=== PATIENT | female | born 1955 | race Caucasian/White ===

== ENCOUNTER → 2017-04-01 | Outpatient (CLI) | payer MEDICAID ==
[~2017-04-01] MED LIST: ASPIRIN 81MG TA81 MG PO; BENADRYL25 M1 PO; BISOPROLOL 5MG T5 MG PO; CIPRO 500MG TA500 MG PO; CLARITIN10 MG PO; DIAZEPAM10 M1 PO; HYDROCODONE1 TABLET PO; LISINOPRIL 10MG10 MG PO; LORTAB 5/500 501 TAB PO; MEDROL 4MG. DOSE4 MG PO; NEXIUM40 MG PO; PREDNISONE 20MG20 MG PO; PREMARIN0.625 MG PO; PROMETHAZINE HC25 M1 PO; SEPTRA DS 800 M1 TAB PO; SIMVASTATIN20 MG PO; STERAPRED DS10 MG PO; SYNTHROID0.112 MG PO; VICODIN 5/500 T1 TAB PO; VITAMIN D31000 IU PO; ZITHROMAX 250M250 MG PO; ZITHROMAX Z PA250 MG PO; ZITHROMAX Z-PA250 M1 PO
[2017-04-01 15:59] LABS: AMPHETAMINES/METAMPHETAMINES NEGATIVE ng/mL (<1000)
== END ==
LOC: LAB 13:58
PROVIDERS: Nurse Practitioner Family
DX: F41.9 Anxiety disorder, unspecified (principal); Z79.899 Other long term (current) drug therapy
CPT/HCPCS: G0480

== ENCOUNTER 2017-07-04 14:44 | Emergency (ER) | payer MEDICAID ==
[~2017-07-04] VITALS: Ht 167.6 cm; Wt 77.1 kg
[~2017-07-04 14:44] MED LIST changes: +LOW DOSE ASPIRI81 MG PO; +MONTELUKAST SOD10 MG PO; +OMEPRAZOLE40 MG PO
[2017-07-04] MEDS ORDERED: BACTRIM DS 8001 TA1 PO (14:59)
--- NOTE | 2017-07-04 15:01 | Emergency Room Report ---
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 N Clinical Suspician of Infection? N Mental Status: 1 - Regular (Normal Baseline) Sepsis Risk:Low Sepsis RiskN Have you (or family members/close friends) recently traveled outside the [place]? N If Yes, where/when: Have you had exposure to infectious disease within the past month? N TB? Other? Specify: I AGREE WITH THE ABOVE HISTORY. SHE APPLIED PRESSURE AND THE BLEEDING STOPED, DENIES FB REMAINING. Source patient, RN notes reviewed, family Exam Limitations no limitations ALLERGIES Coded Allergies: cephalexin (From KEFLEX) (04/02/16) morphine (04/02/16) oxytetracycline (From TERRAMYCIN) (04/02/16) Home Medications Reported Medications LISINOPRIL (Lisinopril) 10 MG PO DAILY ASPIRIN (Aspirin) 81 MG PO DAILY Simvastatin 20 MG PO QHS Levothyroxine Sodium (Synthroid 0.112MG) 0.112 MG PO DAILY Conjugated Estrogens (Premarin) 0.625 MG PO DAILY BISOPROLOL FUMARATE (Bisoprolol 5MG) 5 MG PO DAILY #30 TAB Diazepam 10 MG PO BIDP PRN ANXIETY #60 TAB CHOLECALCIFEROL (VITAMIN D3) (Vitamin D) 1,000 IUNITS PO DAILY Montelukast Sodium 10 MG PO DAILY #30 Omeprazole (Omeprazole 40MG) 40 MG PO DAILY #30 Aspirin (Aspirin EC) 81 MG PO DAILY #30 History Medical History General CAD? No Angina: No MA: No Hypertension? Yes Hyperlipidemia? Yes CHF? No DVT? No PE? No COPD? Yes Asthma? Yes Anemia? No GERD? Yes Gastric ulcers? No GI Bleed? No Hernia? No Thyroid Problems? Yes Hypothyroidism? Yes CVA? No Seizures? No Diabetes? No Insulin Dependent: No Insulin Pump: No Home FSBS? No Renal Insuffiency? No End Stage Renal Disease? No UTI? Yes Stones? No BPH? No GB Disease: Yes Nephritic Syndrome? No Asplenia? No Hepatitis? Yes Sickle Cell Disease? No Arthritis? No Migraines? No Cataracts? No Glaucoma? No MRSA? No HIV? No TB? No Anxiety? Yes Depression? Yes Cancer? No More? No Immunization Hx DT/Tetanus Unknown Flu NEVER Pneumonia NEVER Surgical Hx Previous Surgery?Y GALLBLADDER Tubal Ligation HYSTERECTOMY THYROIDECTOMY LARYNGOSCOPY CARDIAC CATH Family History Family Hx Diabetes Yes CAD No Hypertension No Hyperlipidemia No Cancer Yes TB Yes Social History Smoking Hx Smoker: Current Every Day Smoker Tobacco: Yes Type Cigarettes Alcohol Alcohol: No Review of Systems All Other Systems Reviewed and Negative Constitutional no symptoms reported Eyes no symptoms reported ENT no symptoms reported. Respiratory no symptoms reported Cardiovascular no symptoms reported Gastrointestinal no symptoms reported Genitourinary no symptoms reported. Musculoskeletal no symptoms reported Skin see HPI (SUPERFICIAL LACERATION) Psychiatric/Neurological no symptoms reported Physical Exam Vital Signs Vital Signs Date Time Temp Pulse Resp B/P Pulse O2 O2 Flow FiO2 Ox Delivery Rate 07/04 1452 98.2 71 16 151/70 96 General Appearance normal appearance, WD/WN Eye Exam - bilateral eye normal exam, bilateral eye PERRL, bilateral eye EOMI Neck normal inspection, non-tender, supple, full range of motion Respiratory Status Yes: trachea midline, chest symmetrical, non tender chest. No: respiratory distress. Lung Sounds bilateral: normal breath sounds, lungs clear. 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 No Procedures Laceration/Wound Repair Laceration/Wound Repair Risks/benefits discussed with pt/guardian? Yes Tetanus status up to date Wound Location finger(s) Wound Length (cm) 1 Wound's Depth, Shape superficial, linear Wound Explored no FB identified Risk of retained FB explained to pt/guardian? Yes Wound Prep Other Wound Debrided none Wound Repaired With Steri-strips, Dermabond Layer Closure No Sterile Dressing Applied Yes Splint Applied Yes Sling Applied No Departure Departure Time of Disposition 1457 Disposition DC Home or Self Care(routine) Clinical Impression Primary Impression: Laceration of finger without foreign body without damage to nail Condition STABLE Referrals Rayshawn Matthew (Family) Additional Instructions Under sterile technique I Steri-Strips and Dermabond with good approximation. Keep dry and clean Wound check in 2 days Bactrim DS by mouth twice a day Discharge Counseling Counseled pt/family regarding diagnosis, medications/RX, home care, follow up needs Prescriptions Current Visit Scripts SULFAMETHOXAZOLE W/TRIMETHOPRI (Bactrim Ds Tab) 1 TABLET PO BID #14 TAB ED Critical Care Critical Care No If Critical Care minutes are documented, the time involved in the performance of seperately reportable procedures was not counted toward critical care time documented. I directly delivered medical care to this critically ill and/or injured patient. Timely evaluation and treatment was necessary to address the significant organ system(s) dysfunction present in this patient. at 1500
[2017-07-04 15:06] VITALS: BP 151/70
--- OUTSIDE RECORDS SUMMARY | 2017-07-05 18:00 | External Medical Summary Rpt ---
Author Author , ERASTO MAURER Address Unknown Phone [email or web address] Team Providers Care Supervisor Lead Refinery Name Role Phone ALFARIS MOH, ALFARIS Unavailable Unavailable [facility] Unavailable Unavailable [facility], [facility] ANJUR-KAPALI OMAR, Unavailable Unavailable ANJUR-KAPALI OMAR ANJUR-KAPALI OMAR, Unavailable Unavailable ANJUR-KAPALI OMAR ARNOLD, ARNOLD Unavailable Unavailable ARNOLD, ARNOLD Unavailable Unavailable ARNOLD SUJATA, ARNOLD Unavailable Unavailable SUJATA ARNOLD USJATA, ARNOLD Unavailable Unavailable SUJATA SABINO, ARY W, Unavailable Unavailable VIANCAOLD, ARY W MARIA LUZ BRAGA Unavailable Unavailable BESSON MAX, BESSON Unavailable Unavailable MAX [facility], [facility] ESTEVEZ ALL, ESTEVEZ ALL Unavailable Unavailable MICHELLE BURRIS, Unavailable Unavailable MICHELLE BURRIS GORDON JUANCARLOS, GORDON Unavailable Unavailable JUANCARLOS GORDON JUANCARLOS, GORDON Unavailable Unavailable JUANCARLOS [facility] Unavailable Unavailable [facility], [facility] Unavailable Unavailable [facility], [facility] Unavailable Unavailable LAB, [facility] & Unavailable Unavailable ASTHMA P, [facility] & Unavailable Unavailable ASTHMA P, [facility] Unavailable Unavailable [facility], [facility] JOAO SHEPHERD Unavailable Unavailable JOAO MERRITT, Unavailable Unavailable JOAO MERRITT JOAO MERRITT, Unavailable Unavailable JOAO MERRITT JESSICA SHEPHERD, Unavailable Unavailable OWEN SHEPHERDLAS SHILPI OG, Unavailable Unavailable DOBBINSDEMETRIO DOBBINS OG, Unavailable Unavailable DOBBINS OG [facility] Un[facility] [place], [facility] FALLUJI DORIAN, FALLUJI Unavailable Unavailable DORIAN FALLUJI DORIAN, FALLUJI Unavailable Unavailable DORIAN BRITO, BRITO Unavailable Unavailable JR MICHELLE CORONADO, Unavailable Unavailable CLIFF, ELZ ARIELA LIOR, ARIELA Unavailable Unavailable LIOR ARIELA LIOR, ARIELA Unavailable Unavailable LIOR [facility], Unavailable Unavailable [facility] KRAIG HOLLINGSWORTH MD, Unavailable Unavailable BONNY DAVID MD, Unavailable Unavailable BONNY DUMONT ARNOLD H, Unavailable Unavailable SABINO HOLLIS RITA R, Unavailable Unavailable ANNABEL HOLLIS ROSARIO DENISE, ROSARIO DENISE Unavailable Unavailable HARPEL, HARPEL Unavailable Unavailable HARPEL ASHTYN, HARPEL Unavailable Unavailable ASHTYN HARPEL ASHTYN, HARPEL Unavailable Unavailable ASHTYN HARPEL, KRAIG R, Unavailable Unavailable HARPEL, KRAIG R TI FERNÁNDEZ, Unavailable Unavailable TI FERNÁNDEZ [facility] Un[facility] Unavailable INC, [facility] Unavailable Unavailable H[facility]PITAL P, [facility] P VOGEL, VOGEL Unavailable Unavailable VOGEL, VOGEL Unavailable Unavailable CHAPARRO VOGEL A, Unavailable Unavailable [facility]APARRO VOGEL A [facility] Unavailable Unavailable PCC, [facility], Unavailable Unavailable [facility] HOBDOMENIC MAR, HOBEN MAR Unavailable Unavailable AJ RALPH, Unavailable Unavailable AJ RALPH TOBIAS, BS COLLADO Unavailable Unavailable EDWARDS TRA, EDWARDS TRA Unavailable Unavailable EDWARDS TRA, EDWARDS TRA Unavailable Unavailable LIRA, LIRA Unavailable Unavailable [facility], [facility] Un[facility] Un[facility], [facility] Un[facility], [facility] Unavailable Unavailable HOLDING, [facility] Unavailable Unavailable HOLDINGS, [facility] Unavailable Unavailable [facility]INGS, [facility] Unavailable Unavailable [facility], [facility] Unavailable Unavailable HOLDINGS, [facility], Unavailable Unavailable [facility] [employer] [facility] ALBARADO, ALBARADO Unavailable Unavailable ALBARADO LESLY, ALBARADO Unavailable Unavailable LESLY ALBARADO LESLY, ALBARADO Unavailable Unavailable RONDA MCCALL, Unavailable Unavailable RONDA ALBARADO JR DWI, KAM Unavailable Unavailable JR DWI [facility] Unavailable Unavailable CENTER, [facility] SAMARA AMANDEEP, SAMARA AMANDEEP Unavailable Unavailable JUSTIN SUJATA, JUSTIN Unavailable Unavailable SUJATA [facility], Unavailable Unavailable [facility], Unavailable Unavailable [facility] Unavailable Unavailable SERVICES, [facility] JACK ODALIS, Unavailable Unavailable JACK ODALIS JACK ODALIS, Unavailable Unavailable JACK ODALIS JOE JAM, Unavailable Unavailable DIAZJAK GUTIERREZ JR SHERYL, Unavailable Unavailable MCANGIEMIE SHERYL MATT JOHANSEN KATHERINE Unavailable Unavailable F, MATT JOHANSEN, KATHERINE F GRAHAM GONZALEZ P, Unavailable Unavailable GRAHAM GONZALEZ P [facility] Unavailable Unavailable LOYD TI, LOYD Unavailable Unavailable TI MITCHELL MAT, Unavailable Unavailable MITCHELL MAT MITCHELL MAT, Unavailable Unavailable MITCHELL MAT MITCHELL, AMANDA A, Unavailable Unavailable MITCHELL, AMANDA A FUNG MARICEL, Unavailable Unavailable FUNG MARICEL FUNG MARICEL, Unavailable Unavailable FUNG VICKIE CANNON, Unavailable Unavailable VICKIE FUNG AILYN, MAGALY AILYN Unavailable Unavailable [facility], Unavailable [facility]available [facility], [facility] PETTEY JAM, PETTEY Unavailable Unavailable JAM PETTEY JAM, PETTEY Unavailable Unavailable JAM PICKLESIMER JR ASTER, Unavailable Unavailable PICKLESIMER JR ASTER PICKLESIMER JR ASTER, Unavailable Unavailable PICKLESIMER JR ASTER PUND CHR, PUND CHR Unavailable Unavailable ALEXANDRIA MAX, ALEXANDRIA MAX Unavailable Unavailable ALEXANDRIA MAX, ALEXANDRIA MAX Unavailable Unavailable SCHULSTAD CAM, Unavailable Unavailable SCHULSTAD CAM SCHULSTAD CLIFFORD, Unavailable Unavailable SCHULSTAD CLIFFORD SCIFRES, SCIFRES Unavailable Unavailable SCIFRES, SCIFRES Unavailable Unavailable SCIFRES ANG, SCIFRES Unavailable Unavailable ANG SCIFRES ANG, SCIFRES Unavailable Unavailable ANG SCIFRES, VITALY M, Unavailable Unavailable SCIFRES, VITALY M LEENA, LEENA Unavailable Unavailable LEENA MAT, Unavailable Unavailable LEENA MAT BAIG MONTSERRAT, BAIG MONTSERRAT Unavailable Unavailable [facility] KENDELL CAVANAUGH, Unavailable Unavailable KENDELL CAVANAUGH [facility] Unavailable Unavailable [facility], [facility] [place] URADU JULIANA, [facility]RAD[facility] JULIANA Unavailable Unavailable [facility] Unavailable Unavailable [id number], [id number] BUTLER, BUTLER Unavailable Unavailable BUTLER, BUTLER Unavailable Unavailable [facility] Unavailable Unavailable [facility] Unavailable Unavailable ISAIAH SAUCEDO, ISAIAH SAUCEDO Unavailable Unavailable Oly GARCIA, RADHA, Unavailable Unavailable [facility] Un[facility], Un[facility], Unavailable [facility]available [facility] Purpose Continuity of Care Document - 12-01-2007 through 2016 Problems Code Diagnosis DOS Provider Status [id number] OTHER 05-13-2017 SCIF[facility] SECONDARY CATARACT BILATERAL E785 HYPERLIPIDE 04-22-2017 [facility] CINDY PHYSICIANS UNSPECIFIED GROUP I10 ESSENTIAL 04-22-2017 [facility] PRIMARY PHYSICIANS HYPERTENSIO GROUP N I208 OTHER FORMS 04-22-2017 [facility] OF ANGINA PHYSICIANS PECTORIS GROUP I2510 ASHD [place] 04-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 [facility] CORONARY PHYSICIANS ARTERY W/O GROUP ANGINA PECTORIS H1013 ACUTE 04-08-2017 SC[facility] ATOPIC CONJUNCTIVI TIS BILATERAL O83132 OTHER LONG 04-05-2017 [facility] CURRENT INC DRUG THERAPY D649 ANEMIA 04-02-2017 [facility] UNSPECIFIED PHYSICIANS LA E039 HYPOTHYROID 04-02-2017 [facility] ISM PHYSICIANS UNSPECIFIED LA E559 VITAMIN D 04-02-2017 [facility] DEFICIENCY PHYSICIANS UNSPECIFIED LA H47023 UNSPECIFIED 03-26-2017 [facility] BLEPHARITIS LEFT LOWER EYELID B0052 HERPESVIRAL 03-22-2017 [facility] H179 UNSPECIFIED 03-22-2017 [facility] SCAR AND [facility] OPACITY Z9841 CATARACT 03-22-2017 [place] [facility] STATUS [facility] RIGHT EYE Z9842 CATARACT 03-22-2017 [facility] STATUS LEFT [facility] EYE J0190 ACUTE 03-15-2017 [facility] SINUSITIS UNSPECIFIED N951 MENOPAUSAL 02-18-2017 [facility] CLIMACTERIC INC STATES Z1231 ENCOUNTER 02-18-2017 [facility]AMMO MALIG IMAGING ASS NEOPLASM BREAST O92572 ENCOUNTER 02-15-2017 [facility] DIE WELDER EXAM PHYSICIANS GENERAL RTN GROUP W/O ABNORMAL FIND Z1212 ENCOUNTER 02-15-2017 [facility] SCREENING PHYSICIANS MALIGNANT GROUP NEOPLASM RECTUM I27949 COMBINED 02-02-2017 [facility] FORMS OF AGE-RELATED CATARACT RIGHT EYE H269 UNSPECIFIED 02-02-2017 [facility] PSC Q91354 COMBINED 01-26-2017 [facility] FORMS OF AGE-RELATED CATARACT LEFT EYE T17329 COMBINED 01-14-2017 [facility] FORMS OF AGE-RELATED CATARACT BILATERAL K219 GASTRO-ESOP 01-08-2017 [facility] H REFLUX PHYSICIANS DISEASE GROUP WITHOUT ESOPHAGITIS V31476 OTHER 12-01-2016 [facility] VITREOUS OPACITIES BILATERAL H5203 HYPERMETROP 12-01-2016 [facility] IA BILATERAL P72060 REGULAR 12-01-2016 [facility] ASTIGMATISM BILATERAL I119 HYPERTENSIV 11-17-2016 [facility] DISEASE INC WITHOUT HEART FAILURE I209 ANGINA 11-17-2016 [facility] PECTORIS PHYSICIANS UNSPECIFIED GROUP H409 UNSPECIFIED 11-07-2016 [facility] GLAUCOMA H5213 MYOPIA 11-06-2016 [facility] ANG BILATERAL H524 PRESBYOPIA 11-06-2016 [facility] ANG H6690 OTITIS 10-24-2016 [facility] SUJATA MEDIA UNSPECIFIED UNSPECIFIED EAR K209 ESOPHAGITIS 10-19-2016 [facility] PHYSICIANS UNSPECIFIED GROUP K210 GASTRO-ESOP 10-19-2016 [facility] HAGEAL PHYSICIANS REFLUX GROUP DISEASE W/ ESOPHAGITIS K449 DIAPHRAGMAT 10-19-2016 [facility] IC HERNIA PHYSICIANS W/O GROUP OBSTRUCTION OR GANGRENE J449 CHRONIC 10-03-2016 [facility] DISEASE UNS R0789 OTHER CHEST 10-03-2016 [facility] R079 CHEST PAIN 10-03-2016 [facility] UNSPECIFIED [facility]ICIANS, PLLC R0602 SHORTNESS 09-22-2016 [facility] OF BREATH PHYSICIANS GROUP R9439 ABNORMAL 09-16-2016 [facility] RESULT OTH PHYSICIANS CARDIOVASCU GROUP LR FUNCTION STUDY Z8249 FAMILY HX 09-15-2016 [facility] ISCHEMIC PHYSICIANS HRT DZ OTH GROUP DZ CIRC SYSTEM J069 ACUTE UPPER 08-24-2016 [facility] SUJATA RESPIRATORY INFECTION UNSPECIFIED D497 NEOPLASM OF 07-10-2016 [facility] UNS BHV PHYSICIANS ENDOCRN GROUP GLAND & OTH PART NS E038 OTHER 07-08-2016 [facility] SPECIFIED PHYSICIANS HYPOTHYROID LA ISM R0600 DYSPNEA 06-17-2016 [facility] [place]ING ASS R5383 OTHER 06-17-2016 [facility] P H6010 CELLULITIS 05-28-2016 [facility] SUJAAT OF EXTERNAL EAR UNSPECIFIED EAR R599 ENLARGED 04-17-2016 [facility] LYMPH NODES [facility]YSICIANS, PLLC UNSPECIFIED R42 DIZZINESS 04-08-2016 [facility] AND PHYSICIANS GIDDINESS GROUP H8109 MENIERES 04-03-2016 [facility] SUJATA DISEASE UNSPECIFIED EAR R1310 DYSPHAGIA 03-26-2016 [facility] UNSPECIFIED PHYSICIANS GROUP I15873 HORMONE 01-31-2016 KRAIG HOLLINGSWORTH MD THERAPY POSTMENOPAU STEVIE U29669 UNSPECIFIED 01-10-2016 [facility] PHYSICIANS OBSTRUCTION GROUP EUSTACHIAN TUBE UNS EAR J309 ALLERGIC 01-10-2016 [facility] RHINITIS PHYSICIANS UNSPECIFIED GROUP J329 CHRONIC 01-10-2016 [facility] SINUSITIS PHYSICIANS UNSPECIFIED GROUP T83323 DIFFUSE 11-13-2015 [facility] SUJATA OTITIS EXTERNA UNSPECIFIED EAR K5790 DIVERTICULO 10-31-2015 [facility] SIS PART PHYSICIANS UNS W/O GROUP PERF/ABSC W/O BLEED K5900 CONSTIPATIO 10-31-2015 [facility] N PHYSICIANS UNSPECIFIED GROUP R1032 LEFT LOWER 10-31-2015 [facility] QUADRANT PHYSICIANS PAIN GROUP Z1211 ENCOUNTER 10-22-2015 [facility] SCREENING PHYSICIANS MALIGNANT GROUP NEOPLASM OF COLON H6503 ACUTE 10-15-2015 [facility] SEROUS PHYSICIANS, OTITIS PLLC MEDIA BILATERAL Z18326 PAIN IN 10-07-2015 [facility] I739 PERIPHERAL 09-18-2015 [facility] [place] VASCULAR MEDICAL DISEASE IMAGING ASS UNSPECIFIED Z55664 PAIN IN 09-18-2015 [facility] [place] RIGHT LEG MEDICAL IMAGING ASS A54013 PAIN IN 09-18-2015 [facility] [place] LEFT LEG MEDICAL IMAGING ASS R252 CRAMP AND 09-18-2015 [facility] INC 4619 ACUTE 08-07-2015 [facility] SUJATA SINUSITIS, UNSPECIFIED 4659 ACUTE URIS 07-12-2015 [facility] SUJATA OF UNSPECIFIED SITE 78882 SPASM OF 06-25-2015 [facility] SUJATA MUSCLE 07570 ASTHMA, 06-10-2015 [facility] UNSPECIFIED HEALTH , MEDICAL G UNSPECIFIED STATUS 7851 PALPITATION 06-10-2015 [facility] MEDICAL G 2724 OTHER AND 05-27-2015 COM[facility] UNSPECIFIED PHYSICIANS LA HYPERLIPIDE CINDY 4019 UNSPECIFIED 05-23-2015 [facility] P N 54636 OTHER 05-23-2015 [facility] P RESPIRATORY ABNORMALITI ES 2449 UNSPECIFIED 05-06-2015 [facility] HYPOTHYROID MEDICAL G ISM 496 CHRONIC 04-17-2015 [facility] OBSTRUCTION INC NEC 00855 MASTODYNIA 04-17-2015 [facility] 70818 CHEST PAIN 04-17-2015 [facility] [place] [facility]NSPECIFIED [facility]ICAL IMAGING ASS 4739 UNSPECIFIED 04-11-2015 [facility] SINUSITIS PHYSICIANS GROUP 4779 ALLERGIC 04-11-2015 [facility] RHINITIS PHYSICIANS CAUSE GROUP UNSPECIFIED 7847 EPISTAXIS 04-10-2015 COM[facility] PHYSICIANS LA 7906 OTHER 03-07-2015 LAB [facility] ABNORMAL [facility] BLOOD [facility]INGS CHEMISTRY 39008 DISORDER OF 02-05-2015 [facility] [place] BONE AND MEDICAL CARTILAGE IMAGING ASS UNSPECIFIED 14713 UNSPECIFIED 02-05-2015 [facility] ABNORMAL [facility] MAMMOGRAM INC V7612 OTHER 02-05-2015 [facility] [place] SCREENING MEDICAL MAMMOGRAM IMAGING ASS 4730 CHRONIC 02-02-2015 [facility] LESLY MAXILLARY SINUSITIS 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-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 6272 SYMPTOMATIC 01-29-2015 KRAIG HOLLINGSWORTH MD MENOPAUSAL/ FEMALE CLIMACTERIC STATES V7231 ROUTINE 01-29-2015 KRAIG Van GYNECOLOGIC EDEL MCKENNA AL EXAMINATION V7641 SCREENING 01-29-2015 KRAIG Van FOR EDEL MCKENNA MALIGNANT NEOPLASM OF THE RECTUM 37255 OPEN WOUND 01-06-2015 [facility] P MENTION COMPLICATIO N 3829 UNSPECIFIED 01-02-2015 [facility] P V148 PERSONAL 01-02-2015 [facility] ALLERGY [facility] P SPEC MEDICINAL AGTS 5368 DYSPEPSIA&O 11-26-2014 [facility] THER SPEC PHYSICIANS DISORDERS LA FUNCTION STOMACH 76427 ABDOMINAL 11-26-2014 [facility] PA[place] [address] UNSPECIFIED 11-23-2014 [facility] ERNST VIRAL INFECTION IN CCE & UNS SITE 36476 OTHER ACUTE 11-13-2014 [facility] PAIN PHYSICIANS GROUP 7020 ACTINIC 11-13-2014 [facility] KERATOSIS PHYSICIANS GROUP 39742 NUCLEAR 11-09-2014 [facility] ANG SCLEROSIS 3674 PRESBYOPIA 11-09-2014 SC[facility] ANG 11328 OSTEOARTHRO 11-09-2014 [facility] ERNST S INVLV MX SITES BUT NOT SPEC GEN 2382 NEOPLASM OF 11-01-2014 [facility] UNCERTAIN PHYSICIANS BEHAVIOR OF GROUP SKIN 21287 OTHER SIGN 09-26-2014 [facility] SYMPTOM [facility] IN BREAST INC 11611 OTHER 09-26-2014 [place] SPECIFIED MEDICAL DISORDERS IMAGING ASS OF BREAST 00308 SHORTNESS 08-24-2014 [facility] OF BREATH MEDICAL IMAGING ASS 87401 UNSPECIFIED 07-26-2014 [facility] ERNST INFECTIVE OTITIS EXTERNA 48121 PRECORDIAL 07-16-2014 ANJUR-KAPAL PAIN I OMAR 4011 ESSENTIAL 06-14-2014 [facility] ERNST HYPERTENSIO N, BENIGN 46045 COR 06-14-2014 [facility] ERNST ATHEROSLERO UNSPEC TYPE VESSEL SP[place]/SIGIFREDO T 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 7231 CERVICALGIA 05-08-2014 [facility] ERNST 2459 UNSPECIFIED 05-07-2014 [facility] LESLY THYROIDITIS 53700 DYSPHAGIA 05-07-2014 [facility] LESLY UNSPECIFIED 2409 GOITER, 05-01-2014 [facility] UNSPECIFIED [facility] HOS[facility] INC 77087 OTHER 05-01-2014 JOAO SYMPTOMS MERRITT INVOLVING HEAD AND NECK V5869 LONG-TERM 04-30-2014 COMBINED (CURRENT) PHYSICIANS USE OF LA OTHER MEDICATIONS 70026 UNSPECIFIED 04-25-2014 [facility] ERNST MENIERES DISEASE 29784 GENERALIZED 02-28-2014 [facility] PAIN MERRITT 7937 NONSPC ABN 02-28-2014 JO[facility] FINDNG RAD MERRITT & OTH EXM MUSCULSKELT L SYS 96935 CONTUSION 02-28-2014 ALEXANDRIA MAX OF WRIST 9599 INJURY 02-28-2014 JOAO OTHER AND MERRITT UNSPECIFIED UNSPECIFIED SITE E9179 OTHER 02-28-2014 [facility] MAX STRIKING AGAINST W/WO SUBSEQUENT FALL 05538 ESOPHAGEAL 01-25-2014 [facility] ERNST REFLUX 18956 INSOMNIA 01-25-2014 [facility] ERNST UNSPECIFIED V074 HORMONE 01-24-2014 JOAO REPLACEMENT MERRITT THERAPY V4981 ASYMPTOMATI 01-24-2014 JOAO C MERRITT POSTMENOPAU STEVIE STATUS V8281 SPECIAL 01-24-2014 [facility] SCREENING [facility] FOR INC OSTEOPOROSI S 4719 UNSPECIFIED 12-18-2013 [facility] LESLY NASAL POLYP 5589 OTH&UNSPEC 12-11-2013 [facility] NONINFECTIO [facility] US INC GASTROENTER ITIS&COLITI S 47967 NAUSEA WITH 12-11-2013 ARIELA LIOR VOMITING 4660 ACUTE 11-28-2013 [facility] ERNST BRONCHITIS 39839 OTHER 08-23-2013 [facility] TENOSYNOVIT MAT IS OF HAND AND WRIST 7295 PAIN IN 08-23-2013 [facility] SOFT MAT TISSUES OF LIMB 3814 NONSUPPRATV 08-20-2013 [facility] OTITIS [facility] MEDIA NOT INC SPEC ACUT/CHRON 4770 ALLERGIC 08-20-2013 [facility] RHINITIS [facility] DUE TO INC POLLEN 7840 HEADACHE 08-07-2013 [facility] ERNST 9895 TOXIC 08-06-2013 [facility] WORRELL EFFECT OF VENOM 9953 ALLERGY 08-06-2013 [facility] WORRELL UNSPECIFIED NOT ELSEWHERE CLASSIFIED 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 66793 UNSPECIFIED 07-27-2013 [facility] OF [facility] ARTHROPATHY HOLDINGS MULTIPLE SITES 61986 OTHER&UNSPE 07-26-2013 [facility] CIFIED DISC MAT DISORDER CERVICAL REGION 45840 OSTEOARTHRO 05-19-2013 [facility] SIS UNSPEC MERRITT WHETHER GEN/LOCALIZ ED HAND 7823 EDEMA 05-19-2013 [facility] INC 52620 ACUTE 04-20-2013 [facility] LARYNGITIS, [facility] WITHOUT INC MENTION OF OBSTRUCTIO 4785 OTHER 04-20-2013 PICK[facility] DISEASES OF JR ASTER VOCAL CORDS 00383 DYSPHONIA 04-20-2013 [facility] INC 22379 OTHER VOICE 04-20-2013 [facility] OF RESONANCE THE BLUE DISORDERS V7284 UNSPECIFIED 04-17-2013 COMBINED PHYSICIANS PRE-OPERATI LA VE EXAMINATION 6929 CONTACT 01-26-2013 [facility] ERNST DERMATITIS& OTHER ECZEMA DUE UNSPEC CAUSE 4778 ALLERGIC 01-23-2013 JACK RHINITIS ODALIS DUE TO OTHER ALLERGEN 21410 EXTRINSIC 01-23-2013 JACK ASTHMA, ODALIS UNSPECIFIED V163 FAMILY 01-23-2013 JO[facility] HISTORY OF MERRITT MALIGNANT NEOPLASM OF BREAST 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 72559 PAIN IN 12-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 JAM JOINT PELVIC REGION AND THIGH 06729 PLICA 12-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 JAM SYNDROME 75684 UNSPECIFIED 10-10-2012 [facility] LESLY ACUTE NONSUPPURAT ANTHONY OTITIS MEDIA 462 ACUTE 10-10-2012 [facility] ERNST PHARYNGITIS V720 EXAMINATION 09-01-2012 [facility] OF EYES GRE AND VISION 7245 UNSPECIFIED 08-24-2012 [facility] ERNST BACKACHE 2722 MIXED 08-04-2012 FALLUJI DORIAN HYPERLIPIDE CINDY 4772 ALLERGIC 07-21-2012 JACK RHINITIS ODALIS DUE TO ANIMAL HAIR AND DANDER 9392 FOREIGN 06-13-2012 GORDON JUANCARLOS BODY IN VULVA AND VAGINA 45260 UNSPECIFIED 06-09-2012 HARPEL ASHTYN VAGINITIS AND VULVOVAGINI TIS 1119 UNSPECIFIED 05-17-2012 [facility] ERNST DERMATOMYCO SIS 49429 CHRONIC 05-13-2012 [facility] UNSPECIFIED 7080 ALLERGIC 02-17-2012 [facility] URTICARIA [facility] INC 51023 EXTRINSIC 02-02-2012 [facility], ALLERGY & WITH ASTHMA P EXACERBATIO N 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 FUNG HEREDIT&IDI MARICEL OPATHIC PERIPHERAL NEUROPATHY 47744 DIAB W/O 01-07-2012 LAB [facility] COMP TYPE AMERIC II/UNS NOT HOLDINGS STATED UNCNTRL 66303 OTHER 01-07-2012 [facility] [place] [address] ASTHMA 12-30-2011 [facility] ERNST UNSPECIFIED WITH STATUS ASTHMATICUS 4780 HYPERTROPHY 10-12-2011 JACK OF NASAL ODALIS TURBINATES V727 DIAGNOSTIC 10-12-2011 JACK SKIN AND ODALIS SENSITIZATI ON TESTS 7238 OTHER 09-29-2011 [facility] SYNDROMES [facility] AFFECTING INC CERVICAL REGION V571 OTHER 09-29-2011 [facility] PHYSICAL [facility] THERAPY INC 7820 DISTURBANCE 09-15-2011 FUNG OF SKIN MARICEL SENSATION 4760 CHRONIC 08-31-2011 [facility] LESLY LARYNGITIS 88513 OBESITY, 08-26-2011 [place] [facility] U[facility]PECIF[facility] SERV [facility] 36964 HYPERSOMNIA 08-26-2011 [place] [facility] UNSPECIFIED F[facility]ATIO 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 08-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 [facility] ASSO OG W/SLEEP STGES/AROUS AL FRM SLEEP 48031 OBSTRUCTIVE 08-11-2011 [facility] SLEEP [facility] APNEA INC 36372 ACUTE 08-06-2011 [facility] GASTRITIS EMERGENCY WITHOUT SERVICES MENTION OF HEMORRHAGE 3670 HYPERMETROP 07-22-2011 [facility] GRE 7234 BRACHIAL 04-14-2011 [facility] NEURITIS OR [facility] INC RADICULITIS NOS 7244 THORACIC/ASH 04-14-2011 [facility] MBOSACRAL [facility] NEURITIS/RA INC DICULITIS UNSPEC 6829 CELLULITIS 03-19-2011 [facility] ERNST AND ABSCESS OF UNSPECIFIED SITE 9114 TRNK INSECT 03-19-2011 [facility] BITE EMERGENCY NONVENOMOUS SERVICES WITHOUT MENTION INF 7242 LUMBAGO 03-13-2011 [facility] 3558 UNSPECIFIED 03-06-2011 [facility] SUJATA MONONEURITI S OF LOWER LIMB 6826 CELLULITIS 01-18-2011 [facility] OF LEG INC EXCEPT FOOT 94411 PAIN IN 12-27-2010 [facility] ERNST JOINT, SHOULDER REGION 40669 OBSTRUCTIVE 10-08-2010 [place] [facility] BRONCH[facility]IS FOUNDATIO WITHOUT EXACERBAT 56687 MORBID 09-10-2010 [place] [facility] 7862 COUGH 09-10-2010 [facility] 12626 OBSTRUCTIVE 09-01-2010 [facility] BRONCHITIS INC WITH EXACERBATIO N 21274 PAINFUL 07-04-2010 [facility] [place] [facility] 7140 RHEUMATOID 07-03-2010 [facility] 8409 SPRAIN&STRA 06-13-2010 [facility] IN UNSPEC ARY W SITE SHOULDER&UP PER ARM 226 BENIGN 05-22-2010 [facility] NEOPLASM OF RONDA Norris THYROID GLANDS 11488 LOC 04-18-2010 [place] [facility] OSTEOARTHRO AND HAND S NOT SPEC SURGEONS WHETHER PSC PRIM/SEC HAND 43321 LOC 04-18-2010 [place] [facility] OSTEO[facility]TH[facility] AND HAND S NOT SPEC SURGEONS PRIM/SEC PSC ANK&FOOT 54194 PAIN IN 03-07-2010 [place] [facility] 01442 PAIN IN 02-07-2010 [place] [facility], HAND AND HAND SURGEONS PSC 31969 SWELLING OF 02-07-2010 [facility] [place] [facility] 2859 UNSPECIFIED 01-27-2010 [facility] PCC 65914 DEGEN 01-20-2010 [place] 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 7393 NONALLOPATH 01-20-2010 [place] IC LESION FAMILY OF LUMBAR CHIROPRACTI REGION NEC C 7395 NONALLOPATH 01-20-2010 [place] [facility] FAMILY OF PELVIC CHIROPRACTI REGION NEC C V173 FAMILY 01-10-2010 [facility] HEART PROF SERV DISEASE 64289 ENTHESOPATH 12-10-2009 [facility] Y OF ARY W UNSPECIFIED SITE 7210 CERVICAL 10-08-2009 BURRIS, SPONDYLOSIS MICHELLE WITHOUT MYELOPATHY 09723 SPONDYLOSIS 10-08-2009 [facility], UNSPEC MICHELLE SITE W/O MENTION MYELOPATHY 2452 CHRONIC 06-24-2009 [facility] LYMPHOCYTIC RONDA G THYROIDITIS V7388 SPECIAL SCR 01-08-2009 [facility] [place] [facility] EXAMINATION OTH SPEC CHLAMYDIAL DZ V745 SCREENING 01-08-2009 [facility] EXAMINATION [facility] V780 SCREENING 01-08-2009 [facility] MCGARRY IRON EDEL MCKENNA DEFICIENCY ANEMIA 5999 UNSPECIFIED 10-26-2008 [facility] GALLO OF URETHRA&URI NARY TRACT 98592 ABDOMINAL 10-26-2008 [facility] OTHER NATIONAL SPECIFIED CORPORATION SITE 4439 UNSPECIFIED 09-27-2008 [facility] [id number] SIALOADENIT 09-13-2008 VERENA IS RONDA Myrna 2893 LYMPHADENIT 09-10-2008 [facility] ETHAN ARY [place] UNSPECIFIED EXCEPT [facility]ENTER[facility] 683 ACUTE 09-09-2008 [facility] 7842 SWELLING 09-09-2008 [facility] HEAD [facility] NEC[facility] 3542 LESION OF 08-24-2008 [facility] ULNAR NERVE [facility] HAND SURGEONS PSC [id number] UNSPECIFIED 08-02-2008 ARY GALLO CONJUNCTIVI TIS 3540 CARPAL 07-06-2008 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[facility] HAND SYNDROME SURGEONS PSC [id number] LUMP OR 01-25-2008 [facility] 4610 ACUTE 12-29-2007 GENOVEVA ALBARADO SINUSITIS V762 SCREENING 12-13-2007 [facility] MALIGNANT NEOPLASM OF THE CERVIX [id number] VITREOUS 12-09-2007 JOSHUA VOGEL A N 611.72 K21.9 GASTRO-ESOP HAGEAL REFLUX DISEASE WITHOUT ESOPHAGITIS N64.4 MASTODYNIA R07.89 OTHER CHEST PAIN R07.9 CHEST PAIN, UNSPECIFIED R42 DIZZINESS AND GIDDINESS S00.93XA CONTUSION OF UNSPECIFIED PART OF HEAD, INITIAL ENCOUNTER S60.211A CONTUSION OF RIGHT WRIST, INITIAL ENCOUNTER S61.219A LACERATION W/O FB OF UNSP FINGER W/O DAMAGE TO NAIL, INIT T14.8 OTHER INJURY OF UNSPECIFIED BODY REGION Allergies, Adverse Reactions, Alerts Type Drug Allergy Adverse Reaction to Substance Substance Reaction Severity Cephalexin "OUT OF IT" Unknown Oxytetracycline NA-NAUSEA/VOMITING Unknown Codeine "OUT OF IT" Intermediate Morphine S-DIFF. BREATHING Unknown Polymyxin B NA-NAUSEA/VOMITING Unknown Clinical Alert Notifications Alert Asthma: no influenza vaccine in the last 365 days Medications Na ND Rx Da Fi Fi Am Da Di Ph RX Ph St me C No te ll ll ou ys ag ar # ys at rm s nt no ma ic us Or Da si cy ia de te s n re d AL 00 07 08 30 30 00 EA Ac EM 04 -0 -[address] ti AR 61 3- 4- 00 00 SI ve IN 10 20 20 48 DE 28 17 17 03 0. 1 34 PH 62 AR 5 MA MG CY TA OF BL CY ET NT HI AN A IN C LI 00 07 08 30 30 00 EA Ac SI 18 -0 -[address] ti NO 50 3- 4- 00 00 SI ve AL 61 20 20 49 DE IL 01 17 17 01 0 63 PH 10 AR MA MG CY TA OF BL CY ET NT HI AN A IN C LE 00 07 08 30 24 00 EA Ac VO 37 -0 -[address] ti TH 81 3- 4- 00 00 SI ve YR 81 20 20 48 DE OX 17 17 17 61 IN 7 66 PH E AR 11 MA 2 CY MC G OF TA CY BL NT ET HI AN A IN C SI 16 07 08 30 30 00 EA Ac MV 71 -0 -[address] ti 40 3- 4- 00 00 SI ve TA 68 20 20 48 DE TI 30 17 17 61 N 3 68 PH 20 AR MA MG CY TA OF BL CY ET NT HI AN A IN C 00 07 08 30 30 00 EA Ac PI 60 -0 -[address] ti RI 30 3- 4- 00 00 SI ve N 02 20 20 48 DE EC 62 17 17 61 2 78 PH 81 AR MA MG CY TA OF BL CY ET NT HI AN A IN C OM 62 07 08 30 30 00 EA Ac EP 17 -0 -[address] ti RA 50 3- 4- 00 00 SI ve ZO 13 20 20 48 DE LE 64 17 [address] AR MA 40 CY MG OF CY CA NT PS HI UL AN E A IN C IS 13 06 07 30 30 00 EA Ac OS 66 -1 -[address] ti OR 80 6- 1- 00 00 SI ve BI 10 20 20 48 DE DE 40 17 17 75 1 15 PH MN AR MA ER CY 30 OF CY MG NT HI TA AN BL A ET IN C BI 00 06 07 30 30 00 EA Ac SO 18 -1 -[address] ti AL 50 4- 4- 00 00 SI ve OL 77 20 20 48 DE OL 43 17 17 61 0 67 PH FU AR MA MA RA CY TE OF 10 CY NT MG HI AN TA A B IN C DI 00 06 07 60 30 00 EA Ac AZ 17 -1 -[address] ti EP 23 4- 4- 00 00 SI ve AM 92 20 20 49 DE 5 67 17 17 12 0 78 PH MG AR MA TA CY BL ET OF CY NT HI AN A IN C AL 00 06 07 30 30 00 EA Ac EM 04 -0 -[address] ti AR 61 2- 7- 00 00 SI ve IN 10 20 20 48 DE 28 17 17 03 0. 1 34 PH 62 AR 5 MA MG CY TA OF BL CY ET NT HI AN A IN C 00 06 07 30 30 00 EA Ac PI 60 -0 -[address] ti RI 30 2- 7- 00 00 SI ve N 02 20 20 48 DE EC 62 17 17 61 2 78 PH 81 AR MA MG CY TA OF BL CY ET NT HI AN A IN C OM 62 06 07 30 30 00 EA Ac EP 17 -0 -[address] ti RA 50 2- 7- 00 00 SI ve ZO 13 20 20 48 DE LE 64 17 17 [address] AR MA 40 CY MG OF CY CA NT PS HI UL AN E A IN C SI 16 06 07 30 30 00 EA Ac MV 71 -0 -[address] ti 40 2- 7- 00 00 SI ve TA 68 20 20 48 DE TI 30 17 17 61 N 3 68 PH 20 AR MA MG CY TA OF BL CY ET NT HI AN A IN C MO 60 06 07 30 30 00 EA Ac NT 50 -0 -[address] ti EL 53 2- 7- 00 00 SI ve UK 56 20 20 48 DE 20 17 17 98 T 8 62 PH SO AR D MA 10 CY MG OF CY TA NT BL HI ET AN A IN C SM 49 06 07 30 30 00 EA Ac 34 -0 -[address] ti 80 2- 7- 00 00 SI ve TA 87 20 20 48 DE MO 41 17 17 98 N 0 63 PH D3 AR MA 1, CY 00 0 OF UN CY IT NT HI TA AN B A IN C NA 53 06 07 60 30 00 EA Ac AL 74 -0 -[address] ti OX 60 2- 7- 00 00 SI ve EN 19 20 20 48 DE 01 17 17 98 50 0 64 PH 0 AR MG MA CY TA BL OF ET CY NT HI AN A IN C VE 00 06 07 18 25 00 EA Ac NT 17 -0 -[address] ti OL 30 2- 7- 00 00 SI ve IN 68 20 20 48 DE 22 17 17 98 HF 0 65 PH A AR 90 MA CY MC G OF IN CY MAHMOOD NT LE HI R AN A IN C LE 00 06 07 30 30 00 EA Ac VO 37 -0 -[address] ti TH 81 4- 7- 00 00 SI ve YR 81 20 20 48 DE OX 17 17 17 61 IN 7 66 PH E AR 11 MA 2 CY MC G OF TA CY BL NT ET HI AN A IN C LI 00 06 07 30 30 00 EA Ac SI 18 -0 -[address] ti NO 50 5- 7- 00 00 SI ve AL 61 20 20 49 DE IL 01 17 17 01 0 63 PH 10 AR MA MG CY TA OF BL CY ET NT HI AN A IN C DI 00 05 06 28 14 00 EA Ac AZ 17 -3 -[address] ti EP 23 1- 0- 00 00 SI ve AM 92 20 20 48 DE 5 67 17 17 95 0 94 PH MG AR MA TA CY BL ET OF CY NT HI AN A IN C BI 00 05 06 30 30 00 EA Ac SO 18 -1 -[address] ti AL 50 5- 6- 00 00 SI ve OL 77 20 20 48 DE OL 43 17 17 61 0 67 PH FU AR MA MA RA CY TE OF 10 CY NT MG HI AN TA A B IN C IS 62 05 06 30 30 00 EA Ac OS 17 -1 -[address] ti OR 50 5- 6- 00 00 SI ve BI 12 20 20 48 DE DE 83 17 17 75 7 15 PH MN AR MA ER CY 30 OF CY MG NT HI TA AN BL A ET IN C EP 70 05 06 5. 20 00 EA Ac IN 06 -1 -[address] ti 90 1- 6- 0 00 SI ve TI 00 20 20 48 DE NE 80 17 17 71 1 55 PH HC AR L MA 0. CY 05 % OF EY CY E NT DR HI OP AN S A IN C AL 00 05 06 30 30 00 EA Ac EM 04 -0 -[address] ti AR 61 4- 9- 00 00 SI ve IN 10 20 20 48 DE 28 17 17 03 0. 1 34 PH 62 AR 5 MA MG CY TA OF BL CY ET NT HI AN A IN C VE 00 05 06 18 25 00 EA Ac NT 17 -0 -[address] ti OL 30 4- 9- 00 00 SI ve IN 68 20 20 48 DE 22 17 17 61 HF 0 64 PH A AR 90 MA CY MC G OF IN CY MAHMOOD NT LE HI R AN A IN C LE 00 05 06 30 30 00 EA Ac VO 37 -0 -[address] ti TH 81 4- 9- 00 00 SI ve YR 81 20 20 48 DE OX 17 17 17 61 IN 7 66 PH E AR 11 MA 2 CY MC G OF TA CY BL NT ET HI AN A IN C SI 16 05 06 30 30 00 EA Ac MV 71 -0 -[address] ti 40 4- 9- 00 SI ve TA 68 20 20 48 DE TI 30 17 17 61 N 3 68 PH 20 AR MA MG CY TA OF BL CY ET NT HI AN A IN C NA 53 05 06 60 30 00 EA Ac AL 74 -0 -[address] ti OX 60 4- 9- 00 SI ve EN 19 20 20 48 DE 01 17 17 61 50 0 71 PH 0 AR MG MA CY TA BL OF ET CY NT HI AN A IN C MO 60 05 30 30 00 EA Ac NT 50 -0 -[address] ti EL 53 4- 9- 00 00 SI ve [place] 56 20 20 48 DE 20 17 17 61 T 8 75 PH SO AR D MA 10 CY MG OF CY TA NT BL HI ET AN A IN C SM 49 05 30 30 00 EA Ac 34 -0 -[address] ti 80 4- 9- 00 00 SI ve TA 87 20 20 48 DE MO 41 17 17 61 N 0 76 PH D3 AR MA 1, CY 00 0 OF UN CY IT NT HI TA AN B A IN C OM 62 05 06 30 30 00 EA Ac EP 17 -0 -[address] ti RA 50 4- 9- 00 00 SI ve ZO 13 20 20 48 DE LE 64 17 [address] AR MA 40 CY MG OF CY CA NT PS HI UL AN E A IN C 00 05 06 30 30 00 EA Ac PI 60 -0 -[address] ti RI 30 4- 9- 00 00 SI ve N 02 20 20 48 DE EC 62 17 17 61 2 78 PH 81 AR MA MG CY TA OF BL CY ET NT HI AN A IN C CE 16 04 05 30 30 00 EA Ac TI 71 -1 -[address] ti RI 40 7- 9- 00 00 SI ve ZI 27 20 20 48 DE NE 10 17 17 38 3 95 PH HC AR L MA 10 CY MG OF CY TA NT BL HI ET AN A IN C FL 60 04 05 16 30 00 EA Ac UT 43 -1 -[address] ti IC 20 7- 9- 00 00 SI ve 26 20 20 48 DE ON 41 17 17 38 E 5 96 PH AL AR OP MA CY 50 OF MC CY G NT SP HI RA AN Y A IN C ER 00 04 05 3. 10 00 EA Ac YT 57 -1 -[address] ti HR 44 7- 9- 0 00 SI ve OM 02 20 20 48 DE YC 43 17 17 38 IN 5 97 PH AR 0. MA 5% CY EY OF E CY OI NT NT HI ME AN NT A IN C DI 00 04 05 60 30 00 EA Ac AZ 17 -1 -[address] ti EP 23 9- 9- 00 00 SI ve AM 92 20 20 47 DE 77 17 17 79 10 0 68 PH AR MG MA CY TA BL OF ET CY NT HI AN A IN C IS 13 04 05 30 30 00 EA Ac OS 66 -1 -[address] ti OR 80 2- 2- 00 00 SI ve BI 10 20 20 45 DE DE 40 17 17 86 1 49 PH MN AR MA ER CY 30 OF CY MG NT HI TA AN BL A ET IN C HM 62 04 05 5. 30 00 EA Ac 01 -0 -[address] ti EY 10 7- 2- 0 00 SI ve E 23 20 20 48 DE IT 20 17 17 28 CH 1 70 PH AR RE MA LI CY EF OF 0. CY 02 NT 5% HI AN DR A OP IN C BI 00 04 05 30 30 00 EA Ac SO 18 -1 -[address] ti AL 50 2- 2- 00 00 SI ve OL 77 20 20 46 DE OL 43 17 17 95 0 53 PH FU AR MA MA RA CY TE OF 10 CY NT MG HI AN TA A B IN C SI 16 04 05 30 30 00 EA Ac MV 71 -0 -[address] ti 40 4- 5- 00 00 SI ve TA 68 20 20 47 DE TI 30 17 17 86 N 3 23 PH 20 AR MA MG CY TA OF BL CY ET NT HI AN A IN C LE 00 04 05 30 30 00 EA Ac VO 37 -0 -[address] ti TH 81 4- 5- 00 00 SI ve YR 81 20 20 45 DE OX 17 17 17 43 IN 7 50 PH E AR 11 MA 2 CY MC G OF TA CY BL NT ET HI AN A IN C AL 00 04 05 30 30 00 EA Ac EM 04 -0 -[address] ti AR 61 4- 5- 00 00 SI ve IN 10 20 20 46 DE 28 17 17 38 0. 1 05 PH 62 AR 5 MA MG CY TA OF BL CY ET NT HI AN A IN C LI 00 04 05 30 30 00 EA Ac SI 18 -0 -[address] ti NO 50 4- 5- 00 00 SI ve AL 61 20 20 43 DE IL 01 17 17 97 0 43 PH 10 AR MA MG CY TA OF BL CY ET NT HI AN A IN C BI 00 03 04 30 30 00 EA Ac SO 18 -1 -[address] ti AL 50 6- 1- 00 00 SI ve OL 77 20 20 46 DE OL 43 17 17 95 0 53 PH FU AR MA MA RA CY TE OF 10 CY NT MG HI AN TA A B IN C NE 00 03 04 28 28 00 EA Ac XI 57 -1 -[address] ti UM 32 6- 1- 00 00 SI ve 45 20 20 47 DE 24 02 17 17 22 HR 8 91 PH AR 22 MA .3 CY MG OF CY CA NT PS HI UL AN E A IN C DI 00 03 04 60 30 00 EA Ac AZ 17 -1 -[address] ti EP 23 8- 1- 00 00 SI ve AM 92 20 20 47 DE 77 17 17 79 10 0 68 PH AR MG MA CY TA BL OF ET CY NT HI AN A IN C IS 13 03 04 30 30 00 EA Ac OS 66 -1 -[address] ti OR 80 6- 1- 00 00 SI ve BI 10 20 20 45 DE DE 40 17 17 86 1 49 PH MN AR MA ER CY 30 OF CY MG NT HI TA AN BL A ET IN C LE 00 03 04 30 30 00 EA Ac VO 37 -0 -[address] ti TH 81 6- 7- 00 00 SI ve YR 81 20 20 45 DE OX 17 17 17 43 IN 7 50 PH E AR 11 MA 2 CY MC G OF TA CY BL NT ET HI AN A IN C AL 00 03 04 30 30 00 EA Ac EM 04 -0 -[address] ti AR 61 6- 7- 00 00 SI ve IN 10 20 20 46 DE 28 17 17 38 0. 1 05 PH 62 AR 5 MA MG CY TA OF BL CY ET NT HI AN A IN C LI 00 03 04 30 30 00 EA Ac SI 18 -0 -[address] ti NO 50 6- 7- 00 00 SI ve AL 61 20 20 43 DE IL 01 17 17 97 0 43 PH 10 AR MA MG CY TA OF BL CY ET NT HI AN A IN C SI 16 03 04 30 30 00 EA Ac MV 71 -0 -[address] ti 40 6- 7- 00 00 SI ve TA 68 20 20 47 DE TI 30 17 17 86 N 3 23 PH 20 AR MA MG CY TA OF BL CY ET NT HI AN A IN C OF 17 02 03 10 10 00 EA Ac LO 47 -2 -[address] ti XA 80 1- 4- 00 00 SI ve CI 71 20 20 47 DE N 31 17 17 70 0. 1 10 PH 3% AR MA EY CY E DR OF OP CY S NT HI AN A IN C AL 61 02 03 10 10 00 EA Ac ED 31 -2 -[address] ti NI 40 1- 4- 00 00 SI ve SO 63 20 20 47 DE LO 70 17 17 70 NE 5 11 PH AR AC MA CY 1% OF EY CY E NT DR HI OP AN A IN C DI 00 02 03 60 30 00 EA Ac AZ 17 -1 -[address] ti EP 23 6- 4- 00 00 SI ve AM 92 20 20 45 DE 77 17 17 87 10 0 60 PH AR MG MA CY TA BL OF ET CY NT HI AN A IN C BI 00 02 03 30 30 00 EA Ac SO 18 -1 -[address] ti AL 50 2- 7- 00 00 SI ve OL 77 20 20 46 DE OL 43 17 17 95 0 53 PH FU AR MA MA RA CY TE OF 10 CY NT MG HI AN TA A B IN C IS 13 02 03 30 30 00 EA Ac OS 66 -1 -[address] ti OR 80 2- 7- 00 00 SI ve BI 10 20 20 45 DE DE 40 17 17 86 1 49 PH MN AR MA ER CY 30 OF CY MG NT HI TA AN BL A ET IN C NE 00 01 01 28 28 00 EA Ac XI 57 -1 -[address] ti UM 32 5- 7- 00 00 SI ve 45 20 20 47 DE 24 02 17 17 22 HR 8 91 PH AR 22 MA .3 CY MG OF CY CA NT PS HI UL AN E A IN C AL 03 30 30 00 EA Ac EM 04 -0 -[address] ti AR 61 5- 0- 00 00 SI ve IN 10 20 20 46 DE 28 17 17 38 0. 1 05 PH 62 AR 5 MA MG CY TA OF BL CY ET NT HI AN A IN C SI 16 02 03 30 30 00 EA Ac MV 71 -0 -[address] ti 40 5- 0- 00 00 SI ve TA 68 20 20 45 DE TI 30 17 17 29 N 3 20 PH 20 AR MA MG CY TA OF BL CY ET NT HI AN A IN C LI 00 01 01 30 30 00 EA Ac SI 18 -0 -[address] ti NO 50 5- 0- 00 00 SI ve AL 61 20 20 43 DE IL 01 17 17 97 0 43 PH 10 AR MA MG CY TA OF BL CY ET NT HI AN A IN C LE 00 01 01 30 30 00 EA Ac VO 37 -0 -[address] ti TH 81 5- 0- 00 00 SI ve YR 81 20 20 45 DE OX 17 17 17 43 IN 7 50 PH E AR 11 MA 2 CY MC G OF TA CY BL NT ET HI AN A IN C IS 13 11 30 30 30 00 EA Ac OS 66 -1 -[address] ti OR 80 4- 7- 00 00 SI ve BI 10 20 20 45 DE DE 40 17 17 86 1 49 PH MN AR MA ER CY 30 OF CY MG NT HI TA AN BL A ET IN C NE 00 11 30 28 28 00 EA Ac XI 57 -1 -[address] ti UM 32 3- 7- 00 00 SI ve 45 20 20 47 DE 24 02 17 17 22 HR 8 91 PH AR 22 MA .3 CY MG OF CY CA NT PS HI UL AN E A IN C DI 60 30 00 EA Ac AZ 17 -1 -[address] ti EP 23 7- 7- 00 00 SI ve AM 92 20 20 45 DE 77 17 17 87 10 0 60 PH AR MG MA CY TA BL OF ET CY NT HI AN A IN C LE 00 11 30 30 30 00 EA Ac VO 37 -0 -[address] ti TH 81 7- 0- 00 00 SI ve YR 81 20 20 45 DE OX 17 17 17 43 IN 7 50 PH E AR 11 MA 2 CY MC G OF TA CY BL NT ET HI AN A IN C LI 00 01 02 30 30 00 EA Ac SI 18 -0 -[address] ti NO 50 7- 0- 00 00 SI ve AL 61 20 20 43 DE IL 01 17 17 97 0 43 PH 10 AR MA MG CY TA OF BL CY ET NT HI AN A IN C AZ 64 01 02 6. 5 00 EA Ac IT 67 -0 -[address] ti HR 90 9- 0- 0 00 SI ve OM 96 20 20 47 DE YC 10 17 17 17 IN 5 90 PH AR 25 MA 0 CY MG OF TA CY BL NT ET HI AN A IN C NA 53 11 02 16 8 00 EA Ac AL 74 -0 -[address] ti OX 60 2- 3- 00 00 SI ve EN 19 20 20 46 DE 01 16 17 38 50 0 06 PH 0 AR MG MA CY TA BL OF ET CY NT HI AN A IN C SI 16 01 02 30 30 00 EA Ac MV 71 -0 -[address] ti 40 4- 3- 00 00 SI ve TA 68 20 20 45 DE TI 30 17 17 29 N 3 20 PH 20 AR MA MG CY TA OF BL CY ET NT HI AN A IN C AL 00 01 02 30 30 00 EA Ac EM 04 -0 -[address] ti AR 61 4- 3- 00 00 SI ve IN 10 20 20 46 DE 28 17 17 38 0. 1 05 PH 62 AR 5 MA MG CY TA OF BL CY ET NT HI AN A IN C IS 13 12 01 30 30 00 EA Ac OS 66 -1 -[address] ti OR 80 5- 0- 00 00 SI ve BI 10 20 20 45 DE DE 40 16 17 86 1 49 PH MN AR MA ER CY 30 OF CY MG NT HI TA AN BL A ET IN C DI 00 12 01 60 30 00 EA Ac AZ 17 -1 -[address] ti EP 23 8- 0- 00 00 SI ve AM 92 20 20 45 DE 77 16 17 87 10 0 60 PH AR MG MA CY TA BL OF ET CY NT HI AN A IN C NA 53 12 01 60 30 00 EA Ac AL 74 -1 -[address] ti OX 60 8- 0- 00 00 SI ve EN 19 20 20 46 DE 01 16 17 38 50 0 06 PH 0 AR MG MA CY TA BL OF ET CY NT HI AN A IN C BI 00 12 30 30 00 EA Ac SO 18 -2 -[address] ti AL 50 0- 0- 00 00 SI ve OL 77 20 20 46 DE OL 43 16 17 95 0 53 PH FU AR MA MA RA CY TE OF 10 CY NT MG HI AN TA A B IN C LE 30 00 EA Ac VO 37 -0 -[address] ti TH 81 7- 9- 00 00 SI ve YR 81 20 20 45 DE OX 17 16 17 43 IN 7 50 PH E AR 11 MA 2 CY MC G OF TA CY BL NT ET HI AN A IN C AL 00 10 29 30 30 00 EA Ac EM 04 -0 -[address] ti AR 61 7- 9- 00 00 SI ve IN 10 20 20 46 DE 28 16 17 38 0. 1 05 PH 62 AR 5 MA MG CY TA OF BL CY ET NT HI AN A IN C SI 16 12 30 30 00 EA Ac MV 71 -0 -[address] ti 40 2- 9- 00 00 SI ve TA 68 20 20 45 DE TI 30 16 17 29 N 3 20 PH 20 AR MA MG CY TA OF BL CY ET NT HI AN A IN C SO 00 01 0 No DI 40 -1 UM 97 3- Lo 98 20 ng CH 30 14 er LO 9 RI Ac DE ti ve 0. 9% SO ASH TI ON Sa 63 01 0 No li 80 -1 ne 70 3- Lo 10 20 ng Fl 07 14 er us 5 h Ac 10 ti ML ve Sy ri ng e ON 00 01 0 No DA 64 -1 NS 16 3- Lo ET 08 20 ng RO 02 14 er N 5 HC Ac L ti 4 ve MG /2 ML AL DI 00 07 10 5 60 30 EA 23 AR Ac AZ 59 -1 -[address] 31 NO ti EP 15 5- 6- 00 SI 65 LD ve AM 62 20 20 DE 01 11 11 RI 10 0 PH CH AR AR MG MA D CY W TA BL OF ET CY NT HI AN A AL 00 03 10 11 30 30 EA 21 MAHMOOD Ac EM 04 -0 -[address] 56 RP ti AR 61 7- 8- 00 SI 87 EL ve IN 10 20 20 DE 29 11 11 GE 0. 1 PH RA 62 AR LD 5 MA R MG CY TA OF BL ET CY NT HI AN A SI 16 07 10 11 30 30 EA 23 AR Ac MV 71 -1 -[address] 31 NO ti 40 5- 8 00 SI 64 LD ve TA 68 20 20 DE TI 20 11 11 RI N 2 PH CH 10 AR AR MA D MG CY W TA OF BL ET CY NT HI AN A LO 45 09 10 11 30 30 EA 23 AR Ac RA 80 -0 -[address] 96 NO ti TA 20 6- 8- 00 SI 66 LD ve DI 65 20 20 DE NE 08 11 11 RI 7 PH CH 10 AR AR MA D MG CY W TA OF BL ET CY NT HI AN A 16 10 10 5 30 30 EA 24 OC Ac 71 -1 -[address] 56 ON ti 40 8 8 SI 25 NE ve 58 20 20 DE LL 50 11 11 1 PH MERI AR HN MA CY OF CY NT HI AN A RA 53 10 10 5 60 30 EA 24 OC Ac NI 74 -1 -[address] 56 ON ti TI 60 8 SI 27 NE ve DI 25 20 20 DE LL NE 31 11 11 0 PH MERI 15 AR HN 0 MA MG CY TA OF BL ET CY NT HI AN A LI 63 10 10 5 90 30 EA 24 OC Ac DO 48 -1 -[address] 56 ON ti DE 10 8 SI 29 NE ve RM 68 20 20 DE LL 70 11 11 5% 6 PH MERI AR HN PA MA TC CY H OF CY NT HI AN A LE 00 10 10 5 30 30 EA 24 LA Ac VO 37 -0 -[address] 38 WS ti TH 81 3 5 SI 92 ON ve YR 81 20 20 DE OX 10 [address] E AR OR 11 MA G 2 CY MC G OF TA BL CY ET NT HI AN A LI 00 08 10 5 30 30 EA 23 AR Ac SI 17 -0 -[address] 94 NO ti NO 23 SI 19 LD ve AL 75 20 20 DE IL 98 11 11 RI 0 PH CH 10 AR AR MA D MG CY W TA OF BL ET CY NT HI AN A LE 00 07 10 2 30 30 EA 23 LA Ac VO 37 -0 -[address] 94 WS ti TH 81 7 SI 20 ON ve YR 81 20 20 DE OX 30 [address] E AR OR 12 MA G 5 CY MC G OF TA BL CY ET NT HI AN A AD 00 09 09 5 60 30 EA 24 MC Ac VA 17 -2 -[address] 28 CO ti IR 30 8- 8- 00 SI 56 RM ve 69 20 20 DE IC 25 60 11 11 K 0- 0 PH JA 50 AR ME MA S DI CY R SK US OF CY NT HI AN A DI 00 07 09 5 60 30 EA 23 AR Ac AZ 17 -1 -[address] 31 NO ti EP 23 5- 6- 00 SI 65 LD ve AM 92 20 20 DE 77 11 11 RI 10 0 PH CH AR AR MG MA D CY W TA BL OF ET CY NT HI AN A CH 50 12 09 1 47 12 EA 20 AR Ac LO 38 -2 -[address] 54 NO ti RH 30 7- 1- 00 SI 93 LD ve EX 72 20 20 0 DE ID 01 10 11 RI IN 6 PH CH E AR AR 0. MA D 12 CY W % RI OF NS E CY NT HI AN A SE 45 09 09 11 12 30 EA 24 AR Ac LE 80 -2 -[address] 18 NO ti NI 20 0- 0- 00 SI 41 LD ve UM 04 20 20 0 DE 06 11 11 RI HUYNH 4 PH CH LF AR AR ID MA D E CY W 2. 5% OF LO CY TI NT ON HI AN A AL 00 03 09 11 30 30 EA 21 MAHMOOD Ac EM 04 -0 -[address] 56 RP ti AR 61 7- 6- 00 SI 87 EL ve IN 10 20 20 DE 29 11 11 GE 0. 1 PH RA 62 AR LD 5 MA R MG CY TA OF BL ET CY NT HI AN A SI 16 07 09 11 30 30 EA 23 AR Ac MV 71 -1 -[address] 31 NO ti 40 5- 6- 00 SI 64 LD ve TA 68 20 20 DE TI 20 11 11 RI N 2 PH CH 10 AR AR MA D MG CY W TA OF BL ET CY NT HI AN A AZ 00 09 09 1 6. 5 EA 23 AR Ac IT 09 -0 -[address] 96 NO ti HR 37 6- 6- 0 SI 64 LD ve OM 14 20 20 DE YC 61 11 11 RI IN 8 PH CH AR AR 25 MA D 0 CY W MG OF TA BL CY ET NT HI AN A LO 45 09 09 11 30 30 EA 23 AR Ac RA 80 -0 -[address] 96 NO ti TA 20 6- 6- 00 SI 66 LD ve DI 65 20 20 DE NE 08 11 11 RI 7 PH CH 10 AR AR MA D MG CY W TA OF BL ET CY NT HI AN A LI 63 06 09 4 60 30 EA 22 OC Ac DO 48 -1 -[address] 93 ON ti DE 10 4- 2- 00 SI 00 NE ve RM 68 20 20 DE LL 70 11 11 5% 6 PH MERI AR HN PA MA TC CY H OF CY NT HI AN A LI 00 08 09 5 30 30 EA 23 AR Ac SI 17 -0 -[address] 94 NO ti NO 23 8- 2- 00 SI 19 LD ve AL 75 20 20 DE IL 98 11 11 RI 0 PH CH 10 AR AR MA D MG CY W TA OF BL ET CY NT HI AN A LE 00 07 09 2 30 30 EA 23 LA Ac VO 37 -0 -[address] 94 WS ti TH 81 7- 2- 00 SI 20 ON ve YR 81 20 20 DE OX 30 [address] E AR OR 12 MA G 5 CY MC G OF TA BL CY ET NT HI AN A DI 00 07 08 5 60 30 EA 23 AR Ac AZ 17 -1 -[address] 31 NO ti EP 23 5- 6- 00 SI 65 LD ve AM 92 20 20 DE 77 11 11 RI 10 0 PH CH AR AR MG MA D CY W TA BL OF ET CY NT HI AN A AL 00 03 08 11 30 30 EA 21 MAHMOOD Ac EM 04 -0 -[address] 56 RP ti AR 61 7- 6- 00 SI 87 EL ve IN 10 20 20 DE 29 11 11 GE 0. 1 PH RA 62 AR LD 5 MA R MG CY TA OF BL ET CY NT HI AN A SI 16 07 08 11 30 30 EA 23 AR Ac MV 71 -1 -[address] 31 NO ti 40 5- 6- 00 SI 64 LD ve TA 68 20 20 DE TI 20 11 11 RI N 2 PH CH 10 AR AR MA D MG CY W TA OF BL ET CY NT HI AN A LE 00 03 08 5 30 30 EA 21 AR Ac VO 37 -0 -[address] 56 NO ti TH 81 7- 4- 00 SI 85 LD ve YR 81 20 20 DE OX 30 11 11 RI IN 1 PH CH E AR AR 12 MA D 5 CY W MC G OF TA BL CY ET NT HI AN A 64 03 08 5 30 30 EA 21 AR Ac 67 -0 -[address] 56 NO ti 90 7- 4- 00 SI 86 LD ve 92 20 20 DE 90 11 11 RI 6 PH CH AR AR MA D CY W OF CY NT HI AN A LI 63 06 07 4 60 30 EA 22 OC Ac DO 48 -1 -[address] 93 ON ti DE 10 4- 6- 00 SI 00 NE ve RM 68 20 20 DE LL 70 11 11 5% 6 PH MERI AR HN PA MA TC CY H OF CY NT HI AN A DI 00 07 07 5 60 30 EA 23 AR Ac AZ 17 -1 -[address] 31 NO ti EP 23 5- 6- 00 SI 65 LD ve AM 92 20 20 DE 77 11 11 RI 10 0 PH CH AR AR MG MA D CY W TA BL OF ET CY NT HI AN A AL 00 03 07 11 30 30 EA 21 MAHMOOD Ac EM 04 -0 -[address] 56 RP ti AR 61 7- 6- 00 SI 87 EL ve IN 10 20 20 DE 29 11 11 GE 0. 1 PH RA 62 AR LD 5 MA R MG CY TA OF BL ET CY NT HI AN A SI 16 07 07 11 30 30 EA 23 AR Ac MV 71 -1 -[address] 31 NO ti 40 5- 5- 00 SI 64 LD ve TA 68 20 20 DE TI 20 11 11 RI N 2 PH CH 10 AR AR MA D MG CY W TA OF BL ET CY NT HI AN A LE 00 03 07 5 30 30 EA 21 AR Ac VO 37 -0 -[address] 56 NO ti TH 81 7- 6- 00 SI 85 LD ve YR 81 20 20 DE OX 30 11 11 RI IN 1 PH CH E AR AR 12 MA D 5 CY W MC G OF TA BL CY ET NT HI AN A 64 03 07 5 30 30 EA 21 AR Ac 67 -0 -[address] 56 NO ti 90 7- 6- 00 SI 86 LD ve 92 20 20 DE 90 11 11 RI 6 PH CH AR AR MA D CY W OF CY NT HI AN A DI 00 01 06 5 60 30 EA 21 AR Ac AZ 17 -2 -[address] 01 NO ti EP 23 9- 6- 00 SI 16 LD ve AM 92 20 20 DE 5 67 11 11 RI 0 PH CH MG AR AR MA D TA CY W BL ET OF CY NT HI AN A SI 16 01 06 5 30 30 EA 20 AR Ac MV 71 -1 -[address] 84 NO ti 40 7- 6- 00 SI 10 LD ve TA 68 20 20 DE TI 20 11 11 RI N 2 PH CH 10 AR AR MA D MG CY W TA OF BL ET CY NT HI AN A AL 00 03 06 11 30 30 EA 21 MAHMOOD Ac EM 04 -0 -[address] 56 RP ti AR 61 7- 6- 00 SI 87 EL ve IN 10 20 20 DE 29 11 11 GE 0. 1 PH RA 62 AR LD 5 MA R MG CY TA OF BL ET CY NT HI AN A LI 63 06 06 4 60 30 EA 22 OC Ac DO 48 -1 -[address] 93 ON ti DE 10 4- 4- 00 SI 00 NE ve RM 68 20 20 DE LL 70 11 11 5% 6 PH MERI AR HN PA MA TC CY H OF CY NT HI AN A LE 00 03 06 5 30 30 EA 21 AR Ac VO 37 -0 -[address] 56 NO ti TH 81 7- 6- 00 SI 85 LD ve YR 81 20 20 DE OX 30 11 11 RI IN 1 PH CH E AR AR 12 MA D 5 CY W MC G OF TA BL CY ET NT HI AN A 64 03 06 5 30 30 EA 21 AR Ac 67 -0 -[address] 56 NO ti 90 7- 6- 00 SI 86 LD ve 92 20 20 DE 90 11 11 RI 6 PH CH AR AR MA D CY W OF CY NT HI AN A DI 00 01 05 5 60 30 EA 21 AR Ac AZ 17 -2 -[address] 01 NO ti EP 23 9- 7- 00 SI 16 LD ve AM 92 20 20 DE 5 67 11 11 RI 0 PH CH MG AR AR MA D TA CY W BL ET OF CY NT HI AN A SI 16 01 05 5 30 30 EA 20 AR Ac MV 71 -1 -[address] 84 NO ti 40 7- 7- 00 SI 10 LD ve TA 68 20 20 DE TI 20 11 11 RI N 2 PH CH 10 AR AR MA D MG CY W TA OF BL ET CY NT HI AN A AL 00 03 05 11 30 30 EA 21 MAHMOOD Ac EM 04 -0 -[address] 56 RP ti AR 61 7- 7- 00 SI 87 EL ve IN 10 20 20 DE 29 11 11 GE 0. 1 PH RA 62 AR LD 5 MA R MG CY TA OF BL ET CY NT HI AN A LE 00 03 05 5 30 30 EA 21 AR Ac VO 37 -0 -[address] 56 NO ti TH 81 7- 7- 00 SI 85 LD ve YR 81 20 20 DE OX 30 11 11 RI IN 1 PH CH E AR AR 12 MA D 5 CY W MC G OF TA BL CY ET NT HI AN A 64 03 05 5 30 30 EA 21 AR Ac 67 -0 -[address] 56 NO ti 90 7- 7- 00 SI 86 LD ve 92 20 20 DE 90 11 11 RI 6 PH CH AR AR MA D CY W OF CY NT HI AN A CA 00 05 05 4 30 30 EA 22 OC Ac RB 09 -0 -[address] 39 ON ti ID 30 4- 4- 00 SI 00 NE ve OP 29 20 20 DE LL A- 30 11 11 LE 1 PH MERI VO AR HN DO MA PA CY 25 OF -1 00 CY NT TA HI B AN A GA 16 05 05 4 18 30 EA 22 OC Ac BA 71 -0 -[address] 39 ON ti PE 40 4- 4- 00 SI 01 NE ve NT 66 20 20 0 DE LL IN 10 11 11 1 PH MERI 10 AR HN 0 MA MG CY CA OF PS UL CY E NT HI AN A AL 67 05 05 0 6. 1 EA 22 OC Ac AL 25 -0 -[address] 39 ON ti AZ 30 4- 4- 0 SI 02 NE ve OL 90 20 20 DE LL AM 01 11 11 1 PH MERI 0. AR HN 25 MA CY MG OF TA BL CY ET NT HI AN A CY 00 05 05 4 30 30 EA 22 OC Ac MB 00 -0 -[address] 39 ON ti AL 23 4- 4- 00 SI 03 NE ve TA 27 20 20 DE LL 03 11 11 60 0 PH MERI AR HN MG MA CY CA PS OF UL E CY NT HI AN A BA 16 05 05 4 60 30 EA 22 OC Ac CL 71 -0 -[address] 39 ON ti OF 40 4- 4- 00 SI 04 NE ve EN 07 20 20 DE LL 10 11 11 10 6 PH MERI AR HN MG MA CY TA BL OF ET CY NT HI AN A DI 00 01 04 5 60 30 EA 21 AR Ac AZ 17 -2 -[address] 01 NO ti EP 23 9- 7- 00 SI 16 LD ve AM 92 20 20 DE 5 67 11 11 RI 0 PH CH MG AR AR MA D TA CY W BL ET OF CY NT HI AN A BA 00 04 04 0 20 4 EA 22 GR Ac NO 90 -2 -[address] 22 AY ti PH 45 2- 2- 00 SI 19 ve EN 30 20 20 DE RO 66 11 11 BE 25 0 PH RT AR B MG MA CY CA PS OF UL E CY NT HI AN A MU 45 04 04 1 22 6 EA 22 AR Ac PI 80 -2 -[address] 21 NO ti RO 20 1- 1- 00 SI 49 LD ve CI 11 20 20 DE N 22 11 11 RI 2% 2 PH CH AR AR OI MA D NT CY W ME NT OF CY NT HI AN A AZ 00 04 04 1 6. 6 EA 22 AR Ac IT 09 -2 -[address] 21 NO ti HR 37 1- 1- 0 SI 50 LD ve OM 14 20 20 DE YC 61 11 11 RI IN 8 PH CH AR AR 25 MA D 0 CY W MG OF TA BL CY ET NT HI AN A SI 16 01 04 5 30 30 EA 20 AR Ac MV 71 -1 -[address] 84 NO ti 40 7- 8- 00 SI 10 LD ve TA 68 20 20 DE TI 20 11 11 RI N 2 PH CH 10 AR AR MA D MG CY W TA OF BL ET CY NT HI AN A AL 00 03 04 11 30 30 EA 21 MAHMOOD Ac EM 04 -0 -[address] 56 RP ti AR 61 7- 8- 00 SI 87 EL ve IN 10 20 20 DE 29 11 11 GE 0. 1 PH RA 62 AR LD 5 MA R MG CY TA OF BL ET CY NT HI AN A AL 00 04 04 1 21 6 EA 22 AR Ac ED 60 -0 -[address] 04 NO ti NI 35 8- 8- 00 SI 56 LD ve SO 33 20 20 DE NE 71 11 11 RI 5 5 PH CH AR AR MG MA D CY W TA BL OF ET CY NT HI AN A 00 04 04 5 30 30 EA 22 AR Ac 37 -0 -[address] 04 NO ti 81 8- 8- 00 SI 57 LD ve 08 20 20 DE 90 11 11 RI 1 PH CH AR AR MA D CY W OF CY NT HI AN A LE 00 03 04 5 30 30 EA 21 AR Ac VO 37 -0 -[address] 56 NO ti TH 81 7- 7- 00 SI 85 LD ve YR 81 20 20 DE OX 30 11 11 RI IN 1 PH CH E AR AR 12 MA D 5 CY W MC G OF TA BL CY ET NT HI AN A 64 03 04 5 30 30 EA 21 AR Ac 67 -0 -[address] 56 NO ti 90 7- 7- 00 SI 86 LD ve 92 20 20 DE 90 11 11 RI 6 PH CH AR AR MA D CY W OF CY NT HI AN A 00 01 03 5 60 30 EA 21 AR Ac 55 -2 -[address] 01 NO ti 50 9- 8- 00 SI 16 LD ve 36 20 20 DE 30 11 11 RI 5 PH CH AR AR MA D CY W OF CY NT HI AN A NA 00 06 03 5 60 30 EA 17 AR Ac AL 09 -1 -[address] 92 NO ti OX 30 0- 9- 00 SI 69 LD ve EN 14 20 20 DE 90 10 11 RI 50 1 PH CH 0 AR AR MG MA D CY W TA BL OF ET CY NT HI AN A SI 16 01 03 5 30 30 EA 20 AR Ac MV 71 -1 -[address] 84 NO ti 40 7- 9- 00 SI 10 LD ve TA 68 20 20 DE TI 20 11 11 RI N 2 PH CH 10 AR AR MA D MG CY W TA OF BL ET CY NT HI AN A LE 00 03 03 5 30 30 EA 21 AR Ac VO 37 -0 -[address] 56 NO ti TH 81 7- 7- 00 SI 85 LD ve YR 81 20 20 DE OX 30 11 11 RI IN 1 PH CH E AR AR 12 MA D 5 CY W MC G OF TA BL CY ET NT HI AN A 64 03 03 5 30 30 EA 21 AR Ac 67 -0 -[address] 56 NO ti 90 7- 7- 00 SI 86 LD ve 92 20 20 DE 90 11 11 RI 6 PH CH AR AR MA D CY W OF CY NT HI AN A AL 00 03 03 11 30 30 EA 21 MAHMOOD Ac EM 04 -0 -[address] 56 RP ti AR 61 7- 7- 00 SI 87 EL ve IN 10 20 20 DE 29 11 11 GE 0. 1 PH RA 62 AR LD 5 MA R MG CY TA OF BL ET CY NT HI AN A 00 01 02 5 60 30 EA 21 AR Ac 55 -2 -[address] 01 NO ti 50 9- 8- 00 SI 16 LD ve 36 20 20 DE 30 11 11 RI 5 PH CH AR AR MA D CY W OF CY NT HI AN A AM 00 02 02 1 20 10 EA 21 AR Ac OX 09 -2 -[address] 32 NO ti -C 32 1- 1- 00 SI 88 LD ve LA 27 20 20 DE V 53 11 11 RI 87 4 PH CH 5- AR AR 12 MA D 5 CY W MG OF TA BL CY ET NT HI AN A MU 45 02 02 1 22 4 EA 21 AR Ac PI 80 -2 -[address] 32 NO ti RO 20 1- 1- 00 SI 89 LD ve CI 11 20 20 DE N 22 11 11 RI 2% 2 PH CH AR AR OI MA D NT CY W ME NT OF CY NT HI AN A HUYNH 53 02 02 0 28 14 EA 21 GA Ac LF 74 -2 -[address] 32 IN ti AM 60 0- 0- 00 SI 65 EY ve ET 27 20 20 DE HO 20 11 11 MO XA 5 PH CH ZO AR AE LE MA L -T CY S MP OF DS CY TA NT BL HI ET AN A 00 02 02 0 8. 2 EA 21 GA Ac 59 -2 -[address] 32 IN ti 10 0- 0- 0 SI 66 EY ve 34 20 20 DE 90 11 11 MO 1 PH CH AR AE MA L CY S OF CY NT HI AN A SI 16 01 02 5 30 30 EA 20 AR Ac MV 71 -1 -[address] 84 NO ti 40 7- 7- 00 SI 10 LD ve TA 68 20 20 DE TI 20 11 11 RI N 2 PH CH 10 AR AR MA D MG CY W TA OF BL ET CY NT HI AN A LE 00 07 02 4 30 30 EA 18 LA Ac VO 37 -1 -[address] 35 WS ti TH 81 5- 7- 00 SI 48 ON ve YR 81 20 20 DE OX 30 [address] E AR OR 12 MA G 5 CY MC G OF TA BL CY ET NT HI AN A 64 09 02 5 30 30 EA 19 AR Ac 67 -0 -[address] 01 NO ti 90 7- 7- 00 SI 12 LD ve 92 20 20 DE 90 10 11 RI 6 PH CH AR AR MA D CY W OF CY NT HI AN A AL 00 02 02 0 30 30 EA 21 MAHMOOD Ac EM 04 -0 -[address] 12 RP ti AR 61 7- 7- 00 SI 65 EL ve IN 10 20 20 DE 29 11 11 GE 0. 1 PH RA 62 AR LD 5 MA R MG CY TA OF BL ET CY NT HI AN A 00 12 01 5 14 25 EA 20 MC Ac 59 -0 -[address] 30 CO ti 70 7- 1- 99 SI 36 RM ve 01 20 20 DE IC 31 10 11 K 4 PH JA AR ME MA S CY R OF CY NT HI AN A ME 00 01 01 1 21 7 EA 21 AR Ac TH 78 -2 -[address] 00 NO ti YL 15 9- 9- 00 SI 96 LD ve AL 02 20 20 DE ED 20 11 11 RI NI 7 PH CH SO AR AR LO MA D NE CY W 4 OF MG CY DO NT SE HI PK AN A BU 00 01 01 2 10 20 EA 21 AR Ac TA 60 -2 -[address] 00 NO ti LB 32 9- 9- 00 SI 97 LD ve -A 54 20 20 0 DE CE 42 11 11 RI TA 8 PH CH MO AR AR N- MA D CA CY W FF OF 50 -3 CY 25 NT -4 HI 0 AN A 00 01 01 5 60 30 EA 21 AR Ac 55 -2 -[address] 01 NO ti 50 9- 9- 00 SI 16 LD ve 36 20 20 DE 30 11 11 RI 5 PH CH AR AR MA D CY W OF CY NT HI AN A AN 24 11 01 1 10 5 EA 19 AR Ac TI 20 -1 -[address] 96 NO ti PY 80 3- 9- 00 SI 31 LD ve RI 56 20 20 DE NE 16 10 11 RI -B 2 PH CH EN AR AR ZO MA D CA CY W IN E OF EA R CY DR NT OP HI AN A SI 16 01 01 5 30 30 EA 20 AR Ac MV 71 -1 -[address] 84 NO ti 40 7- 7- 00 SI 10 LD ve TA 68 20 20 DE TI 20 11 11 RI N 2 PH CH 10 AR AR MA D MG CY W TA OF BL ET CY NT HI AN A 00 01 01 11 30 30 EA 20 AR Ac 00 -0 -[address] 73 NO ti 60 8- 8- 00 SI 36 LD ve 11 20 20 DE 73 11 11 RI 1 PH CH AR AR MA D CY W OF CY NT HI AN A LE 00 07 01 4 30 30 EA 18 LA Ac VO 37 -1 -[address] 35 WS ti TH 81 5- 7- 00 SI 48 ON ve YR 81 20 20 DE OX 30 [address] E AR OR 12 MA G 5 CY MC G OF TA BL CY ET NT HI AN A 64 09 01 5 30 30 EA 19 AR Ac 67 -0 -[address] 01 NO ti 90 7- 7- 00 SI 12 LD ve 92 20 20 DE 90 10 11 RI 6 PH CH AR AR MA D CY W OF CY NT HI AN A AZ 00 12 01 1 6. 5 EA 20 AR Ac IT 09 -2 -[address] 54 NO ti HR 37 7- 7- 0 SI 92 LD ve OM 14 20 20 DE YC 61 10 11 RI IN 8 PH CH AR AR 25 MA D 0 CY W MG OF TA BL CY ET NT HI AN A 00 12 01 5 14 25 EA 20 MC Ac 59 -0 -[address] 30 CO ti 70 7- 7- 99 SI 36 RM ve 01 20 20 DE IC 31 10 11 K 4 PH JA AR ME MA S CY R OF CY NT HI AN A 00 07 12 5 60 30 EA 18 AR Ac 55 -2 -[address] 51 NO ti 50 9- 8- 00 SI 05 LD ve 36 20 20 DE 30 10 10 RI 5 PH CH AR AR MA D CY W OF CY NT HI AN A AZ 00 12 12 1 6. 5 EA 20 AR Ac IT 09 -2 -[address] 54 NO ti HR 37 7- 7- 0 SI 92 LD ve OM 14 20 20 DE YC 61 10 10 RI IN 8 PH CH AR AR 25 MA D 0 CY W MG OF TA BL CY ET NT HI AN A CH 50 12 12 1 47 12 EA 20 AR Ac LO 38 -2 -[address] 54 NO ti RH 30 7- 7- 00 SI 93 LD ve EX 72 20 20 0 DE ID 01 10 10 RI IN 6 PH CH E AR AR 0. MA D 12 CY W % RI OF NS E CY NT HI AN A NA 00 06 12 5 60 30 EA 17 AR Ac AL 09 -1 -[address] 92 NO ti OX 30 0- 2- 00 SI 69 LD ve EN 14 20 20 DE 90 10 10 RI 50 1 PH CH 0 AR AR MG MA D CY W TA BL OF ET CY NT HI AN A SI 65 10 12 2 30 30 EA 19 AR Ac MV 86 -1 -[address] 59 NO ti 20 9- 7- 00 SI 90 LD ve TA 05 20 20 DE TI 13 10 10 RI N 0 PH CH 10 AR AR MA D MG CY W TA OF BL ET CY NT HI AN A LE 00 07 12 4 30 30 EA 18 LA Ac VO 37 -1 -[address] 35 WS ti TH 81 5- 7- 00 SI 48 ON ve YR 81 20 20 DE OX 30 [address] E AR OR 12 MA G 5 CY MC G OF TA BL CY ET NT HI AN A LI 00 09 12 5 30 30 EA 19 AR Ac SI 17 -0 -[address] 01 NO ti NO 23 7- 7- 00 SI 12 LD ve AL 75 20 20 DE [place] 96 10 10 RI 0 PH CH 10 AR AR MA D MG CY W TA OF BL ET CY NT HI AN A 00 12 12 5 14 25 EA 20 MC Ac 59 -0 -[address] 30 CO ti 70 7- 7- 99 SI 36 RM ve 01 20 20 DE IC 31 10 10 K 4 PH JA AR ME MA S CY R OF CY NT HI AN A AZ 00 11 12 1 6. 5 EA 19 AR Ac IT 09 -1 -[address] 96 NO ti HR 37 3- 6- 0 SI 30 LD ve OM 14 20 20 DE YC 61 10 10 RI IN 8 PH CH AR AR 25 MA D 0 CY W MG OF TA BL CY ET NT HI AN A 00 07 11 5 60 30 EA 18 AR Ac 55 -2 -[address] 51 NO ti 50 9- 9- 00 SI 05 LD ve 36 20 20 DE 30 10 10 RI 5 PH CH AR AR MA D CY W OF CY NT HI AN A SI 65 10 11 2 30 30 EA 19 AR Ac MV 86 -1 -[address] 59 NO ti 20 9- 5- 00 SI 90 LD ve TA 05 20 20 DE TI 13 10 10 RI N 0 PH CH 10 AR AR MA D MG CY W TA OF BL ET CY NT HI AN A AZ 00 11 11 1 6. 5 EA 19 AR Ac IT 09 -1 -[address] 96 NO ti HR 37 3- 3- 0 SI 30 LD ve OM 14 20 20 DE YC 61 10 10 RI IN 8 PH CH AR AR 25 MA D 0 CY W MG OF TA BL CY ET NT HI AN A AN 24 11 11 1 10 5 EA 19 AR Ac TI 20 -1 -[address] 96 NO ti PY 80 3- 3- 00 SI 31 LD ve RI 56 20 20 DE NE 16 10 10 RI -B 2 PH CH EN AR AR ZO MA D CA CY W IN E OF EA R CY DR NT OP HI AN A SP 00 11 11 5 30 30 EA 19 MC Ac IR 59 -1 -[address] 92 CO ti IV 70 0- 0- 00 SI 05 RM ve A 07 20 20 DE IC 18 54 10 10 K 1 PH JA MC AR ME G MA S CP CY R -H AN OF DI MAHMOOD CY LE NT R HI AN A LO 45 01 11 12 30 30 EA 15 AR Ac RA 80 -0 -[address] 83 NO ti TA 20 5- 8- 00 SI 69 LD ve DI 65 20 20 DE NE 08 10 10 RI 7 PH CH 10 AR AR MA D MG CY W TA OF BL ET CY NT HI AN A AL 00 02 11 3 90 90 EA 16 MAHMOOD Ac EM 04 -2 -[address] 46 RP ti AR 61 2- 8- 00 SI 11 EL ve IN 10 20 20 DE 29 10 10 GE 0. 1 PH RA 62 AR LD 5 MA R MG CY TA OF BL ET CY NT HI AN A LE 00 07 11 4 30 30 EA 18 LA Ac VO 37 -1 -[address] 35 WS ti TH 81 5- 8- 00 SI 48 ON ve YR 81 20 20 DE OX 30 [address] E AR OR 12 MA G 5 CY MC G OF TA BL CY ET NT HI AN A LI 00 09 11 5 30 30 EA 19 AR Ac SI 17 -0 -[address] 01 NO ti NO 23 7- 8- 00 SI 12 LD ve AL 75 20 20 DE [place] 96 10 10 RI 0 PH CH 10 AR AR MA D MG CY W TA OF BL ET CY NT HI AN A 00 07 10 5 60 30 EA 18 AR Ac 55 -2 -[address] 51 NO ti 50 9- 9- 00 SI 05 LD ve 36 20 20 DE 30 10 10 RI 5 PH CH AR AR MA D CY W OF CY NT HI AN A 59 09 10 5 8. 20 EA 19 AR Ac 31 -1 -[address] 11 NO ti 00 4- 9- 0 SI 76 LD ve 57 20 20 DE 92 10 10 RI 0 PH CH AR AR MA D CY W OF CY NT HI AN A SI 65 10 10 2 30 30 EA 19 AR Ac MV 86 -1 -[address] 59 NO ti 20 9- 9- 00 SI 90 LD ve TA 05 20 20 DE TI 13 10 10 RI N 0 PH CH 10 AR AR MA D MG CY W TA OF BL ET CY NT HI AN A LO 45 01 10 12 30 30 EA 15 AR Ac RA 80 -0 -[address] 83 NO ti TA 20 5- 7- 00 SI 69 LD ve DI 65 20 20 DE NE 08 10 10 RI 7 PH CH 10 AR AR MA D MG CY W TA OF BL ET CY NT HI AN A NA 00 06 10 5 60 30 EA 17 AR Ac AL 09 -1 -[address] 92 NO ti OX 30 0- 7- 00 SI 69 LD ve EN 14 20 20 DE 90 10 10 RI 50 1 PH CH 0 AR AR MG MA D CY W TA BL OF ET CY NT HI AN A LE 00 07 10 4 30 30 EA 18 LA Ac VO 37 -1 -[address] 35 WS ti TH 81 5- 7- 00 SI 48 ON ve YR 81 20 20 DE OX 30 [address] E AR OR 12 MA G 5 CY MC G OF TA BL CY ET NT HI AN A LI 00 09 10 5 30 30 EA 19 AR Ac SI 17 -0 -[address] 01 NO ti NO 23 7- 7- 00 SI 12 LD ve AL 75 20 20 DE [place] 96 10 10 RI 0 PH CH 10 AR AR MA D MG CY W TA OF BL ET CY NT HI AN A 00 07 09 5 60 30 EA 18 AR Ac 55 -2 -[address] 51 NO ti 50 9- 9- 00 SI 05 LD ve 36 20 20 DE 30 10 10 RI 5 PH CH AR AR MA D CY W OF CY NT HI AN A TI 00 09 09 1 90 30 EA 19 AR Ac ZA 18 -2 -[address] 33 NO ti NI 54 9- 9- 00 SI 43 LD ve DI 40 20 20 DE NE 02 10 10 RI 3 PH CH HC AR AR L MA D 4 CY W MG OF TA BL CY ET NT HI AN A SI 65 04 09 5 30 30 EA 17 AR Ac MV 86 -0 -[address] 12 NO ti 20 9- 7- 00 SI 78 LD ve TA 05 20 20 DE TI 13 10 10 RI N 0 PH CH 10 AR AR MA D MG CY W TA OF BL ET CY NT HI AN A 59 09 09 5 8. 20 EA 19 AR Ac 31 -1 -[address] 11 NO ti 00 4- 4- 0 SI 76 LD ve 57 20 20 DE 92 10 10 RI 0 PH CH AR AR MA D CY W OF CY NT HI AN A LO 45 01 09 12 30 30 EA 15 AR Ac RA 80 -0 -[address] 83 NO ti TA 20 5- 7- 00 SI 69 LD ve DI 65 20 20 DE NE 08 10 10 RI 7 PH CH 10 AR AR MA D MG CY W TA OF BL ET CY NT HI AN A LE 00 07 09 4 30 30 EA 18 LA Ac VO 37 -1 -[address] 35 WS ti TH 81 5- 7- 00 SI 48 ON ve YR 81 20 20 DE OX 30 [address] E AR OR 12 MA G 5 CY MC G OF TA BL CY ET NT HI AN A LI 00 09 09 5 30 30 EA 19 AR Ac SI 17 -0 -[address] 01 NO ti NO 23 7- 7- 00 SI 12 LD ve AL 75 20 20 DE [place] 96 10 10 RI 0 PH CH 10 AR AR MA D MG CY W TA OF BL ET CY NT HI AN A 00 07 08 5 60 30 EA 18 AR Ac 55 -2 -[address] 51 NO ti 50 9- 0- 00 SI 05 LD ve 36 20 20 DE 30 10 10 RI 5 PH CH AR AR MA D CY W OF CY NT HI AN A SI 65 04 08 5 30 30 EA 17 AR Ac MV 86 -0 -[address] 12 NO ti 20 9- 8- 00 SI 78 LD ve TA 05 20 20 DE TI 13 10 10 RI N 0 PH CH 10 AR AR MA D MG CY W TA OF BL ET CY NT HI AN A LO 45 01 08 12 30 30 EA 15 AR Ac RA 80 -0 -[address] 83 NO ti TA 20 5- 8- 00 SI 69 LD ve DI 65 20 20 DE NE 08 10 10 RI 7 PH CH 10 AR AR MA D MG CY W TA OF BL ET CY NT HI AN A AL 00 02 08 3 90 90 EA 16 MAHMOOD Ac EM 04 -2 -[address] 46 RP ti AR 61 2- 8- 00 SI 11 EL ve IN 10 20 20 DE 29 10 10 GE 0. 1 PH RA 62 AR LD 5 MA R MG CY TA OF BL ET CY NT HI AN A LI 00 03 08 5 30 30 EA 16 AR Ac SI 17 -1 -[address] 71 NO ti NO 23 0- 8- 00 SI 18 LD ve AL 75 20 20 DE [place] 96 10 10 RI 0 PH CH 10 AR AR MA D MG CY W TA OF BL ET CY NT HI AN A LE 00 07 08 4 30 30 EA 18 LA Ac VO 37 -1 -[address] 35 WS ti TH 81 5- 8- 00 SI 48 ON ve YR 81 20 20 DE OX 30 [address] E AR OR 12 MA G 5 CY MC G OF TA BL CY ET NT HI AN A 00 07 07 5 60 30 EA 18 AR Ac 55 -2 -[address] 51 NO ti 50 9- 9- 00 SI 05 LD ve 36 20 20 DE 30 10 10 RI 5 PH CH AR AR MA D CY W OF CY NT HI AN A SI 65 04 07 5 30 30 EA 17 AR Ac MV 86 -0 -[address] 12 NO ti 20 9- 0- 00 SI 78 LD ve TA 05 20 20 DE TI 13 10 10 RI N 0 PH CH 10 AR AR MA D MG CY W TA OF BL ET CY NT HI AN A BU 00 07 07 1 60 15 EA 18 AR Ac TA 60 -1 -[address] 37 NO ti LB 32 6- 6- 00 SI 27 LD ve -A 54 20 20 DE CE 42 10 10 RI TA 8 PH CH MO AR AR N- MA D CA CY W FF OF 50 -3 CY 25 NT -4 HI 0 AN A LO 45 01 07 12 30 30 EA 15 AR Ac RA 80 -0 -[address] 83 NO ti TA 20 5- 9- 00 SI 69 LD ve DI 65 20 20 DE NE 08 10 10 RI 7 PH CH 10 AR AR MA D MG CY W TA OF BL ET CY NT HI AN A LE 00 03 07 5 30 30 EA 16 AR Ac VO 37 -1 -[address] 71 NO ti TH 81 0- 9- 00 SI 17 LD ve YR 81 20 20 DE OX 30 10 10 RI IN 1 PH CH E AR AR 12 MA D 5 CY W MC G OF TA BL CY ET NT HI AN A LI 00 03 07 5 30 30 EA 16 AR Ac SI 17 -1 -[address] 71 NO ti NO 23 0- 9- 00 SI 18 LD ve AL 75 20 20 DE [place] 96 10 10 RI 0 PH CH 10 AR AR MA D MG CY W TA OF BL ET CY NT HI AN A DI 00 01 06 5 60 30 EA 15 AR Ac AZ 17 -0 -[address] 83 NO ti EP 23 5- 0- 00 SI 70 LD ve AM 92 20 20 DE 5 67 10 10 RI 0 PH CH MG AR AR MA D TA CY W BL ET OF CY NT HI AN A SI 65 04 06 5 30 30 EA 17 AR Ac MV 86 -0 -[address] 12 NO ti 20 9- 9- 00 SI 78 LD ve TA 05 20 20 DE TI 13 10 10 RI N 0 PH CH 10 AR AR MA D MG CY W TA OF BL ET CY NT HI AN A NA 00 06 06 5 60 30 EA 17 AR Ac AL 09 -1 -[address] 92 NO ti OX 30 0- 0- 00 SI 69 LD ve EN 14 20 20 DE 90 10 10 RI 50 1 PH CH 0 AR AR MG MA D CY W TA BL OF ET CY NT HI AN A LO 45 01 06 12 30 30 EA 15 AR Ac RA 80 -0 -[address] 83 NO ti TA 20 5- 9- 00 SI 69 LD ve DI 65 20 20 DE NE 08 10 10 RI 7 PH CH 10 AR AR MA D MG CY W TA OF BL ET CY NT HI AN A LE 00 03 06 5 30 30 EA 16 AR Ac VO 37 -1 -[address] 71 NO ti TH 81 0- 9- 00 SI 17 LD ve YR 81 20 20 DE OX 30 10 10 RI IN 1 PH CH E AR AR 12 MA D 5 CY W MC G OF TA BL CY ET NT HI AN A LI 00 03 06 5 30 30 EA 16 AR Ac SI 17 -1 -[address] 71 NO ti NO 23 0- 9- 00 SI 18 LD ve AL 75 20 20 DE [place] 96 10 10 RI 0 PH CH 10 AR AR MA D MG CY W TA OF BL ET CY NT HI AN A DI 00 01 05 5 60 30 EA 15 AR Ac AZ 17 -0 -[address] 83 NO ti EP 23 5- 1- 00 SI 70 LD ve AM 92 20 20 DE 5 67 10 10 RI 0 PH CH MG AR AR MA D TA CY W BL ET OF CY NT HI AN A AL 00 05 05 1 30 8 EA 17 AR Ac OM 78 -2 -[address] 66 NO ti ET 11 0- 0- 00 SI 86 LD ve MAHMOOD 83 20 20 DE ZI 01 10 10 RI NE 0 PH CH AR AR 25 MA D CY W MG OF TA BL CY ET NT HI AN A LO 00 05 05 1 40 7 EA 17 AR Ac PE 09 -2 -[address] 66 NO ti RA 30 0- 0- 00 SI 87 LD ve MO 31 20 20 DE DE 10 10 10 RI 2 1 PH CH AR AR MG MA D CY W CA PS OF UL E CY NT HI AN A AL 00 02 05 3 90 90 EA 16 MAHMOOD Ac EM 04 -2 -[address] 46 RP ti AR 61 2- 9- 00 SI 11 EL ve IN 10 20 20 DE 29 10 10 GE 0. 1 PH RA 62 AR LD 5 MA R MG CY TA OF BL ET CY NT HI AN A SI 65 04 05 5 30 30 EA 17 AR Ac MV 86 -0 -[address] 12 NO ti 20 9- 9- 00 SI 78 LD ve TA 05 20 20 DE TI 13 10 10 RI N 0 PH CH 10 AR AR MA D MG CY W TA OF BL ET CY NT HI AN A LO 45 01 05 12 30 30 EA 15 AR Ac RA 80 -0 -[address] 83 NO ti TA 20 5- 0- 00 SI 69 LD ve DI 65 20 20 DE NE 08 10 10 RI 7 PH CH 10 AR AR MA D MG CY W TA OF BL ET CY NT HI AN A LE 00 03 05 5 30 30 EA 16 AR Ac VO 37 -1 -[address] 71 NO ti TH 81 0- 0- 00 SI 17 LD ve YR 81 20 20 DE OX 30 10 10 RI IN 1 PH CH E AR AR 12 MA D 5 CY W MC G OF TA BL CY ET NT HI AN A LI 00 03 05 5 30 30 EA 16 AR Ac SI 17 -1 -[address] 71 NO ti NO 23 0- 0- 00 SI 18 LD ve AL 75 20 20 DE [place] 96 10 10 RI 0 PH CH 10 AR AR MA D MG CY W TA OF BL ET CY NT HI AN A DI 00 01 04 5 60 30 EA 15 AR Ac AZ 17 -0 -[address] 83 NO ti EP 23 5- 0- 00 SI 70 LD ve AM 92 20 20 DE 5 67 10 10 RI 0 PH CH MG AR AR MA D TA CY W BL ET OF CY NT HI AN A LO 45 01 04 12 30 30 EA 15 AR Ac RA 80 -0 -[address] 83 NO ti TA 20 5- 9- 00 SI 69 LD ve DI 65 20 20 DE NE 08 10 10 RI 7 PH CH 10 AR AR MA D MG CY W TA OF BL ET CY NT HI AN A LE 00 03 04 5 30 30 EA 16 AR Ac VO 37 -1 -[address] 71 NO ti TH 81 0- 9- 00 SI 17 LD ve YR 81 20 20 DE OX 30 10 10 RI IN 1 PH CH E AR AR 12 MA D 5 CY W MC G OF TA BL CY ET NT HI AN A LI 00 03 04 5 30 30 EA 16 AR Ac SI 17 -1 -[address] 71 NO ti NO 23 0- 9- 00 SI 18 LD ve AL 75 20 20 DE [place] 96 10 10 RI 0 PH CH 10 AR AR MA D MG CY W TA OF BL ET CY NT HI AN A HUYNH 00 03 04 1 60 30 EA 16 NI Ac LI 59 -1 -[address] 76 CH ti ND 15 2- 9- 00 SI 11 OL ve AC 66 20 20 DE LS 00 10 10 20 1 PH MA 0 AR TH MG MA EW CY A TA BL OF ET CY NT HI AN A SI 65 04 04 5 30 30 EA 17 AR Ac MV 86 -0 -[address] 12 NO ti 20 9- 9- 00 SI 78 LD ve TA 05 20 20 DE TI 13 10 10 RI N 0 PH CH 10 AR AR MA D MG CY W TA OF BL ET CY NT HI AN A AZ 00 01 04 2 6. 6 EA 15 AR Ac IT 09 -0 -[address] 83 NO ti HR 37 5- 3- 0 SI 80 LD ve OM 14 20 20 DE YC 61 10 10 RI IN 8 PH CH AR AR 25 MA D 0 CY W MG OF TA BL CY ET NT HI AN A DI 00 01 03 5 60 30 EA 15 AR Ac AZ 17 -0 -[address] 83 NO ti EP 23 5- 0- 00 SI 70 LD ve AM 92 20 20 DE 5 67 10 10 RI 0 PH CH MG AR AR MA D TA CY W BL ET OF CY NT HI AN A 60 03 03 1 24 6 EA 16 AR Ac 25 -2 -[address] 91 NO ti 80 4- 4- 00 SI 74 LD ve 23 20 20 0 DE 91 10 10 RI 6 PH CH AR AR MA D CY W OF CY NT HI AN A AZ 00 01 03 1 6. 6 EA 15 AR Ac IT 09 -0 -[address] 83 NO ti HR 37 5- 2- 0 SI 80 LD ve OM 14 20 20 DE YC 61 10 10 RI IN 8 PH CH AR AR 25 MA D 0 CY W MG OF TA BL CY ET NT HI AN A HUYNH 00 03 03 1 60 30 EA 16 NI Ac LI 59 -1 -[address] 76 CH ti ND 15 2- 2- 00 SI 11 OL ve AC 66 20 20 DE LS 00 10 10 20 1 PH MA 0 AR TH MG MA EW CY A TA BL OF ET CY NT HI AN A SI 65 12 03 3 30 30 EA 15 AR Ac MV 86 -1 -[address] 51 NO ti 20 0- 0- 00 SI 19 LD ve TA 05 20 20 DE TI 13 09 10 RI N 0 PH CH 10 AR AR MA D MG CY W TA OF BL ET CY NT HI AN A LO 45 01 03 12 30 30 EA 15 AR Ac RA 80 -0 -[address] 83 NO ti TA 20 5- 0- 00 SI 69 LD ve DI 65 20 20 DE NE 08 10 10 RI 7 PH CH 10 AR AR MA D MG CY W TA OF BL ET CY NT HI AN A LE 00 03 03 5 30 30 EA 16 AR Ac VO 37 -1 -[address] 71 NO ti TH 81 0- 0- 00 SI 17 LD ve YR 81 20 20 DE OX 30 10 10 RI IN 1 PH CH E AR AR 12 MA D 5 CY W MC G OF TA BL CY ET NT HI AN A LI 00 03 03 5 30 30 EA 16 AR Ac SI 17 -1 -[address] 71 NO ti NO 23 0- 0- 00 SI 18 LD ve AL 75 20 20 DE [place] 96 10 10 RI 0 PH CH 10 AR AR MA D MG CY W TA OF BL ET CY NT HI AN A TR 45 03 03 5 80 5 EA 16 AR Ac IA 80 -0 -[address] 70 NO ti MC 20 9- 9- 00 SI 03 LD ve IN 06 20 20 DE OL 43 10 10 RI ON 6 PH CH E AR AR 0. MA D 1% CY W CR OF EA M CY NT HI AN A LO 45 01 02 01 30 30 EA 15 AR Ac RA 80 -0 -[address] 83 NO ti TA 20 5- 6- 00 SI 69 LD ve DI 65 20 20 DE NE 08 10 10 RI 7 PH CH 10 AR AR MA D MG CY W TA OF BL CY ET NT HI AN A LI 60 02 02 00 10 5 EA 16 AR Ac DO 43 -1 -[address] 36 NO ti CA 20 3- 6- 00 SI 49 LD ve IN 46 20 20 0 DE E 40 10 10 RI 2% 0 PH CH AR AR MA D SC CY W OU S OF SO CY LN NT HI AN A AZ 00 11 02 01 6. 5 EA 15 AR Ac IT 09 -2 -[address] 21 NO ti HR 37 0- 6- 0 SI 67 LD ve OM 14 20 20 DE YC 61 09 10 RI IN 8 PH CH AR AR 25 MA D 0 CY W MG OF TA CY BL NT ET HI AN A LI 00 02 02 00 30 30 EA 16 AR Ac SI 17 -0 -[address] 29 NO ti NO 23 8- 6- 00 SI 20 LD ve AL 75 20 20 DE [place] 96 10 10 RI 0 PH CH 10 AR AR MA D MG CY W TA OF BL CY ET NT HI AN A SI 65 12 02 02 30 30 EA 15 AR Ac MV 86 -1 -[address] 51 NO ti 20 0- 6- 00 SI 19 LD ve TA 05 20 20 DE TI 13 09 10 RI N 0 PH CH 10 AR AR MA D MG CY W TA OF BL CY ET NT HI AN A 68 02 02 00 20 10 EA 16 AR Ac 82 -1 -[address] 36 NO ti 00 3- 6- 00 SI 48 LD ve 06 20 20 DE 30 10 10 RI 9 PH CH AR AR MA D CY W OF CY NT HI AN A LE 00 02 02 00 30 30 EA 16 AR Ac VO 37 -0 -[address] 29 NO ti TH 81 8- 6- 00 SI 19 LD ve YR 81 20 20 DE OX 30 10 10 RI IN 1 PH CH E AR AR 12 MA D 5 CY W MC G OF TA CY BL NT ET HI AN A DI 00 01 02 00 60 30 EA 15 AR Ac AZ 17 -0 -[address] 83 NO ti EP 23 5- 1- 00 SI 70 LD ve AM 92 20 20 DE 5 67 10 10 RI 0 PH CH MG AR AR MA D TA CY W BL ET OF CY NT HI AN A PH 65 01 02 00 30 10 EA 16 AR Ac EN 16 -2 -[address] 10 NO ti AZ 20 6- 1- 00 SI 77 LD ve OP 52 20 20 DE YR 01 10 10 RI ID 0 PH CH IN AR AR E MA D 20 CY W 0 MG OF CY TA NT B HI AN A NI 00 01 02 00 20 10 EA 16 AR Ac TR 18 -2 -[address] 10 NO ti OF 50 6- 1- 00 SI 76 LD ve UR 12 20 20 DE AN 20 10 10 RI TO 1 PH CH IN AR AR MA D MO CY W NO -M OF CR CY NT 10 HI 0 AN MG A SI 65 12 01 01 30 30 EA 15 AR Ac MV 86 -1 -[address] 51 NO ti 20 0- 8- 00 SI 19 LD ve TA 05 20 20 DE TI 13 09 10 RI N 0 PH CH 10 AR AR MA D MG CY W TA OF BL CY ET NT HI AN A LE 00 02 01 11 30 30 EA 11 AR Ac VO 37 -1 -[address] 42 NO ti TH 81 1- 8- 00 SI 84 LD ve YR 81 20 20 DE OX 30 09 10 RI IN 1 PH CH E AR AR 12 MA D 5 CY W MC G OF TA CY BL NT ET HI AN A LI 00 02 01 11 30 30 EA 11 AR Ac SI 17 -1 -[address] 42 NO ti NO 23 1- 8- 00 SI 85 LD ve AL 75 20 20 DE [place] 96 09 10 RI 0 PH CH 10 AR AR MA D MG CY W TA OF BL CY ET NT HI AN A ME 00 01 01 00 21 6 EA 15 AR Ac TH 78 -1 -[address] 94 NO ti YL 15 2- 8- 00 SI 08 LD ve AL 02 20 20 DE ED 20 10 10 RI NI 7 PH CH SO AR AR LO MA D NE CY W 4 OF MG CY NT DO HI SE AN PK A 00 01 01 00 60 15 EA 16 AR Ac 55 -2 -[address] 02 NO ti 50 0- 8- 00 SI 89 LD ve 58 20 20 DE 50 10 10 RI 2 PH CH AR AR MA D CY W OF CY NT HI AN A AZ 00 01 01 00 6. 6 EA 15 AR Ac IT 09 -0 -[address] 83 NO ti HR 37 5- 4- 0 SI 80 LD ve OM 14 20 20 DE YC 61 10 10 RI IN 8 PH CH AR AR 25 MA D 0 CY W MG OF TA CY BL NT ET HI AN A DI 00 07 01 05 60 30 EA 13 AR Ac AZ 17 -2 -[address] 62 NO ti EP 23 7- 4- 00 SI 65 LD ve AM 92 20 20 DE 5 67 09 10 RI 0 PH CH MG AR AR MA D TA CY W BL ET OF CY NT HI AN A LO 45 01 01 00 30 30 EA 15 AR Ac RA 80 -0 -[address] 83 NO ti TA 20 5- 4- 00 SI 69 LD ve DI 65 20 20 DE NE 08 10 10 RI 7 PH CH 10 AR AR MA D MG CY W TA OF BL CY ET NT HI AN A SI 65 12 12 00 30 30 EA 15 AR Ac MV 86 -1 -[address] 51 NO ti 20 0- 7- 00 SI 19 LD ve TA 05 20 20 DE TI 13 09 09 RI N 0 PH CH 10 AR AR MA D MG CY W TA OF BL CY ET NT HI AN A LE 00 02 12 10 30 30 EA 11 AR Ac VO 37 -1 -[address] 42 NO ti TH 81 1- 7- 00 SI 84 LD ve YR 81 20 20 DE OX 30 09 09 RI IN 1 PH CH E AR AR 12 MA D 5 CY W MC G OF TA CY BL NT ET HI AN A LI 00 02 12 10 30 30 EA 11 AR Ac SI 17 -1 -[address] 42 NO ti NO 23 1- 7- 00 SI 85 LD ve AL 75 20 20 DE IL 96 09 09 RI 0 PH CH 10 AR AR MA D MG CY W TA OF BL CY ET NT HI AN A 00 12 12 00 18 20 YO 20 WR Ac 18 -1 -1 0. UR 25 IG ti 57 1- 7- 00 0 HT ve 32 20 20 0 PH 26 09 09 AR AR 0 MA DY CY C 00 11 12 00 30 30 EA 15 AR Ac 37 -2 -[address] 21 NO ti 81 0- 3- 00 SI 66 LD ve 08 20 20 DE 90 09 09 RI 1 PH CH AR AR MA D CY W OF CY NT HI AN A TR 45 11 12 00 80 5 EA 15 AR Ac IA 80 -2 -[address] 31 NO ti MC 20 7- 3- 00 SI 37 LD ve IN 06 20 20 DE OL 43 09 09 RI ON 6 PH CH E AR AR 0. MA D 1% CY W CR OF EA CY M NT HI AN A ME 00 11 12 00 40 13 EA 15 AR Ac CL 53 -2 -[address] 21 NO ti IZ 63 0- 3- 00 SI 68 LD ve IN 99 20 20 DE E 00 09 09 RI 25 1 PH CH AR AR MG MA D CY W TA BL OF ET CY NT CH HI EW AN A DI 00 07 12 04 60 30 EA 13 AR Ac AZ 17 -2 -[address] 62 NO ti EP 23 7- 3- 00 SI 65 LD ve AM 92 20 20 DE 5 67 09 09 RI 0 PH CH MG AR AR MA D TA CY W BL ET OF CY NT HI AN A AL 00 05 12 02 90 90 EA 12 MAHMOOD Ac EM 04 -1 -[address] 76 RP ti AR 61 5- 3- 00 SI 15 EL ve IN 10 20 20 DE 29 09 09 GE 0. 1 PH RA 62 AR LD 5 MA R MG CY TA OF BL CY ET NT HI AN A AZ 00 09 12 01 6. 6 EA 14 AR Ac IT 09 -2 -[address] 46 NO ti HR 37 9- 3- 0 SI 73 LD ve OM 14 20 20 DE YC 61 09 09 RI IN 8 PH CH AR AR 25 MA D 0 CY W MG OF TA CY BL NT ET HI AN A SI 65 11 11 00 30 30 EA 15 AR Ac MV 86 -1 -[address] 07 NO ti 20 1 9- 00 SI 79 LD ve TA 05 20 20 DE TI 13 09 09 RI N 0 PH CH 10 AR AR MA D MG CY W TA OF BL CY ET NT HI AN A LI 00 02 11 09 30 30 EA 11 AR Ac SI 17 -1 -[address] 42 NO ti NO 23 1 9- 00 SI 85 LD ve AL 75 20 20 DE IL 96 09 09 RI 0 PH CH 10 AR AR MA D MG CY W TA OF BL CY ET NT HI AN A LO 45 09 11 02 30 30 EA 14 AR Ac RA 80 -1 -[address] 21 NO ti TA 20 1- 9- 00 SI 14 LD ve DI 65 20 20 DE NE 08 09 09 RI 7 PH CH 10 AR AR MA D MG CY W TA OF BL CY ET NT HI AN A LE 00 02 11 09 30 30 EA 11 AR Ac VO 37 -1 -[address] 42 NO ti TH 81 1- 9- 00 SI 84 LD ve YR 81 20 20 DE OX 30 09 09 RI IN 1 PH CH E AR AR 12 MA D 5 CY W MC G OF TA CY BL NT ET HI AN A NA 00 09 11 01 60 30 EA 14 AR Ac AL 09 -1 -[address] 21 NO ti OX 30 - 9- 00 SI 15 LD ve EN 14 20 20 DE 90 09 09 RI 50 1 PH CH 0 AR AR MG MA D CY W TA BL OF ET CY NT HI AN A DI 00 07 11 03 60 30 EA 13 AR Ac AZ 17 -2 -[address] 62 NO ti EP 23 7- 5- 00 SI 65 LD ve AM 92 20 20 DE 5 67 09 09 RI 0 PH CH MG AR AR MA D TA CY W BL ET OF CY NT HI AN A LO 60 09 10 01 30 30 EA 14 AR Ac RA 50 -1 -[address] 21 NO ti TA 50 1- 2- 00 SI 14 LD ve DI 14 20 20 DE NE 70 09 09 RI 8 PH CH 10 AR AR MA D MG CY W TA OF BL CY ET NT HI AN A LE 00 02 10 08 30 30 EA 11 AR Ac VO 37 -1 -[address] 42 NO ti TH 81 1- 2- 00 SI 84 LD ve YR 81 20 20 DE OX 30 09 09 RI IN 1 PH CH E AR AR 12 MA D 5 CY W MC G OF TA CY BL NT ET HI AN A LI 00 02 10 08 30 30 EA 11 AR Ac SI 17 -1 -[address] 42 NO ti NO 23 1- 2- 00 SI 85 LD ve AL 75 20 20 DE IL 96 09 09 RI 0 PH CH 10 AR AR MA D MG CY W TA OF BL CY ET NT HI AN A SI 65 10 10 10 30 30 EA 99 AR Ac MV 86 -1 -[address] 89 NO ti 20 7- 2- 00 SI 71 LD ve TA 05 20 20 DE TI 13 08 09 RI N 0 PH CH 10 AR AR MA D MG CY W TA OF BL CY ET NT HI AN A DI 00 07 10 02 60 30 EA 13 AR Ac AZ 17 -2 -[address] 62 NO ti EP 23 7- 8- 00 SI 65 LD ve AM 92 20 20 DE 5 67 09 09 RI 0 PH CH MG AR AR MA D TA CY W BL ET OF CY NT HI AN A NA 00 09 10 00 17 17 EA 14 LA Ac SO 08 -2 -[address] 46 WS ti NE 51 9- 8- 00 SI 72 ON ve X 28 20 20 DE 50 [address] MC AR OR G MA G NA CY SA L OF SP CY RA NT Y HI AN A AZ 00 09 10 00 6. 6 EA 14 AR Ac IT 09 -2 -[address] 46 NO ti HR 37 9- 8- 0 SI 73 LD ve OM 14 20 20 DE YC 61 09 09 RI IN 8 PH CH AR AR 25 MA D 0 CY W MG OF TA CY BL NT ET HI AN A VE 00 09 10 00 18 18 EA 14 AR Ac NT 17 -2 -[address] 46 NO ti OL 30 9- 8- 00 SI 74 LD ve IN 68 20 20 DE 22 09 09 RI HF 0 PH CH A AR AR 90 MA D CY W MC G OF IN CY MAHMOOD NT LE HI R AN A TR 00 09 09 00 80 5 EA 14 AR Ac IA 16 -1 -[address] 25 NO ti MC 80 5- 4- 00 SI 97 LD ve IN 00 20 20 DE OL 48 09 09 RI ON 0 PH CH E AR AR 0. MA D 1% CY W CR OF EA CY M NT HI AN A LO 60 09 09 00 30 30 EA 14 WR Ac RA 50 -1 -[address] 21 IG ti TA 50 1- 4- 00 SI 14 HT ve DI 14 20 20 DE NE 70 09 09 AR 8 PH DY 10 AR C MA MG CY TA OF BL CY ET NT HI AN A LE 00 02 09 07 30 30 EA 11 AR Ac VO 37 -1 -[address] 42 NO ti TH 81 1- 4- 00 SI 84 LD ve YR 81 20 20 DE OX 30 09 09 RI IN 1 PH CH E AR AR 12 MA D 5 CY W MC G OF TA CY BL NT ET HI AN A SI 65 10 09 09 30 30 EA 99 AR Ac MV 86 -1 -[address] 89 NO ti 20 7- 4- 00 SI 71 LD ve TA 05 20 20 DE TI 13 08 09 RI N 0 PH CH 10 AR AR MA D MG CY W TA OF BL CY ET NT HI AN A NA 00 09 09 00 60 30 EA 14 AR Ac AL 09 -1 -[address] 21 NO ti OX 30 1- 4- 00 SI 15 LD ve EN 14 20 20 DE 90 09 09 RI 50 1 PH CH 0 AR AR MG MA D CY W TA BL OF ET CY NT HI AN A ME 00 09 09 00 21 6 EA 14 AR Ac TH 78 -1 -[address] 25 NO ti YL 15 5- 4- 00 SI 96 LD ve AL 02 20 20 DE ED 20 09 09 RI NI 7 PH CH SO AR AR LO MA D NE CY W 4 OF MG CY NT DO HI SE AN PK A LI 00 02 09 07 30 30 EA 11 AR Ac SI 17 -1 -[address] 42 NO ti NO 23 1- 4- 00 SI 85 LD ve AL 75 20 20 DE [place] 96 09 09 RI 0 PH CH 10 AR AR MA D MG CY W TA OF BL CY ET NT HI AN A DI 00 07 09 01 60 30 EA 13 AR Ac AZ 17 -2 -[address] 62 NO ti EP 23 7- 0- 00 SI 65 LD ve AM 92 20 20 DE 5 67 09 09 RI 0 PH CH MG AR AR MA D TA CY W BL ET OF CY NT HI AN A AL 00 05 09 01 90 90 EA 12 MAHMOOD Ac EM 04 -1 -[address] 76 RP ti AR 61 5- 0- 00 SI 15 EL ve IN 10 20 20 DE 29 09 09 GE 0. 1 PH RA 62 AR LD 5 MA R MG CY TA OF BL CY ET NT HI AN A LI 00 02 08 06 30 30 EA 11 AR Ac SI 17 -1 -[address] 42 NO ti NO 23 1- 7- 00 SI 85 LD ve AL 75 20 20 DE [place] 96 09 09 RI 0 PH CH 10 AR AR MA D MG CY W TA OF BL CY ET NT HI AN A LE 00 02 08 06 30 30 EA 11 AR Ac VO 37 -1 -[address] 42 NO ti TH 81 1- 7- 00 SI 84 LD ve YR 81 20 20 DE OX 30 09 09 RI IN 1 PH CH E AR AR 12 MA D 5 CY W MC G OF TA CY BL NT ET HI AN A 00 09 08 02 27 30 YO 16 WR Ac 18 -2 -1 0. UR 44 IG ti 57 4- 3- 00 8 HT ve 32 20 20 0 PH 26 08 09 AR AR 0 MA DY CY C DI 00 07 08 00 60 30 EA 13 AR Ac AZ 17 -2 -[address] 62 NO ti EP 23 7- 3- 00 SI 65 LD ve AM 92 20 20 DE 5 67 09 09 RI 0 PH CH MG AR AR MA D TA CY W BL ET OF CY NT HI AN A NA 00 08 07 04 60 30 EA 99 AR Ac AL 09 -1 -[address] 05 NO ti OX 30 2- 0- 00 SI 80 LD ve EN 14 20 20 DE 90 08 09 RI 50 1 PH CH 0 AR AR MG MA D CY W TA BL OF ET CY NT HI AN A LE 00 02 07 05 30 30 EA 11 AR Ac VO 37 -1 -[address] 42 NO ti TH 81 1- 0- 00 SI 84 LD ve YR 81 20 20 DE OX 30 09 09 RI IN 1 PH CH E AR AR 12 MA D 5 CY W MC G OF TA CY BL NT ET HI AN A CE 00 07 07 00 30 30 WA 88 LA Ac TI 37 -1 -3 .0 L- 14 WS ti RI 83 3- 0- 00 MA 32 ON ve ZI 63 20 20 RT 6 NE [address] HC AR OR L MA G 10 CY MG #5 91 TA BL ET SI 65 10 07 08 30 30 EA 99 AR Ac MV 86 -1 -[address] 89 NO ti 20 7- 0- 00 SI 71 LD ve TA 05 20 20 DE TI 13 08 09 RI N 0 PH CH 10 AR AR MA D MG CY W TA OF BL CY ET NT HI AN A LI 00 02 07 05 30 30 EA 11 AR Ac SI 17 -1 -[address] 42 NO ti NO 23 1- 0- 00 SI 85 LD ve AL 75 20 20 DE [place] 96 09 09 RI 0 PH CH 10 AR AR MA D MG CY W TA OF BL CY ET NT HI AN A DI 00 07 07 00 12 6 WA 44 LA Ac AZ 37 -1 -3 .0 L- 78 WS ti EP 80 3- 0- 00 MA 09 ON ve AM 34 20 20 RT 9 5 50 [address] MG AR OR MA G TA CY BL ET #5 91 00 09 07 01 18 20 YO 16 WR Ac 18 -2 -1 0. UR 44 IG ti 57 4- 6- 00 8 HT ve 32 20 20 0 PH 26 08 09 AR AR 0 MA DY CY C NA 00 08 07 03 60 30 EA 99 AR Ac AL 09 -1 -[address] 05 NO ti OX 30 2- 2- 00 SI 80 LD ve EN 14 20 20 DE 90 08 09 RI 50 1 PH CH 0 AR AR MG MA D CY W TA BL OF ET CY NT HI AN A LI 00 02 07 04 30 30 EA 11 AR Ac SI 17 -1 -[address] 42 NO ti NO 23 1- 2- 00 SI 85 LD ve AL 75 20 20 DE [place] 96 09 09 RI 0 PH CH 10 AR AR MA D MG CY W TA OF BL CY ET NT HI AN A LE 00 02 07 04 30 30 EA 11 AR Ac VO 37 -1 -[address] 42 NO ti TH 81 1- 2- 00 SI 84 LD ve YR 81 20 20 DE OX 30 09 09 RI IN 1 PH CH E AR AR 12 MA D 5 CY W MC G OF TA CY BL NT ET HI AN A AL 00 05 06 00 90 90 EA 12 MAHMOOD Ac EM 04 -1 -[address] 76 RP ti AR 61 5- 8- 00 SI 15 EL ve IN 10 20 20 DE 29 09 09 GE 0. 1 PH RA 62 AR LD 5 MA R MG CY TA OF BL CY ET NT HI AN A ME 00 06 06 00 60 20 EA 12 AR Ac CL 53 -0 -[address] 99 NO ti IZ 63 3- 8- 00 SI 09 LD ve IN 99 20 20 DE E 00 09 09 RI 25 1 PH CH AR AR MG MA D CY W TA BL OF ET CY NT CH HI EW AN A FL 00 05 06 00 1. 1 EA 12 AR Ac UC 17 -2 -[address] 89 NO ti ON 25 7- 4- 0 SI 78 LD ve AZ 41 20 20 DE OL 21 09 09 RI E 1 PH CH 15 AR AR 0 MA D MG CY W TA OF BL CY ET NT HI AN A NE 24 05 06 00 10 10 EA 12 AR Ac OM 20 -2 -[address] 89 NO ti YC 80 7- 4- 00 SI 80 LD ve IN 63 20 20 DE -P 56 09 09 RI OL 2 PH CH YM AR AR YX MA D IN CY W -H C OF EA CY R NT HUYNH HI SP AN A AZ 00 05 06 00 6. 5 EA 12 AR Ac IT 09 -2 -[address] 89 NO ti HR 37 7- 4- 0 SI 79 LD ve OM 14 20 20 DE YC 61 09 09 RI IN 8 PH CH AR AR 25 MA D 0 CY W MG OF TA CY BL NT ET HI AN A LE 00 02 05 03 30 30 EA 11 AR Ac VO 37 -1 -[address] 42 NO ti TH 81 1- 1- 00 SI 84 LD ve YR 81 20 20 DE OX 30 09 09 RI IN 1 PH CH E AR AR 12 MA D 5 CY W MC G OF TA CY BL NT ET HI AN A LI 00 02 05 03 30 30 EA 11 AR Ac SI 17 -1 -[address] 42 NO ti NO 23 1- 1- 00 SI 85 LD ve AL 75 20 20 DE [place] 96 09 09 RI 0 PH CH 10 AR AR MA D MG CY W TA OF BL CY ET NT HI AN A AL 00 05 05 00 30 30 EA 12 AR Ac EM 04 -0 -[address] 60 NO ti AR 61 4- 1- 00 SI 63 LD ve IN 10 20 20 DE 29 09 09 RI 0. 1 PH CH 62 AR AR 5 MA D MG CY W TA OF BL CY ET NT HI AN A SI 65 10 05 07 30 30 EA 99 AR Ac MV 86 -1 -[address] 89 NO ti 20 7- 1- 00 SI 71 LD ve TA 05 20 20 DE TI 13 08 09 RI N 0 PH CH 10 AR AR MA D MG CY W TA OF BL CY ET NT HI AN A LO 60 09 04 03 30 30 EA 99 WR Ac RA 50 -1 -[address] 52 IG ti TA 50 8- 3- 00 SI 98 HT ve DI 14 20 20 DE NE 70 08 09 AR 1 PH DY 10 AR C MA MG CY TA OF BL CY ET NT HI AN A LE 00 02 04 02 30 30 EA 11 AR Ac VO 37 -1 -[address] 42 NO ti TH 81 1- 3- 00 SI 84 LD ve YR 81 20 20 DE OX 30 09 09 RI IN 1 PH CH E AR AR 12 MA D 5 CY W MC G OF TA CY BL NT ET HI AN A LI 00 02 04 02 30 30 EA 11 AR Ac SI 17 -1 -[address] 42 NO ti NO 23 1- 3- 00 SI 85 LD ve AL 75 20 20 DE [place] 96 09 09 RI 0 PH CH 10 AR AR MA D MG CY W TA OF BL CY ET NT HI AN A AL 00 02 04 02 30 30 EA 11 AR Ac EM 04 -0 -[address] 30 NO ti AR 61 2- 3- 00 SI 16 LD ve IN 10 20 20 DE 29 09 09 RI 0. 1 PH CH 62 AR AR 5 MA D MG CY W TA OF BL CY ET NT HI AN A SI 65 10 04 06 30 30 EA 99 AR Ac MV 86 -1 -[address] 89 NO ti 20 7- 3- 00 SI 71 LD ve TA 05 20 20 DE TI 13 08 09 RI N 0 PH CH 10 AR AR MA D MG CY W TA OF BL CY ET NT HI AN A NA 00 08 04 02 60 30 EA 99 AR Ac AL 09 -1 -[address] 05 NO ti OX 30 2- 9- 00 SI 80 LD ve EN 14 20 20 DE 90 08 09 RI 50 1 PH CH 0 AR AR MG MA D CY W TA BL OF ET CY NT HI AN A LE 00 02 03 30 30 EA 11 AR Ac VO 37 -1 -[address] 42 NO ti TH 81 1- 6- 00 SI 84 LD ve YR 81 20 20 DE OX 30 09 09 RI IN 1 PH CH E AR AR 12 MA D 5 CY W MC G OF TA CY BL NT ET HI AN A LO 60 09 03 02 30 30 EA 99 WR Ac RA 50 -1 -[address] 52 IG ti TA 50 8- 6- 00 SI 98 HT ve DI 14 20 20 DE NE 70 08 09 AR 1 PH DY 10 AR C MA MG CY TA OF BL CY ET NT HI AN A LI 00 02 03 30 30 EA 11 AR Ac SI 17 -1 -[address] 42 NO ti NO 23 1- 6- 00 SI 85 LD ve AL 75 20 20 DE [place] 96 09 09 RI 0 PH CH 10 AR AR MA D MG CY W TA OF BL CY ET NT HI AN A SI 65 10 03 05 30 30 EA 99 AR Ac MV 86 -1 -[address] 89 NO ti 20 7- 6- 00 SI 71 LD ve TA 05 20 20 DE TI 13 08 09 RI N 0 PH CH 10 AR AR MA D MG CY W TA OF BL CY ET NT HI AN A AL 00 02 03 01 30 30 EA 11 AR Ac EM 04 -0 -[address] 30 NO ti AR 61 2- 2- 00 SI 16 LD ve IN 10 20 20 DE 29 09 09 RI 0. 1 PH CH 62 AR AR 5 MA D MG CY W TA OF BL CY ET NT HI AN A LI 00 02 30 30 EA 11 AR Ac SI 17 -1 -[address] 42 NO ti NO 23 1- 6- 00 SI 85 LD ve AL 75 20 20 DE IL 96 09 09 RI 0 PH CH 10 AR AR MA D MG CY W TA OF BL CY ET NT HI AN A LE 00 02 02 30 30 EA 11 AR Ac VO 37 -1 -[address] 42 NO ti TH 81 1- 6- 00 SI 84 LD ve YR 81 20 20 DE OX 30 09 09 RI IN 1 PH CH E AR AR 12 MA D 5 CY W MC G OF TA CY BL NT ET HI AN A SI 65 10 02 04 30 30 EA 99 AR Ac MV 86 -1 -[address] 89 NO ti 20 7- 6- 00 SI 71 LD ve TA 05 20 20 DE TI 13 08 09 RI N 0 PH CH 10 AR AR MA D MG CY W TA OF BL CY ET NT HI AN A AZ 00 12 02 01 6. 6 EA 10 AR Ac IT 09 -1 -[address] 64 NO ti HR 37 1- 2- 0 SI 11 LD ve OM 14 20 20 DE YC 61 08 09 RI IN 8 PH CH AR AR 25 MA D 0 CY W MG OF TA CY BL NT ET HI AN A AL 00 02 02 00 30 30 EA 11 AR Ac EM 04 -0 -[address] 30 NO ti AR 61 2- 2- 00 SI 16 LD ve IN 10 20 20 DE 29 09 09 RI 0. 1 PH CH 62 AR AR 5 MA D MG CY W TA OF BL CY ET NT HI AN A LE 00 02 01 11 30 30 EA 96 AR Ac VO 37 -0 -[address] 68 NO ti TH 81 6- 0- 00 SI 83 LD ve YR 81 20 20 DE OX 30 08 09 RI IN 1 PH CH E AR AR 12 MA D 5 CY W MC G OF TA CY BL NT ET HI AN A LI 00 02 01 11 30 30 EA 96 AR Ac SI 17 -0 -[address] 68 NO ti NO 23 6- 0- 00 SI 84 LD ve AL 75 20 20 DE [place] 96 08 09 RI 0 PH CH 10 AR AR MA D MG CY W TA OF BL CY ET NT HI AN A CI 55 01 01 00 15 30 EA 11 AR Ac TA 11 -1 -[address] 09 NO ti LO 10 5- 0- 00 SI 83 LD ve AL 34 20 20 DE AM 40 09 09 RI 1 PH CH HB AR AR R MA D 40 CY W MG OF CY TA NT BL HI ET AN A SI 65 10 01 03 30 30 EA 99 AR Ac MV 86 -1 -[address] 89 NO ti 20 7- 0- 00 SI 71 LD ve TA 05 20 20 DE TI 13 08 09 RI N 0 PH CH 10 AR AR MA D MG CY W TA OF BL CY ET NT HI AN A AL 00 02 01 11 30 30 EA 96 AR Ac EM 04 -0 -[address] 68 NO ti AR 61 6- 5- 00 SI 82 LD ve IN 10 20 20 DE 29 08 09 RI 0. 1 PH CH 62 AR AR 5 MA D MG CY W TA OF BL CY ET NT HI AN A 00 12 01 00 40 10 EA 10 AR Ac 60 -1 -[address] 70 NO ti 35 6- 1- 00 SI 87 LD ve 46 20 20 DE 82 08 09 RI 8 PH CH AR AR MA D CY W OF CY NT HI AN A BU 00 12 01 00 60 30 EA 10 AR Ac AL 18 -1 -[address] 71 NO ti OP 50 7- 1- 00 SI 91 LD ve IO 41 20 20 DE N 56 08 09 RI HC 0 PH CH L AR AR SR MA D CY W 15 0 OF MG CY NT TA HI BL AN ET A LE 00 02 01 10 30 30 EA 96 AR Ac VO 37 -0 -[address] 68 NO ti TH 81 6- 1- 00 SI 83 LD ve YR 81 20 20 DE OX 30 08 09 RI IN 1 PH CH E AR AR 12 MA D 5 CY W MC G OF TA CY BL NT ET HI AN A LO 60 09 01 01 30 30 EA 99 WR Ac RA 50 -1 -[address] 52 IG ti TA 50 8- 1- 00 SI 98 HT ve DI 14 20 20 DE NE 70 08 09 AR 1 PH DY 10 AR C MA MG CY TA OF BL CY ET NT HI AN A LI 00 02 01 10 30 30 EA 96 AR Ac SI 17 -0 -[address] 68 NO ti NO 23 6- 1- 00 SI 84 LD ve AL 75 20 20 DE IL 96 08 09 RI 0 PH CH 10 AR AR MA D MG CY W TA OF BL CY ET NT HI AN A SI 65 10 01 02 30 30 EA 99 AR Ac MV 86 -1 -[address] 89 NO ti 20 7- 1- 00 SI 71 LD ve TA 05 20 20 DE TI 13 08 09 RI N 0 PH CH 10 AR AR MA D MG CY W TA OF BL CY ET NT HI AN A AL 00 02 12 10 30 30 EA 96 AR Ac EM 04 -0 -[address] 68 NO ti AR 61 6- 8- 00 SI 82 LD ve IN 10 20 20 DE 29 08 08 RI 0. 1 PH CH 62 AR AR 5 MA D MG CY W TA OF BL CY ET NT HI AN A CA 00 12 12 00 30 30 EA 10 OC Ac RB 09 -0 -[address] 56 ON ti ID 30 5- 8- 00 SI 83 NE ve OP 29 20 20 DE LL A- 30 08 08 LE 1 PH MERI VO AR HN DO MA PA CY 25 OF -1 CY 00 NT HI TA AN B A LY 00 12 12 00 90 30 EA 10 OC Ac RI 07 -0 -[address] 56 ON ti CA 11 5- 8- 00 SI 84 NE ve 01 20 20 DE LL 50 36 08 08 8 PH MERI MG AR HN MA CA CY PS UL OF E CY NT HI AN A AZ 00 12 12 00 6. 6 EA 10 AR Ac IT 09 -1 -[address] 64 NO ti HR 37 1- 8- 0 SI 11 LD ve OM 14 20 20 DE YC 61 08 08 RI IN 8 PH CH AR AR 25 MA D 0 CY W MG OF TA CY BL NT ET HI AN A LE 00 02 12 09 30 30 EA 96 AR Ac VO 37 -0 -[address] 68 NO ti TH 81 6- 4- 00 SI 83 LD ve YR 81 20 20 DE OX 30 08 08 RI IN 1 PH CH E AR AR 12 MA D 5 CY W MC G OF TA CY BL NT ET HI AN A 00 11 12 00 10 2 EA 10 GO Ac 59 -2 -[address] 45 BL ti 10 8- 4- 00 SI 55 E ve 34 20 20 DE RO 90 08 08 ND 1 PH AL AR E MA CY OF CY NT HI AN A LI 00 02 12 09 30 30 EA 96 AR Ac SI 17 -0 -[address] 68 NO ti NO 23 6- 4- 00 SI 84 LD ve AL 75 20 20 DE [place] 96 08 08 RI 0 PH CH 10 AR AR MA D MG CY W TA OF BL CY ET NT HI AN A 52 11 12 00 20 7 EA 10 AR Ac 15 -2 -[address] 46 NO ti 20 8- 4- 00 SI 27 LD ve 00 20 20 DE 40 08 08 RI 2 PH CH AR AR MA D CY W OF CY NT HI AN A AL 00 11 12 00 30 7 EA 10 AR Ac OM 78 -2 -[address] 46 NO ti ET 11 8- 4- 00 SI 26 LD ve MAHMOOD 83 20 20 DE ZI 01 08 08 RI NE 0 PH CH AR AR 25 MA D CY W MG OF TA CY BL NT ET HI AN A SI 65 10 12 01 30 30 EA 99 AR Ac MV 86 -1 -[address] 89 NO ti 20 7- 4- 00 SI 71 LD ve TA 05 20 20 DE TI 13 08 08 RI N 0 PH CH 10 AR AR MA D MG CY W TA OF BL CY ET NT HI AN A 60 11 12 00 20 10 EA 10 AR Ac 50 -2 -[address] 46 NO ti 51 8- 4- 00 SI 28 LD ve 30 20 20 DE 90 08 08 RI 1 PH CH AR AR MA D CY W OF CY NT HI AN A AL 00 02 11 09 30 30 EA 96 AR Ac EM 04 -0 -[address] 68 NO ti AR 61 6- 0- 00 SI 82 LD ve IN 10 20 20 DE 29 08 08 RI 0. 1 PH CH 62 AR AR 5 MA D MG CY W TA OF BL CY ET NT HI AN A NA 00 09 11 00 17 17 EA 99 LA Ac SO 08 -1 -[address] 52 WS ti NE 51 8- 0- 00 SI 99 ON ve X 28 20 20 DE 50 80 [address] MC AR OR G MA G NA CY SA L OF SP CY RA NT Y HI AN A LO 60 09 11 00 30 30 EA 99 WR Ac RA 50 -1 -[address] 52 IG ti TA 50 8- 0- 00 SI 98 HT ve DI 14 20 20 DE NE 70 08 08 AR 1 PH DY 10 AR C MA MG CY TA OF BL CY ET NT HI AN A LE 00 02 10 08 30 30 EA 96 AR Ac VO 37 -0 -[address] 68 NO ti TH 81 6- 3- 00 SI 83 LD ve YR 81 20 20 DE OX 30 08 08 RI IN 1 PH CH E AR AR 12 MA D 5 CY W MC G OF TA CY BL NT ET HI AN A AL 00 02 10 08 30 30 EA 96 No Ac EM 04 -0 -[address] 68 t ti AR 61 6- 3- 00 SI 82 Av ve IN 10 20 20 DE ai 29 08 08 la 0. 1 PH bl 62 AR e 5 MA MG CY TA OF BL CY ET NT HI AN A AZ 00 10 10 00 6. 5 EA 99 No Ac IT 09 -1 -[address] 83 t ti HR 37 3- 3- 0 SI 47 Av ve OM 14 20 20 DE ai YC 61 08 08 la IN 8 PH bl AR e 25 MA 0 CY MG OF TA CY BL NT ET HI AN A LI 00 02 10 08 30 30 EA 96 AR Ac SI 17 -0 -[address] 68 NO ti NO 23 6- 3- 00 SI 84 LD ve AL 75 20 20 DE IL 96 08 08 RI 0 PH CH 10 AR AR MA D MG CY W TA OF BL CY ET NT HI AN A SI 65 10 10 00 30 30 EA 99 AR Ac MV 86 -1 -[address] 89 NO ti 20 7- 3- 00 SI 71 LD ve TA 05 20 20 DE TI 13 08 08 RI N 0 PH CH 10 AR AR MA D MG CY W TA OF BL CY ET NT HI AN A 00 09 10 00 27 30 YO 16 No Ac 18 -2 -0 0. UR 44 t ti 57 4- 9- 00 8 Av ve 32 20 20 0 PH ai 26 08 08 AR la 0 MA bl CY e NA 00 01 09 01 17 17 EA 96 No Ac SO 08 -3 -[address] 58 t ti NE 51 1- 6- 00 SI 77 Av ve X 28 20 20 DE ai 50 80 08 08 la 1 PH bl MC AR e G MA NA CY SA L OF SP CY RA NT Y HI AN A 00 08 09 01 90 30 EA 99 No Ac 17 -1 -[address] 05 t ti 25 2- 6- 00 SI 82 Av ve 66 20 20 DE ai 46 08 08 la 0 PH bl AR e MA CY OF CY NT HI AN A NA 00 08 09 01 60 30 EA 99 No Ac AL 09 -1 -[address] 05 t ti OX 30 2- 6- 00 SI 80 Av ve EN 14 20 20 DE ai 90 08 08 la 50 1 PH bl 0 AR e MG MA CY TA BL OF ET CY NT HI AN A LI 00 02 09 07 30 30 EA 96 No Ac PI 07 -0 -[address] 68 t ti TO 10 6- 6- 00 SI 85 Av ve R 15 20 20 DE ai 10 52 08 08 la 3 PH bl MG AR e MA TA CY BL ET OF CY NT HI AN A AL 00 02 09 07 30 30 EA 96 No Ac EM 04 -0 -[address] 68 t ti AR 61 6- 6- 00 SI 82 Av ve IN 10 20 20 DE ai 29 08 08 la 0. 1 PH bl 62 AR e 5 MA MG CY TA OF BL CY ET NT HI AN A LI 00 02 09 07 30 30 EA 96 No Ac SI 37 -0 -[address] 68 t ti NO 82 6- 6- 00 SI 84 Av ve AL 07 20 20 DE ai IL 41 08 08 la 0 PH bl 10 AR e MA MG CY TA OF BL CY ET NT HI AN A LE 00 02 09 07 30 30 EA 96 No Ac VO 37 -0 -[address] 68 t ti TH 81 6- 6- 00 SI 83 Av ve YR 81 20 20 DE ai OX 30 08 08 la IN 1 PH bl E AR e 12 MA 5 CY MC G OF TA CY BL NT ET HI AN A 00 09 09 00 80 10 EA 99 No Ac 47 -0 -[address] 33 t ti 20 4- 1- 00 SI 23 Av ve 30 20 20 DE ai 18 08 08 la 0 PH bl AR e MA CY OF CY NT HI AN A NE 61 09 09 00 7. 8 EA 99 No Ac OM 31 -0 -[address] 33 t ti YC 40 4- 1- 0 SI 22 Av ve IN 64 20 20 DE ai -P 17 08 08 la OL 5 PH bl Y- AR e HC MA CY EY E OF DR JOHNSON OP NT S HI AN A LI 00 02 08 06 30 30 EA 96 No Ac SI 17 -0 -[address] 68 t ti NO 23 6- 8- 00 SI 84 Av ve AL 75 20 20 DE ai [place] 96 08 08 la 0 PH bl 10 AR e MA MG CY TA OF BL CY ET NT HI AN A LI 00 02 08 06 30 30 EA 96 No Ac PI 07 -0 -[address] 68 t ti TO 10 6- 8- 00 SI 85 Av ve R 15 20 20 DE ai 10 52 08 08 la 3 PH bl MG AR e MA TA CY BL ET OF CY NT HI AN A LO 60 05 08 02 30 30 EA 98 No Ac RA 50 -2 -[address] 05 t ti TA 50 0- 8- 00 SI 57 Av ve DI 14 20 20 DE ai NE 70 08 08 la 1 PH bl 10 AR e MA MG CY TA OF BL CY ET NT HI AN A 52 08 08 00 90 30 EA 99 No Ac 15 -1 -[address] 05 t ti 20 2- 8- 00 SI 82 Av ve 22 20 20 DE ai 30 08 08 la 2 PH bl AR e MA CY OF CY NT HI AN A AL 37 08 08 00 30 30 EA 99 No Ac IL 00 -1 -[address] 05 t ti OS 00 2- 8- 00 SI 81 Av ve EC 45 20 20 DE ai 50 08 08 la OT 2 PH bl C AR e 20 MA .6 CY MG OF CY TA NT BL HI ET AN A NA 00 08 08 00 60 30 EA 99 No Ac AL 09 -1 -[address] 05 t ti OX 30 2- 8- 00 SI 80 Av ve EN 14 20 20 DE ai 90 08 08 la 50 1 PH bl 0 AR e MG MA CY TA BL OF ET CY NT HI AN A LE 00 02 08 06 30 30 EA 96 No Ac VO 37 -0 -[address] 68 t ti TH 81 6- 8- 00 SI 83 Av ve YR 81 20 20 DE ai OX 30 08 08 la IN 1 PH bl E AR e 12 MA 5 CY MC G OF TA CY BL NT ET HI AN A AL 00 02 08 06 30 30 EA 96 No Ac EM 04 -0 -[address] 68 t ti AR 61 6- 4- 00 SI 82 Av ve IN 10 20 20 DE ai 29 08 08 la 0. 1 PH bl 62 AR e 5 MA MG CY TA OF BL CY ET NT HI AN A LE 00 02 08 05 30 30 EA 96 No Ac VO 37 -0 -[address] 68 t ti TH 81 6- 1- 00 SI 83 Av ve YR 81 20 20 DE ai OX 30 08 08 la IN 1 PH bl E AR e 12 MA 5 CY MC G OF TA CY BL NT ET HI AN A LI 00 02 08 05 30 30 EA 96 No Ac PI 07 -0 -[address] 68 t ti TO 10 6- 1- 00 SI 85 Av ve R 15 20 20 DE ai 10 52 08 08 la 3 PH bl MG AR e MA TA CY BL ET OF CY NT HI AN A LI 00 02 08 05 30 30 EA 96 No Ac SI 17 -0 -[address] 68 t ti NO 23 6- 1- 00 SI 84 Av ve AL 75 20 20 DE ai IL 96 08 08 la 0 PH bl 10 AR e MA MG CY TA OF BL CY ET NT HI AN A LO 60 05 07 01 30 30 EA 98 No Ac RA 50 -2 -[address] 05 t ti TA 50 0- 7- 00 SI 57 Av ve DI 14 20 20 DE ai NE 70 08 08 la 1 PH bl 10 AR e MA MG CY TA OF BL CY ET NT HI AN A AL 00 02 07 05 30 30 EA 96 No Ac EM 04 -0 -[address] 68 t ti AR 61 6- 7- 00 SI 82 Av ve IN 10 20 20 DE ai 29 08 08 la 0. 1 PH bl 62 AR e 5 MA MG CY TA OF BL CY ET NT HI AN A 49 10 07 03 27 30 YO 14 No Ac 50 -3 -0 0. UR 83 t ti 20 0- 3- 00 5 Av ve 67 20 20 0 PH ai 26 07 08 AR la 0 MA bl CY e LI 00 02 07 04 30 30 EA 96 No Ac SI 17 -0 -[address] 68 t ti NO 23 6- 3- 00 SI 84 Av ve AL 75 20 20 DE ai IL 96 08 08 la 0 PH bl 10 AR e MA MG CY TA OF BL CY ET NT HI AN A AL 00 02 07 04 30 30 EA 96 No Ac EM 04 -0 -[address] 68 t ti AR 61 6- 3- 00 SI 82 Av ve IN 10 20 20 DE ai 29 08 08 la 0. 1 PH bl 62 AR e 5 MA MG CY TA OF BL CY ET NT HI AN A LE 00 02 07 04 30 30 EA 96 No Ac VO 37 -0 -[address] 68 t ti TH 81 6- 3- 00 SI 83 Av ve YR 81 20 20 DE ai OX 30 08 08 la IN 1 PH bl E AR e 12 MA 5 CY MC G OF TA CY BL NT ET HI AN A LI 00 02 07 04 30 30 EA 96 No Ac PI 07 -0 -[address] 68 t ti TO 10 6- 3- 00 SI 85 Av ve R 15 20 20 DE ai 10 52 08 08 la 3 PH bl MG AR e MA TA CY BL ET OF CY NT HI AN A NA 00 01 07 01 60 30 EA 96 No Ac AL 09 -0 -[address] 21 t ti OX 30 4- 3- 00 SI 74 Av ve EN 14 20 20 DE ai 90 08 08 la 50 1 PH bl 0 AR e MG MA CY TA BL OF ET CY NT HI AN A LI 00 02 06 03 30 30 EA 96 No Ac PI 07 -0 -[address] 68 t ti TO 10 6- 5- 00 SI 85 Av ve R 15 20 20 DE ai 10 52 08 08 la 3 PH bl MG AR e MA TA CY BL ET OF CY NT HI AN A LI 00 02 06 03 30 30 EA 96 No Ac SI 17 -0 -[address] 68 t ti NO 23 6- 5- 00 SI 84 Av ve AL 75 20 20 DE ai IL 96 08 08 la 0 PH bl 10 AR e MA MG CY TA OF BL CY ET NT HI AN A LO 60 05 06 00 30 30 EA 98 No Ac RA 50 -2 -[address] 05 t ti TA 50 0- 5- 00 SI 57 Av ve DI 14 20 20 DE ai NE 70 08 08 la 1 PH bl 10 AR e MA MG CY TA OF BL CY ET NT HI AN A LE 00 02 06 03 30 30 EA 96 No Ac VO 37 -0 -[address] 68 t ti TH 81 6- 5- 00 SI 83 Av ve YR 81 20 20 DE ai OX 30 08 08 la IN 1 PH bl E AR e 12 MA 5 CY MC G OF TA CY BL NT ET HI AN A AL 00 02 05 03 30 30 EA 96 No Ac EM 04 -0 -[address] 68 t ti AR 61 6- 2- 00 SI 82 Av ve IN 10 20 20 DE ai 29 08 08 la 0. 1 PH bl 62 AR e 5 MA MG CY TA OF BL CY ET NT HI AN A BA 00 04 04 00 60 30 EA 97 No Ac CL 17 -0 -[address] 52 t ti OF 24 8- 4- 00 SI 47 Av ve EN 09 20 20 DE ai 66 08 08 la 10 0 PH bl AR e MG MA CY TA BL OF ET CY NT HI AN A LE 00 02 04 02 30 30 EA 96 No Ac VO 37 -0 -[address] 68 t ti TH 81 6- 4- 00 SI 83 Av ve YR 81 20 20 DE ai OX 30 08 08 la IN 1 PH bl E AR e 12 MA 5 CY MC G OF TA CY BL NT ET HI AN A AL 00 02 04 02 30 30 EA 96 No Ac EM 04 -0 -[address] 68 t ti AR 61 6- 4- 00 SI 82 Av ve IN 10 20 20 DE ai 29 08 08 la 0. 1 PH bl 62 AR e 5 MA MG CY TA OF BL CY ET NT HI AN A LI 00 02 04 02 30 30 EA 96 No Ac PI 07 -0 -[address] 68 t ti TO 10 6- 4- 00 SI 85 Av ve R 15 20 20 DE ai 10 52 08 08 la 3 PH bl MG AR e MA TA CY BL ET OF CY NT HI AN A 00 04 04 00 51 5 EA 97 No Ac 59 -1 -[address] 65 t ti 10 7- 4- 00 SI 40 Av ve 34 20 20 DE ai 90 08 08 la 1 PH bl AR e MA CY OF CY NT HI AN A 00 04 04 00 15 30 EA 97 No Ac 09 -0 -[address] 52 t ti 31 8- 4- 00 SI 46 Av ve 03 20 20 0 DE ai 80 08 08 la 1 PH bl AR e MA CY OF CY NT HI AN A LI 00 02 04 02 30 30 EA 96 No Ac SI 17 -0 -[address] 68 t ti NO 23 6- 4- 00 SI 84 Av ve AL 75 20 20 DE ai IL 96 08 08 la 0 PH bl 10 AR e MA MG CY TA OF BL CY ET NT HI AN A LO 60 12 04 03 30 30 EA 96 No Ac RA 50 -2 -[address] 03 t ti TA 50 0- 4- 00 SI 58 Av ve DI 14 20 20 DE ai NE 70 07 08 la 1 PH bl 10 AR e MA MG CY TA OF BL CY ET NT HI AN A AL 00 02 04 01 30 30 EA 96 No Ac EM 04 -0 -[address] 68 t ti AR 61 6- 7- 00 SI 82 Av ve IN 10 20 20 DE ai 29 08 08 la 0. 1 PH bl 62 AR e 5 MA MG CY TA OF BL CY ET NT HI AN A AZ 64 03 04 00 6. 6 EA 97 No Ac IT 67 -1 -[address] 25 t ti HR 90 8- 7- 0 SI 60 Av ve OM 96 20 20 DE ai YC 10 08 08 la IN 5 PH bl AR e 25 MA 0 CY MG OF TA CY BL NT ET HI AN A LI 00 02 04 01 30 30 EA 96 No Ac PI 07 -0 -[address] 68 t ti TO 10 6- 7- 00 SI 85 Av ve R 15 20 20 DE ai 10 52 08 08 la 3 PH bl MG AR e MA TA CY BL ET OF CY NT HI AN A LO 60 12 04 02 30 30 EA 96 No Ac RA 50 -2 -[address] 03 t ti TA 50 0- 7- 00 SI 58 Av ve DI 14 20 20 DE ai NE 70 07 08 la 1 PH bl 10 AR e MA MG CY TA OF BL CY ET NT HI AN A 49 10 04 02 27 30 YO 14 No Ac 50 -3 -1 0. UR 83 t ti 20 0- 7- 00 5 Av ve 67 20 20 0 PH ai 26 07 08 AR la 0 MA bl CY e LE 00 02 04 01 30 30 EA 96 No Ac VO 37 -0 -[address] 68 t ti TH 81 6- 0- 00 SI 83 Av ve YR 81 20 20 DE ai OX 30 08 08 la IN 1 PH bl E AR e 12 MA 5 CY MC G OF TA CY BL NT ET HI AN A LI 00 02 04 01 30 30 EA 96 No Ac SI 17 -0 -[address] 68 t ti NO 23 6- 0- 00 SI 84 Av ve AL 75 20 20 DE ai IL 96 08 08 la 0 PH bl 10 AR e MA MG CY TA OF BL CY ET NT HI AN A 52 02 04 00 30 15 EA 96 No Ac 15 -2 -[address] 98 t ti 20 6- 7- 00 SI 38 Av ve 23 20 20 DE ai 62 08 08 la 1 PH bl AR e MA CY OF CY NT HI AN A DI 00 02 04 00 30 30 EA 96 No Ac CL 59 -2 -[address] 98 t ti OF 10 6- 7- 00 SI 37 Av ve EN 67 20 20 DE ai AC 60 08 08 la 1 PH bl SO AR e D MA ER CY 10 OF 0 CY MG NT HI TA AN B A LE 00 02 03 00 30 30 EA 96 No Ac VO 37 -0 -[address] 68 t ti TH 81 6- 6- 00 SI 83 Av ve YR 81 20 20 DE ai OX 30 08 08 la IN 1 PH bl E AR e 12 MA 5 CY MC G OF TA CY BL NT ET HI AN A 60 02 03 00 20 10 EA 96 No Ac 50 -1 -[address] 81 t ti 51 5- 6- 00 SI 10 Av ve 30 20 20 DE ai 90 08 08 la 1 PH bl AR e MA CY OF CY NT HI AN A 60 02 03 00 24 6 EA 96 No Ac 25 -1 -[address] 81 t ti 80 5- 6- 00 SI 11 Av ve 23 20 20 0 DE ai 91 08 08 la 6 PH bl AR e MA CY OF CY NT HI AN A NA 00 01 03 00 17 17 EA 96 No Ac SO 08 -3 -[address] 58 t ti NE 51 1- 6- 00 SI 77 Av ve X 28 20 20 DE ai 50 80 08 08 la 1 PH bl MC AR e G MA NA CY SA L OF SP CY RA NT Y HI AN A AV 00 01 03 00 10 10 EA 96 No Ac EL 08 -3 -[address] 58 t ti OX 51 1- 6- 00 SI 76 Av ve 73 20 20 DE ai 40 30 08 08 la 0 1 PH bl MG AR e MA TA CY BL ET OF CY NT HI AN A LI 00 02 03 00 30 30 EA 96 No Ac PI 07 -0 -[address] 68 t ti TO 10 6- 6- 00 SI 85 Av ve R 15 20 20 DE ai 10 52 08 08 la 3 PH bl MG AR e MA TA CY BL ET OF CY NT HI AN A LI 00 02 03 00 30 30 EA 96 No Ac SI 17 -0 -[address] 68 t ti NO 23 6- 6- 00 SI 84 Av ve AL 75 20 20 DE ai IL 96 08 08 la 0 PH bl 10 AR e MA MG CY TA OF BL CY ET NT HI AN A 00 02 03 00 60 15 EA 96 No Ac 55 -0 -[address] 68 t ti 50 6- 6- 00 SI 99 Av ve 58 20 20 DE ai 50 08 08 la 2 PH bl AR e MA CY OF CY NT HI AN A AL 00 02 03 00 30 30 EA 96 No Ac EM 04 -0 -[address] 68 t ti AR 61 6- 6- 00 SI 82 Av ve IN 10 20 20 DE ai 29 08 08 la 0. 1 PH bl 62 AR e 5 MA MG CY TA OF BL CY ET NT HI AN A LI 00 01 03 00 30 30 EA 96 No Ac SI 17 -2 -[address] 45 t ti NO 23 2- 5- 00 SI 25 Av ve AL 75 20 20 DE ai IL 96 08 08 la 0 PH bl 10 AR e MA MG CY TA OF BL CY ET NT HI AN A LE 00 09 03 04 30 30 EA 94 No Ac VO 37 -2 -[address] 85 t ti TH 81 0- 5- 00 SI 06 Av ve YR 81 20 20 DE ai OX 30 07 08 la IN 1 PH bl E AR e 12 MA 5 CY MC G OF TA CY BL NT ET HI AN A LO 60 12 03 01 30 30 EA 96 No Ac RA 50 -2 -[address] 03 t ti TA 50 0- 5- 00 SI 58 Av ve DI 14 20 20 DE ai NE 70 07 08 la 1 PH bl 10 AR e MA MG CY TA OF BL CY ET NT HI AN A 68 01 03 00 30 15 EA 96 No Ac 03 -1 -[address] 39 t ti 20 7- 5- 00 SI 80 Av ve 13 20 20 DE ai 41 08 08 la 0 PH bl AR e MA CY OF CY NT HI AN A 00 01 03 00 14 7 EA 96 No Ac 67 -1 -[address] 39 t ti 70 7- 5- 00 SI 81 Av ve 78 20 20 DE ai 40 08 08 la 5 PH bl AR e MA CY OF CY NT HI AN A 60 01 03 00 30 15 EA 96 No Ac 25 -0 -[address] 21 t ti 80 4- 4- 00 SI 72 Av ve 32 20 20 DE ai 30 08 08 la 1 PH bl AR e MA CY OF CY NT HI AN A NA 00 01 03 00 60 30 EA 96 No Ac AL 09 -0 -[address] 21 t ti OX 30 4- 4- 00 SI 74 Av ve EN 14 20 20 DE ai 90 08 08 la 50 1 PH bl 0 AR e MG MA CY TA BL OF ET CY NT HI AN A AL 00 01 03 00 30 30 EA 96 No Ac EM 04 -1 -[address] 31 t ti AR 61 1- 4- 00 SI 35 Av ve IN 10 20 20 DE ai 29 08 08 la 0. 1 PH bl 62 AR e 5 MA MG CY TA OF BL CY ET NT HI AN A Vital Signs 12-11-2013 07:26 Name Value Interpretat Reference Comment ion Range Body 98.6 [degF] Temperature BP 71 mm[Hg] Diastolic BP Systolic 118 mm[Hg] Heart 91 /min Rate/Pulse O2% 93 % Respiratory 18 /min Rate 12-11-2013 05:48 Name Value Interpretat Reference Comment ion Range BP 71 mm[Hg] Diastolic BP Systolic 142 mm[Hg] Heart 60 /min Rate/Pulse O2% 93 % Respiratory 15 /min Rate 08-20-2013 07:41 Name Value Interpretat Reference Comment ion Range BP 79 mm[Hg] Diastolic BP Systolic 134 mm[Hg] Heart 85 /min Rate/Pulse O2% 95 % Respiratory 20 /min Rate 08-06-2013 09:48 Name Value Interpretat Reference Comment ion Range BP 67 mm[Hg] Diastolic BP Systolic 121 mm[Hg] Heart 77 /min Rate/Pulse O2% 95 % Respiratory 20 /min Rate Results Labs Lab Lab Date Result Refere Interp Status Commen Order Detail nces retati t Range on Drugs identified in Urine by Screen method (07-02-2017 10:00) Ampheta NEGATIV <1000 complet mine 017 E ed [Presen 10:00 ce] in Urine by Screen method Hydr NEGATIV <50 complet oxy 017 E ed delta-9 10:00 tetrahy drocann abinol [Presen ce] in Unspeci fied specime n Drugs identified in Urine by Screen method (04-23-2017 09:37) Ampheta NEGATIV <1000 complet mine 017 E ed [Presen 09:37 ce] in Urine by Screen method Hydr NEGATIV <50 complet oxy 017 E ed delta-9 09:37 tetrahy drocann abinol [Presen ce] in Unspeci fied specime n Drugs identified in Urine by Screen method (04-19-2017 09:35) Ampheta NEGATIV <1000 complet mine 017 E ed [Presen 09:35 ce] in Urine by Screen method Hydr NEGATIV <50 complet oxy 017 E ed delta-9 09:35 tetrahy drocann abinol [Presen ce] in Unspeci fied specime n COMPREHENSIVE METABOLIC PANEL (12-11-2013 06:13) Glucose 151 74-106 complet 014 mg/dL ed Bld-mCn 06:13 c BUN 21 7-18 complet Bld-mCn 014 mg/dL ed c 06:13 Creat 0.8 0.6-1.0 complet SerPl-m 014 mg/dL ed Cnc 06:13 Creat 93 50-200 complet Cl 014 ML/MIN ed predict 06:13 ed SerPl C-G-vRa te GFR/BSA 74 59- complet .pred 014 ML/MIN ed SerPl 06:13 Schwart z-vRate Sodium 141 136-145 complet SerPl-s 014 mmoL/L ed Cnc 06:13 Potassi 3.8 3.5-5.1 complet um 014 mmoL/L ed SerPl-s 06:13 Cnc Chlorid 103 98-107 complet e 014 mmoL/L ed SerPl-s 06:13 Cnc CO2 29 21.0-32 complet SerPl-s 014 mmoL/L .0 ed Cnc 06:13 Calcium 7.9 8.5-10. complet 014 mg/dL 1 ed SerPl-m 06:13 Cnc Prot 7.3 6.4-8.2 complet SerPl-m 014 gm/dL ed Cnc 06:13 Albumin 3.8 3.4-5.0 complet 014 gm/dL ed SerPl-m 06:13 Cnc Globuli 3.5 1.3-3.2 complet n 014 gm/dL ed Ser-mCn 06:13 c Albumin 1.1 UNK 1.1-1.8 complet /Glob 014 ed SerPl-m 06:13 Rto Bilirub 0.5 0.2-1.0 complet 014 mg/dL ed SerPl-m 06:13 Cnc AST 38 U/L 15-37 complet SerPl-c 014 ed Cnc 06:13 ALT 46 U/L 30-65 complet SerPl-c 014 ed Cnc 06:13 ALP 78 U/L 50-136 complet SerPl-c 014 ed Cnc 06:13 Amylase SerPl-cCnc (12-11-2013 06:13) Amylase 49 U/L 25-115 complet 014 ed SerPl-c 06:13 Cnc LIPASE (12-11-2013 06:13) LIPASE 83 U/L 73-393 complet 014 ed 06:13 STREP SCREEN (RAPID) (08-20-2013 06:50) STREP NEGATIV complet SCREEN 013 E ed (RAPID) 06:50 Procedures Procedure DOS Code Location Performer Comment ECG 75182 PAULIE APODACA [facility]INE [facility] ECG INC INC W/LEAST 12 LDS TRCG ONLY W/O I&R DRUG TEST 56308 PAULIE APODACA PRSMV 7 [facility] QUAL DIR INC INC OPTICAL OBS PER DAY COMPREHEN 86766 COMBINED COMBINED SIVE 7 PHYSICIAN PHYSICIAN METABOLIC S LA S LA PANEL LIPID 08728 COMBINED COMBINED PANEL 7 PHYSICIAN PHYSICIAN S LA S LA 25 12163 COMBINED COMBINED HYDROXY 7 PHYSICIAN PHYSICIAN INCLUDES [place] [address] COMBINED COMBINED FREE 7 PHYSICIAN PHYSIC[place] [address] COMBINED COMBINED THYROID 7 PHYSICIAN PHYSICIAN STIMULATI S LA S LA NG HORMONE TSH BLOOD 07325 COMBINED COMBINED COUNT 7 PHYSICIAN PHYSICIAN COMPLETE S LA S LA AUTO&AUTO DIFRNTL WBC SCREENING G0202 [place] MANI 7 MEDICAL MAMMOGRAP IMAGING HY RUSS ASS INCL CAD WHEN PERFORMD SCREENING 82129 PAULIE APODACA 7 [facility] MAMMOGRAP INC INC HY BI 2-VIEW BREAST INC CAD URINLS 06940 [facility] DIP 7 PHYSICIAN PHYSICIAN STICK/TAB S GROUP S GROUP LET REAGNT NON-AUTO MICRSCPY BLOOD 08528 [facility] HARPEL OCCULT 7 PHYSICIAN PEROXIDAS S GROUP E ACTV QUAL FECES 1-3 SPEC CATARACT 67322 [facility] REMOVAL 7 SURGERY SURGERY INSERTION CENTER [facility] ANESTHESI 50894 ANESTHESI BRITO A EYE 7 A LENS ASSOCIATE SURGERY S PSC POSTERIOR V2632 [facility] CHAMBER 7 SURGERY SURGERY INTRAOCUL CENTER CENTER AR LENS SEDIMENTA 85529 COMBINED COMBINED TION RATE 7 PHYSICIAN PHYSICIAN [place] [address] COMBINED COMBINED FREE 7 PHYSICIAN PHYSICIAN THYROXINE S LA S LA 25 77022 COMBINED COMBINED HYDROXY 7 PHYSICIAN PHYSICIAN INCLUDES S [place] [address] COMBINED COMBINED TRIIODOTH 7 PHYSICIAN PHYSICIAN YRONINE S LA S LA T3 TOTAL TT3 GENERAL 30787 COMBINED COMBINED HEALTH 7 PHYSICIAN PHYSICIAN PANEL S LA S LA LIPID 69324 COMBINED COMBINED PANEL 7 PHYSICIAN PHYSICIAN S LA S LA ACUTE 34864 [facility] HANG HEPATITIS 7 RICARDO RICARDO PANEL HOLDINGS HOLDINGS CATARACT 14885 [facility] REMOVAL 7 INSERTION OF LENS POSTERIOR V2632 [facility] CHAMBER 7 SURGERY SURGERY INTRAOCUL CENTER CENTER AR LENS OPH BMTRY 26145 [facility] US 7 ECHOGRAPY A-SCAN IO LENS PWR ALLIE OPHTH 01575 [facility] MEDICAL 7 XM&EVAL COMPRE NEW PT 1/> VST DETERMINA 35759 [facility] TION 7 REFRACTIV E STATE ECG 08997 PAULIE APODACA ROUTINE 6 [facility] ECG INC INC W/LEAST 12 LDS TRCG ONLY W/O I&R OPHTH 64584 [facility] MEDICAL 6 ANG ANG XM&EVAL COMPRHNSV ESTAB PT 1/> INJ J0702 SABINO GALLO BETAMETHA 6 SUJATA SUJATA SONE ACETATE & PHOSPHATE 3 MG ECG 32598 PAULIE APODACA ROUTINE 6 [facility] ECG INC INC W/LEAST 12 LDS TRCG ONLY W/O I&R CREATINE 41283 PAULIE APODACA KINASE 6 [facility] TOTAL INC INC RADIOLOGI 29311 [facility] C EXAM 6 MEDICAL CHEST 2 IMAGING VIEWS ASS FRONTAL&L ATERAL ECG 21162 PAULIE RIVAS ROUTINE 6 [facility] W/LEAST P 12 LDS I&R ONLY COMPREHEN 91967 PAULIE APODACA SIVE 6 [facility] METABOLIC INC INC PANEL CREATINE 86210 PAULIE APODACA KINASE MB 6 [facility] FRACTION INC INC ONLY FIBRIN 53056 PAULIE APODACA DGRADJ 6 [facility] PRODUCTS INC INC D-DIMER QUAL/SEMI SANTY BLOOD 59990 PAULIE APODACA COUNT 6 [facility] COMPLETE INC INC AUTO&[place] [address] PAULIE APODACA TROPONIN 6 [facility] QUANTITAT INC INC ANTHONY BLOOD 94037 PAULIE APODACA COUNT 6 [facility] COMPLETE INC INC AUTO&AUTO DIFRNTL WBC CATHETER C1725 PAULIE APODACA TRANSLUMI 6 [facility] NAL INC INC ANGIOPLAS TY NON-LASER BASIC 42796 PAULIE APODACA METABOLIC [address] [facility] PANEL INC INC CALCIUM TOTAL CATH PLMT 70347 PAULIE PAULIE Velásquez HRT & [address] [facility] ARTS INC INC W/NJX & ANGIO IMG S&I GUIDE C1769 PAULIE APODACA WIRE [address] [facility] INC INC INJ J0702 SABINO GALLO BETAMETHA 6 SUJATA SUJATA SONE ACETATE & PHOSPHATE 3 MG INJ J0702 SABINO GALLO BETAMETHA 6 SUJATA SUJATA SONE ACETATE & PHOSPHATE 3 [place] [address] COMBINED COMBINED FREE 6 PHYSICIAN PHYSICIAN THYROXINE S LA S LA MYOCARDIA 21574 PAULIE Velásquez SPECT [address] [facility] MULTIPLE INC INC STUDIES CV STRS 05696 PAULIE RIVAS TST 6 [facility] RX CONT P ECG W/O I&R CV STRS 43674 PAULIE RIVAS TST 6 [facility] RX CONT P ECG I&R ONLY TECHNETIU A9500 PAULIE PAULIE Ornelas TC-99M [address] [facility] SESTAMIBI INC INC DX PER STUDY DOSE CV STRS 36585 PAULIE PAULIE TST [address] [facility] XERS&/OR INC INC RX CONT ECG TRCG ONLY COLLECTIO 09178 COMBINED COMBINED N VENOUS 6 PHYSICIAN PHYSICIAN BLOOD S LA S LA VENIPUNCT URE COMPREHEN 59460 COMBINED COMBINED SIVE 6 PHYSICIAN PHYSICIAN METABOLIC S LA S LA PANEL LIPID 49098 COMBINED COMBINED PANEL 6 PHYSICIAN PHYSICIAN S LA S LA BLOOD 26393 COMBINED COMBINED COUNT 6 PHYSICIAN PHYSICIAN COMPLETE S LA S LA AUTO&[place] [address] COMBINED COMBINED THYROID 6 PHYSICIAN PHYSICIAN STIMULATI S LA S LA NG HORMONE TSH BLOOD 69604 COMBINED COMBINED COUNT 6 PHYSICIAN PHYSICIAN COMPLETE S LA S LA AUTO&AUTO DIFRNTL WBC COMPREHEN 12286 COMBINED COMBINED SIVE 6 PHYSICIAN PHYSICIAN METABOLIC S LA S LA PANEL 25 56796 COMBINED COMBINED HYDROXY 6 PHYSICIAN PHYSICIAN [place]ES [place] [address] [place] ESTEVEZ ALL HEAD/BRAI 6 MEDICAL N W/O IMAGING CONTRAST ASS MATERIAL COMPUTER- 79589 [place] MARIA LUZ AIDED 6 MEDICAL DETECTION IMAGING ASS SCREENING MAMMOGRAP HY SCREENING G0202 [place] [facility] 6 MEDICAL MAMMOGRAP IMAGING HY RUSS ASS INCL CAD WHEN PERFORMD ECG RTN G0403 COMBINED COMBINED ECG W/12 6 PHYSICIAN PHYSICIAN LEADS SCR S LA S LA INIT PREVNTV PE W/I&R DRUG TST G0477 COMBINED COMBINED PRESUMP;C 6 PHYSICIAN PHYSICIAN PBL BEING S LA S LA READ DC OPT OBV ONLY BLOOD 97261 KRAIG HOLLINGSWORTH OCCULT 6 EDEL MCKENNA ASHTYN PEROXIDAS E ACTV QUAL FECES 1-3 SPEC URINLS 33993 KRAIG CARSON MAR DIP 6 EDEL MCKENNA STICK/TAB LET REAGNT NON-AUTO MICRSCPY RADEX 76813 [place] JOAO ESOPHAGUS 6 [place] [address] COMBINED COMBINED TRIIODOTH 6 PHYSICIAN PHYSICIAN YRONINE S LA S LA T3 TOTAL TT3 25 01145 COMBINED COMBINED HYDROXY 6 PHYSICIAN PHYSICIAN INCLUDES S LA S LA FRACTIONS IF PERFORMED GENERAL 06081 COMBINED COMBINED HEALTH 6 PHYSICIAN PHYSICIAN PANEL S LA S LA LIPID 38529 COMBINED COMBINED PANEL 6 PHYSICIAN PHYSICIAN S LA S LA DRUG TST G0477 COMBINED COMBINED PRESUMP;C 6 PHYSICIAN PHYSICIAN PBL BEING S LA S LA READ DC OPT OBV ONLY SEDIMENTA 80197 COMBINED COMBINED TION RATE 6 PHYSICIAN PHYSICIAN RBC [place] [address] COMBINED COMBINED FREE 6 PHYSICIAN PHYSICIAN THYROXINE S LA S LA DRUG SCR G0434 COMBINED COMBINED NOT 6 PHYSICIAN PHYSICIAN CHROMATOG S LA S LA RAPHIC; ANY NUMBER PT ENC INJ J0702 ARNOLD ARNOLD BETAMETHA 6 SUJATA SUJATA SONE ACETATE & PHOSPHATE 3 MG INJ J0702 ARNOLD ARNOLD BETAMETHA 6 SUJATA SUJATA SONE ACETATE & PHOSPHATE 3 MG INJ J0702 ARNASIF ARNOLD BETAMETHA 6 SUJATA SUJATA SONE ACETATE & PHOSPHATE 3 MG COLONOSCO 82757 [facility] SCHULSTAD PY FLX DX 5 PHYSICIAN CAM W/COLLJ S GROUP SPEC WHEN PFRMD INJ J0702 SABINO GALLO BETAMETHA 5 SUJATA SUJATA SONE ACETATE & PHOSPHATE 3 MG COLLECTIO 94557 PAULIE PAULIE N VENOUS 5 [facility] [place] [address] PAULIE PAULIE FREE 5 [facility] [place] [address] PAULIE APODACA THYROID 5 [facility] STIMULATI INC INC NG HORMONE TSH NEEDLE 49875 [facility] EMG EA 5 N EXTREMTY NEUROLOGY W/PARASPI NL AREA COMPLETE NERVE 66196 [facility] CONDUCTIO 5 N N STUDIES NEUROLOGY 5-6 STUDIES NON-INVAS 15543 [facility] ANTHONY 5 MEDICAL [facility] PHYSIOLOG IMAGING IC STUDY ASS EXTREMITY 3 LEVLS DUP-SCAN 14070 PAULIE APODACA LXTR 5 [facility] ART/ARTL INC [place] [address] COMBINED COMBINED THYROID 5 PHYSICIAN PHYSICIAN STIMULATI S LA S LA NG HORMONE TSH BASIC 57067 COMBINED COMBINED METABOLIC 5 PHYSICIAN PHYSICIAN [place] [address] COMBINED COMBINED MAGNESIUM 5 PHYSICIAN PHYSICIAN S LA S LA INJ J0702 SABINO GALLO BETAMETHA 5 SUJATA SUJATA SONE ACETATE & PHOSPHATE 3 MG INJ J0702 SABINO GALLO BETAMETHA 5 SUJATA SUJATA SONE ACETATE & PHOSPHATE 3 MG COMPREHEN 23476 COMBINED COMBINED SIVE 5 PHYSICIAN PHYSICIAN METABOLIC S LA S LA PANEL LIPID 63443 COMBINED COMBINED PANEL 5 [place] [address] COMBINED COMBINED MAGNESIUM 5 PHYSICIAN [place] [address] PAULIE APODACA ACTIVATED 5 [facility] ECG INC INC RECORD MONITOR 30 [place] [address] PAULIE RIVAS ACTIVTD 5 [facility] W/R&I P </30 DAYS RADIOLOGI 99295 [place] ISAIAH SAUCEDO C EXAM 5 MEDICAL CHEST 2 IMAGING VIEWS ASS FRONTAL&L ATERAL CALCIUM 90014 COMBINED COMBINED TOTAL 5 [place] [address] COMBINED COMBINED THYROID 5 PHYSICIAN PHYSICIAN STIMULATI [place] [address] COMBINED COMBINED FREE 5 PHYSICIAN PHYSICIAN THYROXINE S LA S LA HEPATIC 25353 COMBINED COMBINED FUNCTION 5 PHYSICIAN PHYSICIAN PANEL S LA S LA ACUTE 33107 LAB [facility] HANG HEPATITIS 5 RICARDO RICARDO PANEL HOLDINGS HOLDINGS INJ J0702 SABINO GALLO BETAMETHA 5 SUJATA SUJATA SONE ACETATE & PHOSPHATE 3 MG INJ J0702 SABINO GALLO BETAMETHA 5 SUJATA SUJATA SONE ACETATE & PHOSPHATE 3 MG COMPREHEN 16145 COMBINED COMBINED SIVE 5 PHYSICIAN PHYSICIAN METABOLIC S LA S LA PANEL LIPID 25889 COMBINED COMBINED PANEL 5 PHYSICIAN PHYSICIAN S LA S LA DXA BONE 43856 [place] JOAO DENSITY 5 MEDICAL [facility]ITT STUDY 1/> IMAGING SITES ASS AXIAL SKEL COMPUTER- 01116 [place] JOAO AIDED 5 MEDICAL [place] DETECTION IMAGING ASS SCREENING MAMMOGRAP HY SCREENING G0202 [place] JOAO 5 MEDICAL [place] MAMMOGRAP IMAGING HY RUSS ASS INCL CAD WHEN PERFORMD CULTURE 01237 KRAIG HOLLINGSWORTH CHLAMYDIA 5 EDEL MCKENNA ASHTYN ANY SOURCE IADNA 40120 KRAIG HOLLINGSWORTH NEISSERIA 5 EDEL MCKENNA ASHTYN GONORRHOE AE DIRECT PROBE TQ BLOOD 68247 KRAIG Van LOYD OCCULT 5 EDEL MCKENNA TI PEROXIDAS E ACTV QUAL FECES 1 DETER URINLS 44616 KRAIG HOLLINGSWORTH DIP 5 EDEL CHAMORRO STICK/TAB LET REAGNT NON-AUTO MICRSCPY IM ADM 50362 PAULIE APODACA PRQ ID 5 [facility] SUBQ/IM INC INC NJXS 1 VACCINE INJ J0702 SABINO CELISMETHA 5 SUJATA SUJATA SONE ACETATE & PHOSPHATE 3 [place] [address] COMBINED COMBINED AMYLASE 4 PHYSICIAN PHYSICIAN S LA S LA COMPREHEN 52408 COMBINED COMBINED SIVE 4 PHYSICIAN PHYSICIAN METABOLIC S LA S LA PANEL ANTIBODY 59273 COMBINED COMBINED HELICOBAC [address] S LA S LA PYLORI EXC B9 48353 [facility] SCHULSTAD LESION 4 PHYSICIAN CLIFFORD MRGN XCP S GROUP SK TG T/A/L 1.1-2.0 CM OPHTH 10905 [facility] 4 ANG ANG XM&EVAL COMPRHNSV ESTAB PT 1/> [place] [address] [facility], JUSTIN SURG 4 [facility] PATHOLOGY GROSS&LIOR ROSCOPIC EXAM DIAGNOSTI G0206 PAULIE APODACA C [address] [facility] MAMMOGRAP INC INC HY INCL CAD WHEN PERF; UNI MYOCARDIA 50052 PAULIE APODACA L SPECT [address] [facility] MULTIPLE INC INC STUDIES CV STRS 03478 PAULIE HUMPHREY JR TST 4 [facility] XERS&/OR HOSPITAL RX CONT P ECG I&R ONLY TECHNETIU A9500 PAULIE APODACA M TC-99M [address] [facility] SESTAMIBI INC INC DX PER STUDY DOSE CV STRS 31923 PAULIE APODACA TST [address] [facility] XERS&/OR INC INC RX CONT ECG TRCG ONLY CV STRS 68315 PAULIE APODACA TST [address] [facility] XERS&/OR INC INC RX CONT ECG TRCG ONLY CV STRS 59452 EVELYN RIVAS TST 4 MAX MAX XERS&/OR RX CONT ECG I&R ONLY ECHO 62416 PAULIE APODACA TTHRC R-T [address] [facility] 2D INC INC W/WOM-MOD E COMPL SPEC&COLR D XTRNL ECG 65234 PAULIE APODACA & 48 HR [address] [facility] RECORDING INC INC EXTERNAL 55967 PAULIE CABAADU JULIANA ECG 4 [facility] SCANNING INC ANALYSIS REPORT XTRNL ECG 87093 EVELYN RIVAS 4 MAX MAX CONTINUOU S RHYTHM W/I&R UP TO 48 HRS ECG 35927 KEELEY WORRELL ROUTINE 4 ECG W/LEAST 12 LDS I&R ONLY ECG 98103 PAULIE APODACA ROUTINE 4 [facility] ECG INC INC W/LEAST 12 LDS TRCG ONLY W/O I&R RADEX 75958 EDWARDS TRA EDWARDS TRA SPINE 4 CERVICAL 4 OR 5 VIEWS US SOFT 49625 PAULIE APODACA TISSUE [address] [facility] HEAD & INC INC NECK REAL TIME IMGE DOCM RADEX 79521 PAULIE PAULIE ESOPHAGUS 4 [facility] INC INC CALCIUM 74244 COMBINED COMBINED TOTAL 4 [place] [address] COMBINED COMBINED FREE 4 PHYSICIAN PHYSIC[place] [address] COMBINED COMBINED THYROID 4 PHYSICIAN PHYSICIAN STIMULATI S LA S LA NG HORMONE TSH DRUG SCR G0434 COMBINED COMBINED NOT 4 PHYSICIAN PHYSICIAN CHROMATOG S LA S LA RAPHIC; ANY NUMBER PT ENC RADEX 73109 PAULIE APODACA FOREARM 2 4 [facility] VIEWS INC INC RADEX 12106 PAULIE APODACA WRIST 4 [facility] COMPLETE INC INC MINIMUM 3 VIEWS DIAGNOSTI G0206 [facility] JOAO C 4 [facility] MAMMOGRAP HY INCL CAD WHEN PERF; UNI SCREENING G0202 PAULIE APODACA 4 [facility] MAMMOGRAP INC INC HY RUSS INCL CAD WHEN PERFORMD DXA BONE 49240 PAULIE APODACA DENSITY [address] [facility] STUDY 1/> INC INC SITES AXIAL SKEL COMPUTER- 73456 PAULIE APODACA AIDED [address] [facility] DETECTION INC INC SCREENING MAMMOGRAP HY URINLS 43850 HARPEL HARPEL DIP 4 ASHTYN ASHTYN STICK/TAB LET REAGNT NON-AUTO MICRSCPY BLOOD 34950 [facility] HARPEL OCCULT 4 ASHTYN ASHTYN PEROXIDAS E ACTV QUAL FECES 1-3 SPEC IADNA 86260 [facility] HARPEL NEISSERIA 4 ASHTYN ASHTYN GONORRHOE AE DIRECT PROBE TQ CULTURE 63145 [facility] HARPEL CHLAMYDIA 4 ASHTYN ASHTYN ANY SOURCE DRUG SCRN 29860 COMBINED COMBINED QUAL HYDROMETEOROLOGY TEACHER 4 PHYSICIAN PHYSICIAN CLASS S LA [place] [address] PAULIE APODACA LIPASE 4 [facility] INC INC COMPREHEN 16861 PAULIE PAULIE SIVE 4 [facility] [place] [address] PAULIE APODACA AMYLASE 4 [place] [address] PAULIE APODACA INFUSION 4 [facility] THERAPY/P INC INC ROPHYLAXI S /DX 1ST TO 1 HR THERAPEUT 62659 PAULIE APODACA IC 4 [facility] INJECTION INC INC IV PUSH EACH NEW DRUG BLOOD 96243 PAULIE APODACA COUNT 4 [facility] COMPLETE INC INC AUTO&AUTO DIFRNTL WBC INJECTION J0696 SABINO GALLO 3 SUJATA SUJATA CEFTRIAXO NE SODIUM PER 250 MG LIPID 67361 COMBINED COMBINED PANEL 3 PHYSICIAN PHYSICIAN S LA S LA COMPREHEN 01791 COMBINED COMBINED SIVE 3 PHYSICIAN PHYSIC[place] [address] PAULIE APODACA STREPTOCO 3 [facility] CCUS INC INC GROUP A CUL BACT 23040 PAULIE APODACA XCPT 3 [facility] URINE INC INC BLOOD/STO OL AEROBIC ISOL RHEUMATOI 45871 COMBINED COMBINED D FACTOR 3 PHYSICIAN PHYSICIAN QUALITATI S LA S LA VE ANTINUCLE 52424 LAB HANG LAB HANG AR 3 OF AMERIC ANTIBODIE RICARDO HOLDING S FAWAD HOLDINGS C-REACTIV 07288 COMBINED COMBINED E PROTEIN 3 PHYSICIAN PHYSICIAN S LA S LA SEDIMENTA 90429 COMBINED COMBINED TION RATE 3 PHYSICIAN PHYSICIAN RBC S LA S LA NON-AUTOM ATED RADEX 16669 MITCHELL MEDRANO SPINE 3 MAT MAT CERVICAL 2 OR 3 VIEWS RADEX 71402 MITCHELL MEDRANO HAND 2 3 MAT MAT VIEWS RADEX 62901 PAULIE APODACA HAND 3 [facility] MINIMUM 3 INC INC VIEWS INJECTION J2405 PAULIE APODACA 3 [facility] ONDANSETR INC INC ON HCL PER 1 MG ANES 91500 [facility] AWILDA SHERYL ESOPH 3 ANESTH THYRD OF THE LARYNX BLUE TRACH & [place] 1[place] [address] PICKLESIM PICKLESIM SURG 3 ER JR ASTER ER JR ASTER PATHOLOGY GROSS&LIOR ROSCOPIC EXAM LARGSC 05197 VERENA ALBARADO EXC 3 LESLY LESLY CHARISMA&/STRP G CORDS/EPI GL MCRSCP/TL SCP LARYNGOSC 27199 PAULIE APODACA OPY 3 [facility] W/BIOPSY INC INC MICROSCOP E/TELESCO PE ECG 94655 COMBINED COMBINED ROUTINE 3 PHYSICIAN PHYSICIAN ECG S LA S LA W/LEAST 12 LDS TRCG ONLY W/O I&R ELECTROLY 69250 COMBINED COMBINED TE PANEL 3 PHYSICIAN PHYSICIAN S LA S LA COMPUTER- [id number] JOAO JOAO AIDED 3 MERRITT MERRITT DETECTION SCREENING MAMMOGRAP HY SCREENING G0202 JOAO JOAO 3 MERRITT MERRITT MAMMOGRAP HY RUSS INCL CAD WHEN PERFORMD SPMTRY 64198 JACK JACK W/VC 3 ODALIS ODALIS EXPIRATOR Y GARRETT W/WO MXML VOL VNTJ CULTURE 32811 HARPEL HARPEL CHLAMYDIA 3 ASHTYN ASHTYN ANY SOURCE IADNA 59732 HARPEL HARPEL NEISSERIA 3 ASHTYN ASHTYN GONORRHOE AE DIRECT PROBE TQ URINLS 08574 HARPEL HARPEL DIP 3 ASHTYN ASHTYN STICK/TAB LET REAGNT NON-AUTO MICRSCPY BLOOD 17290 HARPEL HARPEL OCCULT 3 ASHTYN ASHTYN PEROXIDAS E ACTV QUAL FECES 1-3 SPEC INJECTION J0696 SABINO GALLO 2 SUJATA SUJATA CEFTRIAXO NE SODIUM PER 250 MG INJECTION J0696 SABINO GALLO 2 SUJATA SUJATA CEFTRIAXO [place] PER [address] [place] [address] PAULIE APODACA STREPTOCO 2 [facility] [place] [address] COMBINED COMBINED THYROID 2 PHYSICIAN PHYSICIAN STIMULATI S LA S LA NG HORMONE TSH THYROID 35527 COMBINED COMBINED HORM 2 PHYSICIAN PHYSICIAN UPTK/THYR S LA S LA OID HORMONE BINDING RATIO CALCIUM 46999 COMBINED COMBINED TOTAL 2 PHYSICIAN PHYSICIAN S LA S LA OPHTH 20992 ALMA MARQUEZ MEDICAL 2 GRE GRE XM&EVAL COMPRHNSV ESTAB PT 1/> DETERMINA 54313 ALMA MARQUEZ TION 2 GRE GRE REFRACTIV E STATE SPMTRY 50601 JACK JACK W/VC 2 ODALIS ODALIS EXPIRATOR Y GARRETT W/WO MXML VOL VNTJ MYOCARDIA 74002 FALLUJI FALLUJI L SPECT 2 DORIAN DORIAN MULTIPLE STUDIES CV STRS 83914 FALLUJI FALLUJI TST 2 [facility] DORIAN XERS&/OR RX CONT ECG I&R ONLY CV STRS 21882 PAULIE GUTIERREZ TST 2 [facility] XERS&/OR HOSPITAL RX CONT P ECG I&R ONLY TECHNETIU A9502 PAULIE Ornelas TC-99M 2 [facility] TETROFOSM INC INC IN DX PER STUDY DOSE LIPID 62776 PAULIE APODACA PANEL 2 [facility] INC INC COMPREHEN 39272 PAULIE APODACA SIVE 2 [facility] METABOLIC INC INC PANEL CV STRS 06171 PAULIE APODACA TST 2 [facility] XERS&/OR INC INC RX CONT ECG TRCG ONLY CV STRS 22130 [facility] HM TST 2 PHYSICIAN PHYSICIAN XERS&/OR S GROUP S GROUP RX CONT ECG W/O I&R ECHO 41172 FALLUJI FALLU TTHRC R-T 2 DORIAN DORIAN 2D W/WOM-MOD E COMPL SPEC&COLR D MYOCARDIA 53157 PAULIE APODACA L SPECT 2 [facility] [place] [address] PAULIE APODACA THYROID 2 [facility] STIMULATI INC INC NG HORMONE TSH SMR PRIM 62697 HARPEL HARPEL SRC WET 2 ASHTYN ASHTYN [place] NFCT AGT SMR PRIM 81779 HARPEL HARPEL SRC WET 2 ASHTYN ASHTYN MOUNT NFCT AGT ADMN SET A7005 YOUR YOUR W/SM VOL 2 PHARMACY PHARMACY NONFILTR [employer] NEBULIZR NON-DISPB L BRNCDILAT 38310 [facility] RSPSE 2 ALLERGY ALLERGY SPMTRY & ASTHMA & ASTHMA PRE&POST- P P BRNCDILAT ADMN INJ J0702 SABINO GALLO BETAMETHA 2 SUJATA SUJATA SONE ACETATE & PHOSPHATE 3 MG INJECTION J0696 SABINO GALLO 2 SUJATA SUJATA CEFTRIAXO NE SODIUM [place] [address] [place] [address] COMBINED COMBINED THYROID 2 PHYSICIAN PHYSICIAN STIMULATI S LA S LA NG HORMONE TSH THYROID 48827 COMBINED COMBINED HORM 2 PHYSICIAN PHYSICIAN UPTK/THYR S LA S LA OID HORMONE BINDING RATIO CALCIUM 75483 [facility] HANG IONIZED 2 [facility] HOLDINGS HOLDINGS ADMN SET A7003 YOUR YOUR SM VOL 2 PHARMACY PHARMACY NONFILTR [employer] PNEUMAT NEBULIZR DISPBL SPMTRY 05221 [facility] W/VC 2 ALLERGY ALLERGY EXPIRATOR & ASTHMA & ASTHMA Y GARRETT P P W/WO MXML VOL VNTJ SCREENING G0202 PAULIE APODACA 2 [facility] INC HY RUSS INCL CAD WHEN PERFORMD - [address] PAULIE APODACA [facility] DETECTION INC INC SCREENING MAMMOGRAP HY CYTP C/V 59650 BIO BIO AUTO THIN 2 REFERNCE REFERNCE LYR LABORATOR LABORATOR PREPJ SCR IES IES MNL RESCR PHYS IADNA NOS 76143 BIO BIO 2 REFERNCE REFERNCE AMPLIFIED LABORATOR LABORATOR PROBE TQ IES IES EACH ORGANISM IADNA 22097 BIO BIO NEISSERIA 2 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 GONORRHOE IES IES AE AMPLIFIED PROBE TQ IADNA 61693 BIO BIO CHLAMYDIA 2 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 TRACHOMAT IES IES IS AMPLIFIED PROBE TQ RHEUMATOI 25567 COMBINED COMBINED D FACTOR 2 PHYSICIAN PHYSICIAN QUALITATI S LA S LA VE DNA 07903 LAB HANG LAB HANG ANTIBODY 2 AMERIC [employer] [employer] [place] HOLDING UBLE STRANDED BLOOD 60827 COMBINED COMBINED COUNT 2 PHYSICIAN PHYSICIAN COMPLETE S LA S LA AUTO&AUTO DIFRNTL WBC CYANOCOBA 39723 COMBINED COMBINED ASHLEE 2 PHYSICIAN PHYSICIAN VITAMIN S LA S LA B-12 COMPREHEN 75939 COMBINED COMBINED SIVE 2 PHYSICIAN PHYSICIAN METABOLIC S LA S LA PANEL LIPID 98965 COMBINED COMBINED PANEL 2 PHYSICIAN PHYSICIAN S LA S LA COLLECTIO 53624 COMBINED COMBINED N VENOUS 2 PHYSICIAN PHYSICIAN BLOOD S LA S LA VENIPUNCT URE HEMOGLOBI 06788 COMBINED COMBINED N 2 PHYSICIAN PHYSICIAN GLYCOSYLA S LA S LA BIBI A1C INJ J0702 ARNASIF ARNOLD BETAMETHA 2 SUJATA SUJATA SONE ACETATE & PHOSPHATE 3 MG INJ J0702 ARNOLD ARNOLD BETAMETHA 2 SUJATA SUJATA SONE ACETATE & PHOSPHATE 3 MG INJ J0702 ARNOLD ARNOLD BETAMETHA 2 SUJATA SUJATA SONE ACETATE & PHOSPHATE 3 MG ADMN SET A7003 YOUR YOUR SM VOL 1 [facility] PNEUMAT NEBULIZR DISPBL INJ J0702 ARNOLD ARNOLD BETAMETHA 1 SUJATA SUJATA SONE ACETATE & PHOSPHATE 3 MG INJ J0702 ARNOLD ARNOLD BETAMETHA 1 SUJATA SUJATA SONE ACETATE & PHOSPHATE 3 MG INJECTION J0696 ARNOLD ARNOLD 1 SUJATA SUJATA CEFTRIAXO NE SODIUM PER 250 MG APPL 82734 PAULIE APODACA MODALITY 1 [facility]/> AREAS INC INC ELEC STIMJ UNATTENDE D APPLICATI 07876 PAULIE APODACA ON 1 [facility] MODALITY INC INC 1/> AREAS HOT/COLD PACKS APPL 30174 PAULIE APODACA MODALITY 1 [facility]/> AREAS INC INC ULTRASOUN D EA 15 MIN THERAPEUT 48822 PAULIE APODACA IC PX 1/> 1 [facility] ARE[facility] INC INC EACH 15 MIN EXERCISES DEMO&/JAYDEN 72969 JACK SANTIAGO L OF PT 1 ODALIS JACOBO UTILIZ AERSL GEN/NEB/I NHLR/IP LEVALBUTE J7614 JACK JACK ROL INHAL 1 ODALIS JACOBO NON-CP THRU DME U DOSE 0.5 MG BRNCDILAT 97843 JACK JACK RSPSE 1 ODALIS JACOBO SPMTRY PRE&POST- BRNCDILAT ADMN PERCUTANE 19582 JACK JACK OUS TESTS 1 ODALIS JACOBO W/ALLERGE AARON EXTRACTS APPL 63234 PAULIE APODACA MODALITY 1 [facility]/> AREAS INC INC ELEC STIMJ UNATTENDE D APPL 88063 PAULIE APOADCA MODALITY 1 [facility] 1/> AREAS INC INC ULTRASOUN D EA 15 MIN APPLICATI 86112 PAULIE APODACA ON 1 [facility] MODALITY INC INC 1/> AREAS HOT/COLD PACKS THERAPEUT 26207 PAULIE APODACA IC PX /> 1 [facility] AREAS INC INC EACH 15 MIN EXERCISES APPLICATI 37165 PAULIE APODACA ON 1 [facility] MODALITY INC INC 1/> AREAS HOT/COLD PACKS APPL 01446 PAULIE APODACA MODALITY 1 [facility] 1/> AREAS INC INC ULTRASOUN D EA 15 MIN MANUAL 90286 PAULIE APODACA THERAPY 1 [facility] TQS 1/> INC INC REGIONS EACH 15 MINUTES APPL 23916 PAULIE APODACA MODALITY 1 [facility] 1/> AREAS INC INC ELEC STIMJ UNATTENDE D APPL 16584 PAULIE APODACA MODALITY 1 [facility]/> AREAS INC INC ELEC STIMJ UNATTENDE D APPLICATI 60000 PAULIE APODACA ON 1 [facility] MODALITY INC INC 1/> AREAS HOT/COLD PACKS APPL 50183 PAULIE APODACA MODALITY 1 [facility] 1/> AREAS INC INC ULTRASOUN D EA 15 MIN THERAPEUT 67701 PAULIE APODACA IC PX 1/> 1 [facility] AREAS INC INC EACH 15 MIN EXERCISES THERAPEUT 43193 PAULIE APODACA IC PX 1/> 1 [facility] AREAS INC INC EACH 15 MIN EXERCISES PHYSICAL 50331 PAULIE APODACA THERAPY 1 [facility] EVALUATIO INC INC N APPL 32399 PAULIE APODACA MODALITY 1 [facility] 1/> AREAS INC INC ULTRASOUN D EA 15 MIN APPLICATI 65611 PAULIE APODACA ON 1 [facility] MODALITY INC INC 1/> AREAS HOT/COLD PACKS APPL 46038 PAULIE APODACA MODALITY 1 [facility] 1/> AREAS INC INC ELEC STIMJ UNATTENDE D APPL 38901 PAULIE APODACA MODALITY 1 [facility] 1/> AREAS INC INC ELEC STIMJ EA 15 [place] [address] PAULIE APODACA THYROID 1 [facility] STIMULATI [place] [address] PAULIE APODACA THYROXINE 1 [facility] TOTAL INC INC CALCIUM 53910 PAULIE APODACA IONIZED 1 [facility] INC INC POLYSOM 16101 SHILPI DOBBINS 6/>YRS 1 OG OG SLEEP 4/> ADDL ELIER ATTND POLYSOM 11530 PAULIE APODACA 6/>YRS 1 [facility] SLEEP /> INC INC ADDL ELIER ATTND BLOOD 96320 PAULIE APODACA COUNT 1 [facility] COMPLETE INC INC AUTO&AUTO DIFRNTL WBC COMPREHEN 83681 PAULIE APODACA SIVE 1 [facility] [place] [address] PAULIE APODACA AMYLASE 1 [place] [address] PAULIE APODACA LIPASE 1 [facility] INC INC OPHTH 31052 [facility] 1 GRE GRE XM&EVAL COMPRE NEW PT 1/> VST DETERMINA 91220 [facility] TION 1 GRE GRE REFRACTIV E STATE COMPREHEN 36590 COMBINED COMBINED SIVE 1 PHYSICIAN PHYSICIAN METABOLIC S LA S LA PANEL LIPID 93090 COMBINED COMBINED PANEL 1 PHYSICIAN PHYSICIAN S LA S LA CV STRS 97571 [facility] TST 1 PHYSICIAN DORIAN XERS&/OR S GROUP RX CONT ECG W/O I&R CV STRS 75216 PAULIE PAULIE TST 1 [facility] XERS&/OR INC INC RX CONT ECG TRCG ONLY MYOCARDIA 07667 [facility] L SPECT 1 PHYSICIAN DORIAN MULTIPLE S GROUP STUDIES C-REACTIV 96131 PAULIE APODACA E PROTEIN 1 [facility] INC INC PROTEIN 85151 PAULIE APODACA ELECTROPH 1 [facility] ORETIC INC INC FRACTJ&[place] [address] PAULIE APODACA THIAMINE- 1 [facility] VITAMIN INC INC B-1 [place] [address] PAULIE APODACA THYROID 1 [facility] STIMULATI INC INC NG HORMONE TSH BLOOD 35643 PAULIE APODACA COUNT 1 [facility] COMPLETE INC INC AUTO&AUTO DIFRNTL WBC RHEUMATOI 37121 PAULIE APODACA D FACTOR 1 [facility] QUANTITAT INC INC ANTHONY CYANOCOBA 54368 PAULIE APODACA ASHLEE 1 [facility] VITAMIN INC INC B-12 [place] [address] PAULIE APODACA THYROXINE 1 [facility] TOTAL INC INC 3D 54148 PAULIE APODACA RENDERING 1 [facility] W/INTERP INC INC & [place] [address] PAULIE APODACA FOLIC 1 [facility] ACID INC INC SERUM MRI 49770 PAULIE APODACA SPINAL 1 [facility] CANAL INC INC LUMBAR W/O CONTRAST MATERIAL HEMOGLOBI 43447 PAULIE APODACA N 1 [facility] GLYCOSYLA INC INC BIBI A1C MRI 12424 [facility] SPINAL 1 [facility] CANAL IMAGING CERVICAL ASS W/O CONTRAST MATRL 3D 82143 CYNTHIA JOAO RENDERING 1 [facility] W/INTERP IMAGING & ASS POSTPROCE SS SUPERVISI ON XTRNL ECG 53072 PAULIE APODACA & 48 HR 1 [facility] RECORDING INC INC NDL EMG 4 05-04-201 11018 FUNG FUNG XTR W/WO 1 MARICEL MARICEL RELATED PARASPINA L AREAS NRV CNDJ 02261 FUNG FUNG AMPLT&LAT 1 MARICEL MARICEL ENCY EA NRV MOTOR W/F-WAVE STD NRV CNDJ 49038 FUNG FUNG AMPLITUDE 1 MARICEL MARICEL & [place] [address] PAULIE APODACA THYROID 1 [facility] STIMULATI INC INC NG HORMONE TSH BLOOD 57498 PAULIE APODACA COUNT [address] [facility] COMPLETE INC INC AUTO&AUTO DIFRNTL WBC THYROID 45183 PAULIE APODACA HORM [address] [facility] UPTK/THYR INC INC OID HORMONE BINDING RATIO RADEX HIP 50021 [facility] UNILATERA IMAGING L ASS COMPLETE MINIMUM 2 VIEWS ECG 93938 PAULIE APODACA ROUTINE [address] [facility] ECG INC INC W/LEAST 12 LDS TRCG ONLY W/O I&[place] [address] PAULIE APODACA THYROXINE [address] [facility] TOTAL INC INC ECG 75683 PAULIE TAFOYAKEMIE ROUTINE 1 [facility] W/LEAST P 12 LDS I&R ONLY RADIOLOGI 12878 [place] JOAO C EXAM 1 [facility] CHEST 2 IMAGING VIEWS ASS FRONTAL&L ATERAL RADEX 05248 [place] JOAO SPINE 1 [facility] LUMBOSACR IMAGING AL ASS MINIMUM 4 VIEWS BASIC 24494 PAULIE APODACA METABOLIC 1 [facility] PANEL INC INC CALCIUM TOTAL HEPATIC 30481 PAULIE APODACA FUNCTION 1 [facility] PANEL INC INC LIPID 60016 PAULIE APODACA PANEL 1 [facility] INC INC INCISION 69837 [facility] GOOD & 1 EMERGENCY LIOR DRAINAGE SERVICES ABSCESS COMPLICAT ED/MULTIP LE OTH 8604 PAULIE APODACA INCISION 1 [facility] W/DRAINAG INC INC E SKIN&SUBC UTANEOUS TISSUE CUL BACT 84208 PAULIE APODACA XCPT 1 [facility] URINE INC INC BLOOD/STO OL AEROBIC ISOL US BONE 79261 [facility] DENSITY 1 PHYSICIAN ASHTYN LUCAS & GROUP INTERP PCC PERIPH ANY METHO SCREENING G0202 PAULIE APODACA 1 [facility] MAMMOGRAP INC INC HY RUSS INCL CAD WHEN PERFORMD COMPUTER- 46435 PAULIE APODACA AIDED 1 [facility] DETECTION INC INC SCREENING MAMMOGRAP HY IADNA NOS 70017 BIO BIO 1 REFERNCE REFERNCE AMPLIFIED LABORATOR LABORATOR PROBE TQ IES IES EACH ORGANISM CYTP C/V 11297 BIO BIO AUTO THIN 1 REFERNCE REFERNCE LYR LABORATOR LABORATOR PREPJ SCR IES IES MNL RESCR PHYS IADNA 29278 BIO BIO NEISSERIA 1 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 GONORRHOE IES IES AE AMPLIFIED PROBE TQ IADNA 55730 BIO BIO CHLAMYDIA 1 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 TRACHOMAT IES IES IS AMPLIFIED PROBE TQ SPMTRY 56445 PAULIE APODACA W/VC 1 [facility] EXPIRATOR INC INC Y GARRETT W/WO MXML VOL VNTJ INJECTION J0696 SABINO GALLO 1 SUJATA SUJATA CEFTRIAXO NE SODIUM PER 250 MG INJECTION J0696 SABINO GALLO 1 SUJATA SUJATA CEFTRIAXO NE SODIUM PER 250 MG OPHTH 12320 NAS SCIFRES MEDICAL 0 VISION ANG XM&EVAL COMPRHNSV ESTAB PT 1/> INJECTION J0696 SABINO GALLO 0 SUJATA SUJATA CEFTRIAXO NE SODIUM PER 250 MG FUNCTIONA 51119 PAULIEJG APODACA L 0 [facility] RESIDUAL INC INC CAPACITY OR RESIDUAL VOLUME BRNCDILAT 91741 GAGE DIAZ RSPSE 0 MEDICAL JAM SPMTRY SERV PRE&POST- [place] [address] PAULIE APODACA THYROID 0 [facility] STIMULATI INC INC NG HORMONE TSH BLOOD 67244 PAULIE APODACA COUNT 0 [facility] COMPLETE INC INC AUTO&AUTO DIFRNTL WBC DETER 68562 GAGE DIAZ MALDISTRI 0 MEDICAL JAM BJ OF SERV INSPIRED FOUNDATIO GAS N WSHOT CURVE DETER 86814 PAULIE APODACA AIRWY 0 [facility] CLOSING INC INC VOL 1 BRTH TSTS BASIC 62282 PAULIE APODACA METABOLIC 0 [facility] PANEL INC INC CALCIUM TOTAL RADIOLOGI 22230 PAULIE APODACA C EXAM 0 [facility] CHEST 2 INC INC VIEWS FRONTAL&L ATERAL RADEX 30112 PAULIE APODACA RIBS UNI 0 [facility] W/POSTERO INC INC ANT CH MINIMUM 3 VIEWS ORTHOPEDI L3216 THE THE C 0 [facility] FOOTWEAR FOOT FOOT LADIES CENTER CENTER SHOE DEPTH INLAY EACH FT INSRT L3010 THE THE REMV MOLD 0 HEALTHY HEALTHY PT MDL FOOT FOOT LNGTUDNL CENTER CENTER ARCH SUPP EA RADEX 09328 PAULIE APODACA SHOULDER 0 [facility] COMPLETE INC INC MINIMUM 2 VIEWS RADEX 45875 PAULIE APODACA FOOT 0 [facility] COMPLETE INC INC MINIMUM 3 VIEWS ANTINUCLE 21631 LAB HANG LAB HANG AR 0 [employer]IC [employer] ANT[employer]IE [employer] HOLDING S FAWAD BLOOD 27284 COMBINED COMBINED COUNT 0 PHYSICIAN PHYSICIAN COMPLETE S LAB S LAB AUTO&AUTO DIFRNTL WBC RHEUMATOI 49085 COMBINED COMBINED D FACTOR 0 PHYSICIAN PHYSICIAN QUALITATI S LAB S LAB VE SEDIMENTA 97603 COMBINED COMBINED TION RATE 0 PHYSICIAN PHYSICIAN RBC S LAB S LAB NON-AUTOM ATED C-REACTIV 40908 LAB HANG LAB HANG E PROTEIN 0 [employer]ING RADEX 35447 [facility], HAND 2 0 MEDICAL JESSICA VIEWS IMAGING ASSOCIATE S SCREENING 15891 PAULIE APODACA 0 [facility] MAMMOGRAP INC INC HY BILATERAL COMPUTER- 78440 PAULIE APODACA AIDED 0 [facility] DETECTION INC INC SCREENING MAMMOGRAP HY US BONE 57651 [facility] DENSITY 0 PHYSICIAN ASHTYN LUCAS & GROUP INTERP PCC PERIPH ANY METHO APPL 02854 MARLY BUNNY, MODALITY 0 FAMILY ARNOLD H 1/> AREAS CHIROPRAC TRACTION TIC MECHANICA L APPL 63634 MARLY HOLLIS, MODALITY 0 FAMILY ARNOLD H 1/> AREAS CHIROPRAC ELEC TIC STIMJ UNATTENDE D CHIROPRAC 21025 MARLY BUNNY, TIC 0 FAMILY ARNOLD H MANIPULAT CHIROPRAC ANTHONY TX TIC SPINAL 3-4 REGIONS THERAPEUT 79961 MARLY HOLLIS, IC PX 1/> 0 FAMILY ARNOLD H AREAS CHIROPRAC EACH 15 TIC MIN EXERCISES STRAPPING 60878 MARLY HOLLIS, THORAX 0 FAMILY ARNOLD H CHIROPRAC TIC THERAPEUT 89477 MARLY BUNNY, IC PX 1/> 0 FAMILY ARNOLD H AREAS CHIROPRAC EACH 15 TIC MIN EXERCISES CHIROPRAC 07248 MARLY HOLLIS, TIC 0 FAMILY ARNOLD H MANIPULAT CHIROPRAC ANTHONY TX TIC SPINAL 3-4 REGIONS APPL 65969 MARLY BUNNY, MODALITY 0 FAMILY ARNOLD H 1/> AREAS CHIROPRAC TRACTION TIC MECHANICA L APPL 79696 MARLY BUNNY, MODALITY 0 FAMILY ARNOLD H 1/> AREAS CHIROPRAC ELEC TIC STIMJ UNATTENDE D APPL 82975 MARLY BUNNY, MODALITY 0 FAMILY ARNOLD H 1/> AREAS CHIROPRAC ELEC TIC STIMJ UNATTENDE D APPL 31575 MARLY BUNNY, MODALITY 0 FAMILY ARNOLD H 1/> AREAS CHIROPRAC TRACTION TIC MECHANICA L CHIROPRAC 85143 MARLY BUNNY, TIC 0 FAMILY ARNOLD H MANIPULAT CHIROPRAC ANTHONY TX TIC SPINAL 3-4 REGIONS THERAPEUT 86252 ARSENIOCLARKFAWAD HOLLIS, IC PX 1/> 0 FAMILY ARNOLD H AREAS CHIROPRAC EACH 15 TIC MIN EXERCISES STRAPPING 86774 MARLY HOLLIS, THORAX 0 FAMILY ARNOLD H CHIROPRAC TIC CV STRS 46453 PAULIE GUTIERREZ TST 0 [facility]/OR [facility] KATHERINE [place] RX CONT PROF SERV ECG I&R ONLY CV STRS 27356 PAULIE APODACA TST 0 [facility] XERS&/OR INC INC RX CONT ECG TRCG ONLY CV STRS 68390 PAULIE JACKMIDaja TST 0 [facility] [place] RX CONT PROF SERV ECG W/O I&R IADNA 56723 [facility] [place] 0 [facility] TRACHOMAT IS AMPLIFIED PROBE TQ CYTP C/V 57383 [facility] AUTO THIN 0 [facility] LYR PREPJ SCR SYS PHYS IADNA 42296 [facility] [place] 0 [facility] GONORRHOE AE AMPLIFIED PROBE TQ APPL 85781 MARLY HOLLIS, MODALITY 0 FAMILY ANNABEL R 1/> AREAS CHIROPRAC TRACTION TIC MECHANICA L APPL 37089 MARLY HOLLIS, MODALITY 0 FAMILY ANNABEL R 1/> AREAS CHIROPRAC ELEC TIC STIMJ UNATTENDE D THERAPEUT 83976 MARLY HOLLIS, IC PX 1/> 0 FAMILY ANNABEL R AREAS CHIROPRAC EACH 15 TIC MIN EXERCISES CHIROPRAC 52550 MARLY HOLLIS, TIC 0 FAMILY ANNABEL R MANIPULAT CHIROPRAC ANTHONY TX TIC SPINAL 3-4 REGIONS MANUAL 68443 MARLY HOLLIS, THERAPY 0 FAMILY ANNABEL R TQS 1/> CHIROPRAC REGIONS TIC EACH 15 MINUTES CHIROPRAC 70588 MARLY HOLLIS, TIC 0 FAMILY ANNABEL R MANIPULAT CHIROPRAC ANTHONY TX TIC SPINAL 3-4 REGIONS THERAPEUT 24532 MARLY HOLLIS, IC PX 1/> 0 FAMILY ANNABEL R AREAS CHIROPRAC EACH 15 TIC MIN EXERCISES STRAPPING 55899 MARLY HOLLIS, THORAX 0 FAMILY ANNABEL R CHIROPRAC TIC APPL 84151 MARLY HOLLIS, MODALITY 0 FAMILY ANNABEL R 1/> AREAS CHIROPRAC ELEC TIC STIMJ UNATTENDE D APPL 71453 MARLY HOLLIS, MODALITY 0 FAMILY ANNABEL R 1/> AREAS CHIROPRAC TRACTION TIC MECHANICA L SELF-CARE 17991 MARLY HOLLIS, /HOME 0 FAMILY ANNABEL R MGMT CHIROPRAC TRAINING TIC EACH 15 MINUTES SELF-CARE 11305 MARLY HOLLIS, /HOME 0 FAMILY ANNABEL R MGMT CHIROPRAC TRAINING TIC EACH 15 MINUTES APPL 77475 MARLY HOLLIS, MODALITY 0 FAMILY ANNABEL R 1/> AREAS CHIROPRAC ELEC TIC STIMJ UNATTENDE D APPL 65354 MARLY HOLLIS, MODALITY 0 FAMILY ANNABEL R 1/> AREAS CHIROPRAC TRACTION TIC MECHANICA L STRAPPING 64206 MARLY HOLLIS, THORAX 0 FAMILY ANNABEL R CHIROPRAC TIC THERAPEUT 06174 MARLY HOLLIS, IC PX 1/> 0 FAMILY ANNABEL R AREAS CHIROPRAC EACH 15 TIC MIN EXERCISES CHIROPRAC 37027 MARLY HOLLIS, TIC 0 FAMILY ANNABEL R MANIPULAT CHIROPRAC ANTHONY TX TIC SPINAL 3-4 REGIONS CHIROPRAC 00170 MARLY HOLLIS, TIC 0 FAMILY ANNABEL R MANIPULAT CHIROPRAC ANTHONY TX TIC SPINAL 3-4 REGIONS THERAPEUT 05088 MARLY HOLLIS, IC PX 1/> 0 FAMILY ANNABEL R AREAS CHIROPRAC EACH 15 TIC MIN EXERCISES APPL 80571 MARLY HOLLIS, MODALITY 0 FAMILY ANNABEL R 1/> AREAS CHIROPRAC TRACTION TIC MECHANICA L APPL 33986 MARLY HOLLIS, MODALITY 0 FAMILY ANNABEL R 1/> AREAS CHIROPRAC ELEC TIC STIMJ UNATTENDE D APPL 02330 MARLY HOLLIS, MODALITY 0 FAMILY ANNABEL R 1/> AREAS CHIROPRAC TRACTION TIC MECHANICA L APPL 85402 MARLY HOLLIS, MODALITY 0 FAMILY ANNABEL R 1/> AREAS CHIROPRAC ELEC TIC STIMJ UNATTENDE D THERAPEUT 68125 MARLY HOLLIS, IC PX 1/> 0 FAMILY ANNABEL R AREAS CHIROPRAC EACH 15 TIC MIN EXERCISES CHIROPRAC 57352 MARLY HOLLIS, TIC 0 FAMILY ANNABEL R MANIPULAT CHIROPRAC ANTHONY TX TIC SPINAL 3-4 REGIONS RADEX 83748 [facility], SPINE 9 MEDICAL JESSICA CERVICAL IMAGING 6 OR MORE ASSOCIATE VIEWS S RADEX 77848 PAULIE APODACA SPINE 9 [facility] LUMBOSACR INC INC AL MINIMUM 4 VIEWS GLUCOSE 41803 COMBINED COMBINED QUANTITAT 9 PHYSICIAN PHYSICIAN ANTHONY BLOOD S LAB S LAB XCPT REAGENT STRIP HEMOGLOBI 19723 COMBINED COMBINED N 9 PHYSICIAN PHYSICIAN GLYCOSYLA S LAB S LAB BIBI A1C CT SOFT 54294 PAULIE APODACA TISSUE 9 [facility] NECK INC INC W/CONTRAS T MATERIAL 3D 20077 PAULIE APODACA RENDERING 9 [facility] INC INC W/INTERP& POSTPROC DIFF WORK STATION 3D 46345 [place] CARLOS, RENDERING 9 MEDICAL [place] P W/INTERP IMAGING & ASSOCIATE [place] [address] COMBINED COMBINED THYROXINE 9 PHYSICIAN PHYSICIAN TOTAL S LAB S LAB CREATININ 84976 COMBINED COMBINED E BLOOD 9 PHYSICIAN [place] [address] LAB HANG LAB HANG FREE 9 AMERIC AMERIC [place] [address] COMBINED COMBINED THYROID 9 PHYSICIAN PHYSICIAN STIMULATI S [place] [address] COMBINED COMBINED UREA 9 PHYSICIAN PHYSICIAN NITROGEN S LAB S LAB QUANTITAT ANTHONY MICROSOMA 34934 LAB HANG LAB HANG L 9 [employer] S EACH THYROGLOB 06074 LAB HANG LAB HANG ULIN 9 AMERIC [employer] ANTIBODY HOLDING HOLDING ADMN SET A7005 YOUR YOUR W/SM VOL 9 PHARMACY PHARMACY NONFILTR [facility] NEBULIZR NON-DISPB L LIPID 59483 COMBINED COMBINED PANEL 9 PHYSICIAN PHYSICIAN S LAB S LAB COMPREHEN 08545 COMBINED COMBINED SIVE 9 PHYSICIAN PHYSICIAN METABOLIC S LAB S LAB PANEL BLOOD 50234 COMBINED COMBINED COUNT 9 PHYSICIAN PHYSICIAN COMPLETE S LAB S LAB AUTO&AUTO DIFRNTL WBC BLOOD 96095 KRAIG HOLLING[place]ORTH, COUNT 9 EDEL Van HEMOGLOBI N IADNA 59854 [employer] [place], [place] 9 [place] INC AJ D GONORRHOE AE AMPLIFIED PROBE TQ IADNA 89861 [employer] [place], [place] 9 [place] INC AJ D TRACHOMAT IS AMPLIFIED PROBE TQ CYTP 93189 [employer] [place], CERV/VAG 9 [place] INC AJ D AUTO THIN LAYER PREP MNL SCREEN BLOOD 69678 KRAIG HO[place], OCCULT 9 GRETCHENL MD KRAIG Van PEROXIDAS E ACTV QUAL FECES 1-3 SPEC COLLECTIO 53190 KRAIG [place], N 9 EDEL Van CAPILLARY BLOOD SPECIMEN SCREENING 53918 [facility], [facility] [place] P MAMMOGRAP IMAGING HY ASSOCIATE BILATERAL S COMPUTER- 58254 [facility], [facility] 9 MEDICAL [place] P DETECTION IMAGING ASSOCIATE SCREENING S MAMMOGRAP HY OPHTH 24605 [facility] 9 VISION VITALY M XM&EVAL COMPRHNSV ESTAB PT 1/> [place] [address] COMBINED COMBINED THYROXINE 8 PHYSICIAN [place] [address] COMBINED COMBINED THYROID 8 PHYSICIAN PHYSICIAN STIMULATI S LAB S LAB NG HORMONE TSH URNLS DIP 84265 PAULIE APODACA 8 [facility] STICK/TAB INC INC LET REAGENT AUTO MICROSCOP Y NEBULIZER E0570 DIAZ PERALES WITH 8 HOME MED HOME MED COMPRESSO EQUIP. EQUIP. R [facility] NON-INVAS 85375 PAULIE APODACA ANTHONY 8 [facility] PHYSIOLOG INC INC IC STUDY EXTREMITY 3 LEVLS ADMN SET A7005 YOUR YOUR W/SM VOL 8 PHARMACY PHARMACY NONFILTR [facility] NEBULIZR NON-DISPB L ADMN SET A7003 YOUR YOUR SM VOL 8 PHARMACY PHARMACY NONFILTR [facility] PNEUMAT NEBULIZR DISPBL ANES [address]1424 [place] FERN[place], NERVE 8 TI E MUSCLE ANESTHESI TDN A PSC FASCIA&BU [facility] FOREARM WRIST NEUROPLAS 18533 [facility] TY 8 SURGERY SURGERY &/TRANSPO CENTER CENTER S MEDIAN NRV CARPAL TUNNE ECG 29533 PAULIE MATT ROUTINE 8 [facility] [place] W/LEAST PROF SERV 12 LDS I&R ONLY ECG 27755 PAULIE PAULIE ROUTINE 8 [facility] ECG INC INC W/LEAST 12 LDS TRCG ONLY W/O I&R POTASSIUM 76398 PAULIE APODACA SERUM 8 [facility] PLASMA/WH INC INC OLE BLOOD ADMN SET A7005 YOUR YOUR W/SM VOL 8 [facility] NON-DISPB L BREAST 01477 PAULIE APODACA REAL 8 [facility] TIME INC INC W/IMAGE DOCUMENTA TION NDL EMG 1 [id number] ANTONIETA FUNG, XTR W/WO 8 VICKIE JOHNSTON RELATED PARASPINA L AREAS NRV CNDJ 85019 ANTONIETA FUNG, AMPLT&LAT 8 VICKIE JOHNSTON ENCY EA NRV MOTOR W/F-WAVE STD NRV CNDJ 57303 ANTONIETA FUNG, AMPLITUDE 8 VICKIE JOHNSTON & LATENCY EACH NERVE SENSORY APPL 82266 PAULIE APODACA MODALITY 8 [facility] 1/> AREAS INC INC ELEC STIMJ UNATTENDE D APPL 92373 PAULIE APODACA MODALITY 8 [facility] 1/> AREAS INC INC IONTOPHOR ESIS EA 15 MIN APPL 80806 PAULIE APODACA MODALITY 8 [facility] 1/> AREAS INC INC IONTOPHOR ESIS EA 15 MIN APPL 95231 PAULIE APODACA MOD[facility]ITY 8 [facility] 1/> AREAS INC INC ELEC STIMJ UNATTENDE D APPL 96059 PAULIE APODACA MODALITY 8 [facility] 1/> AREAS INC INC ELEC STIMJ UNATTENDE D MANUAL 97414 PAULIE APODACA THERAPY 8 [facility] TQS 1/> INC INC REGIONS EACH 15 MINUTES BLOOD 82861 KRAIG HOLLINGSWORTH, OCCULT 8 EDEL Van PEROXIDAS E ACTV QUAL FECES 1-3 SPEC CYTP 69587 [facility], CERV/VAG 8 [place] KENDELL E AUTO THIN LAYER PREP MNL SCREEN IADNA 57289 [facility], CHLAMYDIA 8 [place] KEN[place] E TRACHOMAT IS AMPLIFIED PROBE TQ IADNA 25145 [facility], NEISSERIA 8 [place] KENDE[place] E GONORRHOE AE AMPLIFIED PROBE TQ BLOOD 41243 KRAIG HOLLINGSWORTH, COUNT 8 DEEL Van HEMOGLOBI N APPL 37551 PAULIE APODACA MODALITY 8 [facility] 1/> AREAS INC INC ELEC STIMJ UNATTENDE D FUNDUS 35048 JASPREET VOGEL, PHOTOGRAP 8 CHAPARRO A CHAPARRO A HY W/INTERPR ETATION & REPORT OPHTH 15657 JASPREET VOGEL, MEDICAL 8 CHAPARRO A CHAPARRO A XM&EVAL COMPRHNSV ESTAB PT 1/> APPL 79271 PAULIE APODACA MODALITY 8 [facility] 1/> AREAS INC INC IONTOPHOR ESIS EA 15 MIN COMPUTER- 86417 PAULIE APODACA AIDED 8 [facility] DETECTION INC INC SCREENING MAMMOGRAP HY SCREENING 85597 PAULIE APODACA 8 [facility] MAMMOGRAP INC INC HY BILATERAL US BONE 08369 KRAIG HOLLINGSWORTH, DENSITY 8 EDEL Van LUCAS & INTERP PERIPH ANY METHO APPL 99936 PAULIE APODACA MODALITY 8 [facility] 1/> AREAS INC INC ELEC STIMJ UNATTENDE D MANUAL 26823 PAULIE APODACA THERAPY 8 [facility] TQS 1/> INC INC REGIONS EACH 15 MINUTES APPL 00191 PAULIE APODACA MODALITY 8 [facility] 1/> AREAS INC INC IONTOPHOR ESIS EA 15 MIN MANUAL 48722 PAULIE APODACA THERAPY 8 [facility] TQS 1/> INC INC REGIONS EACH 15 MINUTES APPL 26055 PAULIE APODACA MODALITY 8 [facility] 1/> AREAS INC INC IONTOPHOR ESIS EA 15 MIN APPL 00931 PAULIE APODACA MODALITY 8 [facility] 1/> AREAS INC INC ELEC STIMJ UNATTENDE D Encounters Encounter Start End Date Code Location Performer Type Date OFFICE 17635 SCIFRES SCIFRES OUTPATIEN 7 7 T VISIT 10 MINUTES [facility] INC T OFFICE 20765 [facility] LEENA OUTPATIEN 7 7 PHYSICIAN T VISIT S GROUP 25 MINUTES OFFICE 79545 SCILEATHA SCIFRES OUTPATIEN 7 7 T VISIT 10 MINUTES [facility] PAULIE - 7 7 [facility] OUTPATIEN INC T OFFICE 44827 VOGELAZALEA DUVALNES OUTPATIEN 7 7 T VISIT 10 MINUTES OFFICE 17759 GAGE LIRA CONSULTAT 7 7 MEDICAL ION SERV NEW/ESTAB FOUNDATIO PATIENT N 40 MIN OFFICE 60995 SABINO GALLO OUTPATIEN 7 7 T VISIT 15 MINUTES [facility] OUTPATIEN INC T PERIODIC 85920 [facility] HARPEL PREVENTIV 7 7 PHYSICIAN E MED EST S GROUP PATIENT 40-64YRS OFFICE 91907 [facility] ALBARADO OUTPATIEN 7 7 PHYSICIAN T VISIT S GROUP 15 MINUTES [facility]OSP[facility] - 6 6 [facility] OUTPATIEN INC T OFFICE 85240 [facility] LEENA OUTPATIEN 6 6 PHYSICIAN T VISIT S GROUP 25 MINUTES OFFICE 26979 SABINO SABINO OUTPATIEN 6 6 T VISIT 15 MINUTES OFFICE 82707 SABINO GALLO OUTPATIEN 6 6 SUJATA SUJATA T VISIT 15 MINUTES OFFICE 18550 [facility] ALBARADO OUTPATIEN 6 6 PHYSICIAN LESLY T VISIT S GROUP 10 MINUTES EMERGENCY 87325 ELBERT CORONADO 6 6 PHYSICIAN JR MICHELLE HAILE S PLLC T VISIT HIGH/URGE NT SEVERITY [facility] T EMERGENCY 96138 [facility] 6 6 [facility] DEPARTMEN INC T VISIT MODERATE SEVERITY OFFICE 14213 [facility] LEENA OUTPATIEN 6 6 PHYSICIAN MAT T VISIT S GROUP 15 MINUTES H[facility] T OFFICE 07939 [facility] LEENA OUTPATIEN 6 6 PHYSICIAN MAT T VISIT S GROUP 40 MINUTES OFFICE 39494 [facility] ALBARADO OUTPATIEN 6 6 PHYSICIAN LESLY T VISIT S GROUP 10 MINUTES OFFICE 75101 ARNASIF ARNOLD OUTPATIEN 6 6 SUJATA SUJATA T VISIT 15 MINUTES OFFICE 88457 ARNOLD ARNOLD OUTPATIEN 6 6 SUJATA SUJATA T VISIT 15 MINUTES OFFICE 89510 ARNOLD ARNOLD OUTPATIEN 6 6 SUJATA SUJATA T VISIT 15 MINUTES OFFICE 18137 [facility] ALBARADO OUTPATIEN 6 6 PHYSICIAN LESLY T VISIT 5 S GROUP MINUTES OFFICE 41824 [facility] ALBARADO OUTPATIEN 6 6 PHYSICIAN LESLY T VISIT S GROUP 10 MINUTES [facility] 6 [facility] INC T OFFICE 41051 ARNOLD ARNOLD OUTPATIEN 6 6 SUJATA SUJATA T VISIT 15 MINUTES OFFICE 31751 SABINO GALLO OUTPATIEN 6 6 SUJATA SUJATA T VISIT 15 MINUTES EMERGENCY 89198 ELBERT COLLADO 6 6 PHYSICIAN MIC S PLLC T VISIT MODERATE SEVERITY OFFICE 28939 [facility] ALBARADO OUTPATIEN 6 6 PHYSICIAN LESLY T VISIT S GROUP 15 MINUTES OFFICE 58260 SABINO SABINO OUTPATIEN 6 6 SUJATA SUJATA T VISIT 15 MINUTES EMERGENCY 47494 ELBERT GOOD DEPT 6 6 PHYSICIAN LIOR VISIT S, [facility] HIGH SEVERITY& THREAT FUNCJ OFFICE 47867 [facility] ALBARADO OUTPATIEN 6 6 PHYSICIAN LESLY T VISIT S GROUP 10 MINUTES PERIODIC 04473 KRAIG HOLLINGSWORTH PREVENTIV 6 6 EDEL MCKENNA ASHTYN E MED EST PATIENT 40-64YRS OFFICE 81037 [facility] ALBARADO OUTPATIEN 6 6 PHYSICIAN LESLY T VISIT S GROUP 15 MINUTES OFFICE 58989 [facility] AL[facility] OUTPATIEN 6 6 PHYSICIAN ELSLY T VISIT S GROUP 15 MINUTES OFFICE 93324 SABINO SABINO OUTPATIEN 6 6 SUJATA SUJATA T VISIT 15 MINUTES OFFICE 92954 SABINO VIANCAASIF OUTPATIEN 6 6 SUJATA SUJATA T VISIT 15 MINUTES OFFICE 10864 SABINO GALLO OUTPATIEN 6 6 SUJATA SUJATA T VISIT 15 MINUTES OFFICE 67554 SABINO SABINO OUTPATIEN 6 6 SUJATA SUJATA T VISIT 15 MINUTES OFFICE 30858 [facility] 5 SUJATA SUJATA T VISIT 15 MINUTES [facility] T OFFICE 76183 [facility] SCHULSTAD OUTPATIEN 5 5 PHYSICIAN CAM T VISIT S GROUP 25 MINUTES OFFICE 78609 [facility] AL[facility]ADO OUTPATIEN 5 5 PHYSICIAN LESLY T VISIT S GROUP 10 MINUTES OFFICE 75760 SABINO GALLO OUTPATIEN 5 5 SUJATA SUJATA T VISIT 15 MINUTES EMERGENCY 89065 ELBERT GOOD 5 5 PHYSICIAN LIOR DEPARTMEN S, PLLC T VISIT MODERATE SEVERITY OFFICE 41052 SABINO BELLA 5 5 SUJATA SUJATA T VISIT 15 MINUTES OFFICE 30295 [facility] ALBARADO OUTPATIEN 5 5 PHYSICIAN LESLY T VISIT S GROUP 15 MINUTES [facility] 5 [facility] INC T OFFICE 94201 VIANCAASIF SABINO OUTPATIEN 5 5 SUJATA SUJATA T VISIT 15 MINUTES OFFICE 65891 [facility] TRA OUTPATIEN 5 5 [place] T VISIT ORTHOPAED 15 [facility] MINUTES [facility] 5 [facility] INC T OFFICE 07580 SABINO GALLO ALINEEN 5 5 SUJATA SUJATA T VISIT 15 MINUTES OFFICE 37226 VIANCAASIF SABINO MIRELESEN 5 5 SUJATA SUJATA T VISIT 15 MINUTES OFFICE 99669 SABINO GALLO OUTPATIEN 5 5 SUJATA SUJATA T VISIT 15 MINUTES OFFICE 33562 SABINO GALLO OUTPATIEN 5 5 SUJATA SUJATA T VISIT 15 MINUTES OFFICE 86871 SABINO GALLO OUTPATIEN 5 5 SUJATA SUJATA T VISIT [address]ES [address] [facility] FALLUJI OUTPATIEN 5 5 [facility] T VISIT MEDICAL 15 G MINUTES [facility] FALLUJI OUTPATIEN 5 5 [facility]OR[facility] T VISIT MEDICAL 15 G MINUTES EMERGENCY 65819 [facility] 5 5 [facility] DEPARTMEN INC T VISIT LOW/MODER SEVERITY [facility] 5 [facility] INC T EMERGENCY 74704 ELBERT GOOD 5 5 PHYSICIAN LIOR DEPARTMEN S, PLLC T VISIT MODERATE SEVERITY OFFICE 94975 [facility] VERENA OUTJESSICA 5 5 PHYSICIAN LESLY T VISIT S GROUP 15 MINUTES OFFICE 08417 SABINO GRAFFPATIEN 5 5 SUJATA SUJATA T VISIT 15 MINUTES OFFICE 94982 SABINO GRAFFPATIEN 5 5 SUJATA SUJATA T VISIT [address] [facility] FALLUJI OUTPATIEN 5 5 [facility] DORIAN T VISIT MEDICAL 15 G MINUTES [facility]OSP[facility] - 5 5 [facility] INC T OFFICE 80927 VERENA ALBARADO OUTPATIEN 5 5 LESLY LESLY T VISIT 15 MINUTES PERIODIC 09964 KRAIG HOLLINGSWORTH PREVENTIV 5 5 EDEL MCKENNA ASHTYN E MED EST PATIENT 40-64YRS [facility] PAULIE - 5 5 [facility] INC T EMERGENCY 90077 PA[facility] PASCUAL AMANDEEP 5 5 [facility] T VISIT P LOW/MODER SEVERITY [facility]OSP[facility] - 5 5 [facility] OUTPATIEN INC T EMERGENCY 31425 PA[facility] GOOD 5 5 [facility] T VISIT P LOW/MODER SEVERITY OFFICE 70884 SABINO BELLA 5 5 SUJATA SUJATA T VISIT 15 MINUTES OFFICE 97066 SABINO GRAFFPATIEN 5 5 SUJATA SUJATA T VISIT 15 MINUTES OFFICE 10007 SABINO BELLA 4 4 SUJATA SUJATA T VISIT 15 MINUTES OFFICE 50344 SABINO BELLA 4 4 SUJATA SUJATA T VISIT 15 MINUTES OFFICE 03674 [facility] SCHULSTAD CONSULTAT 4 4 PHYSICIAN CAM ION S GROUP NEW/ESTAB PATIENT 40 MIN OFFICE 80015 SABINO BELLA 4 4 SUJATA SUJATA T VISIT 15 MINUTES [facility] 4 [facility] T OFFICE 39768 SABINO BELLA 4 4 SUJATA SUJATA T VISIT 15 MINUTES [facility] 4 [facility] T OFFICE 69081 SABINO BELLA 4 4 SUJATA SUJATA T VISIT 15 MINUTES HOSP[facility] - 4 4 [facility] OUT[facility] INC T OFFICE 98439 ANJUR-ZANE ANJUR-ZANE OUTPATIEN 4 4 ALI OMAR ALI OMAR T VISIT 15 MINUTES HOSP[facility] - 4 4 [facility] T [facility] - 4 4 [facility] 94640 [facility] 4 4 [facility] DEPARTMEN INC T VISIT LIMITED/M INOR PROB EMERGENCY 57496 KEELEY WORRELL 4 4 DEPARTMEN T VISIT HIGH/URGE NT SEVERITY OFFICE 04798 SABINO BELLA 4 4 SUJATA SUJATA T VISIT 15 MINUTES OFFICE 88362 [facility] TRA EDWARDS TRA CONSULTAT 4 4 ION NEW/ESTAB PATIENT 60 MIN OFFICE 76803 SABINO BELLA 4 4 SUJATA SUJATA T VISIT 15 MINUTES OFFICE 73966 VERENA BELLA 4 4 LESLY LESLY T VISIT 15 MINUTES HOSP[facility] - 4 4 [facility] T OFFICE 24816 VERENA BELLA 4 4 LESLY LESLY T VISIT 25 MINUTES OFFICE 76950 SABINO BELLA 4 4 SUJATA SUJATA T VISIT 15 MINUTES EMERGENCY 19577 [facility] 4 4 [facility] DEPARTMEN INC T VISIT LOW/MODER SEVERITY EMERGENCY 64958 [facility] MAX [facility] MAX 4 4 DEPARTMEN T VISIT MODERATE SEVERITY [facility] 4 4 [facility] OUTPATIEN INC T H[facility] 4 4 [facility] OUTPATIEN INC T OFFICE 32044 SABINO BELLA 4 4 SUJATA SUJATA T VISIT 15 MINUTES HOSP[facility] - 4 4 [facility] OUTPATIEN INC T PERIODIC 66614 HARPEL HARPEL PREVENTIV 4 4 ASHTYN ASHTYN E MED EST PATIENT 40-64YRS OFFICE 32114 VERENA BELLA 4 4 LESLY LESLY T VISIT 15 MINUTES Emergency RACHELL Good MD (ER) 4 05:31 4 07:34 [facility] EMERGENCY 48146 [facility] 4 4 [facility] T VISIT HIGH/URGE NT SEVERITY HOSPITAL [facility] - 4 4 [facility]PAT[facility]EN [facility] T OFFICE 02658 SABINO BELLA 3 3 SUJATA SUJATA T VISIT 15 MINUTES OFFICE 22428 VERENA BELLA 3 3 LESLY LESLY T VISIT 15 MINUTES OFFICE 22223 SABINO MIRELESEN 3 3 SUJATA SUJATA T VISIT 15 MINUTES OFFICE 98501 SABINO BELLA 3 3 SUJATA SUJATA T VISIT 15 MINUTES OFFICE 23910 SABINO BELLA 3 3 SUJATA SUJATA T VISIT 15 MINUTES OFFICE 53221 NICK GONGORAUOSMAR GRAFFPATIDOMENIC 3 3 DORIAN DORIAN T VISIT 25 MINUTES OFFICE 31954 MITCHELL BELLA 3 3 MAT MAT T VISIT 10 MINUTES Emergency RACHELL GALVAN (ER) 3 06:55 3 07:41 [facility] - 3 3 [facility] OUTPATIEN INC T EMERGENCY 22734 [facility] 3 3 [facility] DEPARTMEN INC T VISIT LOW/MODER SEVERITY EMERGENCY 42878 ALMA GALVAN 3 3 EMERGENCY [facility] T VISIT MODERATE SEVERITY OFFICE 63502 SABINO BELLA 3 3 SUJATA SUJATA T VISIT 15 MINUTES Emergency RACHELL Pedroza MD (ER) 3 09:44 3 09:48 [facility] EMERGENCY 24802 [facility] 3 3 [facility] VISIT LIMITED/M INOR PROB EMERGENCY 53957 KEELEY WORRELL 3 3 DEPARTMEN T VISIT MODERATE SEVERITY [facility]OSP[facility] - 3 3 [facility] OUTPATIEN INC T OFFICE 15438 MITCHELL BELLA 3 3 MAT MAT T VISIT 25 MINUTES OFFICE 41802 SABINO BELLA 3 3 SUJATA SUJATA T VISIT 15 MINUTES HOSPITAL [facility] - 3 3 [facility] OUTPATIEN INC T OFFICE 61487 SABINO BELLA 3 3 SUJATA SUJATA T VISIT 15 MINUTES HOSPITAL [facility] - 3 3 [facility] OUTPATIEN INC T OFFICE 76819 VERENA BELLA 3 3 LESLY LESLY T VISIT 15 MINUTES OFFICE 76645 SABINO BELLA 3 3 SUJATA SUJATA T VISIT 15 MINUTES OFFICE 06429 SABINO BELLA 3 3 SUJATA SUJATA T VISIT 15 MINUTES OFFICE 83040 SABINO BELLA 3 3 SUJATA SUJATA T VISIT 15 MINUTES OFFICE 42831 JACK JACK OUTPATIEN 3 3 ODALIS ODALIS T VISIT 25 MINUTES [facility] 3 [facility] OUT[facility] INC T PERIODIC 71461 HARPEL PREVENTIV 3 3 ASHTYN E MED EST PATIENT 40-64YRS OFFICE 00002 PETTEY PETTEY OUTPATIEN 3 3 JAM JAM T NEW 30 MINUTES OFFICE 23207 VIANCAASIF SABINO OUTPATIEN 2 2 SUJATA SUJATA T VISIT 15 MINUTES OFFICE 80966 VIANCAASIF SABINO OUTPATIEN 2 2 SUJATA SUJATA T VISIT 15 MINUTES [facility]OSP[facility] 2 [facility] INC T EMERGENCY 39756 [facility] 2 2 [facility] DEPARTMEN INC T VISIT LOW/MODER SEVERITY EMERGENCY 84438 ARIELA GOOD 2 2 LIOR LIOR DEPARTMEN T VISIT MODERATE SEVERITY OFFICE 36467 VERENA ALBARADO OUTPATIEN 2 2 LESLY LESLY T VISIT 15 MINUTES OFFICE 21846 MAGALY ROBERTSON CONSULTAT 2 2 ION NEW/ESTAB PATIENT 60 MIN OFFICE 53740 SABINO GALLO OUTPATIEN 2 2 SUJATA SUJATA T VISIT 15 MINUTES OFFICE 43216 VIANCAASIF VIANCAASIF OUTPATIEN 2 2 SUJATA SUJATA T VISIT 15 MINUTES OFFICE 87362 FALLUJI FALLUJI OUTPATIEN 2 2 DORIANMilana CONDEZ T VISIT 25 MINUTES OFFICE 20629 JACK JACK OUTPATIEN 2 2 ODALIS ODALIS T VISIT 25 MINUTES OFFICE 04547 [place] OUT[facility] 2 2 JUANCARLOS JUANCARLOS T NEW 30 MINUTES [facility]OSP[facility] - [facility] 2 [facility] INC T OFFICE 92419 HARPEL HARPEL OUTPATIEN 2 2 ASHTYN ASHTYN T VISIT 15 MINUTES OFFICE 63243 [facility] CONSULTAT 2 2 YANY OLMEDO CARDIOLOG NEW/ESTAB Y CLINIC PATIENT 60 MIN OFFICE 09434 HARPEL HARPEL OUTPATIEN 2 2 ASHTYN ASHTYN T VISIT 15 MINUTES OFFICE 02994 SABINO GALLO OUTPATIEN 2 2 SUJATA SUJATA T VISIT 15 MINUTES EMERGENCY 00362 PUND CHR PUND CHR 2 2 DEPARTMEN T VISIT MODERATE SEVERITY [facility] 2 [facility] OUTPATIEN INC T EMERGENCY 92875 [facility] 2 2 [facility] DEPARTMEN INC T VISIT LOW/MODER SEVERITY OFFICE 83382 [facility] OUTPATIEN 2 2 ALLERGY ALLERGY T VISIT & ASTHMA & ASTHMA 25 P P MINUTES OFFICE 33765 VERENA ALBARADO OUTPATIEN 2 2 LESLY LESLY T VISIT 25 MINUTES OFFICE 42010 SABINO GALLO OUTPATIEN 2 2 SUJATA SUJATA T VISIT 15 MINUTES OFFICE 11135 SABINO GALLO OUTPATIEN 2 2 SUJATA SUJATA T VISIT 15 MINUTES OFFICE 62774 [facility] OUTPATIEN 2 2 ALLERGY ALLERGY T VISIT & ASTHMA & ASTHMA 25 P P MINUTES [facility]OSPITAL [facility] - 2 2 [facility] OUTPATIEN INC T PERIODIC 20412 HARPEL HARPEL PREVENTIV 2 2 ASHTYN ASHTYN E MED EST PATIENT 40-64YRS OFFICE 34980 ANTONIETA FUNG OUTPATIEN 2 2 MARICEL MARICEL T VISIT 25 MINUTES OFFICE 59623 SABINO GRAFFPATIDOMENIC 2 2 SUJATA SUJATA T VISIT 15 MINUTES OFFICE 89877 SABINO GRAFFPATIDOMENIC 2 2 SUJATA SUJATA T VISIT 15 MINUTES OFFICE 98864 ARNOLD ARNOLD OUTPATIEN 2 2 SUJATA SUJATA T VISIT 15 MINUTES OFFICE 84065 SABINO GALLO OUTPATIEN 1 1 SUJATA SUJATA T VISIT 15 MINUTES OFFICE 67369 SABINO GALLO OUTPATIEN 1 1 SUJATA SUJATA T VISIT 15 MINUTES OFFICE 24918 SABINO GALLO OUTPATIEN 1 1 SUJATA SUJATA T VISIT 15 MINUTES OFFICE 84683 SABINO GALLO OUTPATIEN 1 1 SUJATA SUJATA T VISIT 15 MINUTES OFFICE 19012 JACK JACK CONSULTAT 1 1 ODALIS JACOBO ION NEW/ESTAB PATIENT 60 MIN [facility] T OFFICE 73225 SABINO GALLO OUTPATIEN 1 1 SUJATA SUJATA T VISIT 15 MINUTES [facility] 1 [facility] OUTPATIEN INC T OFFICE 54418 FUNG FUNG OUTPATIEN 1 1 MARICEL MARICEL T VISIT 15 MINUTES OFFICE 49737 VERENA ALBARADO OUTPATIEN 1 1 LESLY LESLY T VISIT 15 MINUTES OFFICE 16460 GAGE DIAZ OUTPATIEN 1 1 MEDICAL JAM T VISIT SERV 15 FOUNDATIO MINUTES HOSPITAL [facility] 1 [facility]PAT[facility] T [facility] - [facility] 1 [facility] OUTPATIEN INC T EMERGENCY 04189 [facility] 1 1 [facility] DEPARTMEN INC T VISIT MODERATE SEVERITY EMERGENCY 97619 ALMA GOOD 1 1 EMERGENCY LIOR DEPARTMEN SERVICES T VISIT HIGH/URGE NT SEVERITY [facility] - 1 1 [facility] OUTPATIEN INC T OFFICE 64836 SABINO GALLO OUTPATIEN 1 1 SUJATA SUJATA T VISIT 15 MINUTES OFFICE 34633 SABINO GALLO OUTPATIEN 1 1 SUJATA SUJATA T VISIT 15 MINUTES OFFICE 47902 GAGE DIAZ OUTPATIEN 1 1 MEDICAL JAM T VISIT SERV 25 FOUNDATIO MINUTES OFFICE 54381 SABINO GALLO OUTPATIEN 1 1 SUJATA SUJATA T VISIT 15 MINUTES OFFICE 35030 FUNG FUNG OUTPATIEN 1 1 MARICEL MARICEL T VISIT 15 MINUTES OFFICE 18371 VERENA ALBARADO OUTPATIEN 1 1 LESLY LESLY T VISIT 10 MINUTES OFFICE 81659 [facility] FALLU OUTPATIEN 1 1 PHYSICIAN DORIAN Nettles VISIT S GROUP 25 MINUTES OFFICE 42381 FUNG FUNG OUTPATIEN 1 1 MARICEL CONNELLY T VISIT 25 MINUTES [facility]OSP[facility] 1 [facility] T [facility] 1 [facility] T [facility] 1 [facility] OUTPATIEN INC T OFFICE 31813 [facility] FALLU CONSULTAT 1 1 PHYSICIAN DORIAN OLMEDO S GROUP NEW/ESTAB PATIENT 60 MIN [facility] - 1 1 [facility] OUTPATIEN INC T OFFICE 05197 FUNG FUNG CONSULTAT 1 1 MARICEL MARICEL ION NEW/ESTAB PATIENT 60 MIN [facility] - [facility] 1 [facility] OUTPATIEN INC T EMERGENCY 44252 [facility] 1 1 [facility] DEPARTMEN INC T VISIT LOW/MODER SEVERITY EMERGENCY 34543 ALMA WALKER 1 1 EMERGENCY DEPARTMEN SERVICES T VISIT MODERATE SEVERITY OFFICE 47608 VIANCAASIF GALLO OUTPATIEN 1 1 SUJATA SUJATA T VISIT 15 MINUTES OFFICE 91388 VIANCAASIF GALLO OUTPATIEN 1 1 SUJATA SUJATA T VISIT 15 MINUTES [facility]OSP[facility] - [facility] 1 [facility] OUTPATIEN INC T OFFICE 45849 SABINO BELLA 1 1 SUJATA SUJATA T VISIT 15 MINUTES OFFICE 43557 SABINO BELLA 1 1 SUJATA SUJATA T VISIT 15 MINUTES OFFICE 36111 VIANCAASIF SABINO BELLA 1 1 SUJATA SUJATA T VISIT 15 MINUTES EMERGENCY 46404 ALMA GOOD 1 1 EMERGENCY [facility] DEPARTMEN SERVICES T VISIT HIGH/URGE NT SEVERITY [facility] - [facility] 1 [facility] OUTPATIEN INC T EMERGENCY 63265 [facility] 1 1 [facility] DEPARTMEN INC T VISIT LOW/MODER SEVERITY [facility] - 1 1 [facility] OUTPATIEN INC T OFFICE 78851 [facility] HARSHANNENL OUTPATIEN 1 1 PHYSICIAN ASHTYN T VISIT GROUP 10 PCC MINUTES [facility]ODIC 91945 [facility] 1 PHYSICIAN ASHTYN E MED EST GROUP PATIENT PCC 40-64YRS [facility]OSPITAL [facility] - 1 1 [facility] OUTPATIEN INC T OFFICE 09981 GAGE BELLA 1 1 MEDICAL JAM T VISIT SERV 15 FOUNDATIO MINUTES EMERGENCY 13879 ALMA GOOD 1 1 EMERGENCY [facility] DEPARTMEN SERVICES T VISIT MODERATE SEVERITY OFFICE 79668 SABINO BELLA 1 1 SUJATA SUJATA T VISIT 15 MINUTES EMERGENCY 68887 [facility] 1 1 [facility] DEPARTMEN INC T VISIT LOW/MODER SEVERITY [facility] - 1 1 [facility] OUTPATIEN INC T OFFICE 12106 SABINO BELLA 1 1 SUJATA SUJATA T VISIT 15 MINUTES OFFICE 81083 ARNOLD ARNOLD OUTPATIEN 1 1 SUJATA SUJATA T VISIT 15 MINUTES OFFICE 29821 SABINO GALLO OUTPATIEN 0 0 SUJATA SUJATA T VISIT 15 MINUTES OFFICE 85187 SABINO GALLO OUTPATIEN 0 0 SUJATA SUJATA T VISIT 15 MINUTES OFFICE 64071 SABINO GALLO OUTPATIEN 0 0 SUJATA SUJAAT T VISIT 15 MINUTES OFFICE 78153 GAGE DIAZ OUTPATIEN 0 0 MEDICAL JAM T VISIT SERV 15 FOUNDATIO MINUTES [facility]OSPITAL [facility] - 0 0 [facility] OUTPATIEN INC T OFFICE 80414 GAGE OCHOADIAZ CONSULTAT 0 0 MEDICAL JAM ION SERV NEW/ESTAB FOUNDATIO PATIENT 60 MIN [facility] - 0 0 [facility] OUTPATIEN INC T OFFICE 46481 SABINO GALLO OUTPATIEN 0 0 SUJATA SUJATA T VISIT 15 MINUTES [facility] 0 [facility] OUTPATIEN INC T OFFICE 57631 VIANCAASIFSABINO OUTPATIEN 0 0 ARY W ARY W T VISIT 15 MINUTES OFFICE 76124 SABINOSABINO OUTPATIEN 0 0 ARY W ARY W T VISIT 15 MINUTES OFFICE 39250 VERENA ALBARADO OUTPATIEN 0 0 RONDA Norris T VISIT 10 MINUTES [facility] T OFFICE 26313 [place] [facility], OUTPATIEN 0 0 AND HAND AMANDA A T VISIT SURGEONS 15 PSC MINUTES OFFICE 49538 SABINO GALLO OUTPATIEN 0 0 ARY W ARY W T VISIT 15 MINUTES OFFICE 55459 [place] [facility] [place], OUTPATIEN 0 0 AND HAND AMANDA A T VISIT SURGEONS 15 PSC MINUTES [facility]OSP[facility] 0 0 [facility] OUTPATI[facility] INC T OFFICE 05173 SABINO GALLO OUTPATIDOMENIC 0 0 ARY W ARY W T VISIT 15 MINUTES OFFICE 71072 GAGE MEDRANO OUTPATIEN 0 0 AND NILSA PATEL A T VISIT SURGEONS 15 PSC MINUTES [facility]OSP[facility] - 0 0 [facility] OUTPATIEN INC T OFFICE 89297 [facility] HARPEL OUTPATIEN 0 0 PHYSICIAN ASHTYN T VISIT GROUP 15 PCC MINUTES OFFICE 33829 [facility] HARPEL OUTPATIEN 0 0 PHYSICIAN ASHTYN T VISIT GROUP 10 PCC MINUTES [facility]OSP[facility] - 0 0 [facility] OUTPATIEN INC T OFFICE 29664 SABINO GALLO OUTPATIEN 0 0 ARY W ARY W T VISIT 15 MINUTES OFFICE 91665 SABINO GALLO OUTPATIEN 0 0 ARY W ARY W T VISIT 15 MINUTES [facility]OSP[facility] 0 [facility] OUTPATIEN INC T OFFICE 32248 SABINO GALLO OUTPATIEN 0 0 AYR W ARY W T VISIT 15 MINUTES OFFICE 17246 SABINO GALLO OUTPATIEN 9 9 ARY W ARY W T VISIT 15 MINUTES OFFICE 52260 [facility] OUT[facility] 9 9 MICHELLE MARTINEZ T NEW 60 MINUTES [facility]OSP[facility] - 9 9 [facility] OUTPATIEN INC T OFFICE 07977 SABINO GALLO OUTPATIEN 9 9 ARY W ARY W T VISIT 15 MINUTES OFFICE 65975 VERENA ALBARADO OUTPATIEN 9 9 RONDA Norris T VISIT 10 MINUTES [facility]OSP[facility] 9 9 [facility] OUTPATIEN INC T OFFICE 11909 VERENA ALBARADO OUTPATIEN 9 9 RONDA Myrna Norris T VISIT 15 MINUTES OFFICE 81041 SABINO GALLO OUTPATIEN 9 9 ARY Enamorado T VISIT 15 MINUTES PERIODIC 43402 ELROY CURRY 9 9 EDEL Van E [facility] EST PATIENT 40-64YRS [facility] - 9 9 [facility] OUTPATIEN INC T OFFICE 35091 VERENA ALBARADO OUTPATIEN 8 8 RONDA Norris T VISIT 15 MINUTES OFFICE 43017 ANTONIETA FUNG, SWAPNA 8 8 VICKIE MITCHELL/ESTAB PATIENT 80 MIN [facility] - 8 8 [facility] OUTPAT[facility]EN INC T OFFICE 12680 SABINO GALLO OUTPATIEN 8 8 ARY Enamorado T VISIT 15 MINUTES EMERGENCY 64088 [facility] 8 8 [facility] DEPARTMEN INC T VISIT MODERATE SEVERITY OFFICE 18985 SABINO GALLO OUTPATIEN 8 8 ARY Enamorado T VISIT 15 MINUTES HOSPITAL [facility] - 8 8 [facility] OUTPATIEN INC T OFFICE 20452 VERENA ALBARADO OUTPATIEN 8 8 RONDA Myrna Norris T VISIT 15 MINUTES OFFICE 17447 SABINO GALLO OUTPATIEN 8 8 ARY Enamorado T VISIT 15 MINUTES EMERGENCY 84216 ANAHI DUMONT, 8 8 [facility] T VISIT ON MODERATE SEVERITY EMERGENCY 06722 [facility] 8 8 [facility] DEPARTMEN INC T VISIT LOW/MODER SEVERITY [facility] - 8 8 [facility] OUTPATIEN INC T OFFICE 58061 JENA DELAROSA 8 8 AND HAND AMANDA A T VISIT SURGEONS 15 PSC MINUTES OFFICE 32605 SABINO GALLO OUTPATIEN 8 8 ARY W ARY W T VISIT 15 MINUTES OFFICE 70787 SABINO GALLO OUTPATIEN 8 8 ARY W ARY W T VISIT 15 MINUTES OFFICE 02313 JENA DELAROSA 8 8 AND HAND AMANDA A T VISIT SURGEONS 15 PSC MINUTES OFFICE 68840 VERENA ALBARADO OUTPATIEN 8 8 RONDA BOND G T VISIT 15 MINUTES OFFICE 96485 VERENA ALBARADO OUTPATIEN 8 8 RONDA BOND G T VISIT 15 MINUTES [facility] T OFFICE 54524 ANTONIETA FUNG OUTPATIEN 8 8 VICKIE JOHNSTON T VISIT 25 MINUTES OFFICE 34993 JENA DELAROSA 8 8 AND HAND AMANDA A T VISIT SURGEONS 15 PSC MINUTES OFFICE 24082 SABNIO GALLO OUTPATIEN 8 8 ARY W ARY W T VISIT 15 MINUTES [facility] T OFFICE 75583 ANTONIETA FUNG, CONSULTBUNNY 8 8 [facility] PATIENT 80 MIN OFFICE 81339 JENA CURRY 8 8 EDEL Van T VISIT 15 MINUTES OFFICE 34564 SABINO GALLO OUTPATIEN 8 8 ARY W ARY W T VISIT 15 MINUTES OFFICE 79115 SABINO GALLO OUTPATIEN 8 8 ARY W ARY W T VISIT 15 MINUTES [facility] T OFFICE 23333 VERENA ALBARADO OUTPATIDOMENIC 8 8 RONDA Norris T VISIT 15 MINUTES OFFICE 13882 Oly MANN OUTPATIDOMENIC 8 8 RADHA Nettles VISIT PSC 15 MINUTES PERIODIC 06983 KRAIG HOLLINGSWORTH PREVENTIV 8 8 EDEL Van E MED EST PATIENT [id number] [facility] - 8 8 [facility] T OFFICE 50747 JENA CURRY 8 8 EDEL Nettles VISIT 10 MINUTES OFFICE 22380 Oly MANN OUTPATIDOMENIC 8 8 RADHA Nettles VISIT PSC 15 MINUTES [facility] PAULIE - 8 8 [facility] T
--- OUTSIDE RECORDS SUMMARY | 2017-07-05 18:00 | External Medical Summary Rpt ---
Author Author , ERASTO MAURER Address Unknown Phone [email or web address] Care Team Providers Care Dosimetrist Name Role Phone ALFARIS MOH, ALFARIS Unavailable Unavailable [facility] Unavailable Unavailable [facility], [facility] ANJUR-KAPALI OMAR, Unavailable Unavailable ANJUR-KAPALI OMAR ANJUR-KAPALI OMAR, Unavailable Unavailable ANJUR-KAPALI OMAR ARNOLD, ARNOLD Unavailable Unavailable ARNOLD, ARNOLD Unavailable Unavailable ARNOLD SUJATA, ARNOLD Unavailable Unavailable SUJATA ARNOLD SUJATA, ARNOLD Unavailable Unavailable SUJATA SABINO, ARY W, [...] [facility] AN[facility] OF Unavailable Unavailable THE [facility], [facility]EST[facility] OF [facility] JOAO SHEPHERD Unavailable Unavailable JOAO MERRITT, Unavailable Unavailable JOAO MERRITT JOAO MERRITT, Unavailable Unavailable JOAO MERRITT JESSICA SHEPHERD, Unavailable Unavailable OWEN SHEPHERDLAS SHILPI OG, Unavailable Unavailable DOBBINSDEMETRIO DOBBINS OG, Unavailable Unavailable DOBBINS OG [facility] [place] [facility] [place]available [place], [facility] FALLUJI DORIAN, FALLUJI Unavailable Unavailable DORIAN FALLUJI DORIAN, FALLUJI Unavailable Unavailable DORIAN BRITO, BRITO Unavailable Unavailable JR MICHELLE CORONADO, Unavailable Unavailable CLIFF, ELZ ARIELA LIOR, ARIELA Unavailable Unavailable LIOR ARIELA LIOR, ARIELA Unavailable Unavailable LIOR [facility], Unavailable Unavailable [facility] KRAIG HOLLINGSWORTH MD, Unavailable Unavailable BONNY [...] Unavailable Unavailable INC, [facility] Unavailable Unavailable HOSPITAL P, [facility] P VOGEL, VOGEL Unavailable Unavailable VOGEL, VOGEL Unavailable Unavailable CHAPARRO VOGEL A, Unavailable Unavailable [facility]AP[facility] VOGEL A [facility] Unavailable Unavailable P[facility], [facility], Unavailable Unavailable [facility] HOBDOMENIC MAR, HOBEN MAR Unavailable Unavailable AJ RALPH, Unavailable Unavailable AJ RALPH TOBIAS, SB COLLADO Unavailable Unavailable EDWARDS TRA, EDWARDS TRA Unavailable Unavailable EDWARDS TRA, EDWARDS TRA Unavailable Unavailable LIRA, LIRA Unavailable [facility]available [facility], [facility] Unavailable Unavailable MEDICAL G, [facility] Unavailable Unavailable [...] [facility], Unavailable Unavailable [facility] ALBARADO, ALBARADO Unavailable Unavailable ALBARADO LESLY, ALBARADO Unavailable Unavailable LESLY ALBARADO LESLY, ALBARADO Unavailable Unavailable RONDA MCCALL, Unavailable Unavailable RONDA ALBARADO JR DWI, KAM Unavailable Unavailable JR DWI [facility] Unavailable Unavailable CENTER, [facility] SAMARA AMANDEEP, SAMARA AMANDEEP Unavailable Unavailable JUSTIN SUJATA, JUSTIN Unavailable Unavailable SUJATA [facility], Unavailable Unavailable [facility], Unavailable Unavailable [facility] Unavailable Unavailable SERVICES, [facility] JACK ODALIS, Unavailable Unavailable JACK [...] Unavailable MITCHELL MAT MITCHELL MAT, Unavailable Unavailable MITCHLEL MAT MITCHELL, AMANDA A, Unavailable Unavailable MITCHELL, [...] [facility]LEX[facility]RIA MAX Unavailable Unavailable ALEXANDRIA MAX, ALEXANDRIA MXA Unavailable Unavailable SCHULSTAD CAM, Unavailable Unavailable SCHULSTAD [...] [facility] Unavailable Unavailable [facility], [facility] [place] URADU JULIANA, URADU JULIANA Unavailable Unavailable [facility] Unavailable Unavailable [id number], [id number] BUTLER, BUTLER Unavailable Unavailable BUTLER, BUTLER Unavailable Unavailable [facility] Unavailable Unavailable [facility] Unavailable Unavailable ISAIAH SAUCEDO, ISAIAH SAUCEDO Unavailable Unavailable Oly GRACIA, RADHA, Unavailable Unavailable A C [facility] Unavailable [facility]available [facility], Unavailable [facility], Unavailable [facility]available [facility] Purpose Continuity of Care Document - 12-01-2007 through 2016 Problems Code Diagnosis DOS Provider Status 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 E785 HYPERLIPIDE 04-22-2017 [facility] CINDY PHYSICIANS UNSPECIFIED GROUP I10 ESSENTIAL 04-22-2017 [facility] PRIMARY PHYSICIANS HYPERTENSIO GROUP N I208 OTHER FORMS 04-22-2017 [facility] OF ANGINA PHYSICIANS PECTORIS GROUP I2510 ASHD MINTO 04-22-2017 [facility] CORONARY PHYSICIANS ARTERY W/O GROUP ANGINA PECTORIS H1013 ACUTE 04-08-2017 [facility] ATOPIC CONJUNCTIVI TIS BILATERAL I19249 OTHER LONG 04-05-2017 [facility] CURRENT INC DRUG THERAPY D649 ANEMIA 04-02-2017 COMBINED UNSPECIFIED PHYSICIANS LA E039 HYPOTHYROID 04-02-2017 COMBINED ISM PHYSICIANS UNSPECIFIED LA E559 VITAMIN D 04-02-2017 COM[facility] DEFICIENCY PHYSICIANS UNSPECIFIED LA Q14185 UNSPECIFIED 03-26-2017 [facility] BLEPHARITIS LEFT LOWER EYELID B0052 HERPESVIRAL 03-22-2017 [place] [facility] H179 UNSPECIFIED 03-22-2017 [place] [facility] SERV SCAR AND [facility] OPACITY Z9841 CATARACT 03-22-2017 [place] [facility] EX[facility] STATUS [facility] RIGHT EYE Z9842 CATARACT 03-22-2017 [place] [facility] STATUS LEFT [facility]OUNDATION EYE J0190 ACUTE 03-15-2017 [facility] SINUSITIS UNSPECIFIED N951 MENOPAUSAL 02-18-2017 [facility] CLIMACTERIC INC STATES Z1231 ENCOUNTER 02-18-2017 [facility] MALIG [facility]AGING ASS NEOPLASM BREAST G75447 ENCOUNTER 02-15-2017 [facility] RN HYPERBARIC EXAM PHYSICIANS GENERAL RTN GROUP W/O ABNORMAL FIND Z1212 ENCOUNTER 02-15-2017 [facility] SCREENING PHYSICIANS MALIGNANT GROUP NEOPLASM RECTUM N86575 COMBINED 02-02-2017 [facility] FORMS OF AGE-RELATED CATARACT RIGHT EYE H269 UNSPECIFIED 02-02-2017 [facility] CATARACT ASSOCIATES PSC X73071 COMBINED 01-26-2017 [facility] FORMS OF AGE-RELATED CATARACT LEFT EYE N05378 COMBINED 01-14-2017 [facility] FORMS OF AGE-RELATED CATARACT BILATERAL K219 GASTRO-ESOP 01-08-2017 [facility] H REFLUX PHYSICIANS DISEASE GROUP WITHOUT ESOPHAGITIS O40518 OTHER 12-01-2016 [facility] VITREOUS OPACITIES BILATERAL H5203 HYPERMETROP 12-01-2016 [facility] IA BILATERAL Y96879 REGULAR 12-01-2016 [facility] ASTIGMATISM BILATERAL I119 HYPERTENSIV 11-17-2016 [facility] DISEASE INC WITHOUT HEART FAILURE I209 ANGINA 11-17-2016 [facility] PECTORIS PHYSICIANS UNSPECIFIED GROUP H409 UNSPECIFIED 11-07-2016 ARNOLD GLAUCOMA H5213 MYOPIA 11-06-2016 [facility] ANG BILATERAL H524 PRESBYOPIA 11-06-2016 [facility] ANG H6690 OTITIS 10-24-2016 ARNOLD SUJATA MEDIA UNSPECIFIED UNSPECIFIED EAR K209 ESOPHAGITIS 10-19-2016 [facility] PHYSICIANS UNSPECIFIED GROUP K210 GASTRO-ESOP 10-19-2016 [facility] HAGEAL PHYSICIANS REFLUX GROUP DISEASE W/ ESOPHAGITIS K449 DIAPHRAGMAT 10-19-2016 [facility] IC HERNIA PHYSICIANS W/O GROUP OBSTRUCTION OR GANGRENE J449 CHRONIC 10-03-2016 [facility] P DISEASE UNS R0789 OTHER CHEST 10-03-2016 [facility] [place]IN [facility] R079 CHEST PAIN 10-03-2016 [facility] UNSPECIFIED PHYSICIANS, PLLC R0602 SHORTNESS 09-22-2016 [facility] OF BREATH PHYSICIANS GROUP R9439 ABNORMAL 09-16-2016 [facility] RESULT OTH PHYSICIANS CARDIOVASCU GROUP LR FUNCTION STUDY Z8249 FAMILY HX 09-15-2016 [facility] ISCHEMIC PHYSICIANS HRT DZ OTH GROUP DZ CIRC SYSTEM J069 ACUTE UPPER 08-24-2016 [facility] SUAJTA RESPIRATORY INFECTION UNSPECIFIED D497 NEOPLASM OF 07-10-2016 [facility] UNS BHV PHYSICIANS ENDOCRN GROUP GLAND & OTH PART NS E038 OTHER 07-08-2016 [facility] SPECIFIED PHYSICIANS HYPOTHYROID LA ISM R0600 DYSPNEA 06-17-2016 [facility] [place]AGING ASS R5383 OTHER 06-17-2016 [facility] P H6010 CELLULITIS 05-28-2016 ARNOLD SUJATA OF EXTERNAL EAR UNSPECIFIED EAR R599 ENLARGED 04-17-2016 [facility] LYMPH NODES PHYSICIANS, PLLC UNSPECIFIED R42 DIZZINESS 04-08-2016 [facility] AND PHYSICIANS GIDDINESS GROUP H8109 MENIERES 04-03-2016 [facility]OLD SUJATA DISEASE UNSPECIFIED EAR R1310 DYSPHAGIA 03-26-2016 [facility] UNSPECIFIED PHYSICIANS GROUP I63428 HORMONE 01-31-2016 KRAIG HOLLINGSWORTH MD THERAPY POSTMENOPAU STEVIE T10618 UNSPECIFIED 01-10-2016 [facility] PHYSICIANS OBSTRUCTION GROUP EUSTACHIAN TUBE UNS EAR J309 ALLERGIC 01-10-2016 [facility] RHINITIS PHYSICIANS UNSPECIFIED GROUP J329 CHRONIC 01-10-2016 [facility] SINUSITIS PHYSICIANS UNSPECIFIED GROUP P20069 DIFFUSE 11-13-2015 [facility]OLD SUJATA OTITIS EXTERNA UNSPECIFIED EAR K5790 DIVERTICULO 10-31-2015 [facility] SIS PART PHYSICIANS UNS W/O GROUP PERF/ABSC W/O BLEED K5900 CONSTIPATIO 10-31-2015 [facility] N PHYSICIANS UNSPECIFIED GROUP R1032 LEFT LOWER 10-31-2015 [facility] QUADRANT PHYSICIANS PAIN GROUP Z1211 ENCOUNTER 10-22-2015 [facility] SCREENING PHYSICIANS MALIGNANT GROUP NEOPLASM OF COLON H6503 ACUTE 10-15-2015 [facility] PHYSICIANS, OTITIS PLLC MEDIA BILATERAL R60967 PAIN IN 10-07-2015 [facility] I739 PERIPHERAL 09-18-2015 [place] [place] [facility]ULAR [facility]ICAL DISEASE IMAGING ASS UNSPECIFIED V48190 PAIN IN 09-18-2015 [place] RIGHT LEG MEDICAL IMAGING ASS M02686 PAIN IN 09-18-2015 [place] [place] LEFT LEG MEDICAL IM[facility]ING ASS R252 CRAMP AND 09-18-2015 [facility] INC 4619 ACUTE 08-07-2015 ARNOLD SUJATA SINUSITIS, UNSPECIFIED 4659 ACUTE URIS 07-12-2015 [facility]OLD SUJATA OF UNSPECIFIED SITE 90112 SPASM OF 06-25-2015 ARNOLD SUJATA MUSCLE 29872 ASTHMA, 06-10-2015 [facility] UNSPECIFIED HEALTH , MEDICAL G UNSPECIFIED STATUS 7851 PALPITATION 06-10-2015 [facility] MEDICAL G 2724 OTHER AND 05-27-2015 COMBINED UNSPECIFIED PHYSICIANS LA HYPERLIPIDE CINDY 4019 UNSPECIFIED 05-23-2015 [facility] P N 97080 OTHER 05-23-2015 [facility] P RESPIRATORY ABNORMALITI ES 2449 UNSPECIFIED 05-06-2015 [facility] HYPOTHYROID MEDICAL G ISM 496 CHRONIC 04-17-2015 [facility] OBSTRUCTION INC NEC 50114 MASTODYNIA 04-17-2015 [facility] PHYSICIANS, [facility] 11673 CHEST PAIN 04-17-2015 [place] UNSPECIFIED [facility]ICAL IMAGING ASS 4739 UNSPECIFIED 04-11-2015 [facility] SINUSITIS PHYSICIANS GROUP 4779 ALLERGIC 04-11-2015 [facility] RHINITIS PHYSICIANS CAUSE GROUP UNSPECIFIED 7847 EPISTAXIS 04-10-2015 COMBINED PHYSICIANS LA 7906 OTHER 03-07-2015 LAB HANG ABNORMAL [facility]LO[facility]INGS CHEMISTRY 57748 DISORDER OF 02-05-2015 [place] BONE AND MEDICAL CARTILAGE IMAGING ASS UNSPECIFIED 83682 UNSPECIFIED 02-05-2015 [facility] ABNORMAL [facility] MAMMOGRAM INC V7612 OTHER 02-05-2015 [place] SCREENING MEDICAL MAMMOGRAM IMAGING ASS 4730 CHRONIC 02-02-2015 [facility] LESLY MAXILLARY SINUSITIS 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-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 6272 SYMPTOMATIC 01-29-2015 KRAIG HOLLINGSWORTH MD MENOPAUSAL/ FEMALE CLIMACTERIC STATES V7231 ROUTINE 01-29-2015 KRAIG Van GYNECOLOGIC EDEL MCKENNA AL EXAMINATION V7641 SCREENING 01-29-2015 KRAIG Van FOR EDEL MCKENNA MALIGNANT NEOPLASM OF THE RECTUM 80342 OPEN WOUND 01-06-2015 [facility] P MENTION COMPLICATIO N 3829 UNSPECIFIED 01-02-2015 [facility] P V148 PERSONAL 01-02-2015 [facility] ALLERGY [facility] P SPEC MEDICINAL AGTS 5368 DYSPEPSIA&O 11-26-2014 [facility] THER SPEC PHYSICIANS DISORDERS LA FUNCTION STOMACH 06178 ABDOMINAL 11-26-2014 COM[facility]ED PAIN[place] [address] UNSPECIFIED 11-23-2014 SABINO ERNST VIRAL INFECTION IN CCE & UNS SITE 66113 OTHER ACUTE 11-13-2014 [facility] PAIN PHYSICIANS GROUP 7020 ACTINIC 11-13-2014 [facility] KERATOSIS PHYSICIANS GROUP 73909 NUCLEAR 11-09-2014 [facility] ANG SCLEROSIS 3674 PRESBYOPIA 11-09-2014 [facility] ANG 15735 OSTEOARTHRO 11-09-2014 [facility] ERNST S INVLV MX SITES BUT NOT SPEC GEN 2382 NEOPLASM OF 11-01-2014 [facility] UNCERTAIN PHYSICIANS BEHAVIOR OF GROUP SKIN 61851 OTHER SIGN 09-26-2014 [facility] SYMPTOM [facility] IN BREAST INC 28644 OTHER 09-26-2014 [place] SPECIFIED MEDICAL DISORDERS IMAGING ASS OF BREAST 84613 SHORTNESS 08-24-2014 [place] OF BREATH MEDICAL IMAGING ASS 64315 UNSPECIFIED 07-26-2014 [facility] ERNST INFECTIVE OTITIS EXTERNA 26981 PRECORDIAL 07-16-2014 ANJUR-KAPAL PAIN I OMAR 4011 ESSENTIAL 06-14-2014 [facility] ERNST HYPERTENSIO N, BENIGN 82871 COR 06-14-2014 [facility] ERNST ATHEROSLERO UNSPEC TYPE VESSEL MINTO/SIGIFREDO T 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 7231 CERVICALGIA 05-08-2014 S[facility] ERNST 2459 UNSPECIFIED 05-07-2014 [facility] LESLY THYROIDITIS 81704 DYSPHAGIA 05-07-2014 [facility] LESLY UNSPECIFIED 2409 GOITER, 05-01-2014 [facility] UNSPECIFIED [facility]OS[facility] INC 69296 OTHER 05-01-2014 JOAO SYMPTOMS MERRITT INVOLVING HEAD AND NECK V5869 LONG-TERM 04-30-2014 COMBINED (CURRENT) PHYSICIANS USE OF LA OTHER MEDICATIONS 94086 UNSPECIFIED 04-25-2014 [facility] ERNST MENIERES DISEASE 22924 GENERALIZED 02-28-2014 [facility] PAIN MERRITT 7937 NONSPC ABN 02-28-2014 JO[facility] FINDNG RAD MERRITT & OTH EXM MUSCULSKELT L SYS 36639 CONTUSION 02-28-2014 [place] MAX OF WRIST 9599 INJURY 02-28-2014 JOAO OTHER AND MERRITT UNSPECIFIED UNSPECIFIED SITE E9179 OTHER 02-28-2014 [place] MAX STRIKING AGAINST W/WO SUBSEQUENT FALL 80974 ESOPHAGEAL 01-25-2014 [facility] ERNST REFLUX 55681 INSOMNIA 01-25-2014 [facility] ERNST UNSPECIFIED V074 HORMONE 01-24-2014 [facility] REPLACEMENT MERRITT THERAPY V4981 ASYMPTOMATI 01-24-2014 JOAO C MERRITT POSTMENOPAU STEVIE STATUS V8281 SPECIAL 01-24-2014 [facility] SCREENING [facility] FOR INC OSTEOPOROSI S 4719 UNSPECIFIED 12-18-2013 [facility] LESLY NASAL POLYP 5589 OTH&UNSPEC 12-11-2013 [facility] NONINFECTIO [facility] US INC GASTROENTER ITIS&COLITI S 38981 NAUSEA WITH 12-11-2013 ARIELA LIOR VOMITING 4660 ACUTE 11-28-2013 [facility] ERNST BRONCHITIS 27240 OTHER 08-23-2013 [facility] TENOSYNOVIT MAT IS OF [...] 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 17693 UNSPECIFIED 07-27-2013 LAB HANG OF RICARDO ARTHROPATHY HOLDINGS MULTIPLE SITES 70026 OTHER&UNSPE 07-26-2013 [facility] CIFIED DISC MAT DISORDER CERVICAL REGION 07166 OSTEOARTHRO 05-19-2013 JOAO SIS UNSPEC MERRITT WHETHER GEN/LOCALIZ ED HAND 7823 EDEMA 05-19-2013 [facility] INC 01150 ACUTE 04-20-2013 [facility] LARYNGITIS, [facility] WITHOUT INC MENTION OF OBSTRUCTIO 4785 OTHER 04-20-2013 PICK[facility] DISEASES OF JR ASTER VOCAL CORDS 43935 DYSPHONIA 04-20-2013 [facility] INC 25114 OTHER VOICE 04-20-2013 [facility] AND [facility] OF RESONANCE THE BLUE DISORDERS V7284 UNSPECIFIED 04-17-2013 COMBINED PHYSICIANS PRE-OPERATI LA VE EXAMINATION 6929 CONTACT 01-26-2013 S[facility]INO ERNST DERMATITIS& OTHER ECZEMA DUE UNSPEC CAUSE 4778 ALLERGIC 01-23-2013 JACK RHINITIS ODALIS DUE TO OTHER ALLERGEN 82984 EXTRINSIC 01-23-2013 JACK ASTHMA, ODALIS UNSPECIFIED V163 FAMILY 01-23-2013 JOAO HISTORY OF MERIRTT MALIGNANT NEOPLASM OF BREAST 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 61164 PAIN IN 12-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 JAM JOINT PELVIC REGION AND THIGH 71079 PLICA 12-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 JAM SYNDROME 81791 UNSPECIFIED 10-10-2012 [facility] LESLY ACUTE NONSUPPURAT ANTHONY OTITIS MEDIA 462 ACUTE 10-10-2012 S[facility] ERNST PHARYNGITIS V720 EXAMINATION 09-01-2012 ALMA OF EYES GRE AND VISION 7245 UNSPECIFIED 08-24-2012 S[facility] ERNST BACKACHE 2722 MIXED 08-04-2012 FALLUJI DORIAN HYPERLIPIDE CINDY 4772 ALLERGIC 07-21-2012 JACK RHINITIS ODALIS DUE TO ANIMAL HAIR AND DANDER 9392 FOREIGN 06-13-2012 GORDON JUANCARLOS BODY IN VULVA AND VAGINA 04426 UNSPECIFIED 06-09-2012 HARPEL ASHTYN VAGINITIS AND VULVOVAGINI TIS 1119 UNSPECIFIED 05-17-2012 S[facility] ERNST DERMATOMYCO SIS 10805 CHRONIC 05-13-2012 [facility] UNSPECIFIED 7080 ALLERGIC 02-17-2012 [facility] URTICARIA [facility] INC 12433 EXTRINSIC 02-02-2012 COMMUNITY ASTHMA, ALLERGY & WITH ASTHMA P EXACERBATIO N 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 FUNG HEREDIT&IDI MARICEL OPATHIC PERIPHERAL NEUROPATHY 39795 DIAB W/O 01-07-2012 LAB HANG COMP TYPE AMERIC II/UNS NOT HOLDINGS STATED UNCNTRL 65999 OTHER 01-07-2012 COMBINED [place] [address] ASTHMA 12-30-2011 S[facility] ERNST UNSPECIFIED WITH STATUS ASTHMATICUS 4780 HYPERTROPHY 10-12-2011 JACK OF NASAL ODALIS TURBINATES V727 DIAGNOSTIC 10-12-2011 JACK SKIN AND ODALIS SENSITIZATI ON TESTS 7238 OTHER 09-29-2011 [facility] SYNDROMES [facility] AFFECTING INC CERVICAL REGION V571 OTHER 09-29-2011 [facility] PHYSICAL [facility] THERAPY INC 7820 DISTURBANCE 09-15-2011 FUNG OF SKIN MARICEL SENSATION 4760 CHRONIC 08-31-2011 [facility] LESLY LARYNGITIS 56108 OBESITY, 08-26-2011 [place] [facility] UNSPECIFIED SERV FOUNDATIO 92503 HYPERSOMNIA 08-26-2011 [place] [facility] UNSPECIFIED FOUNDATIO 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 56034 OBSTRUCTIVE 08-11-2011 [facility] SLEEP [facility] APNEA INC 69294 ACUTE 08-06-2011 [facility] GASTRITIS EMERGENCY WITHOUT SERVICES MENTION OF HEMORRHAGE 3670 HYPERMETROP 07-22-2011 [facility] GRE 7234 BRACHIAL 04-14-2011 [facility] NEURITIS OR [facility] INC RADICULITIS NOS 7244 THORACIC/ASH 04-14-2011 [facility] MBOSACRAL [facility] NEURITIS/RA INC DICULITIS UNSPEC 6829 CELLULITIS 03-19-2011 [facility] ERNST AND ABSCESS OF UNSPECIFIED SITE 9114 TRNK INSECT 03-19-2011 [facility] BITE EMERGENCY NONVENOMOUS SERVICES WITHOUT MENTION INF 7242 LUMBAGO 03-13-2011 [facility] 3558 UNSPECIFIED 03-06-2011 ARNOLD SUJATA MONONEURITI S OF LOWER LIMB 6826 CELLULITIS 01-18-2011 [facility] AND ABSCESS [facility] OF LEG INC EXCEPT FOOT 50126 PAIN IN 12-27-2010 [facility] ERNST JOINT, SHOULDER REGION 75568 OBSTRUCTIVE 10-08-2010 [place] [facility] CHRONIC SERV BRONCHITIS FOUNDATIO WITHOUT EXACERBAT 48678 MORBID 09-10-2010 [place] [facility] OBESITY SERV [facility] 7862 COUGH 09-10-2010 [place] [facility] F[facility] 14564 OBSTRUCTIVE 09-01-2010 [facility] CHRONIC [facility] BRONCHITIS INC WITH EXACERBATIO N 27889 PAINFUL 07-04-2010 [facility] [place] 7140 RHEUMATOID 07-03-2010 [facility]THRITIS [facility] 8409 SPRAIN&STRA 06-13-2010 [facility] IN UNSPEC ARY W SITE SHOULDER&UP PER ARM 226 BENIGN 05-22-2010 [facility] NEOPLASM OF RONDA Norris THYROID GLANDS 97128 LOC 04-18-2010 [place] [facility] OSTEOARTHRO AND HAND S NOT SPEC SURGEONS WHETHER PSC PRIM/SEC HAND 25308 LOC 04-18-2010 [place] [facility] OSTEOARTHRO AND HAND S NOT SPEC SURGEONS PRIM/SEC PSC ANK&FOOT 62564 PAIN IN 03-07-2010 [place] JOINT, MEDICAL ANKLE AND IMAGING FOOT ASSOCIATES 88490 PAIN IN 02-07-2010 [place] [facility] JOINT, HAND AND HAND SURGEONS PSC 84333 SWELLING OF 02-07-2010 [place] [facility]B [facility] 2859 UNSPECIFIED 01-27-2010 [facility] ANEMIA PHYSICIAN GROUP PCC 93288 DEGEN 01-20-2010 [place] 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 7393 NONALLOPATH 01-20-2010 [place] IC LESION FAMILY OF LUMBAR CHIROPRACTI REGION NEC C 7395 NONALLOPATH 01-20-2010 [place] IC LESION FAMILY OF PELVIC CHIROPRACTI REGION NEC C V173 FAMILY 01-10-2010 [facility] HISTORY OF [facility] HEART PROF SERV DISEASE 44004 ENTHESOPATH 12-10-2009 [facility] Y OF ARY W UNSPECIFIED SITE 7210 CERVICAL 10-08-2009 BURRIS, SPONDYLOSIS MICHELLE WITHOUT MYELOPATHY 52420 SPONDYLOSIS 10-08-2009 BURRIS, UNSPEC MICHELLE SITE W/O MENTION MYELOPATHY 2452 CHRONIC 06-24-2009 [facility] LYMPHOCYTIC RONDA G THYROIDITIS V7388 SPECIAL SCR 01-08-2009 [facility] [place] INC EXAMINATION OTH SPEC CHLAMYDIAL DZ V745 SCREENING 01-08-2009 [facility] EXAMINATION [facility] FOR VENEREAL DISEASE V780 SCREENING 01-08-2009 KRAIG MCGARRY IRON EDEL MCKENNA DEFICIENCY ANEMIA 5999 UNSPECIFIED 10-26-2008 RUPERTO GALLO OF URETHRA&URI NARY TRACT 53461 ABDOMINAL 10-26-2008 [facility] PAIN OTHER NATIONAL SPECIFIED CORPORATION SITE 4439 UNSPECIFIED 09-27-2008 [place] PERIPHERAL MEDICAL VASCULAR IMAGING DISEASE ASSOCIATES 5272 SIALOADENIT 09-13-2008 VERENA IS RONDA Myrna 2893 LYMPHADENIT 09-10-2008 [facility] ETHAN ARY Enamorado UNSPECIFIED EXCEPT MESENTERIC 683 ACUTE 09-09-2008 CH[facility]STIAN LYMPHADENIT NATIONAL IS CORPORATION 7842 SWELLING 09-09-2008 [facility] MASS OR [facility] LUMP IN [facility] HEAD AND NECK 3542 LESION OF 08-24-2008 [place] [facility] ULNAR NERVE AND HAND SURGEONS PSC 56692 UNSPECIFIED 08-02-2008 ARY GALLO CONJUNCTIVI TIS 3540 CARPAL 07-06-2008 [place]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AND HAND SYNDROME SURGEONS PSC 62496 LUMP OR 01-25-2008 [place] MASS IN MEDICAL BREAST IMAGING ASSOCIATES 4610 ACUTE 12-29-2007 GENOVEVA ALBARADO SINUSITIS V762 SCREENING 12-13-2007 [facility] FOR [facility] MALIGNANT NEOPLASM OF THE CERVIX 70550 VITREOUS 12-09-2007 JOSHUA VOGEL A N 611.72 [...] ia de te s n re d NE 00 07 08 30 30 00 EA [...] 50 3- 4- 00 00 SI ve NE 61 20 20 49 DE IL 01 [...] 18 -1 -[address] ti NE 50 4- 4- 00 00 SI ve [...] CY NT HI AN A IN C NE 00 06 07 30 30 00 EA [...] ve TA 87 20 20 48 DE WA 41 17 17 98 N 0 63 PH D3 AR MA 1, CY 00 0 OF UN CY IT NT HI TA AN B A IN C NA 53 06 07 60 30 00 EA Ac NE 74 -0 -[address] ti [...] 50 5- 7- 00 00 SI ve NE 61 20 20 49 DE IL 01 [...] 18 -1 -[address] ti NE 50 5- 6- 00 00 SI ve [...] HI OP AN S A IN C NE 00 05 06 30 30 00 EA [...] 05 06 60 30 00 EA Ac NE 74 -0 -[address] ti [...] ve TA 87 20 20 48 DE WA 41 17 17 61 N 0 76 [...] 17 17 38 E 5 96 PH NE AR OP MA CY 50 OF MC [...] 18 -1 -[address] ti NE 50 2- 2- 00 00 SI ve [...] NT ET HI AN A IN C NE 00 04 05 30 30 00 EA [...] 50 4- 5- 00 00 SI ve NE 61 20 20 43 DE IL 01 17 17 97 0 43 PH 10 AR MA MG CY TA OF BL CY ET NT HI AN A IN C BI 00 03 04 30 30 00 EA Ac SO 18 -1 -[address] ti NE 50 6- 1- 00 00 SI ve [...] NT ET HI AN A IN C NE 00 03 04 30 30 00 EA [...] 50 6- 7- 00 00 SI ve NE 61 20 20 43 DE IL 01 [...] S NT HI AN A IN C NE 61 02 03 10 10 00 EA [...] 18 -1 -[address] ti NE 50 2- 7- 00 00 SI ve [...] HI UL AN E A IN C NE 03 30 30 00 EA Ac EM [...] 50 5- 0- 00 00 SI ve NE 61 20 20 43 DE IL 01 [...] 50 7- 0- 00 00 SI ve NE 61 20 20 43 DE IL 01 [...] 11 02 16 8 00 EA Ac NE 74 -0 -[address] ti [...] ET NT HI AN A IN C NE 00 01 02 30 30 00 EA [...] 12 01 60 30 00 EA Ac NE 74 -1 -[address] ti OX 60 8- 0- 00 00 SI ve EN 19 20 20 46 DE 01 16 17 38 50 0 06 PH 0 AR MG MA CY TA BL OF ET CY NT HI AN A IN C BI 00 12 30 30 00 EA Ac SO 18 -2 -[address] ti NE 50 0- 0- 00 00 SI ve [...] NT ET HI AN A IN C NE 00 10 29 30 30 00 EA [...] OF ET CY NT HI AN A NE 00 03 10 11 30 30 EA [...] ti NO 23 SI 19 LD ve NE 75 20 20 DE IL 98 11 [...] CY TI NT ON HI AN A NE 00 03 09 11 30 30 EA [...] 8- 2- 00 SI 19 LD ve NE 75 20 20 DE IL 98 11 [...] OF ET CY NT HI AN A NE 00 03 08 11 30 30 EA [...] OF ET CY NT HI AN A NE 00 03 07 11 30 30 EA [...] BL ET CY NT HI AN A NE 00 03 06 11 30 30 EA [...] BL ET CY NT HI AN A NE 00 03 05 11 30 30 EA [...] 0 6. 1 EA 22 OC Ac NE 25 -0 -[address] 39 ON [...] BL ET CY NT HI AN A NE 00 03 04 11 30 30 EA 21 MAHMOOD Ac EM 04 -0 -[address] 56 RP ti AR 61 7- 8- 00 SI 87 EL ve IN 10 20 20 DE 29 11 11 GE 0. 1 PH RA 62 AR LD 5 MA R MG CY TA OF BL ET CY NT HI AN A NE 00 04 04 1 21 6 EA [...] 5 60 30 EA 17 AR Ac NE 09 -1 -[address] 92 NO [...] W OF CY NT HI AN A NE 00 03 03 11 30 30 EA [...] 20 20 DE HO 20 11 11 WA XA 5 PH CH ZO AR AE LE MA L -T CY S MP OF DS CY TA NT BL HI ET AN A 00 02 02 0 8. 2 EA 21 GA Ac 59 -2 -[address] 32 IN ti 10 0- 0- 0 SI 66 EY ve 34 20 20 DE 90 11 11 WA 1 PH CH AR AE MA L [...] W OF CY NT HI AN A NE 00 02 02 0 30 30 EA [...] 9- 9- 00 SI 96 LD ve NE 02 20 20 DE ED 20 11 [...] 11 11 RI TA 8 PH CH WA AR AR N- MA D CA CY [...] 5 60 30 EA 17 AR Ac NE 09 -1 -[address] 92 NO [...] 7- 7- 00 SI 12 LD ve NE 75 20 20 DE IL 96 10 [...] BL ET CY NT HI AN A NE 00 02 11 3 90 90 EA [...] 7- 8- 00 SI 12 LD ve NE 75 20 20 DE IL 96 10 [...] 5 60 30 EA 17 AR Ac NE 09 -1 -[address] 92 NO [...] 7- 7- 00 SI 12 LD ve NE 75 20 20 DE IL 96 10 [...] 7- 7- 00 SI 12 LD ve NE 75 20 20 DE IL 96 10 [...] BL ET CY NT HI AN A NE 00 02 08 3 90 90 EA [...] 0- 8- 00 SI 18 LD ve NE 75 20 20 DE IL 96 10 [...] 10 10 RI TA 8 PH CH WA AR AR N- MA D CA CY [...] 0- 9- 00 SI 18 LD ve NE 75 20 20 DE IL 96 10 [...] 5 60 30 EA 17 AR Ac NE 09 -1 -[address] 92 NO [...] 0- 9- 00 SI 18 LD ve NE 75 20 20 DE IL 96 10 [...] ET OF CY NT HI AN A NE 00 05 05 1 30 8 EA [...] 0- 0- 00 SI 87 LD ve WA 31 20 20 DE DE 10 10 10 RI 2 1 PH CH AR AR MG MA D CY W CA PS OF UL E CY NT HI AN A NE 00 02 05 3 90 90 EA [...] 0- 0- 00 SI 18 LD ve NE 75 20 20 DE IL 96 10 [...] 0- 9- 00 SI 18 LD ve NE 75 20 20 DE IL 96 10 [...] 0- 0- 00 SI 18 LD ve NE 75 20 20 DE IL 96 10 [...] 8- 6- 00 SI 20 LD ve NE 75 20 20 DE IL 96 10 [...] 1- 8- 00 SI 85 LD ve NE 75 20 20 DE [place] 96 09 10 RI 0 PH CH 10 AR AR MA D MG CY W TA OF BL CY ET NT HI AN A ME 00 01 01 00 21 6 EA 15 AR Ac TH 78 -1 -[address] 94 NO ti YL 15 2- 8- 00 SI 08 LD ve NE 02 20 20 DE ED 20 10 [...] 1- 7- 00 SI 85 LD ve NE 75 20 20 DE [place] 96 09 [...] ET OF CY NT HI AN A NE 00 05 12 02 90 90 EA [...] 1 9- 00 SI 85 LD ve NE 75 20 20 DE IL 96 09 [...] 01 60 30 EA 14 AR Ac NE 09 -1 -[address] 21 NO [...] 1- 2- 00 SI 85 LD ve NE 75 20 20 DE IL 96 09 [...] 00 60 30 EA 14 AR Ac NE 09 -1 -[address] 21 NO [...] 5- 4- 00 SI 96 LD ve NE 02 20 20 DE ED 20 09 09 RI NI 7 PH CH SO AR AR LO MA D NE CY W 4 OF MG CY NT DO HI SE AN PK A LI 00 02 09 07 30 30 EA 11 AR Ac SI 17 -1 -[address] 42 NO ti NO 23 1- 4- 00 SI 85 LD ve NE 75 20 20 DE [place] 96 09 [...] ET OF CY NT HI AN A NE 00 05 09 01 90 90 EA [...] 1- 7- 00 SI 85 LD ve NE 75 20 20 DE IL 96 09 [...] 04 60 30 EA 99 AR Ac NE 09 -1 -[address] 05 NO [...] 1- 0- 00 SI 85 LD ve NE 75 20 20 DE IL 96 09 [...] 03 60 30 EA 99 AR Ac NE 09 -1 -[address] 05 NO [...] 1- 2- 00 SI 85 LD ve NE 75 20 20 DE IL 96 09 [...] CY BL NT ET HI AN A NE 00 05 06 00 90 90 EA [...] 1- 1- 00 SI 85 LD ve NE 75 20 20 DE [place] 96 09 09 RI 0 PH CH 10 AR AR MA D MG CY W TA OF BL CY ET NT HI AN A NE 00 05 05 00 30 30 EA [...] 1- 3- 00 SI 85 LD ve NE 75 20 20 DE IL 96 09 09 RI 0 PH CH 10 AR AR MA D MG CY W TA OF BL CY ET NT HI AN A NE 00 02 04 02 30 30 EA [...] 02 60 30 EA 99 AR Ac NE 09 -1 -[address] 05 NO [...] 1- 6- 00 SI 85 LD ve NE 75 20 20 DE IL 96 09 [...] CY ET NT HI AN A NE 00 02 03 01 30 30 EA [...] 1- 6- 00 SI 85 LD ve NE 75 20 20 DE IL 96 09 [...] CY BL NT ET HI AN A NE 00 02 02 00 30 30 EA [...] 6- 0- 00 SI 84 LD ve NE 75 20 20 DE [place] 96 08 09 RI 0 PH CH 10 AR AR MA D MG CY W TA OF BL CY ET NT HI AN A CI 55 01 01 00 15 30 EA 11 AR Ac TA 11 -1 -[address] 09 NO ti LO 10 5- 0- 00 SI 83 LD ve NE 34 20 20 DE AM 40 09 [...] CY ET NT HI AN A NE 00 02 01 11 30 30 EA [...] 00 60 30 EA 10 AR Ac NE 18 -1 -[address] 71 NO [...] 6- 1- 00 SI 84 LD ve NE 75 20 20 DE IL 96 08 [...] CY ET NT HI AN A NE 00 02 12 10 30 30 EA [...] 6- 4- 00 SI 84 LD ve NE 75 20 20 DE IL 96 08 [...] W OF CY NT HI AN A NE 00 11 12 00 30 7 EA [...] W OF CY NT HI AN A NE 00 02 11 09 30 30 EA [...] CY BL NT ET HI AN A NE 00 02 10 08 30 30 EA [...] 6- 3- 00 SI 84 LD ve NE 75 20 20 DE IL 96 08 [...] 01 60 30 EA 99 No Ac NE 09 -1 -[address] 05 t [...] ET OF CY NT HI AN A NE 00 02 09 07 30 30 EA [...] 6- 6- 00 SI 84 Av ve NE 07 20 20 DE ai IL 41 [...] 6- 8- 00 SI 84 Av ve NE 75 20 20 DE ai IL 96 [...] OF CY NT HI AN A NE 37 08 08 00 30 30 EA [...] 00 60 30 EA 99 No Ac NE 09 -1 -[address] 05 t [...] CY BL NT ET HI AN A NE 00 02 08 06 30 30 EA [...] 6- 1- 00 SI 84 Av ve NE 75 20 20 DE ai IL 96 [...] CY ET NT HI AN A NE 00 02 07 05 30 30 EA [...] 6- 3- 00 SI 84 Av ve NE 75 20 20 DE [place] 96 08 08 la 0 PH bl 10 AR e MA MG CY TA OF BL CY ET NT HI AN A NE 00 02 07 04 30 30 EA [...] 01 60 30 EA 96 No Ac NE 09 -0 -[address] 21 t [...] 6- 5- 00 SI 84 Av ve NE 75 20 20 DE ai IL 96 [...] CY BL NT ET HI AN A NE 00 02 05 03 30 30 EA [...] CY BL NT ET HI AN A NE 00 02 04 02 30 30 EA [...] 6- 4- 00 SI 84 Av ve NE 75 20 20 DE ai IL 96 [...] CY ET NT HI AN A NE 00 02 04 01 30 30 EA [...] 6- 0- 00 SI 84 Av ve NE 75 20 20 DE ai IL 96 [...] 6- 6- 00 SI 84 Av ve NE 75 20 20 DE ai IL 96 [...] OF CY NT HI AN A NE 00 02 03 00 30 30 EA [...] 2- 5- 00 SI 25 Av ve NE 75 20 20 DE ai IL 96 [...] 00 60 30 EA 96 No Ac NE 09 -0 -[address] 21 t ti OX 30 4- 4- 00 SI 74 Av ve EN 14 20 20 DE ai 90 08 08 la 50 1 PH bl 0 AR e MG MA CY TA BL OF ET CY NT HI AN A NE 00 01 03 00 30 30 EA [...] Procedure DOS Code Location Performer Comment ECG 74752 PAULIE APODACA ROUTINE 7 [facility] ECG INC INC W/LEAST 12 LDS TRCG ONLY W/O I&R DRUG TEST 61749 PAULIE APODACA PRSMV 7 [facility] QUAL DIR INC INC OPTICAL OBS PER DAY COMPREHEN 53772 COMBINED COMBINED SIVE 7 PHYSICIAN PHYSICIAN METABOLIC S LA S LA PANEL LIPID 55321 COMBINED COMBINED PANEL 7 PHYSICIAN PHYSICIAN S LA S LA 25 20223 COMBINED COMBINED HYDROXY 7 PHYSICIAN PHYSICIAN INCLUDES [place] [address] COMBINED COMBINED FREE 7 PHYSICIAN PHYS[place] [address] COMBINED COMBINED THYROID 7 PHYSICIAN PHYSICIAN STIMULATI S LA S LA NG HORMONE TSH BLOOD 27678 COMBINED COMBINED COUNT 7 PHYSICIAN PHYSICIAN COMPLETE S LA S LA AUTO&AUTO DIFRNTL WBC SCREENING G0202 [place] [facility] 7 MEDICAL MAMMOGRAP IMAGING HY RUSS ASS INCL CAD WHEN PERFORMD SCREENING 54933 PAULIE APODACA 7 [facility] MAMMOGRAP INC INC HY BI 2-VIEW BREAST INC CAD URINLS 04817 [facility] BETTENDORF DIP 7 PHYSICIAN PHYSICIAN STICK/TAB S GROUP S GROUP LET REAGNT NON-AUTO MICRSCPY BLOOD 69179 [facility] HARPEL OCCULT 7 PHYSICIAN PEROXIDAS S GROUP E ACTV QUAL FECES 1-3 SPEC CATARACT 33750 [facility] REMOVAL 7 SURGERY SURGERY INSERTION CENTER [facility] ANESTHESI 49311 ANESTHESI BRITO A EYE 7 A LENS ASSOCIATE SURGERY S PSC POSTERIOR V2632 [facility] CHAMBER 7 SURGERY SURGERY INTRAOCUL CENTER CENTER AR LENS SEDIMENTA 62083 COMBINED COMBINED TION RATE 7 PHYSICIAN PHYSICIAN [place] [address] COMBINED COMBINED FREE 7 PHYSICIAN PHYSICIAN THYROXINE S LA S LA 25 56310 COMBINED COMBINED HYDROXY 7 PHYSICIAN PHYSICIAN INCLUDES [place] [address] COMBINED COMBINED TRIIODOTH 7 PHYSICIAN PHYSICIAN YRONINE S LA S LA T3 TOTAL TT3 GENERAL 39200 COMBINED COMBINED HEALTH 7 PHYSICIAN PHYSICIAN PANEL S LA S LA LIPID 44527 COMBINED COMBINED PANEL 7 PHYSICIAN PHYSICIAN S LA S LA ACUTE 89429 [facility] HEPATITIS 7 RICARDO RICARDO PANEL HOLDINGS HOLDINGS CATARACT 32296 [facility] REMOVAL 7 INSERTION OF LENS POSTERIOR V2632 [facility] CHAMBER 7 SURGERY SURGERY INTRAOCUL CENTER CENTER AR LENS OPH BMTRY 29210 [facility] US 7 ECHOGRAPY A-SCAN IO LENS PWR ALLIE OPHTH 40194 [facility] MEDICAL 7 XM&EVAL COMPRE NEW PT 1/> VST DETERMINA 74661 [facility] TION 7 REFRACTIV E STATE ECG 59887 PAULIE APODACA ROUTINE 6 [facility] ECG INC INC W/LEAST 12 LDS TRCG ONLY W/O I&R OPHTH 94545 [facility] SCIF[facility] MEDICAL 6 ANG ANG XM&EVAL COMPRHNSV ESTAB PT 1/> INJ J0702 SABINO GALLO BETAMETHA 6 SUJATA SUJATA SONE ACETATE & PHOSPHATE 3 MG ECG 89849 PAULIE APODACA ROUTINE 6 [facility] ECG INC INC W/LEAST 12 LDS TRCG ONLY W/O I&R CREATINE 23504 PAULIE APODACA KINASE 6 [facility] TOTAL INC INC RADIOLOGI 35989 [facility] C EXAM 6 MEDICAL CHEST 2 IMAGING VIEWS ASS FRONTAL&L ATERAL ECG 40007 PAULIE RIVAS ROUTINE 6 [facility] W/LEAST P 12 LDS I&R ONLY COMPREHEN 48073 PAULIE APODACA SIVE 6 [facility] METABOLIC INC INC PANEL CREATINE 01148 PAULIE APODACA KINASE MB 6 [facility] FRACTION INC INC ONLY FIBRIN 55256 PAULIE APODACA DGRADJ 6 [facility] PRODUCTS INC INC D-DIMER QUAL/SEMI SANTY BLOOD 72814 PAULIE APODACA COUNT 6 [facility] COMPLETE INC INC AUTO&[place] [address] PAULIE APODACA TROPONIN 6 [facility] QUANTITAT INC INC ANTHONY BLOOD 03105 PAULIE APODACA COUNT 6 [facility] COMPLETE INC INC AUTO&AUTO DIFRNTL WBC CATHETER C1725 PAULIE APODACA TRANSLUMI 6 [facility] NAL INC INC ANGIOPLAS TY NON-LASER BASIC 59763 PAULIE APODACA METABOLIC 6 [facility] PANEL INC INC CALCIUM TOTAL CATH PLMT 53042 PAULIE PAULIE Velásquez HRT & 6 [facility] ARTS INC INC W/NJX & ANGIO IMG S&I GUIDE C1769 PAULIE APODACA WIRE 6 [facility] INC INC INJ J0702 SABINO GALLO BETAMETHA 6 SUJATA SUJATA SONE ACETATE & PHOSPHATE 3 MG INJ J0702 SABINO GALLO BETAMETHA 6 SUJATA SUJATA SONE ACETATE & PHOSPHATE 3 [place] [address] COMBINED COMBINED FREE 6 PHYSICIAN PHYSICIAN THYROXINE S LA S LA MYOCARDIA 73572 PAULIE Velásquez SPECT 6 [facility] MULTIPLE INC INC STUDIES CV STRS 18984 PAULIE RIVAS TST 6 [facility] RX CONT P ECG W/O I&R CV STRS 74587 PAULIE RIVAS TST 6 [facility] RX CONT P ECG I&R ONLY TECHNETIU A9500 PAULIE PAULIE Ornelas TC-99M 6 [facility]OS[facility] SESTAMIBI INC INC DX PER STUDY DOSE CV STRS 06087 PAULIE PAULIE TST 6 [facility] XERS&/OR INC INC RX CONT ECG TRCG ONLY COLLECTIO 02722 COMBINED COMBINED N VENOUS 6 PHYSICIAN PHYSICIAN BLOOD S LA S LA VENIPUNCT URE COMPREHEN 15772 COMBINED COMBINED SIVE 6 PHYSICIAN PHYSICIAN METABOLIC S LA S LA PANEL LIPID 83943 COMBINED COMBINED PANEL 6 PHYSICIAN PHYSICIAN S LA S LA BLOOD 27286 COMBINED COMBINED COUNT 6 PHYSICIAN PHYSICIAN COMPLETE S LA S LA AUTO&[place] [address] COMBINED COMBINED THYROID 6 PHYSICIAN PHYSICIAN STIMULATI S LA S LA NG HORMONE TSH BLOOD 93921 COMBINED COMBINED COUNT 6 PHYSICIAN PHYSICIAN COMPLETE S LA S LA AUTO&AUTO DIFRNTL WBC COMPREHEN 81081 COMBINED COMBINED SIVE 6 PHYSICIAN PHYSICIAN METABOLIC S LA S LA PANEL 25 71727 COMBINED COMBINED HYDROXY 6 PHYSICIAN PHYSICIAN [place]ES [place] [address] [place] ESTEVEZ ALL HEAD/BRAI 6 MEDICAL N W/O IMAGING CONTRAST ASS MATERIAL COMPUTER- 19162 [place] MARIA LUZ AIDED 6 MEDICAL DETECTION IMAGING ASS SCREENING MAMMOGRAP HY SCREENING G0202 [place] [facility] 6 MEDICAL MAMMOGRAP IMAGING HY RUSS ASS INCL CAD WHEN PERFORMD ECG RTN G0403 COMBINED COMBINED ECG W/12 6 PHYSICIAN PHYSICIAN LEADS SCR S LA S LA INIT PREVNTV PE W/I&R DRUG TST G0477 COMBINED COMBINED PRESUMP;C 6 PHYSICIAN PHYSICIAN PBL BEING S LA S LA READ DC OPT OBV ONLY BLOOD 72604 KRAIG HOLLINGSWORTH OCCULT 6 EDEL MCKENNA ASHTYN PEROXIDAS E ACTV QUAL FECES 1-3 SPEC URINLS 29392 KRAIG CARSON MAR DIP 6 EDEL MCKENNA STICK/TAB LET REAGNT NON-AUTO MICRSCPY RADEX 65971 [place] JOAO ESOPHAGUS 6 [place] [address] COMBINED COMBINED TRIIODOTH 6 PHYSICIAN PHYSICIAN YRONINE S LA S LA T3 TOTAL TT3 25 29190 COMBINED COMBINED HYDROXY 6 PHYSICIAN PHYSICIAN INCLUDES S LA S LA FRACTIONS IF PERFORMED GENERAL 18688 COMBINED COMBINED HEALTH 6 PHYSICIAN PHYSICIAN PANEL S LA S LA LIPID 79650 COMBINED COMBINED PANEL 6 PHYSICIAN PHYSICIAN S LA S LA DRUG TST G0477 COMBINED COMBINED PRESUMP;C 6 PHYSICIAN PHYSICIAN PBL BEING S LA S LA READ DC OPT OBV ONLY SEDIMENTA 41970 COMBINED COMBINED TION RATE 6 PHYSICIAN PHYSICIAN [place] [address] COMBINED COMBINED FREE 6 PHYSICIAN PHYSICIAN THYROXINE [...] SONE ACETATE & PHOSPHATE 3 MG COLONOSCO 32162 [facility] SCH[facility] PY FLX DX 5 PHYSICIAN CAM W/COLLJ S GROUP SPEC WHEN PFRMD INJ J0702 SABINO GALLO BETAMETHA 5 SUJATA SUJATA SONE ACETATE & PHOSPHATE 3 MG COLLECTIO 93344 PAULIE PAULIE N VENOUS 5 [facility] [place] [address] PAULIE PAULIE FREE 5 [facility] [place] [address] PAULIE APODACA THYROID 5 [facility] STIMULATI INC INC NG HORMONE TSH NEEDLE 05201 [facility] EMG EA 5 N EXTREMTY NEUROLOGY W/PARASPI NL AREA COMPLETE NERVE 17078 [facility] CONDUCTIO 5 N N STUDIES NEUROLOGY 5-6 STUDIES NON-INVAS 72223 [facility] JOAO ANTHONY 5 MEDICAL [facility] PHYSIOLOG IMAGING IC STUDY ASS EXTREMITY 3 LEVLS DUP-SCAN 91204 PAULIE APODACA LXTR 5 [facility] ART/ARTL INC [place] [address] COMBINED COMBINED THYROID 5 PHYSICIAN PHYSICIAN STIMULATI S LA S LA NG HORMONE TSH BASIC 36829 COMBINED COMBINED METABOLIC 5 PHYSICIAN PHYSICIAN [place] [address] COMBINED COMBINED MAGNESIUM 5 PHYSICIAN PHYSICIAN S LA S LA INJ J0702 SABINO GALLO BETAMETHA 5 SUJATA SUJATA SONE ACETATE & PHOSPHATE 3 MG INJ J0702 SABINO GALLO BETAMETHA 5 SUJATA SUJATA SONE ACETATE & PHOSPHATE 3 MG COMPREHEN 58953 COMBINED COMBINED SIVE 5 PHYSICIAN PHYSICIAN METABOLIC S LA S LA PANEL LIPID 11595 COMBINED COMBINED PANEL 5 [place]YS[place] [address] COMBINED COMBINED MAGNESIUM 5 PHYSICIAN [place] [address] PAULIE APODACA ACTIVATED 5 [facility] ECG INC INC RECORD MONITOR 30 [place] [address] PAULIE RIVAS ACTIVTD [facility] W/R&I P </30 DAYS RADIOLOGI 77509 [place] ISAIAH SAUCEDO C EXAM 5 MEDICAL CHEST 2 IMAGING VIEWS ASS FRONTAL&L ATERAL CALCIUM 37904 COMBINED COMBINED TOTAL 5 PHYS[place] [address] COMBINED COMBINED THYROID 5 PHYSICIAN PHYSICIAN STIMULATI [place] [address] COMBINED COMBINED FREE 5 PHYSICIAN PHYSICIAN THYROXINE S LA S LA HEPATIC 54940 COMBINED COMBINED FUNCTION 5 PHYSICIAN PHYSICIAN PANEL S LA S LA ACUTE 99599 [facility] HANG HEPATITIS 5 RICARDO RICARDO PANEL HOLDINGS HOLDINGS INJ J0702 SABINO GALLO BETAMETHA 5 SUJATA SUJATA SONE ACETATE & PHOSPHATE 3 MG INJ J0702 SABINO GALLO BETAMETHA 5 SUJATA SUJATA SONE ACETATE & PHOSPHATE 3 MG COMPREHEN 43642 COMBINED COMBINED SIVE 5 PHYSICIAN PHYSICIAN METABOLIC S LA S LA PANEL LIPID 71128 COMBINED COMBINED PANEL 5 PHYSICIAN PHYSICIAN S LA S LA DXA BONE 46106 [place] [facility] DENSITY 5 MEDICAL MERRITT STUDY 1/> IMAGING SITES ASS AXIAL SKEL COMPUTER- 04983 [place] JO[facility] AIDED 5 MEDICAL M[facility]ITT DETECTION IMAGING ASS SCREENING MAMMOGRAP HY SCREENING G0202 [place] JOAO 5 MEDICAL MERRITT MAMMOGRAP IMAGING HY RUSS ASS INCL CAD WHEN PERFORMD CULTURE 96210 KRAIG HOLLINGSWORTH CHLAMYDIA 5 EDEL MCKENNA ASHTYN ANY SOURCE IADNA 18039 [facility]IG HOLLINGSWORTH NEISSERIA 5 EDEL MCKENNA ASHTYN GONORRHOE AE DIRECT PROBE TQ BLOOD 92651 KRAIG Van LOYD OCCULT 5 EDEL MCKENNA TI PEROXIDAS E ACTV QUAL FECES 1 DETER URINLS 09793 KRAIG HOLLINGSWORTH DIP 5 EDEL CHAMORRO STICK/TAB LET REAGNT NON-AUTO MICRSCPY IM ADM 44604 PAULIE APODACA PRQ ID 5 [facility] SUBQ/IM INC INC NJXS 1 VACCINE INJ J0702 SABINO CELISMETHA 5 SUJATA SUJATA SONE ACETATE & PHOSPHATE 3 [place] [address] COMBINED COMBINED AMYLASE 4 PHYSICIAN PHYSICIAN S LA S LA COMPREHEN 72391 COMBINED COMBINED SIVE 4 PHYSICIAN PHYSICIAN METABOLIC S LA S LA PANEL ANTIBODY 59936 COMBINED COMBINED HELICOBAC [address] S LA S LA PYLORI EXC B9 94849 [facility] LESION 4 PHYSICIAN CLIFFORD MRGN XCP S GROUP SK TG T/A/L 1.1-2.0 CM OPHTH 79135 [facility] MEDICAL 4 ANG ANG XM&EVAL COMPRHNSV ESTAB PT 1/> [place] [address] [facility], JUSTIN SURG 4 [facility] PATHOLOGY GROSS&LIOR ROSCOPIC EXAM DIAGNOSTI G0206 PAULIE APODACA C 4 [facility] MAMMOGRAP INC INC HY INCL CAD WHEN PERF; UNI MYOCARDIA 09548 PAULIE APODACA L SPECT 4 [facility]OSP MULTIPLE INC INC STUDIES CV STRS 70737 PAULIE HUMPHREY JR TST 4 [facility] XERS&/OR HOSPITAL RX CONT P ECG I&R ONLY TECHNETIU A9500 PAULIE APODACA M TC-99M 4 [facility]OSP SESTAMIBI INC INC DX PER STUDY DOSE CV STRS 45340 PAULIE APODACA TST 4 [facility] XERS&/OR INC INC RX CONT ECG TRCG ONLY CV STRS 18320 PAULIE APODACA TST 4 [facility] XERS&/OR INC INC RX CONT ECG TRCG ONLY CV STRS 98593 EVELYN RIVAS TST 4 MAX MAX XERS&/OR RX CONT ECG I&R ONLY ECHO 48054 PAULIE APODACA TTHRC R-T 4 [facility] 2D INC INC W/WOM-MOD E COMPL SPEC&COLR D XTRNL ECG 97960 PAULIE APODACA & 48 HR 4 [facility] RECORDING INC INC EXTERNAL 77467 PAULIE CABAADU JULIANA ECG 4 [facility] SCANNING INC ANALYSIS REPORT XTRNL ECG 48822 EVELYN RIVAS 4 MAX MAX CONTINUOU S RHYTHM W/I&R UP TO 48 HRS ECG 39784 KEELEY WORRELL ROUTINE 4 ECG W/LEAST 12 LDS I&R ONLY ECG 72788 PAULIE APODACA ROUTINE 4 [facility] ECG INC INC W/LEAST 12 LDS TRCG ONLY W/O I&R RADEX 00187 [facility] TRA EDWARDS TRA SPINE 4 CERVICAL 4 OR 5 VIEWS US SOFT 90113 PAULIE APODACA TISSUE 4 [facility] HEAD & INC INC NECK REAL TIME IMGE DOCM RADEX 97165 PAULIE PAULIE ESOPHAGUS 4 [facility] INC INC CALCIUM 89139 COMBINED COMBINED TOTAL 4 PHYSIC[place] [address] COMBINED COMBINED FREE 4 PHYSICIAN PHYSIC[place] [address] COMBINED COMBINED THYROID 4 PHYSICIAN PHYSICIAN STIMULATI S LA S LA NG HORMONE TSH DRUG SCR G0434 COMBINED COMBINED NOT 4 PHYSICIAN PHYSICIAN CHROMATOG S LA S LA RAPHIC; ANY NUMBER PT ENC RADEX 35065 PAULIE APODACA FOREARM 2 4 [facility] VIEWS INC INC RADEX 65561 PAULIE APODACA WRIST 4 [facility] COMPLETE INC INC MINIMUM 3 VIEWS DIAGNOSTI G0206 JOAO JOAO C 4 [facility] M[facility]ITT MAMMOGRAP HY INCL CAD WHEN PERF; UNI SCREENING G0202 PAULIE APODACA 4 [facility] MAMMOGRAP INC INC HY RUSS INCL CAD WHEN PERFORMD DXA BONE 92884 PAULIE APODACA DENSITY 4 [facility] STUDY 1/> INC INC SITES AXIAL SKEL COMPUTER- 45221 PAULIE PAODACA AIDED 4 [facility] DETECTION INC INC SCREENING MAMMOGRAP HY URINLS 71148 HARPE[facility] HARPEL DIP 4 ASHTYN ASHTYN STICK/TAB LET REAGNT NON-AUTO MICRSCPY BLOOD 33902 [facility]PE[facility] HARPEL OCCULT 4 ASHTYN ASHTYN PEROXIDAS E ACTV QUAL FECES 1-3 SPEC IADNA 97655 [facility] HARPEL NEISSERIA 4 ASHTYN ASHTYN GONORRHOE AE DIRECT PROBE TQ CULTURE 92128 [facility] HARPEL CHLAMYDIA 4 ASHTYN ASHTYN ANY SOURCE DRUG SCRN 50460 COMBINED COMBINED QUAL BOTTLE CASER 4 PHYSICIAN PHYSICIAN CLASS S LA [place] [address] PAULIE APODACA LIPASE 4 [facility] INC INC COMPREHEN 12566 PAULIE PAULIE SIVE 4 [facility] [place] [address] PAULIE APODACA AMYLASE 4 [place] [address] PAULIE APODACA INFUSION 4 [facility] THERAPY/P INC INC ROPHYLAXI S /DX 1ST TO 1 HR THERAPEUT 34935 PAULIE APODACA IC 4 [facility] INJECTION INC INC IV PUSH EACH NEW DRUG BLOOD 09669 PAULIE APODACA COUNT 4 [facility] COMPLETE INC INC AUTO&AUTO DIFRNTL WBC INJECTION J0696 SABINO GALLO 3 SUJATA SUJATA CEFTRIAXO NE SODIUM PER 250 MG LIPID 65204 COMBINED COMBINED PANEL 3 PHYSICIAN PHYSICIAN S LA S LA COMPREHEN 37056 COMBINED COMBINED SIVE 3 PHYSICIAN PHYSIC[place] [address] PAULIE APODACA STREPTOCO 3 [facility] CCUS INC INC GROUP A CUL BACT 07633 PAULIE APODACA XCPT 3 [facility] URINE INC INC BLOOD/STO OL AEROBIC ISOL RHEUMATOI 14236 COMBINED COMBINED D FACTOR 3 PHYSICIAN PHYSICIAN QUALITATI S LA S LA VE ANTINUCLE 92912 [facility] AR 3 OF AMERIC ANTIBODIE RICARDO HOLDING S FAWAD HOLDINGS C-REACTIV 01928 COMBINED COMBINED E PROTEIN 3 PHYSICIAN PHYSICIAN S LA S LA SEDIMENTA 20857 COMBINED COMBINED TION RATE 3 PHYSICIAN PHYSICIAN RBC S LA S LA NON-AUTOM ATED RADEX 83962 MITCHELL MEDRANO SPINE 3 MAT MAT CERVICAL 2 OR 3 VIEWS RADEX 37554 MITCHELL MEDRANO HAND 2 3 MAT MAT VIEWS RADEX 93026 PAULIE APODACA HAND 3 [facility] MINIMUM 3 INC INC VIEWS INJECTION J2405 PAULIE APODACA 3 [facility] ONDANSETR INC INC ON HCL PER 1 MG ANES 47967 [facility] AWILDA SHERYL ESOPH 3 ANESTH THYRD OF THE LARYNX BLUE TRACH & [place] 1[place] [address] PICKLESIM PICKLESIM SURG 3 ER JR ASTER ER JR ASTER PATHOLOGY GROSS&LIOR ROSCOPIC EXAM LARGSC 98404 VERENA ALBARADO EXC 3 LESLY LESLY CHARISMA&/STRP G CORDS/EPI GL MCRSCP/TL SCP LARYNGOSC 67700 PAULIE APODACA OPY 3 [facility] W/BIOPSY INC INC MICROSCOP E/TELESCO PE ECG 22557 COMBINED COMBINED ROUTINE 3 PHYSICIAN PHYSICIAN ECG S LA S LA W/LEAST 12 LDS TRCG ONLY W/O I&R ELECTROLY 40147 COMBINED COMBINED TE PANEL 3 PHYSICIAN PHYSICIAN S LA S LA COMPUTER- [id number] JOAO JOAO AIDED 3 MERRITT MERRITT DETECTION SCREENING MAMMOGRAP HY SCREENING [id number] JOAO JOAO 3 MERRITT MERRITT MAMMOGRAP HY RUSS INCL CAD WHEN PERFORMD SPMTRY 97079 JACK JACK W/VC 3 ODALIS ODALIS EXPIRATOR Y GARRETT W/WO MXML VOL VNTJ CULTURE 23130 HARPEL HARPEL CHLAMYDIA 3 ASHTYN ASHTYN ANY SOURCE IADNA 62357 HARPEL HARPEL NEISSERIA 3 ASHTYN ASHTYN GONORRHOE AE DIRECT PROBE TQ URINLS 57112 HARPEL HARPEL DIP 3 ASHTYN ASHTYN STICK/TAB LET REAGNT NON-AUTO MICRSCPY BLOOD 87670 HARPEL HARPEL OCCULT 3 ASHTYN ASHTYN PEROXIDAS E ACTV QUAL FECES 1-3 SPEC INJECTION J0696 SABINO GALLO 2 SUJATA SUJATA CEFTRIAXO NE SODIUM PER 250 MG INJECTION J0696 SABINO GALLO 2 SUJATA SUJATA CEFTRIAXO NE [place]IUM PER [address] [place] [address] PAULIE APODACA STREPTOCO 2 [facility] [place] [address] COMBINED COMBINED THYROID 2 PHYSICIAN PHYSICIAN STIMULATI S LA S LA NG HORMONE TSH THYROID 33606 COMBINED COMBINED HORM 2 PHYSICIAN PHYSICIAN UPTK/THYR S LA S LA OID HORMONE BINDING RATIO CALCIUM 36592 COMBINED COMBINED TOTAL 2 PHYSICIAN PHYSICIAN S LA S LA OPHTH 61083 ALMA MARQUEZ MEDICAL 2 GRE GRE XM&EVAL COMPRHNSV ESTAB PT 1/> DETERMINA 67173 ALMA MARQUEZ TION 2 GRE GRE REFRACTIV E STATE SPMTRY 39357 JACK JACK W/VC 2 ODALIS ODALIS EXPIRATOR Y GARRETT W/WO MXML VOL VNTJ MYOCARDIA 41347 FALLUJI FALLUJI L SPECT 2 DORIAN DORIAN MULTIPLE STUDIES CV STRS 90751 FALLUJI FALLUJI TST 2 DORIAN DORIAN XERS&/OR RX CONT ECG I&R ONLY CV STRS 03809 PAULIE GUTIERREZ TST [facility] XERS&/OR HOSPITAL RX CONT P ECG I&R ONLY TECHNETIU A9502 PAULIE Ornelas TC-99M 2 [facility] TETROFOSM INC INC IN DX PER STUDY DOSE LIPID 32257 PAULIE APODACA PANEL 2 [facility] INC INC COMPREHEN 39652 PAULIE APODACA SIVE 2 [facility] METABOLIC INC INC PANEL CV STRS 17881 PAULIE APODACA TST 2 [facility] XERS&/OR INC INC RX CONT ECG TRCG ONLY CV STRS 29221 [facility] HM TST 2 PHYSICIAN PHYSICIAN XERS&/OR S GROUP S GROUP RX CONT ECG W/O I&R ECHO 94373 FALLUJI FALLU TTHRC R-T 2 DORIAN DORIAN 2D W/WOM-MOD E COMPL SPEC&COLR D MYOCARDIA 04934 PAULIE APODACA L SPECT 2 [facility] [place] [address] PAULIE APODACA THYROID 2 [facility] STIMULATI INC INC NG HORMONE TSH SMR PRIM 24093 HARPEL HARPEL SRC WET 2 ASHTYN ASHTYN [place] NFCT AGT SMR PRIM 66128 HARPEL HARPEL SRC WET 2 ASHTYN ASHTYN MOUNT NFCT AGT ADMN SET A7005 YOUR YOUR W/SM VOL 2 PHARMACY PHARMACY NONFILTR [employer] NEBULIZR NON-DISPB L BRNCDILAT [address] [facility] RSPSE 2 ALLERGY ALLERGY SPMTRY & ASTHMA & ASTHMA PRE&POST- P P BRNCDILAT ADMN INJ J0702 SABINO GALLO BETAMETHA 2 SUJATA SUJATA SONE ACETATE & PHOSPHATE 3 MG INJECTION J0696 SABINO GALLO 2 SUJATA SUJATA CEFTRIAXO NE SODIUM PER [address] [place] [address] COMBINED COMBINED THYROID 2 PHYSICIAN PHYSICIAN STIMULATI S LA S LA NG HORMONE TSH THYROID 51232 COMBINED COMBINED HORM 2 PHYSICIAN PHYSICIAN UPTK/THYR S LA S LA OID HORMONE BINDING RATIO CALCIUM 37481 [facility] HANG IONIZED 2 [facility] ADMN SET A7003 YOUR YOUR SM VOL 2 PHARMACY PHARMACY NONFILTR [employer] PNEUMAT NEBULIZR DISPBL SPMTRY 432[address] [facility] W/VC 2 ALLERGY ALLERGY EXPIRATOR & ASTHMA & ASTHMA Y GARRETT P P W/WO MXML VOL VNTJ SCREENING G0202 [facility] MAMMOGRAP INC INC HY RUSS INCL CAD WHEN PERFORMD - 51235 PAULIE APODACA AIDED 2 [facility] DETECTION INC INC SCREENING MAMMOGRAP HY CYTP C/V 14290 BIO BIO AUTO THIN 2 REFERNCE REFERNCE LYR LABORATOR LABORATOR PREPJ SCR IES IES MNL RESCR PHYS IADNA NOS 08839 BIO BIO 2 REFERNCE REFERNCE AMPLIFIED LABORATOR LABORATOR PROBE TQ IES IES EACH ORGANISM IADNA 07294 BIO BIO NEISSERIA 2 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 GONORRHOE IES IES AE AMPLIFIED PROBE TQ IADNA 48814 BIO BIO CHLAMYDIA 2 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 TRACHOMAT IES IES IS AMPLIFIED PROBE TQ RHEUMATOI 15245 COMBINED COMBINED D FACTOR 2 PHYSICIAN PHYSICIAN QUALITATI S LA S LA VE DNA 41846 LAB HANG LAB HANG ANTIBODY 2 AMERIC AMERIC MINTO/DO HOLDINGS HOLDING UBLE STRANDED BLOOD 57329 COMBINED COMBINED COUNT 2 PHYSICIAN PHYSICIAN COMPLETE S LA S LA AUTO&AUTO DIFRNTL WBC CYANOCOBA 13685 COMBINED COMBINED ASHLEE 2 PHYSICIAN PHYSICIAN VITAMIN S LA S LA B-12 COMPREHEN 56657 COMBINED COMBINED SIVE 2 PHYSICIAN PHYSICIAN METABOLIC S LA S LA PANEL LIPID 84521 COMBINED COMBINED PANEL 2 PHYSICIAN PHYSICIAN S LA S LA COLLECTIO 14843 COMBINED COMBINED N VENOUS 2 PHYSICIAN PHYSICIAN BLOOD S LA S LA VENIPUNCT URE HEMOGLOBI 16937 COMBINED COMBINED N 2 PHYSICIAN PHYSICIAN GLYCOSYLA [...] YOUR YOUR SM VOL 1 PHARMACY PHARMACY [facility] PNEUMAT NEBULIZR DISPBL INJ J0702 ARNOLD ARNOLD BETAMETHA 1 SUJATA SUJATA SONE ACETATE & PHOSPHATE 3 MG INJ J0702 ARNOLD ARNOLD BETAMETHA 1 SUJATA SUJATA SONE ACETATE & PHOSPHATE 3 MG INJECTION J0696 ARNOLD ARNOLD 1 SUJATA SUJATA CEFTRIAXO NE SODIUM PER 250 MG APPL 48820 PAULIE APODACA MODALITY 1 [facility] 1/> AREAS INC INC ELEC STIMJ UNATTENDE D APPLICATI 45313 PAULIE APODACA ON 1 [facility] MODALITY INC INC 1/> AREAS HOT/COLD PACKS APPL 58327 PAULIE APODACA MODALITY 1 [facility] 1/> AREAS INC INC ULTRASOUN D EA 15 MIN THERAPEUT 46167 PAULIE APODACA IC PX 1/> 1 [facility] AREAS INC INC EACH 15 MIN EXERCISES DEMO&/JAYDEN 70466 JACK SANTIAGO L OF PT 1 ODALIS JACOBO UTILIZ AERSL GEN/NEB/I NHLR/IP LEVALBUTE J7614 JACK JACK ROL INHAL 1 ODALIS JACOBO NON-CP THRU DME U DOSE 0.5 MG BRNCDILAT 08336 JACK JACK RSPSE 1 ODALIS JACOBO SPMTRY PRE&POST- BRNCDILAT ADMN PERCUTANE 15197 JACK JACK OUS TESTS 1 ODALIS JACOBO W/ALLERGE AARON EXTRACTS APPL 82411 PAULIE APODACA MODALITY 1 [facility] 1/> AREAS INC INC ELEC STIMJ UNATTENDE D APPL 52993 PAULIE APODACA MODALITY 1 [facility] 1/> AREAS INC INC ULTRASOUN D EA 15 MIN APPLICATI 95060 PAULIE APODACA ON 1 [facility] MODALITY INC INC 1/> AREAS HOT/COLD PACKS THERAPEUT 09096 PAULIE APODACA IC PX /> 1 [facility] AREAS INC INC EACH 15 MIN EXERCISES APPLICATI 81299 PAULIE APODACA ON 1 [facility] MODALITY INC INC 1/> AREAS HOT/COLD PACKS APPL 80341 PAULIE APODACA MODALITY 1 [facility] 1/> AREAS INC INC ULTRASOUN D EA 15 MIN MANUAL 74258 PAULIE APODACA THERAPY 1 [facility] TQS 1/> INC INC REGIONS EACH 15 MINUTES APPL 13070 PAULIE APODACA MODALITY 1 [facility] 1/> AREAS INC INC ELEC STIMJ UNATTENDE D APPL 57626 PAULIE APODACA MODALITY 1 [facility] 1/> AREAS INC INC ELEC STIMJ UNATTENDE D APPLICATI 71655 PAULIE APODACA ON 1 [facility] MODALITY INC INC 1/> AREAS HOT/COLD PACKS APPL 08936 PAULIE APODACA MODALITY 1 [facility] 1/> AREAS INC INC ULTRASOUN D EA 15 MIN THERAPEUT 55380 PAULIE APODACA IC PX 1/> 1 [facility] AREAS INC INC EACH 15 MIN EXERCISES THERAPEUT 39872 PAULIE APODACA IC PX 1/> 1 [facility] AREAS INC INC EACH 15 MIN EXERCISES PHYSICAL 70362 PAULIE APODACA THERAPY 1 [facility] EVALUATIO INC INC N APPL 35583 PAULIE APODACA MODALITY 1 [facility] 1/> AREAS INC INC ULTRASOUN D EA 15 MIN APPLICATI 95941 PAULIE APODACA ON 1 [facility] MODALITY INC INC 1/> AREAS HOT/COLD PACKS APPL 49265 PAULIE APODACA MODALITY 1 [facility] 1/> AREAS INC INC ELEC STIMJ UNATTENDE D APPL 53113 PAULIE APODACA MODALITY 1 [facility] 1/> AREAS INC INC ELEC STIMJ [place] 15 [place] [address] PAULIE APODACA THYROID 1 [facility] STIMULATI [place] [address] PAULIE APODACA THYROXINE 1 [facility] TOTAL INC INC CALCIUM 90557 PAULIE APODACA IONIZED 1 [facility] INC INC POLYSOM 37641 SHILPI DOBBINS 6/>YRS 1 OG OG SLEEP 4/> ADDL ELIER ATTND POLYSOM 83001 PAULIE APODACA 6/>YRS 1 [facility] SLEEP /> INC INC ADDL ELIER ATTND BLOOD 24750 PAULIE APODACA COUNT 1 [facility] COMPLETE INC INC AUTO&AUTO DIFRNTL WBC COMPREHEN 55174 PAULIE APODACA SIVE 1 [facility] [place] [address] PAULIE APODACA AMYLASE 1 [place] [address] PAULIE APODACA LIPASE 1 [facility] INC INC OPHTH 87980 [facility] 1 GRE GRE XM&EVAL COMPRE NEW PT 1/> VST DETERMINA 29799 [facility]MA [facility] TION 1 GRE GRE REFRACTIV E STATE COMPREHEN 23887 COMBINED COMBINED SIVE 1 PHYSICIAN PHYSICIAN METABOLIC S LA S LA PANEL LIPID 97692 COMBINED COMBINED PANEL 1 PHYSICIAN PHYSICIAN S LA S LA CV STRS 23761 [facility] FALLU[facility] TST 1 PHYSICIAN DORIAN XERS&/OR S GROUP RX CONT ECG W/O I&R CV STRS 16002 PAULIE PAULIE TST 1 [facility] XERS&/OR INC INC RX CONT ECG TRCG ONLY MYOCARDIA 14447 [facility] FALLU[facility]I L SPECT 1 PHYSICIAN DORIAN MULTIPLE S GROUP STUDIES C-REACTIV 46338 PAULIE APODACA E PROTEIN 1 [facility] INC INC PROTEIN 00931 PAULIE APODACA ELECTROPH 1 [facility] ORETIC INC INC FRACTJ&[place] [address] PAULIE APODACA THIAMINE- 1 [facility] VITAMIN INC INC B-1 [place] [address] PAULIE APODACA THYROID 1 [facility] STIMULATI INC INC NG HORMONE TSH BLOOD 62738 PAULIE APODACA COUNT 1 [facility] COMPLETE INC INC AUTO&AUTO DIFRNTL WBC RHEUMATOI 09558 PAULIE APODACA D FACTOR 1 [facility] QUANTITAT INC INC ANTHONY CYANOCOBA 10632 PAULIE APODACA AHSLEE 1 [facility] VITAMIN INC INC B-12 [place] [address] PAULIE APODACA THYROXINE 1 [facility] TOTAL INC INC 3D 42853 PAULIE APODACA RENDERING 1 [facility] W/INTERP INC INC & [place] [address] PAULIE APODACA FOLIC 1 [facility] ACID INC INC SERUM MRI 67953 PAULIE APODACA SPINAL 1 [facility] CANAL INC INC LUMBAR W/O CONTRAST MATERIAL HEMOGLOBI 74012 PAULIE APODACA N 1 [facility] GLYCOSYLA INC INC BIBI A1C MRI 41345 [facility] SPINAL 1 [facility] CANAL IMAGING CERVICAL ASS W/O CONTRAST MATRL 3D 03325 CYNTHIA JOAO RENDERING 1 [facility] W/INTERP IMAGING & ASS POSTPROCE SS SUPERVISI ON XTRNL ECG 73575 PAULIE APODACA & 48 HR 1 [facility] RECORDING INC INC NDL EMG 4 05-04-201 84697 FUNG FUNG XTR W/WO 1 MARICEL MARICEL RELATED PARASPINA L AREAS NRV CNDJ 32121 FUNG FUNG AMPLT&LAT 1 MARICEL MARICEL ENCY EA NRV MOTOR W/F-WAVE STD NRV CNDJ 61447 FUNG FUNG AMPLITUDE 1 MARICEL MARICEL & [place] [address] PAULIE APODACA THYROID 1 [facility] STIMULATI INC INC NG HORMONE TSH BLOOD 44079 PAULIE APODACA COUNT 1 [facility] COMPLETE INC INC AUTO&AUTO DIFRNTL WBC THYROID 12608 PAULIE APODACA HORM 1 [facility] UPTK/THYR INC INC OID HORMONE BINDING RATIO RADEX HIP 49820 [facility] UNILATERA IMAGING L ASS COMPLETE MINIMUM 2 VIEWS ECG 01217 PAULIE APODACA ROUTINE 1 [facility] ECG INC INC W/LEAST 12 LDS TRCG ONLY W/O I&[place] [address] PAULIE APODACA THYROXINE 1 [facility] TOTAL INC INC ECG 62117 PAULIE TAFOYAKEMIE ROUTINE 1 [facility] W/LEAST P 12 LDS I&R ONLY RADIOLOGI 18152 [place] C EXAM 1 [facility] CHEST 2 IMAGING VIEWS ASS FRONTAL&L ATERAL RADEX 73850 [place] SPINE 1 [facility] [place] LUMBOSACR IMAGING AL ASS MINIMUM 4 VIEWS BASIC 53845 PAULIE APODACA METABOLIC 1 [facility] PANEL INC INC CALCIUM TOTAL HEPATIC 99328 PAULIE APODACA FUNCTION 1 [facility] PANEL INC INC LIPID 13110 PAULIE APODACA PANEL 1 [facility] INC INC INCISION 83118 [facility] GOOD & 1 EMERGENCY LIOR DRAINAGE SERVICES ABSCESS COMPLICAT ED/MULTIP LE OTH 8604 PAULIE APODACA INCISION 1 [facility] W/DRAINAG INC INC E SKIN&SUBC UTANEOUS TISSUE CUL BACT 31187 PAULIE APODACA XCPT 1 [facility] URINE INC INC BLOOD/STO OL AEROBIC ISOL US BONE 01085 [facility] DENSITY 1 PHYSICIAN ASHTYN LUCAS & GROUP INTERP PCC PERIPH ANY METHO SCREENING G0202 PAULIE APODACA 1 [facility] MAMMOGRAP INC INC HY RUSS INCL CAD WHEN PERFORMD COMPUTER- 26650 PAULIE APODACA AIDED 1 [facility] DETECTION INC INC SCREENING MAMMOGRAP HY IADNA NOS 60904 BIO BIO 1 REFERNCE REFERNCE AMPLIFIED LABORATOR LABORATOR PROBE TQ IES IES EACH ORGANISM CYTP C/V 22912 BIO BIO AUTO THIN 1 REFERNCE REFERNCE LYR LABORATOR LABORATOR PREPJ SCR IES IES MNL RESCR PHYS IADNA 57189 BIO BIO NEISSERIA 1 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 GONORRHOE IES IES AE AMPLIFIED PROBE TQ IADNA 88789 BIO BIO CHLAMYDIA 1 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 TRACHOMAT IES IES IS AMPLIFIED PROBE TQ SPMTRY 87271 PAULIE APODACA W/VC 1 [facility] EXPIRATOR INC INC Y GARRETT W/WO MXML VOL VNTJ INJECTION J0696 SABINO GALLO 1 SUJATA SUJATA CEFTRIAXO NE SODIUM PER 250 MG INJECTION J0696 SABINO GALLO 1 SUJATA SUJATA CEFTRIAXO NE SODIUM PER 250 MG OPHTH 83673 NAS SCIFRES MEDICAL 0 VISION ANG XM&EVAL COMPRHNSV ESTAB PT 1/> INJECTION J0696 SABINO GALLO 0 SUJATA SUJATA CEFTRIAXO NE SODIUM PER 250 MG FUNCTIONA 82147 PAULIEJG APODACA L 0 [facility] RESIDUAL INC INC CAPACITY OR RESIDUAL VOLUME BRNCDILAT 34687 GAGE DIAZ RSPSE 0 MEDICAL JAM SPMTRY SERV PRE&POST- [place] [address] PAULIE APODACA THYROID 0 [facility] STIMULATI INC INC NG HORMONE TSH BLOOD 95153 PAULIE APODACA COUNT 0 [facility] COMPLETE INC INC AUTO&AUTO DIFRNTL WBC DETER 73588 GAGE DIAZ MALDISTRI 0 MEDICAL JAM BJ OF SERV INSPIRED FOUNDATIO GAS N WSHOT CURVE DETER 09172 PAULIE APODACA AIRWY 0 [facility] CLOSING INC INC VOL 1 BRTH TSTS BASIC 65598 PAULIE APODACA METABOLIC 0 [facility] PANEL INC INC CALCIUM TOTAL RADIOLOGI 17408 PAULIE APODACA C EXAM 0 [facility] CHEST 2 INC INC VIEWS FRONTAL&L ATERAL RADEX 46577 PAULIE APODACA RIBS UNI 0 [facility] W/POSTERO INC INC ANT CH MINIMUM 3 VIEWS ORTHOPEDI L3216 THE THE C 0 [facility] HEALTHY FOOTWEAR FOOT FOOT LADIES CENTER CENTER SHOE DEPTH INLAY EACH FT INSRT L3010 THE THE REMV MOLD 0 HEALTHY HEALTHY PT MDL FOOT FOOT LNGTUDNL CENTER CENTER ARCH SUPP EA RADEX 63362 PAULIE APODACA SHOULDER 0 [facility] COMPLETE INC INC MINIMUM 2 VIEWS RADEX 13766 PAULIE APODACA FOOT 0 [facility] COMPLETE INC INC MINIMUM 3 VIEWS ANTINUCLE 77740 LAB HANG LAB HANG AR 0 AMERIC AMERIC ANTIBODIE HOLDING HOLDING S FAWAD BLOOD 02110 COMBINED COMBINED COUNT 0 PHYSICIAN PHYSICIAN COMPLETE S LAB S LAB AUTO&AUTO DIFRNTL WBC RHEUMATOI 01017 COMBINED COMBINED D FACTOR 0 PHYSICIAN PHYSICIAN QUALITATI S LAB S LAB VE SEDIMENTA 75533 COMBINED COMBINED TION RATE 0 PHYSICIAN PHYSICIAN RBC S LAB S LAB NON-AUTOM ATED C-REACTIV 25317 LAB HANG LAB HANG E PROTEIN 0 AMERIC AMERIC HOLDING HOLDING RADEX 67871 [facility], HAND 2 0 MEDICAL JESSICA VIEWS IMAGING ASSOCIATE S SCREENING 44142 PAULIE APODACA 0 [facility] MAMMOGRAP INC INC HY BILATERAL COMPUTER- 12716 PAULIE APODACA AIDED 0 [facility] DETECTION INC INC SCREENING MAMMOGRAP HY US BONE 21895 [facility] DENSITY 0 PHYSICIAN ASHTYN LUCAS & GROUP INTERP PCC PERIPH ANY METHO APPL 34742 MARLY BUNNY, MODALITY 0 FAMILY ARNOLD H 1/> AREAS CHIROPRAC TRACTION TIC MECHANICA L APPL 00513 MARLY HOLLIS, MODALITY 0 FAMILY ARNOLD H 1/> AREAS CHIROPRAC ELEC TIC STIMJ UNATTENDE D CHIROPRAC 96978 MARLY BUNNY, TIC 0 FAMILY ARNOLD H MANIPULAT CHIROPRAC ANTHONY TX TIC SPINAL 3-4 REGIONS THERAPEUT 27412 MARLY HOLLIS, IC PX 1/> 0 FAMILY ARNOLD H AREAS CHIROPRAC EACH 15 TIC MIN EXERCISES STRAPPING 91322 MARLY HOLLIS, THORAX 0 FAMILY ARNOLD H CHIROPRAC TIC THERAPEUT 24797 MARLY BUNNY, IC PX 1/> 0 FAMILY ARNOLD H AREAS CHIROPRAC EACH 15 TIC MIN EXERCISES CHIROPRAC 46250 MARLY HOLLIS, TIC 0 FAMILY ARNOLD H MANIPULAT CHIROPRAC ANTHONY TX TIC SPINAL 3-4 REGIONS APPL 51649 MARLY BUNNY, MODALITY 0 FAMILY ARNOLD H 1/> AREAS CHIROPRAC TRACTION TIC MECHANICA L APPL 75955 MARLY BUNNY, MODALITY 0 FAMILY ARNOLD H 1/> AREAS CHIROPRAC ELEC TIC STIMJ UNATTENDE D APPL 88734 MARLY BUNNY, MODALITY 0 FAMILY ARNOLD H 1/> AREAS CHIROPRAC ELEC TIC STIMJ UNATTENDE D APPL 77043 MARLY BUNNY, MODALITY 0 FAMILY ARNOLD H 1/> AREAS CHIROPRAC TRACTION TIC MECHANICA L CHIROPRAC 62763 MARLY BUNNY, TIC 0 FAMILY ARNOLD H MANIPULAT CHIROPRAC ANTHONY TX TIC SPINAL 3-4 REGIONS THERAPEUT 46612 ARSENIOCLARKFAWAD HOLLIS, IC PX 1/> 0 FAMILY ARNOLD H AREAS CHIROPRAC EACH 15 TIC MIN EXERCISES STRAPPING 03366 MARLY HOLLIS, THORAX 0 FAMILY ARNOLD H CHIROPRAC TIC CV STRS 51431 PAULIE GUTIERREZ TST 0 [facility]OR [facility] KATHERINE Kenyon RX CONT PROF SERV ECG I&R ONLY CV STRS 94329 PAULIE APODACA TST 0 [facility] XERS&/OR INC INC RX CONT ECG TRCG ONLY CV STRS 14185 PAULIE JACKMIDaja TST 0 [facility] KATHERINE Kenyon RX CONT PROF SERV ECG W/O I&R IADNA 07784 [facility] [place] 0 PSYCHIATRIC TRACHOMAT IS AMPLIFIED PROBE TQ CYTP C/V 29908 [facility] AUTO THIN 0 PSYCHIATRIC LYR PREPJ SCR SYS PHYS IADNA 81474 [facility] [place] 0 PSYCHIATRIC GONORRHOE AE AMPLIFIED PROBE TQ APPL 99248 MARLY HOLLIS, MODALITY 0 FAMILY ANNABEL R 1/> AREAS CHIROPRAC TRACTION TIC MECHANICA L APPL 93787 MARLY HOLLIS, MODALITY 0 FAMILY ANNABEL R 1/> AREAS CHIROPRAC ELEC TIC STIMJ UNATTENDE D THERAPEUT 94732 MARLY HOLLIS, IC PX 1/> 0 FAMILY ANNABEL R AREAS CHIROPRAC EACH 15 TIC MIN EXERCISES CHIROPRAC 24291 MARLY HOLLIS, TIC 0 FAMILY ANNABEL R MANIPULAT CHIROPRAC ANTHONY TX TIC SPINAL 3-4 REGIONS MANUAL 89844 MARLY HOLLIS, THERAPY 0 FAMILY ANNABEL R TQS 1/> CHIROPRAC REGIONS TIC EACH 15 MINUTES CHIROPRAC 78262 MARLY HOLLIS, TIC 0 FAMILY ANNABEL R MANIPULAT CHIROPRAC ANTHONY TX TIC SPINAL 3-4 REGIONS THERAPEUT 27992 MARLY HOLLIS, IC PX 1/> 0 FAMILY ANNABEL R AREAS CHIROPRAC EACH 15 TIC MIN EXERCISES STRAPPING 63669 MARLY HOLLIS, THORAX 0 FAMILY ANNABEL R CHIROPRAC TIC APPL 11112 MARLY HOLLIS, MODALITY 0 FAMILY ANNABEL R 1/> AREAS CHIROPRAC ELEC TIC STIMJ UNATTENDE D APPL 25392 MARLY HOLLIS, MODALITY 0 FAMILY ANNABEL R 1/> AREAS CHIROPRAC TRACTION TIC MECHANICA L SELF-CARE 87698 MARLY HOLLIS, /HOME 0 FAMILY ANNABEL R MGMT CHIROPRAC TRAINING TIC EACH 15 MINUTES SELF-CARE 28737 MARLY HOLLIS, /HOME 0 FAMILY ANNABEL R MGMT CHIROPRAC TRAINING TIC EACH 15 MINUTES APPL 29135 MARLY HOLLIS, MODALITY 0 FAMILY ANNABEL R 1/> AREAS CHIROPRAC ELEC TIC STIMJ UNATTENDE D APPL 60321 MARLY HOLLIS, MODALITY 0 FAMILY ANNABEL R 1/> AREAS CHIROPRAC TRACTION TIC MECHANICA L STRAPPING 92688 MARLY HOLLIS, THORAX 0 FAMILY ANNABEL R CHIROPRAC TIC THERAPEUT 68332 MARLY HOLLIS, IC PX 1/> 0 FAMILY ANNABEL R AREAS CHIROPRAC EACH 15 TIC MIN EXERCISES CHIROPRAC 71726 MARLY HOLLIS, TIC 0 FAMILY ANNABEL R MANIPULAT CHIROPRAC ANTHONY TX TIC SPINAL 3-4 REGIONS CHIROPRAC 81006 MARLY HOLLIS, TIC 0 FAMILY ANNABEL R MANIPULAT CHIROPRAC ANTHONY TX TIC SPINAL 3-4 REGIONS THERAPEUT 19102 MARLY HOLLIS, IC PX 1/> 0 FAMILY ANNABEL R AREAS CHIROPRAC EACH 15 TIC MIN EXERCISES APPL 31942 MARLY HOLLIS, MODALITY 0 FAMILY ANNABEL R 1/> AREAS CHIROPRAC TRACTION TIC MECHANICA L APPL 85648 MARLY HOLLIS, MODALITY 0 FAMILY ANNABEL R 1/> AREAS CHIROPRAC ELEC TIC STIMJ UNATTENDE D APPL 94393 MARLY HOLLIS, MODALITY 0 FAMILY ANNABEL R 1/> AREAS CHIROPRAC TRACTION TIC MECHANICA L APPL 67863 MARLY HOLLIS, MODALITY 0 FAMILY ANNABEL R 1/> AREAS CHIROPRAC ELEC TIC STIMJ UNATTENDE D THERAPEUT 72947 MARLY HOLLIS, IC PX 1/> 0 FAMILY ANNABEL R AREAS CHIROPRAC EACH 15 TIC MIN EXERCISES CHIROPRAC 37789 MARLY HOLLIS, TIC 0 FAMILY ANNABEL R MANIPULAT CHIROPRAC ANTHONY TX TIC SPINAL 3-4 REGIONS RADEX 72694 [facility], SPINE 9 MEDICAL JESSICA CERVICAL IMAGING 6 OR MORE ASSOCIATE VIEWS S RADEX 33504 PAULIE APODACA SPINE 9 [facility] LUMBOSACR INC INC AL MINIMUM 4 VIEWS GLUCOSE 62232 COMBINED COMBINED QUANTITAT 9 PHYSICIAN PHYSICIAN ANTHONY BLOOD S LAB S LAB XCPT REAGENT STRIP HEMOGLOBI 07615 COMBINED COMBINED N 9 PHYSICIAN PHYSICIAN GLYCOSYLA S LAB S LAB BIBI A1C CT SOFT 66908 PAULIE APODACA TISSUE 9 [facility] NECK INC INC W/CONTRAS T MATERIAL 3D 27262 PAULIE APODACA RENDERING 9 [facility] INC INC W/INTERP& POSTPROC DIFF WORK STATION 3D 26501 [place] CARLOS, RENDERING 9 MEDICAL [place] P W/INTERP IMAGING & ASSOCIATE [place] [address] COMBINED COMBINED THYROXINE 9 PHYSICIAN PHYSICIAN TOTAL S LAB S LAB CREATININ 24528 COMBINED COMBINED E BLOOD 9 PHYSICIAN [place] [address] LAB HANG LAB HANG FREE 9 AMERIC AMERIC [place] [address] COMBINED COMBINED THYROID 9 PHYSICIAN PHYSICIAN STIMULATI S [place] [address] COMBINED COMBINED UREA 9 PHYSICIAN PHYSICIAN NITROGEN S LAB S LAB QUANTITAT ANTHONY MICROSOMA 11371 LAB HANG LAB HANG L 9 [employer]IC [employer] HOLDING S EACH THYROGLOB 92527 LAB HANG LAB HANG ULIN 9 AMERIC AMERIC ANTIBODY HOLDING HOLDING ADMN SET A7005 YOUR YOUR W/SM VOL 9 PHARMACY PHARMACY NONFILTR [facility] NEBULIZR NON-DISPB L LIPID 77868 COMBINED COMBINED PANEL 9 PHYSICIAN PHYSICIAN S LAB S LAB COMPREHEN 68492 COMBINED COMBINED SIVE 9 PHYSICIAN PHYSICIAN METABOLIC S LAB S LAB PANEL BLOOD 73551 COMBINED COMBINED COUNT 9 PHYSICIAN PHYSICIAN COMPLETE S LAB S LAB AUTO&AUTO DIFRNTL WBC BLOOD 23915 KRAIG [place], COUNT 9 EDEL Van HEMOGLOBI N IADNA 15062 [facility], [place] 9 [place] INC AJ D GONORRHOE AE AMPLIFIED PROBE TQ IADNA 80176 [facility] [place], [place] 9 [place] INC AJ D TRACHOMAT IS AMPLIFIED PROBE TQ CYTP 08303 [employer] [place], CERV/VAG 9 [place] INC AJ D AUTO THIN LAYER PREP MNL SCREEN BLOOD 97185 KRAIG [place], OCCULT 9 GRETCHENL MD KRAIG Van PEROXIDAS E ACTV QUAL FECES 1-3 SPEC COLLECTIO 11343 [place]IG [place], N 9 EDEL Van CAPILLARY BLOOD SPECIMEN SCREENING 44029 [facility], [facility] [place] P MAMMOGRAP IMAGING HY ASSOCIATE BILATERAL S COMPUTER- 94175 [facility], [facility] 9 MEDICAL [place] P DETECTION IMAGING ASSOCIATE SCREENING S MAMMOGRAP HY OPHTH 24610 [facility] 9 VISION VITALY M XM&EVAL COMPRHNSV ESTAB PT 1/> [place] [address] COMBINED COMBINED THYROXINE 8 PHYSICIAN [place] [address] COMBINED COMBINED THYROID 8 PHYSICIAN PHYSICIAN STIMULATI S LAB S LAB NG HORMONE TSH URNLS DIP 36854 PAULIE APODACA 8 [facility] STICK/TAB INC INC LET REAGENT AUTO MICROSCOP Y NEBULIZER E0570 DIAZ PERALES WITH 8 HOME MED HOME MED COMPRESSO EQUIP. EQUIP. R [facility] NON-INVAS 25889 PAULIE APODACA ANTHONY 8 [facility] PHYSIOLOG INC INC IC STUDY EXTREMITY 3 LEVLS ADMN SET A7005 YOUR YOUR W/SM VOL 8 PHARMACY PHARMACY NONFILTR [facility] NEBULIZR NON-DISPB L ADMN SET A7003 YOUR YOUR SM VOL [address] [facility] PNEUMAT NEBULIZR DISPBL ANES 22552 [place] FERNÁNDEZ, NERVE 8 TI E MUSCLE ANESTHESI TDN A PSC FASCIA&BU RSA FOREARM WRIST NEUROPLAS 54140 [facility] TY 8 SURGERY SURGERY &/TRANSPO CENTER CENTER S MEDIAN NRV CARPAL TUNNE ECG 19442 PAULIE MATT ROUTINE 8 [facility] KATHERINE [place] W/LEAST PROF SERV 12 LDS I&R ONLY ECG 16716 PAULIE PAULIE ROUTINE 8 [facility] ECG INC INC W/LEAST 12 LDS TRCG ONLY W/O I&R POTASSIUM 39009 PAUILE APODACA SERUM 8 [facility] PLASMA/WH INC INC OLE BLOOD ADMN SET [id number] YOUR YOUR W/SM VOL 8 [facility]-DISPB L BREAST 92628 PAULIE APODACA REAL 8 [facility] TIME INC INC W/IMAGE DOCUMENTA TION NDL EMG 1 [id number] ANTONIETA FUNG, XTR W/WO 8 VICKIE JOHNSTON RELATED PARASPINA L AREAS NRV CNDJ 78605 ANTONIETA FUNG, AMPLT&LAT 8 VICKIE JOHNSTON ENCY EA NRV MOTOR W/F-WAVE STD NRV CNDJ 26750 ANTONIETA FUNG, AMPLITUDE 8 VICKIE JOHNSTON & LATENCY EACH NERVE SENSORY APPL 64615 PAULIE APODACA MODALITY 8 [facility] 1/> AREAS INC INC ELEC STIMJ UNATTENDE D APPL 27454 PAULIE APODACA MODALITY 8 [facility] 1/> AREAS INC INC IONTOPHOR ESIS EA 15 MIN APPL 79293 PAULIE APODACA MODALITY 8 [facility] 1/> AREAS INC INC IONTOPHOR ESIS EA 15 MIN APPL 43218 PAULIE APODACA MOD[facility]ITY 8 [facility] 1/> AREAS INC INC ELEC STIMJ UNATTENDE D APPL 16735 PAULIE APODACA MODALITY 8 [facility] 1/> AREAS INC INC ELEC STIMJ UNATTENDE D MANUAL 62255 PAULIE APODACA THERAPY 8 [facility] TQS 1/> INC INC REGIONS EACH 15 MINUTES BLOOD 36854 KRAIG HOLLINGSWORTH, OCCULT 8 EDEL Van PEROXIDAS E ACTV QUAL FECES 1-3 SPEC CYTP 96581 [facility], CERV/VAG 8 [place] KENDELL E AUTO THIN LAYER PREP MNL SCREEN IADNA 38721 [facility], CHLAMYDIA 8 [place] KENDELL E TRACHOMAT IS AMPLIFIED PROBE TQ IADNA 32485 [facility], NEISSERIA 8 [place] KENDELL E GONORRHOE AE AMPLIFIED PROBE TQ BLOOD 76925 KRAIG HOLLINGSWORTH, COUNT 8 EDEL Van HEMOGLOBI N APPL 53362 PAULIE APOADCA MODALITY 8 [facility] 1/> AREAS INC INC ELEC STIMJ UNATTENDE D FUNDUS 48214 JASPREET VOGEL, PHOTOGRAP 8 CHAPARRO A CHAPARRO A HY W/INTERPR ETATION & REPORT OPHTH 06726 JASPREET VOGEL, MEDICAL 8 CHAPARRO A CHAPARRO A XM&EVAL COMPRHNSV ESTAB PT 1/> APPL 96145 PAULIE APODACA MODALITY 8 [facility] 1/> AREAS INC INC IONTOPHOR ESIS EA 15 MIN COMPUTER- 23739 PAULIE APODACA AIDED 8 [facility] DETECTION INC INC SCREENING MAMMOGRAP HY SCREENING 84534 PAULIE APODACA 8 [facility] MAMMOGRAP INC INC HY BILATERAL US BONE 32739 KRAIG HOLLINGSWORTH, DENSITY 8 EDEL Van LUCAS & INTERP PERIPH ANY METHO APPL 14596 PAULIE APODACA MODALITY 8 [facility] 1/> AREAS INC INC ELEC STIMJ UNATTENDE D MANUAL 61417 PAULIE APODACA THERAPY 8 [facility] TQS 1/> INC INC REGIONS EACH 15 MINUTES APPL 79482 PAULIE APODACA MODALITY 8 [facility] 1/> AREAS INC INC IONTOPHOR ESIS EA 15 MIN MANUAL 41523 PAULIE APODACA THERAPY 8 [facility] TQS 1/> INC INC REGIONS EACH 15 MINUTES APPL 38171 PAULIE APODACA MODALITY 8 [facility] 1/> AREAS INC INC IONTOPHOR ESIS EA 15 MIN APPL 25809 PAULIE APODACA MODALITY 8 [facility] 1/> AREAS INC INC ELEC STIMJ UNATTENDE D Encounters Encounter Start End Date Code Location Performer Type Date OFFICE 60373 SC[facility]RES SCIFRES OUTPATIEN 7 7 T VISIT 10 MINUTES [facility] T OFFICE 87273 [facility] LEENA OUTPATIEN 7 7 PHYSICIAN T VISIT S GROUP 25 MINUTES OFFICE 48677 SCILEATHA SCIFRES OUTPATIEN 7 7 T VISIT 10 MINUTES [facility] PA[facility] - 7 7 [facility] OUT[facility]IEN INC T OFFICE 12424 VOGELAZALEA DUVALNES OUTPATIEN 7 7 T VISIT 10 MINUTES OFFICE 66183 GAGE LIRA CONSULTAT 7 7 MEDICAL ION SERV NEW/ESTAB FOUNDATIO PATIENT N 40 MIN OFFICE 34314 SABINO GALLO OUTPATIEN 7 7 T VISIT 15 MINUTES [facility] T PERIODIC 16121 [facility] HARPEL PREVENTIV 7 7 PHYSICIAN E MED EST S GROUP PATIENT [id number] OFFICE 50149 [facility] ALBARADO OUTPATIEN 7 7 PHYSICIAN T VISIT S GROUP 15 MINUTES [facility] - 6 6 [facility] OUT[facility]IEN INC T OFFICE 11465 [facility] LEENA OUTPATIEN 6 6 PHYSICIAN T VISIT S GROUP 25 MINUTES OFFICE 92287 SABINO SABINO OUTPATIEN 6 6 T VISIT 15 MINUTES OFFICE 29475 SABINO GALLO OUTPATIEN 6 6 SUJATA SUJATA T VISIT 15 MINUTES OFFICE 40270 [facility] OUTPATIEN 6 6 PHYSICIAN LESLY T VISIT S GROUP 10 MINUTES EMERGENCY 79276 [facility] CORONAD[facility] 6 6 PHYSICIAN JR MICHELLE HAILE S PLLC T VISIT HIGH/URGE NT SEVERITY [facility] T EMERGENCY 11990 [facility]PART[facility] T VISIT MODERATE SEVERITY OFFICE 34961 [facility] LEENA OUTPATIEN 6 6 PHYSICIAN MAT T VISIT S GROUP 15 MINUTES [facility] T OFFICE 91323 [facility] LEENA OUTPATIEN 6 6 PHYSICIAN MAT T VISIT S GROUP 40 MINUTES OFFICE 48151 [facility] ALBARADO OUTPATIEN 6 6 PHYSICIAN LESLY T VISIT S GROUP 10 MINUTES OFFICE 09692 ARNASIF ARNOLD OUTPATIEN 6 6 SUJATA SUJATA T VISIT 15 MINUTES OFFICE 27711 ARNOLD ARNOLD OUTPATIEN 6 6 SUJATA SUJATA T VISIT 15 MINUTES OFFICE 08275 ARNOLD ARNOLD OUTPATIEN 6 6 SUJATA SUJATA T VISIT 15 MINUTES OFFICE 80995 [facility] ALBARADO OUTPATIEN 6 6 PHYSICIAN LESLY T VISIT 5 S GROUP MINUTES OFFICE 55183 [facility] ALBARADO OUTPATIEN 6 6 PHYSICIAN LESLY T VISIT S GROUP 10 MINUTES [facility] T OFFICE 27974 ARNOLD ARNOLD OUTPATIEN 6 6 SUJATA SUJATA T VISIT 15 MINUTES OFFICE 62289 SABINO GALLO OUTPATIEN 6 6 SUJATA SUJATA T VISIT 15 MINUTES EMERGENCY 58467 ELBERT COLLADO 6 6 PHYSICIAN MIC S PLLC T VISIT MODERATE SEVERITY OFFICE 01240 [facility] ALBARADO OUTPATIEN 6 6 PHYSICIAN LESLY T VISIT S GROUP 15 MINUTES OFFICE 81787 SABINO SABINO OUTPATIEN 6 6 SUJATA SUJATA T VISIT 15 MINUTES EMERGENCY 41024 ELBERT GOOD DEPT 6 6 PHYSICIAN LIOR VISIT S, [facility] HIGH SEVERITY& THREAT FUNCJ OFFICE 13766 [facility] ALBARADO OUTPATIEN 6 6 PHYSICIAN LESLY T VISIT S GROUP 10 MINUTES PERIODIC 41420 KRAIG HOLLINGSWORTH PREVENTIV 6 6 EDEL MCKENNA ASHTYN E MED EST PATIENT 40-64YRS OFFICE 65493 [facility] ALBARADO OUTPATIEN 6 6 PHYSICIAN LESLY T VISIT S GROUP 15 MINUTES OFFICE 96805 [facility] ALBARADO OUTPATIEN 6 6 PHYSICIAN LESLY T VISIT S GROUP 15 MINUTES OFFICE 80192 SABINO SABINO OUTPATIEN 6 6 SUJATA SUJATA T VISIT 15 MINUTES OFFICE 55406 SABINO VIANCAASIF OUTPATIEN 6 6 SUJATA SUJATA T VISIT 15 MINUTES OFFICE 84862 SABINO GALLO OUTPATIEN 6 6 SUJATA SUJATA T VISIT 15 MINUTES OFFICE 50584 SABINO SABINO OUTPATIEN 6 6 SUJATA SUJATA T VISIT 15 MINUTES OFFICE [address] [facility] 5 5 SUJATA SUJATA T VISIT 15 MINUTES [facility] T OFFICE 80031 [facility] SCHULSTAD OUTPATIEN 5 5 PHYSICIAN CAM T VISIT S GROUP 25 MINUTES OFFICE 94307 [facility] ALBARADO OUTPATIEN 5 5 PHYSICIAN LESLY T VISIT S GROUP 10 MINUTES OFFICE 78860 SABINO GALLO OUTPATIEN 5 5 SUJATA SUJATA T VISIT 15 MINUTES EMERGENCY 47966 ELBERT GOOD 5 5 PHYSICIAN LIOR DEPARTMEN S, PLLC T VISIT MODERATE SEVERITY OFFICE 28723 SABINO BELLA 5 5 SUJATA SUJATA T VISIT 15 MINUTES OFFICE 01375 [facility] ALBARADO OUTPATIEN 5 5 PHYSICIAN LESLY T VISIT S GROUP 15 MINUTES [facility] T OFFICE 22422 VIANCAASIF SABINO OUTPATIEN 5 5 SUJATA SUJATA T VISIT 15 MINUTES OFFICE 98601 [facility] TRA OUTPATIEN 5 5 [place] T VISIT ORTHOPAED 15 [facility] MINUTES [facility] T OFFICE 41001 SABINO GALLO ALINEEN 5 5 SUJATA SUJATA T VISIT 15 MINUTES OFFICE 02898 VIANCAASIF SABINO MIRELESEN 5 5 SUJATA SUJATA T VISIT 15 MINUTES OFFICE 29147 SABINO GALLO OUTPATIEN 5 5 SUJATA SUJATA T VISIT 15 MINUTES OFFICE 58808 SABINO GALOL OUTPATIEN 5 5 SUJATA SUJATA T VISIT 15 MINUTES OFFICE 04805 SABINO GALLO OUTPATIEN 5 5 SUJATA SUJATA T VISIT 15 MINUTES OFFICE 00405 [facility] FALLUJI OUTPATIEN 5 5 [facility] T VISIT MEDICAL 15 G MINUTES [facility] T OFFICE 22753 [facility] FALLUJI OUTPATIEN 5 5 [facility] T VISIT MEDICAL 15 G MINUTES EMERGENCY 51752 [facility] 5 5 [facility] DEPARTMEN INC T VISIT LOW/MODER SEVERITY [facility] T EMERGENCY 18819 ELBERT GOOD 5 5 PHYSICIAN LIOR DEPARTMEN S, PLLC T VISIT MODERATE SEVERITY OFFICE 43532 [facility] VERENA OUTJESSICA 5 5 PHYSICIAN LESLY T VISIT S GROUP 15 MINUTES OFFICE 66563 SABINO GRAFFPATIEN 5 5 SUJATA SUJATA T VISIT 15 MINUTES OFFICE 80042 SABINO GRAFFPATIEN 5 5 SUJATA SUJATA T VISIT 15 MINUTES OFFICE 19782 [facility] FALLUJI OUTPATIEN 5 5 [facility] DORIAN T VISIT MEDICAL 15 G MINUTES [facility] 5 [facility] T OFFICE 07648 VERENA ALBARADO OUTPATIEN 5 5 LESLY LESLY T VISIT 15 MINUTES PERIODIC 14655 KRAIG HOLLINGSWORTH PREVENTIV 5 5 EDEL MCKENNA ASHTYN E MED EST PATIENT 40-64YRS [facility] - 5 5 [facility] T EMERGENCY 34416 [facility] PASCUAL AMANDEEP 5 5 [facility] T VISIT P LOW/MODER SEVERITY [facility] 5 5 [facility] OUTPATIEN INC T EMERGENCY 12173 [facility] GOOD 5 5 [facility] T VISIT P LOW/MODER SEVERITY OFFICE 70073 SABINO BELLA 5 5 SUJATA SUJATA T VISIT 15 MINUTES OFFICE 92600 SABINO GRAFFPATIEN 5 5 SUJATA SUJATA T VISIT 15 MINUTES OFFICE 64401 SABINO BELLA 4 4 SUJATA SUJATA T VISIT 15 MINUTES OFFICE 90586 SABINO BELLA 4 4 SUJATA SUJATA T VISIT 15 MINUTES OFFICE 92661 [facility] SCHULSTAD CONSULTAT 4 4 PHYSICIAN CAM ION S GROUP NEW/ESTAB PATIENT 40 MIN OFFICE 80914 SABINO BELLA 4 4 SUJATA SUJATA T VISIT 15 MINUTES [facility] T OFFICE 59865 SABINO BELLA 4 4 SUJATA SUJATA T VISIT 15 MINUTES [facility] T OFFICE 25220 SABINO BELLA 4 4 SUJATA SUJATA T VISIT 15 MINUTES [facility]OSP[facility] 4 4 [facility] OUTPATIEN INC T OFFICE 66110 [facility] ANJUR-ZANE OUTPATIEN 4 4 ALI OMAR ALI OMAR T VISIT 15 MINUTES [facility] 4 4 [facility] OUT[facility] T [facility] - 4 4 [facility] 71053 [facility] 4 4 [facility] DEPARTMEN INC T VISIT LIMITED/M INOR PROB EMERGENCY 14062 KEELEY WORRELL 4 4 DEPARTMEN T VISIT HIGH/URGE NT SEVERITY OFFICE 88423 SABINO BELLA 4 4 SUJATA SUJATA T VISIT 15 MINUTES OFFICE 60057 [facility] TRA EDWARDS TRA CONSULTAT 4 4 ION NEW/ESTAB PATIENT 60 MIN OFFICE 70892 SABINO BELLA 4 4 SUJATA SUJATA T VISIT 15 MINUTES OFFICE 30924 VERENA BELLA 4 4 LESLY LESLY T VISIT 15 MINUTES [facility] T OFFICE 06355 VERENA BELLA 4 4 LESLY LESLY T VISIT 25 MINUTES OFFICE 27256 SABINO BELLA 4 4 SUJATA SUJATA T VISIT 15 MINUTES EMERGENCY 89414 [facility] DEPARTMEN INC T VISIT LOW/MODER SEVERITY EMERGENCY 68784 ALEX[facility]RI[facility] MAX ALEXANDRIA MAX 4 4 DEPARTMEN T VISIT MODERATE SEVERITY [facility] 4 4 [facility] OUTPATIEN INC T [facility] - 4 4 [facility] OUTPATIEN INC T OFFICE 23584 SABINO BELLA 4 4 SUJATA SUJATA T VISIT 15 MINUTES [facility]OSP[facility] - 4 4 [facility] OUTPATIEN INC T PERIODIC 08192 HARPEL HARPEL PREVENTIV 4 4 ASHTYN ASHTYN E MED EST PATIENT 40-64YRS OFFICE 94870 VERENA BELLA 4 4 LESLY LESLY T VISIT 15 MINUTES Emergency RACHELL Good MD (ER) 4 05:31 4 07:34 [facility] EMERGENCY 27552 [facility] 4 4 [facility] T VISIT HIGH/URGE NT SEVERITY HOSPITAL [facility] - 4 4 [facility] OUTPATIEN [facility] T OFFICE 82988 SABINO BELLA 3 3 SUJATA SUJATA T VISIT 15 MINUTES OFFICE 91249 VERENA BELLA 3 3 LESLY LESLY T VISIT 15 MINUTES OFFICE 24365 SABINO MIRELESEN 3 3 SUJATA SUJATA T VISIT 15 MINUTES OFFICE 00640 SABINO BELLA 3 3 SUJATA SUJATA T VISIT 15 MINUTES OFFICE 94001 SABINO BELLA 3 3 SUJATA SUJATA T VISIT 15 MINUTES OFFICE 01405 NICK GONGORAUOSMAR GRAFFPATIDOMENIC 3 3 DORIAN DORIAN T VISIT 25 MINUTES OFFICE 61741 MITCHELL BELLA 3 3 MAT MAT T VISIT 10 MINUTES Emergency RACHELL GALVAN (ER) 3 06:55 3 07:41 [facility] - [facility] 3 [facility] OUT[facility] INC T EMERGENCY 10481 [facility] 3 3 [facility] DEPARTMEN INC T VISIT LOW/MODER SEVERITY EMERGENCY 63659 ALMA GALVAN 3 3 EMERGENCY [facility] T VISIT MODERATE SEVERITY OFFICE 81299 SABINO BELLA 3 3 SUJATA SUJATA T VISIT 15 MINUTES Emergency RACHELL Pedroza MD (ER) 3 09:44 3 09:48 [facility] EMERGENCY 61755 [facility] 3 3 [facility] V[facility]/M INOR PROB EMERGENCY 93467 KEELEY WORRELL 3 3 DEPARTMEN T VISIT MODERATE SEVERITY [facility]OSP[facility] - 3 3 [facility] OUTPATIEN INC T OFFICE 10096 MITCHELL BELLA 3 3 MAT MAT T VISIT 25 MINUTES OFFICE 19166 SABINO BELLA 3 3 SUJATA SUJATA T VISIT 15 MINUTES HOSP[facility] - 3 3 [facility] OUTPATIEN INC T OFFICE 02684 SABINO BELLA 3 3 SUJATA SUJATA T VISIT 15 MINUTES [facility]OSP[facility] - 3 3 [facility] OUTPATIEN INC T OFFICE 75092 VERENA BELLA 3 3 LESLY LESLY T VISIT 15 MINUTES OFFICE 51765 SABINO BELLA 3 3 SUJATA SUJATA T VISIT 15 MINUTES OFFICE 87088 SABINO BELLA 3 3 SUJATA SUJATA T VISIT 15 MINUTES OFFICE 90394 SABINO BELLA 3 3 SUJATA SUJATA T VISIT 15 MINUTES OFFICE 32747 JACK JACK OUTPATIEN 3 3 ODALIS ODALIS T VISIT 25 MINUTES [facility] OUT[facility] INC T PERIODIC 26746 HARPEL PREVENTIV 3 3 ASHTYN E MED EST PATIENT 40-64YRS OFFICE 25656 PETTEY PETTEY OUTPATIEN 3 3 JAM JAM T NEW 30 MINUTES OFFICE 97593 VIANCAASIF SABINO OUTPATIEN 2 2 SUJATA SUJATA T VISIT 15 MINUTES OFFICE 86754 VIANCAASIF SABINO OUTPATIEN 2 2 SUJATA SUJATA T VISIT 15 MINUTES [facility]OSP[facility] INC T EMERGENCY 87868 [facility] 2 2 [facility] DEPARTMEN INC T VISIT LOW/MODER SEVERITY EMERGENCY 46009 ARIELA GOOD 2 2 LIOR LIOR DEPARTMEN T VISIT MODERATE SEVERITY OFFICE 83448 VERENA ALBARADO OUTPATIEN 2 2 LESLY LESLY T VISIT 15 MINUTES OFFICE 48564 MAGALY ROBERTSON CONSULTAT 2 2 ION NEW/ESTAB PATIENT 60 MIN OFFICE 80683 SABINO GALLO OUTPATIEN 2 2 SUJATA SUJATA T VISIT 15 MINUTES OFFICE 52745 VIANCAASIF VIANCAASIF OUTPATIEN 2 2 SUJATA SUJATA T VISIT 15 MINUTES OFFICE 13107 FALLUJI FALLUJI OUTPATIEN 2 2 DORIANMilana CONDEZ T VISIT 25 MINUTES OFFICE 11309 JACK JACK OUTPATIEN 2 2 ODALIS ODALIS T VISIT 25 MINUTES OFFICE 19717 [place] [facility] 2 2 JUANCARLOS JUANCARLOS T NEW 30 MINUTES [facility] T OFFICE 52261 HARPEL HARPEL OUTPATIEN 2 2 ASHTYN ASHTYN T VISIT 15 MINUTES OFFICE 62350 [facility] CONSULTAT 2 2 YANY OLMEDO CARDIOLOG NEW/ESTAB Y CLINIC PATIENT 60 MIN OFFICE 10190 HARPEL HARPEL OUTPATIEN 2 2 ASHTYN ASHTYN T VISIT 15 MINUTES OFFICE 80387 SABINO GALLO OUTPATIEN 2 2 SUJATA SUJATA T VISIT 15 MINUTES EMERGENCY 39546 PUND CHR PUND CHR 2 2 DEPARTMEN T VISIT MODERATE SEVERITY [facility] INC T EMERGENCY 02899 [facility] 2 2 [facility] DEPARTMEN INC T VISIT LOW/MODER SEVERITY OFFICE 49123 [facility] OUTPATIEN 2 2 ALLERGY ALLERGY T VISIT & ASTHMA & ASTHMA 25 P P MINUTES OFFICE 03972 VERENA ALBARADO OUTPATIEN 2 2 LESLY LESLY T VISIT 25 MINUTES OFFICE 09580 SABINO GALLO OUTPATIEN 2 2 SUJATA SUJATA T VISIT 15 MINUTES OFFICE 55129 SABINO GALLO OUTPATIEN 2 2 SUJATA SUJATA T VISIT 15 MINUTES OFFICE 67419 [facility] OUTPATIEN 2 2 ALLERGY ALLERGY T VISIT & ASTHMA & ASTHMA 25 P P MINUTES [facility] OUTPATIEN INC T PERIODIC 23704 HARPEL HARPEL PREVENTIV 2 2 ASHTYN ASHTYN E MED EST PATIENT 40-64YRS OFFICE 80454 ANTONIETA FUNG OUTPATIEN 2 2 MARICEL MARICEL T VISIT 25 MINUTES OFFICE 21466 SABINO GRAFFPATIDOMENIC 2 2 SUJATA SUJATA T VISIT 15 MINUTES OFFICE 09752 SABINO GRAFFPATIDOMENIC 2 2 SUJATA SUJATA T VISIT 15 MINUTES OFFICE 37848 ARNOLD ARNOLD OUTPATIEN 2 2 SUJATA SUJATA T VISIT 15 MINUTES OFFICE 02378 SABINO GALLO OUTPATIEN 1 1 SUJATA SUJATA T VISIT 15 MINUTES OFFICE 01383 SABINO GALLO OUTPATIEN 1 1 SUJATA SUJATA T VISIT 15 MINUTES OFFICE 90219 SABINO GALLO OUTPATIEN 1 1 SUJATA SUJATA T VISIT 15 MINUTES OFFICE 89063 SABINO GALLO OUTPATIEN 1 1 SUJATA SUJATA T VISIT 15 MINUTES OFFICE 31589 JACK JACK CONSULTAT 1 1 ODALIS JACOBO ION NEW/ESTAB PATIENT 60 MIN [facility] T OFFICE 61516 SABINO GALLO OUTPATIEN 1 1 SUJATA SUJATA T VISIT 15 MINUTES [facility] 1 [facility] OUTPAT[facility] INC T OFFICE 12486 FUNG FUNG OUTPATIEN 1 1 MARICEL MARICEL T VISIT 15 MINUTES OFFICE 33269 VERENA ALBARADO OUTPATIEN 1 1 LESLY LESLY T VISIT 15 MINUTES OFFICE 94158 GAGE DIAZ OUTPATIEN 1 1 MEDICAL JAM T VISIT SERV 15 FOUNDATIO MINUTES [facility]OSP[facility]PAT[facility] INC T EMERGENCY 43735 [facility] 1 1 [facility] DEPARTMEN INC T VISIT MODERATE SEVERITY EMERGENCY 69879 ALMA GOOD 1 1 EMERGENCY LIOR DEPARTMEN SERVICES T VISIT HIGH/URGE NT SEVERITY [facility] 1 [facility] OUTPATIEN INC T OFFICE 33336 SABINO GALLO OUTPATIEN 1 1 SUJATA SUJATA T VISIT 15 MINUTES OFFICE 39039 SABINO GALLO OUTPATIEN 1 1 SUJATA SUJATA T VISIT 15 MINUTES OFFICE 77449 GAGE DIAZ OUTPATIEN 1 1 MEDICAL JAM T VISIT SERV 25 FOUNDATIO MINUTES OFFICE 54907 SABINO GALLO OUTPATIEN 1 1 SUJATA SUJATA T VISIT 15 MINUTES OFFICE 19839 FUNG FUNG OUTPATIEN 1 1 MARICEL MARICEL T VISIT 15 MINUTES OFFICE 59825 VERENA ALBARADO OUTPATIEN 1 1 LESLY LESLY T VISIT 10 MINUTES OFFICE 46512 [facility] FALLU OUTPATIEN 1 1 PHYSICIAN DORIAN Nettles VISIT S GROUP 25 MINUTES OFFICE 02331 FUNG FUNG OUTPATIEN 1 1 MARICEL CONNELLY T VISIT 25 MINUTES [facility] T OFFICE 25922 [facility] F[facility]U CONSULTAT 1 1 PHYSICIAN DORIAN OLMEDO S GROUP NEW/ESTAB PATIENT 60 MIN [facility] 1 [facility] OUTPATIEN INC T OFFICE 78600 FUNG FUNG CONSULTAT 1 1 MARICEL MARICEL ION NEW/ESTAB PATIENT 60 MIN [facility] 1 [facility] OUTPATIEN INC T EMERGENCY 51112 [facility] 1 1 [facility] DEPARTMEN INC T VISIT LOW/MODER SEVERITY EMERGENCY 90902 ALMA WALKER 1 1 EMERGENCY DEPARTMEN SERVICES T VISIT MODERATE SEVERITY OFFICE 66153 VIANCAASIF GALLO OUTPATIEN 1 1 SUJATA SUJATA T VISIT 15 MINUTES OFFICE 36145 VIANCAASIF GALLO OUTPATIEN 1 1 SUJATA SUJATA T VISIT 15 MINUTES [facility] 1 [facility] OUTPATIEN INC T OFFICE 78309 SABINO BELLA 1 1 SUJATA SUJATA T VISIT 15 MINUTES OFFICE 93687 SABINO BELLA 1 1 SUJATA SUJATA T VISIT 15 MINUTES OFFICE 08275 VIANCAASIF SABINO BELLA 1 1 SUJATA SUJATA T VISIT 15 MINUTES EMERGENCY 09753 ALMA GOOD 1 1 EMERGENCY [facility] DEPARTMEN SERVICES T VISIT HIGH/URGE NT SEVERITY [facility] OUTPATIEN INC T EMERGENCY 35771 [facility] 1 1 [facility] DEPARTMEN INC T VISIT LOW/MODER SEVERITY [facility] 1 [facility] OUTPAT[facility] INC T OFFICE 58231 [facility] HARSHANNENL OUTPATIEN 1 1 PHYSICIAN ASHTYN T VISIT GROUP 10 PCC MINUTES [facility] PHYSICIAN ASHTYN E MED EST GROUP PATIENT PCC 40-64YRS [facility]OSP[facility] 1 1 [facility] OUTPATIEN INC T OFFICE 16376 GAGE BELLA 1 1 MEDICAL JAM T VISIT SERV 15 FOUNDATIO MINUTES EMERGENCY 16063 ALMA GOOD 1 1 EMERGENCY [facility] DEPARTMEN SERVICES T VISIT MODERATE SEVERITY OFFICE 61244 SABINO BELLA 1 1 SUJATA SUJATA T VISIT 15 MINUTES EMERGENCY 51465 [facility] 1 1 [facility] DEPARTMEN INC T VISIT LOW/MODER SEVERITY [facility] 1 [facility] OUTPATIEN INC T OFFICE 63593 SABINO BELLA 1 1 SUJATA SUJATA T VISIT 15 MINUTES OFFICE 30616 ARNOLD ARNOLD OUTPATIEN 1 1 SUJATA SUJATA T VISIT 15 MINUTES OFFICE 96251 SABINO GALLO OUTPATIEN 0 0 SUJATA SUJATA T VISIT 15 MINUTES OFFICE 29281 SABINO GALLO OUTPATIEN 0 0 SUJATA SUJATA T VISIT 15 MINUTES OFFICE 08390 SABINO GALLO OUTPATIEN 0 0 SUJATA SUJATA T VISIT 15 MINUTES OFFICE 58485 GAGE DIAZ OUTPATIEN 0 0 MEDICAL JAM T VISIT SERV 15 FOUNDATIO MINUTES [facility]OSP[facility] OUTPATIEN INC T OFFICE 88363 GAGE OCHOADIAZ CONSULTAT 0 0 MEDICAL JAM ION SERV NEW/ESTAB FOUNDATIO PATIENT 60 MIN [facility] OUTPATIEN INC T OFFICE 20092 SABINO GALLO OUTPATIEN 0 0 SUJATA SUJATA T VISIT 15 MINUTES [facility]PATIEN INC T OFFICE 63802 VIANCAASIFSABINO OUTPATIEN 0 0 ARY W ARY W T VISIT 15 MINUTES OFFICE 88686 SABINOSABINO OUTPATIEN 0 0 ARY W ARY W T VISIT 15 MINUTES OFFICE 58088 VERENA ALBARADO OUTPATIEN 0 0 RONDA Norris T VISIT 10 MINUTES [facility] T OFFICE 69455 [place] [facility], OUTPATIEN 0 0 AND HAND AMANDA A T VISIT SURGEONS 15 PSC MINUTES OFFICE 81682 SABINO GALLO OUTPATIEN 0 0 ARY W ARY W T VISIT 15 MINUTES OFFICE 16310 [place] [facility], OUTPATIEN 0 0 AND HAND AMANDA A T VISIT SURGEONS 15 PSC MINUTES [facility] OUTPAT[facility] INC T OFFICE 01630 SABINO GALLO OUTPATIDOMENIC 0 0 ARY W ARY W T VISIT 15 MINUTES OFFICE 69345 GAGE MEDRANO OUTPATIEN 0 0 AND NILSA PATEL A T VISIT SURGEONS 15 PSC MINUTES [facility]PAT[facility] INC T OFFICE 01609 [facility] HARPEL OUTPATIEN 0 0 PHYSICIAN ASHTYN T VISIT GROUP 15 PCC MINUTES OFFICE 37439 [facility] HARPEL OUTPATIEN 0 0 PHYSICIAN ASHTYN T VISIT GROUP 10 PCC MINUTES [facility]OSP[facility] 0 [facility] OUTPATIEN INC T OFFICE 38975 SABINO GALLO OUTPATIEN 0 0 ARY W ARY W T VISIT 15 MINUTES OFFICE 16353 SABINO GALLO OUTPATIEN 0 0 ARY W ARY W T VISIT 15 MINUTES [facility] OUTPATIEN INC T OFFICE 49588 SABINO GALLO OUTPATIEN 0 0 ARY W ARY W T VISIT 15 MINUTES OFFICE 38382 SABINO GALLO OUTPATIEN 9 9 ARY W ARY W T VISIT 15 MINUTES OFFICE 59091 [facility] OUT[facility] 9 9 MICHELLE MARTINEZ T NEW 60 MINUTES [facility]OSP[facility] 9 [facility] T OFFICE 11445 SABINO GALLO OUTPATIEN 9 9 ARY W ARY W T VISIT 15 MINUTES OFFICE 18520 VERENA ALBARADO OUTPATIEN 9 9 RONDA Norris T VISIT 10 MINUTES [facility] 9 [facility] INC T OFFICE 91820 VERENA ALBARADO OUTPATIEN 9 9 RONDA Myrna Norris T VISIT 15 MINUTES OFFICE 18514 SABINO GALLO OUTPATIEN 9 9 ARY Enamorado T VISIT 15 MINUTES PERIODIC 22039 ELROY CURRY 9 9 EDEL Van E [facility] EST PATIENT 40-64YRS [facility] 9 9 [facility] OUTPATIEN INC T OFFICE 29056 VERENA ALBARADO OUTPATIEN 8 8 RONDA Norris T VISIT 15 MINUTES OFFICE 94145 ANTONIETA FUNG, SWAPNA 8 8 VICKIE MITCHELL/ESTAB PATIENT 80 MIN [facility] - 8 8 [facility] OUTPATIEN INC T OFFICE 40002 SABINO GALLO OUTPATIEN 8 8 ARY Enamorado T VISIT 15 MINUTES EMERGENCY 43143 [facility] 8 8 [facility] DEPARTMEN INC T VISIT MODERATE SEVERITY OFFICE 45875 SABINO GALLO OUTPATIEN 8 8 ARY Enamorado T VISIT 15 MINUTES HOSPITAL [facility] - 8 8 [facility] OUTPATIEN INC T OFFICE 01696 VERENA ALBARADO OUTPATIEN 8 8 RONDA Myrna Norris T VISIT 15 MINUTES OFFICE 76740 SABINO GALLO OUTPATIEN 8 8 ARY Enamorado T VISIT 15 MINUTES EMERGENCY 57216 ANAHI DUMONT, 8 8 [facility] T VISIT ON MODERATE SEVERITY EMERGENCY 61683 [facility] 8 8 [facility] DEPARTMEN INC T VISIT LOW/MODER SEVERITY [facility] 8 8 [facility] OUTPATIEN INC T OFFICE 11103 JENA DELAROSA 8 8 AND HAND AMANDA A T VISIT SURGEONS 15 PSC MINUTES OFFICE 57559 SABINO GALLO OUTPATIEN 8 8 ARY W ARY W T VISIT 15 MINUTES OFFICE 55343 SABINO GALLO OUTPATIEN 8 8 ARY W ARY W T VISIT 15 MINUTES OFFICE 54589 JENA DELAROSA 8 8 AND HAND AMANDA A T VISIT SURGEONS 15 PSC MINUTES OFFICE 62926 VERENA ALBARADO OUTPATIEN 8 8 RONDA BOND G T VISIT 15 MINUTES OFFICE 93701 VERENA ALBARADO OUTPATIEN 8 8 RONDA BOND G T VISIT 15 MINUTES [facility] 8 [facility] OUTPATI[facility] INC T OFFICE 84511 ANTONIETA FUNG OUTPATIEN 8 8 VICKIE JOHNSTON T VISIT 25 MINUTES OFFICE 42309 JENA DELAROSA 8 8 AND HAND AMANDA A T VISIT SURGEONS 15 PSC MINUTES OFFICE 88617 SABINO GALLO OUTPATIEN 8 8 ARY W ARY W T VISIT 15 MINUTES [facility] T OFFICE 33915 ANTONIETA FUNG, CONSULTBUNNY 8 8 [facility] PATIENT 80 MIN OFFICE 06535 JENA CURRY 8 8 EDEL Van T VISIT 15 MINUTES OFFICE 83022 SABINO GALLO OUTPATIEN 8 8 ARY W ARY W T VISIT 15 MINUTES OFFICE 44748 SABINO GALLO OUTPATIEN 8 8 ARY W ARY W T VISIT 15 MINUTES [facility] T OFFICE 74425 VERENA ALBARADO OUTPATIDOMENIC 8 8 RONDA Norris T VISIT 15 MINUTES OFFICE 28622 Oly MANN OUTPATIDOMENIC 8 8 RADHA Nettles VISIT PSC 15 MINUTES PERIODIC 08828 KRAIG HOLLINGSWORTH PREVENTIV 8 8 EDEL Van E MED EST PATIENT [id number] [facility] PA[facility] - 8 8 [facility] OUTPATIEN INC T OFFICE 28438 JENA CURRY 8 8 EDEL Nettles VISIT 10 MINUTES OFFICE 52425 Oly MANN OUTPATIDOMENIC 8 8 RADHA Nettles VISIT PSC 15 MINUTES [facility] PA[facility] - 8 8 [facility] OUTPATIEN INC T
--- OUTSIDE RECORDS SUMMARY | 2017-07-05 18:24 | External Medical Summary Rpt ---
Author Author , [facility] Organization [facility] Address Unknown Phone [email or web address] Care Team Providers Care Data Security Analyst Name Role Phone ALFARIS MOH, ALFARIS Unavailable Unavailable [facility]OH [facility] Unavailable Unavailable [facility], [facility] ANJUR-KAPALI OMAR, Unavailable Unavailable ANJUR-KAPALI OMAR ANJUR-KAPALI OMAR, Unavailable Unavailable ANJUR-KAPALI OMAR ARNOLD, ARNOLD Unavailable Unavailable ARNOLD, ARNOLD Unavailable Unavailable ARNOLD SUJATA, ARNOLD Unavailable Unavailable SUJATA ARNOLD SUJATA, ARNOLD Unavailable Unavailable SUJATA ARNOLD, ARY W, Unavailable Unavailable ARNOLD, ARY W BEINEKE, BEINEKE Unavailable Unavailable BESSON MAX, BESSON Unavailable Unavailable MAX [facility], [facility] ESTEVEZ ALL, ESTEVEZ ALL Unavailable Unavailable MICHELLE BURRIS, Unavailable Unavailable MICHELLE BURRIS JUANCARLOS, GORDON Unavailable Unavailable JUANCARLOS GORDON JUANCARLOS, [...] [facility] Unavailable Unavailable [facility], [facility] JOAO, JOAO Unavailable Unavailable JOAO MERRITT, Unavailable Unavailable JOAO MERRITT JOAO MERRITT, Unavailable Unavailable JOAO MERRITT JOAO, JESSICA, Unavailable Unavailable JOAO, JESSICA DOBBINS OG, Unavailable Unavailable DOBBINS OG DOBBINS OG, Unavailable Unavailable DOBBINS OG [facility] Unavailable Unavailable [facility] [place] [facility] Unavailable Unavailable [place] FALLUJI DORIAN, FALLUJI Unavailable Unavailable DORIAN FALLUJI DORIAN, FALLUJI Unavailable Unavailable DORIAN BRITO, BRITO Unavailable Unavailable JR CLIFF ELZ, Unavailable Unavailable JR CLIFF ELMilana ARIELA LIOR, ARIELA Unavailable Unavailable LIOR ARIELA LIOR, ARIELA Unavailable Unavailable LIOR [facility], Unavailable Unavailable [facility] KRAIG HOLLINGSWORTH MD, Unavailable Unavailable BONNY DAVID MD, Unavailable Unavailable BONNY DUMONT ARNOLD H, Unavailable Unavailable SABINO HOLLIS RITA R, Unavailable Unavailable ANNABEL HOLLIS ROSARIO DENISE, ROSARIO DENISE Unavailable Unavailable HARPEL, HARPEL Unavailable Unavailable HARPEL ASHTYN, HARPEL Unavailable Unavailable ASHTYN HARPEL ASHTYN, HARPEL Unavailable Unavailable ASHTYN HARPEL, KRAIG R, Unavailable Unavailable HARPEL, KRAIG R TI FERNÁNDEZ E, Unavailable Unavailable FERNÁNDEZ TI E [facility] Un[facility] Un[facility] INC, [facility] Unavailable Unavailable HOSPITAL P, [facility] P VOGEL, VOGEL Unavailable Unavailable VOGEL, VOGEL Unavailable Unavailable VOGEL, CHAPARRO A, Unavailable Unavailable VOGEL, CHAPARRO A [facility] Unavailable Unavailable P[facility], [facility], Unavailable Unavailable [facility] ALLI MAR, HOBDOMENIC MAR Unavailable Unavailable AJ RALPH, Unavailable Unavailable AJ RALPH, SB COLLADO Unavailable Unavailable EDWARDS TRA, EDWARDS TRA Unavailable Unavailable EDWARDS TRA, EDWARDS TRA Unavailable Unavailable LIRA, LIRA Unavailable Unavailable [facility] Unavailable [...] [facility], Unavailable Unavailable [facility] [employer] ALBARADO, ALBARADO Unavailable Unavailable ALBARADO LESLY, ALBARADO Unavailable Unavailable LESLY ALBARADO LESLY, ALBARADO Unavailable Unavailable LESLY RONDA ALBARADO, Unavailable Unavailable RONDA ALBARADO JR DWI, KAM Unavailable Unavailable JR DWI [facility] Unavailable Unavailable CENTER, [facility] JUSTIN SUJATA, JUSTIN Unavailable Unavailable SUJATA [facility], Unavailable Unavailable [facility], Unavailable Unavailable [facility] Unavailable Unavailable SERVICES, [facility] JACK ODALIS, Unavailable Unavailable JACK ODALIS JACK ODALIS, Unavailable Unavailable JACK ODALIS DIAZ JAM, Unavailable Unavailable DIAZJAK MAIRAE SHERYL, Unavailable Unavailable MCKEMIE JR SHERYL MARCIEMIE JR, KATHERINE Unavailable Unavailable F, MCKEMIE JR, KATHERINE F CARLOS, GRAHAM P, Unavailable Unavailable CARLOS, GRAHAM P [facility] Unavailable Unavailable LOYD TI, LOYD Unavailable Unavailable TI MITCHELL MAT, Unavailable Unavailable MITCHELL MAT MITCHELL MAT, Unavailable Unavailable MITCHELL MAT MITCHELL, AMANDA A, Unavailable Unavailable MITCHELL, AMANDA A FUNG MARICEL, Unavailable Unavailable FUNG MARICEL FUNG MARICEL, Unavailable Unavailable FUNG MARICEL FUNG, VICKIE, Unavailable Unavailable FUNG, VICKIE MCKENZIE AILYN, MCKENZIE AILYN Unavailable Unavailable [facility], Unavailable Unavailable [...] [facility] URADU JULIANA, URADU JULIANA Unavailable Unavailable [facility] Unavailable Unavailable [id number], [id number] BUTLER, BUTLER Unavailable Unavailable BUTLER, BUTLER Unavailable Unavailable WELLS ANAID, WELLS ANAID Unavailable Unavailable WELLS ANAID, WELLS ANAID Unavailable Unavailable ISAIAH SHERYL, ISAIAH SHREYL Unavailable Unavailable GARCIA, A C, GARCIA, Unavailable Unavailable A C [facility] Unavailable [facility], Un[facility], Unavailable [facility]available [facility] Purpose Continuity of Care Document - 12-01-2007 through 2016 Problems Code Diagnosis DOS Provider Status [id number] OTHER 05-13-2017 [facility] CATARACT BILATERAL E785 HYPERLIPIDE 04-22-2017 [facility] CINDY PHYSICIANS UNSPECIFIED GROUP I10 ESSENTIAL 04-22-2017 [facility] PRIMARY PHYSICIANS HYPERTENSIO GROUP N I208 OTHER FORMS 04-22-2017 [facility] OF ANGINA PHYSICIANS PECTORIS GROUP I2510 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-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[facility] CORONARY PHYSICIANS ARTERY W/O GROUP ANGINA PECTORIS H1013 ACUTE 04-08-2017 [facility] ATOPIC CONJUNCTIVI TIS BILATERAL D94359 OTHER LONG 04-05-2017 [facility] CURRENT INC DRUG THERAPY D649 ANEMIA 04-02-2017 [facility] UNSPECIFIED PHYSICIANS LA E039 HYPOTHYROID 04-02-2017 [facility] ISM PHYSICIANS UNSPECIFIED LA E559 VITAMIN D 04-02-2017 [facility] DEFICIENCY PHYSICIANS UNSPECIFIED LA Q10612 UNSPECIFIED 03-26-2017 [facility] BLEPHARITIS LEFT LOWER EYELID B0052 HERPESVIRAL 03-22-2017 [facility] H179 UNSPECIFIED 03-22-2017 [facility] SCAR [facility] OPACITY Z9841 CATARACT 03-22-2017 [facility] STATUS [facility] RIGHT EYE Z9842 CATARACT 03-22-2017 [facility] STATUS LEFT [facility] EYE J0190 ACUTE 03-15-2017 [facility] SINUSITIS UNSPECIFIED N951 MENOPAUSAL 02-18-2017 [facility] CLIMACTERIC INC STATES Z1231 ENCOUNTER 02-18-2017 [facility] SCRE[facility]ING [facility]ICAL MAMMO MALIG IMAGING ASS NEOPLASM BREAST Z42593 ENCOUNTER 02-15-2017 [facility] SEAMLESS TUBE DRAWER EXAM PHYSICIANS GENERAL RTN GROUP W/O ABNORMAL FIND Z1212 ENCOUNTER 02-15-2017 [facility] SCREENING PHYSICIANS MALIGNANT GROUP NEOPLASM RECTUM J15338 COMBINED 02-02-2017 [facility] FORMS OF AGE-RELATED CATARACT RIGHT EYE H269 UNSPECIFIED 02-02-2017 [facility]ACT [facility] PSC K52140 COMBINED 01-26-2017 [facility] FORMS OF AGE-RELATED CATARACT LEFT EYE T87517 COMBINED 01-14-2017 [facility] FORMS OF AGE-RELATED CATARACT BILATERAL K219 GASTRO-ESOP 01-08-2017 [facility] H REFLUX PHYSICIANS DISEASE GROUP WITHOUT ESOPHAGITIS M90678 OTHER 12-01-2016 [facility] VITREOUS OPACITIES BILATERAL H5203 HYPERMETROP 12-01-2016 [facility] IA BILATERAL G27145 REGULAR 12-01-2016 [facility] ASTIGMATISM BILATERAL I119 HYPERTENSIV 11-17-2016 [facility] HEART [facility]OS[facility] DISEASE INC WITHOUT HEART FAILURE I209 ANGINA 11-17-2016 [facility] PECTORIS PHYSICIANS UNSPECIFIED GROUP H409 UNSPECIFIED 11-07-2016 [facility] GLAUCOMA H5213 MYOPIA 11-06-2016 [facility] ANG BILATERAL H524 PRESBYOPIA 11-06-2016 [facility] ANG H6690 OTITIS 10-24-2016 [facility] SUJATA MEDIA UNSPECIFIED UNSPECIFIED EAR K209 ESOPHAGITIS 10-19-2016 [facility] PHYSICIANS UNSPECIFIED GROUP K210 GASTRO-ESOP 10-19-2016 [facility] HAGEAL PHYSICIANS REFLUX GROUP DISEASE W/ ESOPHAGITIS K449 DIAPHRAGMAT 10-19-2016 [facility] IC HERNIA PHYSICIANS W/O GROUP OBSTRUCTION OR GANGRENE J449 CHRONIC 10-03-2016 [facility] P DISEASE UNS R0789 OTHER CHEST 10-03-2016 [facility] R079 CHEST PAIN 10-03-2016 [facility] UNSPECIFIED PHYSICIANS, PLLC R0602 SHORTNESS 09-22-2016 [facility] OF BREATH PHYSICIANS GROUP R9439 ABNORMAL 09-16-2016 [facility] RESULT OT PHYSICIANS CARDIOVASCU GROUP LR FUNCTION STUDY Z8249 FAMILY HX 09-15-2016 [facility] ISCHEMIC PHYSICIANS HRT DZ OTH GROUP DZ CIRC SYSTEM J069 ACUTE UPPER 08-24-2016 [facility] SUJATA RESPIRATORY INFECTION UNSPECIFIED D497 NEOPLASM OF 07-10-2016 [facility] UNS BHV PHYSICIANS ENDOCRN GROUP GLAND & OTH PART NS E038 OTHER 07-08-2016 [facility] SPECIFIED PHYSICIANS HYPOTHYROID LA ISM R0600 DYSPNEA 06-17-2016 [facility] UNSPECIFIED MEDICAL IMAGING ASS R5383 OTHER 06-17-2016 [facility] P H6010 CELLULITIS 05-28-2016 [facility]OLD SUJATA OF EXTERNAL EAR UNSPECIFIED EAR R599 ENLARGED 04-17-2016 [facility] LYMPH NODES PHYSICIANS, PLLC UNSPECIFIED R42 DIZZINESS 04-08-2016 [facility] AND PHYSICIANS GIDDINESS GROUP H8109 MENIERES 04-03-2016 [facility] SUJATA DISEASE UNSPECIFIED EAR R1310 DYSPHAGIA 03-26-2016 [facility] UNSPECIFIED PHYSICIANS GROUP Q46944 HORMONE 01-31-2016 KRAIG HOLLINGSWORTH MD THERAPY POSTMENOPAU STEVIE I68303 UNSPECIFIED 01-10-2016 [facility] PHYSICIANS OBSTRUCTION GROUP EUSTACHIAN TUBE UNS EAR J309 ALLERGIC 01-10-2016 [facility] RHINITIS PHYSICIANS UNSPECIFIED GROUP J329 CHRONIC 01-10-2016 [facility] SINUSITIS PHYSICIANS UNSPECIFIED GROUP X33560 DIFFUSE 11-13-2015 [facility] SUJATA OTITIS EXTERNA UNSPECIFIED EAR K5790 DIVERTICULO 10-31-2015 [facility] SIS PART PHYSICIANS UNS W/O GROUP PERF/ABSC W/O BLEED K5900 CONSTIPATIO 10-31-2015 [facility] N PHYSICIANS UNSPECIFIED GROUP R1032 LEFT LOWER 10-31-2015 [facility] QUADRANT PHYSICIANS PAIN GROUP Z1211 ENCOUNTER 10-22-2015 [facility] SCREENING PHYSICIANS MALIGNANT GROUP NEOPLASM OF COLON H6503 ACUTE 10-15-2015 [facility] SEROUS PHYSICIANS, OTITIS PLLC MEDIA BILATERAL V05990 PAIN IN 10-07-2015 [facility] RIGHT HAND NEUROLOG[facility] I739 PERIPHERAL 09-18-2015 [facility] VASCULAR MEDICAL DISEASE IMAGING ASS UNSPECIFIED E83997 PAIN IN 09-18-2015 [facility] RIGHT LEG MEDICAL IMAGING ASS E78146 PAIN IN 09-18-2015 [facility] LEFT LEG MEDICAL IMAGING ASS R252 CRAMP AND 09-18-2015 [facility] INC 4619 ACUTE 08-07-2015 [facility] SUJATA SINUSITIS, UNSPECIFIED 4659 ACUTE URIS 07-12-2015 [facility] SUJATA OF UNSPECIFIED SITE 40111 SPASM OF 06-25-2015 [facility] SUJATA MUSCLE 87135 ASTHMA, 06-10-2015 [facility] UNSPECIFIED STATUS 7851 PALPITATION 06-10-2015 [facility] MED[facility] G 2724 OTHER AND 05-27-2015 [facility] UNSPECIFIED PHYSICIANS LA HYPERLIPIDE CINDY 4019 UNSPECIFIED 05-23-2015 [facility] P N 46332 OTHER 05-23-2015 [facility] P RESPIRATORY ABNORMALITI ES 2449 UNSPECIFIED 05-06-2015 [facility] HYPOTHYROID MEDICAL G ISM 496 CHRONIC 04-17-2015 [facility] OBSTRUCTION INC NEC 20543 MASTODYNIA 04-17-2015 [facility] 47116 CHEST PAIN 04-17-2015 [facility] UNSPECIFIED MEDICAL IMAGING ASS 4739 UNSPECIFIED 04-11-2015 [facility] SINUSITIS PHYSICIANS GROUP 4779 ALLERGIC 04-11-2015 [facility] RHINITIS PHYSICIANS CAUSE GROUP UNSPECIFIED 7847 EPISTAXIS 04-10-2015 [facility] PHYSICIANS LA 7906 OTHER 03-07-2015 LAB [facility] ABNORMAL [facility] BLOOD HOLDINGS CHEMISTRY 26897 DISORDER OF 02-05-2015 [facility] AND MEDICAL CARTILAGE IMAGING ASS UNSPECIFIED 87816 UNSPECIFIED 02-05-2015 [facility] ABNORMAL [facility] MAMMOGRAM INC V7612 OTHER 02-05-2015 [facility] SCREENING MEDICAL MAMMOGRAM IMAGING ASS 4730 CHRONIC 02-02-2015 [facility] LESLY MAXILLARY SINUSITIS 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-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 6272 SYMPTOMATIC 01-29-2015 KRAIG HOLLINGSWORTH MD MENOPAUSAL/ FEMALE CLIMACTERIC STATES V7231 ROUTINE 01-29-2015 KRAIG Van GYNECOLOGIC EDEL MCKENNA AL EXAMINATION V7641 SCREENING 01-29-2015 KRAIG Van FOR EDEL MCKENNA MALIGNANT NEOPLASM OF THE RECTUM 87960 OPEN WOUND 01-06-2015 [facility] P MENTION COMPLICATIO N 3829 UNSPECIFIED 01-02-2015 [facility] P V148 PERSONAL 01-02-2015 [facility] SPE[facility] MEDICINAL AGTS 5368 DYSPEPSIA&O 11-26-2014 [facility] THER SPEC PHYSICIANS DISORDERS LA FUNCTION STOMACH 13894 ABDOMINAL 11-26-2014 [facility] PA[place] [address] UNSPECIFIED 11-23-2014 [facility] ERNST VIRAL INFECTION IN CCE & UNS SITE 60846 OTHER ACUTE 11-13-2014 [facility] PAIN PHYSICIANS GROUP 7020 ACTINIC 11-13-2014 [facility] KERATOSIS PHYSICIANS GROUP 92050 NUCLEAR 11-09-2014 [facility] ANG SCLEROSIS 3674 PRESBYOPIA 11-09-2014 [facility] ANG 10524 OSTEOARTHRO 11-09-2014 [facility] ERNST S INVLV MX SITES BUT NOT SPEC GEN 2382 NEOPLASM OF 11-01-2014 [facility] UNCERTAIN PHYSICIANS BEHAVIOR OF GROUP SKIN 73511 OTHER SIGN 09-26-2014 [facility] SYMPTOM [facility] IN BREAST INC 64216 OTHER 09-26-2014 [facility] SPECIFIED MEDICAL DISORDERS IMAGING ASS OF BREAST 92211 SHORTNESS 08-24-2014 [place] OF BREATH MEDICAL IMAGING ASS 09193 UNSPECIFIED 07-26-2014 [facility] ERNST INFECTIVE OTITIS EXTERNA 43504 PRECORDIAL 07-16-2014 ANJUR-KAPAL PAIN I OMAR 4011 ESSENTIAL 06-14-2014 [facility] ERNST HYPERTENSIO N, BENIGN 13120 COR 06-14-2014 [facility] ERNST ATHEROSLERO UNSPEC TYPE VESSEL KARLUK/SIGIFREDO T 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 7231 CERVICALGIA 05-08-2014 [facility] ERNST 2459 UNSPECIFIED 05-07-2014 [facility] LESLY THYROIDITIS 46267 DYSPHAGIA 05-07-2014 [facility] LESLY UNSPECIFIED 2409 GOITER, 05-01-2014 [facility] UNSPECIFIED [facility] HOS[facility] INC 58015 OTHER 05-01-2014 [facility] SYMPTOMS MERRITT INVOLVING HEAD AND NECK V5869 LONG-TERM 04-30-2014 COMBINED (CURRENT) PHYSICIANS USE OF LA OTHER MEDICATIONS 24374 UNSPECIFIED 04-25-2014 [facility] ERNST MENIERES DISEASE 19250 GENERALIZED 02-28-2014 [facility] PAIN MERRITT 7937 NONSPC ABN 02-28-2014 [facility] FINDNG RAD MERRITT & OTH EXM [place]EL[place] S[place] 28134 CONTUSION 02-28-2014 [place] MAX OF WRIST 9599 INJURY 02-28-2014 JO[facility] OTHER AND MERRITT UNSPECIFIED UNSPECIFIED SITE E9179 OTHER 02-28-2014 [place] MAX STRIKING AGAINST W/WO SUBSEQUENT FALL 05042 ESOPHAGEAL 01-25-2014 [facility] ERNST REFLUX 66503 INSOMNIA 01-25-2014 [facility] ERNST UNSPECIFIED V074 HORMONE 01-24-2014 [facility] REPLACEMENT MERRITT THERAPY V4981 ASYMPTOMATI 01-24-2014 JOAO C MERRITT POSTMENOPAU STEVIE STATUS V8281 SPECIAL 01-24-2014 [facility] SCREENING [facility] FOR INC OSTEOPOROSI S 4719 UNSPECIFIED 12-18-2013 [facility] LESLY NASAL POLYP 5589 OTH&UNSPEC 12-11-2013 [facility] NONINFECTIO [facility] US INC GASTROENTER ITIS&COLITI S 30273 NAUSEA WITH 12-11-2013 ARIELA LIOR VOMITING 4660 ACUTE 11-28-2013 [facility] ERNST BRONCHITIS 07974 OTHER 08-23-2013 [facility] TENOSYNOVIT MAT IS OF [...] 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 97099 UNSPECIFIED 07-27-2013 LAB HANG OF RICARDO ARTHROPATHY HOLDINGS MULTIPLE SITES 48112 OTHER&UNSPE 07-26-2013 [facility] CIFIED DISC MAT DISORDER CERVICAL REGION 17517 OSTEOARTHRO 05-19-2013 [facility] SIS UNSPEC MERRITT WHETHER GEN/LOCALIZ ED HAND 7823 EDEMA 05-19-2013 [facility] INC 23216 ACUTE 04-20-2013 [facility] LARYNGITIS, [facility] WITHOUT INC MENTION OF OBSTRUCTIO 4785 OTHER 04-20-2013 [facility] DISEASES OF JR ASTER VOCAL CORDS 26817 DYSPHONIA 04-20-2013 [facility] INC 74640 OTHER VOICE 04-20-2013 [facility]UNITY AND ANESTH OF RESONANCE THE BLUE DISORDERS V7284 UNSPECIFIED 04-17-2013 COM[facility]ED PHYSICIANS PRE-OPERATI LA VE EXAMINATION 6929 CONTACT 01-26-2013 VIANCAASIF SUJATA DERMATITIS& OTHER ECZEMA DUE UNSPEC CAUSE 4778 ALLERGIC 01-23-2013 JACK RHINITIS ODALIS DUE TO OTHER ALLERGEN 35515 EXTRINSIC 01-23-2013 JACK ASTHMA, ODALIS UNSPECIFIED V163 FAMILY 01-23-2013 JO[facility] HISTORY OF MERRITT MALIGNANT NEOPLASM OF BREAST 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 09554 PAIN IN 12-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 JAM JOINT PELVIC REGION AND THIGH 83463 PLICA 12-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 JAM SYNDROME 29949 UNSPECIFIED 10-10-2012 [facility] LESLY ACUTE NONSUPPURAT ANTHONY OTITIS MEDIA 462 ACUTE 10-10-2012 ARNASIF ERNST PHARYNGITIS V720 EXAMINATION 09-01-2012 [facility] OF EYES GRE AND VISION 7245 UNSPECIFIED 08-24-2012 [facility] ERNST BACKACHE 2722 MIXED 08-04-2012 FALLUJI DORIAN HYPERLIPIDE CINDY 4772 ALLERGIC 07-21-2012 JACK RHINITIS ODALIS DUE TO ANIMAL HAIR AND DANDER 9392 FOREIGN 06-13-2012 GORDON JUANCARLOS BODY IN VULVA AND VAGINA 14303 UNSPECIFIED 06-09-2012 HARPEL ASHTYN VAGINITIS AND VULVOVAGINI TIS 1119 UNSPECIFIED 05-17-2012 [facility] ERNST DERMATOMYCO SIS 65710 CHRONIC 05-13-2012 [facility] UNSPECIFIED 7080 ALLERGIC 02-17-2012 [facility] URTICARIA [facility] INC 48728 EXTRINSIC 02-02-2012 COMM[facility]ITY ASTHMA, ALLERGY & WITH ASTHMA P EXACERBATIO N 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 FUNG HEREDIT&IDI MARICEL OPATHIC PERIPHERAL NEUROPATHY 80185 DIAB W/O 01-07-2012 LAB [facility] COMP TYPE AMERIC II/UNS NOT HOLDINGS STATED UNCNTRL 85693 OTHER 01-07-2012 COM[facility]ED [place] [address] ASTHMA 12-30-2011 ARNASIF SUJATA UNSPECIFIED WITH STATUS ASTHMATICUS 4780 HYPERTROPHY 10-12-2011 JACK OF NASAL ODALIS TURBINATES V727 DIAGNOSTIC 10-12-2011 JACK SKIN AND ODALIS SENSITIZATI ON TESTS 7238 OTHER 09-29-2011 [facility] SYNDROMES [facility] AFFECTING INC CERVICAL REGION V571 OTHER 09-29-2011 [facility] PHYSICAL [facility] THERAPY INC 7820 DISTURBANCE 09-15-2011 FUNG OF SKIN MARICEL SENSATION 4760 CHRONIC 08-31-2011 [facility] LESLY LARYNGITIS 14630 OBESITY, 08-26-2011 [place] [facility] UNSPECIFIED SERV FOUNDATIO 72135 HYPERSOMNIA 08-26-2011 [place] [facility] UNSPECIFIED FOUNDATIO 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 71718 OBSTRUCTIVE 08-11-2011 [facility] SLEEP [facility] APNEA INC 17278 ACUTE 08-06-2011 [facility] GASTRITIS EMERGENCY WITHOUT SERVICES MENTION OF HEMORRHAGE 3670 HYPERMETROP 07-22-2011 [place] GRE 7234 BRACHIAL 04-14-2011 [facility] NEURITIS OR [facility] INC RADICULITIS NOS 7244 THORACIC/ASH 04-14-2011 [facility] MBOSACRAL [facility] NEURITIS/RA INC DICULITIS UNSPEC 6829 CELLULITIS 03-19-2011 ARNOLD SUJATA AND ABSCESS OF UNSPECIFIED SITE 9114 TRNK INSECT 03-19-2011 [facility] BITE EMERGENCY NONVENOMOUS SERVICES WITHOUT MENTION INF 7242 LUMBAGO 03-13-2011 [facility] IMAGING ASS 3558 UNSPECIFIED 03-06-2011 ARNASIF SUJATA MONONEURITI S OF LOWER LIMB 6826 CELLULITIS 01-18-2011 [facility] AND ABSCESS [facility]OS[facility] OF LEG INC EXCEPT FOOT 20151 PAIN IN 12-27-2010 ARNASIF SUJATA JOINT, SHOULDER REGION 65610 OBSTRUCTIVE 10-08-2010 [facility] CHRONIC SERV BRONCHITIS FOUNDATIO WITHOUT EXACERBAT [id number] MORBID 09-10-2010 [facility] OBESITY SERV FOUNDATIO [id number] COUGH 09-10-2010 [facility] SERV FOUNDATIO [id number] OBSTRUCTIVE 09-01-2010 [facility] CHRONIC [facility] BRONCHITIS INC WITH EXACERBATIO N 71331 PAINFUL 07-04-2010 [facility]ATION [facility] 7140 RHEUMATOID 07-03-2010 [facility] 8409 SPRAIN&STRA 06-13-2010 TIFAFNY GALLO UNSPEC ARY W SITE SHOULDER&UP PER ARM 226 BENIGN 05-22-2010 [facility]ERE[facility] NEOPLASM OF RONDA Norris THYROID GLANDS 26986 LOC 04-18-2010 [place] [facility] OSTEOARTHRO AND HAND S NOT SPEC SURGEONS WHETHER PSC PRIM/SEC HAND 86552 LOC 04-18-2010 [place] [facility] OSTEOARTHRO AND HAND S NOT SPEC SURGEONS PRIM/SEC PSC ANK&FOOT 27789 PAIN IN 03-07-2010 [place] JOINT, MEDICAL ANKLE AND IMAGING FOOT ASSOCIATES 66584 PAIN IN 02-07-2010 [facility] JOINT, HAND AND HAND SURGEONS PSC 82194 SWELLING OF 02-07-2010 [facility] 2859 UNSPECIFIED 01-27-2010 [facility] ANEMIA PHYSICIAN GROUP PCC 71411 DEGEN 01-20-2010 [place] 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 7393 NONALLOPATH 01-20-2010 [place] IC LESION FAMILY OF LUMBAR CHIROPRACTI REGION NEC C 7395 NONALLOPATH 01-20-2010 [place] IC LESION FAMILY OF PELVIC CHIROPRACTI REGION NEC C V173 FAMILY 01-10-2010 [facility] HISTORY OF [facility] HEART PROF SERV DISEASE 86168 ENTHESOPATH 12-10-2009 Gigi GALLO OF ARY W UNSPECIFIED SITE 7210 CERVICAL 10-08-2009 BURRIS, SPONDYLOSIS MICHELLE WITHOUT MYELOPATHY 40789 SPONDYLOSIS 10-08-2009 BURRIS, UNSPEC MICHELLE SITE W/O MENTION MYELOPATHY 2452 CHRONIC 06-24-2009 FRANCHESKA [facility] THYROIDITIS V7388 SPECIAL SCR 01-08-2009 [facility] [place] INC EXAMINATION OTH SPEC CHLAMYDIAL DZ V745 SCREENING 01-08-2009 [facility] EXAMINATION [place] INC FOR VENEREAL DISEASE V780 SCREENING 01-08-2009 KRAIG MCGARRY IRON EDEL MCKENNA DEFICIENCY ANEMIA 5999 UNSPECIFIED 10-26-2008 RUPERTO GALLO OF URETHRA&URI NARY TRACT 28980 ABDOMINAL 10-26-2008 [facility] PAIN OTHER NATIONAL SPECIFIED CORPORATION SITE 4439 UNSPECIFIED 09-27-2008 [facility] 5272 SIALOADENIT 09-13-2008 ETHAN ALBARADO 2893 LYMPHADENIT 09-10-2008 ETHAN GALLO UNSPECIFIED EXCEPT MESENTERIC 683 ACUTE 09-09-2008 [facility] LYMPHADENIT NATIONAL [facility] 7842 SWELLING 09-09-2008 [facility] IN INC HEAD AND NECK 3542 LESION OF 08-24-2008 [place] [facility] ULNAR NERVE AND HAND SURGEONS PSC 50590 UNSPECIFIED 08-02-2008 ARY GALLO Fei CONJUNCTIVI TIS 3540 CARPAL 07-06-2008 [place]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[facility] HAND SYNDROME SURGEONS PSC 50496 LUMP OR 01-25-2008 [facility] 4610 ACUTE 12-29-2007 GENOVEVA ALBARADO SINUSITIS V762 SCREENING 12-13-2007 [facility] FOR [facility] MALIGNANT NEOPLASM OF THE CERVIX 45375 VITREOUS 12-09-2007 JSOHUA VOGEL A N Medications Na ND Rx Da Fi Fi Am Da Di Ph RX Ph St me C No te ll ll ou ys ag ar # ys at rm s nt no ma ic us Or Da si cy ia de te s n re d SC 00 07 08 30 30 00 EA [...] 50 3- 4- 00 00 SI ve SC 61 20 20 49 DE IL 01 [...] 18 -1 -[address] ti SC 50 4- 4- 00 00 SI ve [...] CY NT HI AN A IN C SC 00 06 07 30 30 00 EA [...] ve TA 87 20 20 48 DE AZ 41 17 17 98 N 0 63 PH D3 AR MA 1, CY 00 0 OF UN CY IT NT HI TA AN B A IN C NA 53 06 07 60 30 00 EA Ac SC 74 -0 -[address] ti [...] 50 5- 7- 00 00 SI ve SC 61 20 20 49 DE IL 01 [...] 18 -1 -[address] ti SC 50 5- 6- 00 00 SI ve [...] 20 00 EA Ac IN 06 -[address] ti 90 1- 6- 0 00 SI ve TI 00 20 20 48 DE NE 80 17 17 71 1 55 PH HC AR L MA 0. CY 05 % OF EY CY E NT DR HI OP AN S A IN C SC 00 05 06 30 30 00 EA [...] 00 ST ti 40 4- 9- 00 00 SI ve TA 68 20 20 48 DE TI 30 17 17 61 N 3 68 PH 20 AR MA MG CY TA OF BL CY ET NT HI AN A IN C NA 53 05 06 60 30 00 EA Ac SC 74 -0 -[address] ti OX 60 4- 9- 00 00 SI ve EN 19 20 20 48 DE 01 17 17 61 50 0 71 PH 0 AR MG MA CY TA BL OF ET CY NT HI AN A IN C MO 60 05 06 30 30 00 EA Ac NT 50 -0 -[address] ti EL 53 4- 9- 00 00 SI ve UK 56 20 20 48 DE 20 17 17 61 T 8 75 PH SO AR D MA 10 CY MG OF CY TA NT BL HI ET AN A IN C SM 49 05 06 30 30 00 EA Ac 34 -0 -[address] ti 80 4- 9- 00 00 SI ve TA 87 20 20 48 DE AZ 41 17 17 61 N 0 76 [...] 17 17 38 E 5 96 PH SC AR OP MA CY 50 OF MC [...] HI AN A IN C BI 00 04 05 30 30 00 EA Ac SO 18 -1 -[address] ti SC 50 2- 2- 00 00 SI ve OL 77 20 20 46 DE OL 43 17 17 95 0 53 PH FU AR MA MA RA CY TE OF 10 CY NT MG HI AN TA A B IN C IS 13 04 05 30 [...] HI AN DR A OP IN C SI 16 04 05 30 30 00 EA Ac MV 71 -0 -[address] ti 40 4- 5- 00 00 SI ve TA 68 20 20 47 DE TI 30 17 17 86 N 3 23 PH 20 AR MA MG CY TA OF BL CY ET NT HI AN A IN C SC 00 04 05 30 30 00 EA [...] 50 4- 5- 00 00 SI ve SC 61 20 20 43 DE IL 01 [...] NT ET HI AN A IN C BI 00 03 04 30 30 00 EA Ac SO 18 -1 -[address] ti SC 50 6- 1- 00 00 SI ve OL 77 20 20 46 DE OL 43 17 17 95 0 53 PH FU AR MA MA RA CY TE OF 10 CY NT MG HI AN TA A B IN C IS 13 03 04 30 30 00 EA Ac OS 66 -1 -[address] ti OR 80 6- 1- 00 00 SI ve BI 10 20 20 45 DE DE 40 17 17 86 1 49 PH MN AR MA ER CY 30 OF CY MG NT HI TA AN BL A ET IN C NE 00 03 04 28 [...] HI AN A IN C LE 00 03 04 30 30 00 EA Ac VO 37 -0 -[address] ti TH 81 6- 7- 00 00 SI ve YR 81 20 20 45 DE OX 17 17 17 43 IN 7 50 PH E AR 11 MA 2 CY MC G OF TA CY BL NT ET HI AN A IN C SC 00 03 04 30 30 00 EA [...] 50 6- 7- 00 00 SI ve SC 61 20 20 43 DE IL 01 [...] S NT HI AN A IN C SC 61 02 03 10 10 00 EA [...] 18 -1 -[address] ti SC 50 2- 7- 00 00 SI ve [...] BL A ET IN C NE 00 02 03 28 28 00 EA Ac XI 57 -1 -[address] ti UM 32 5- 7- 00 00 SI ve 45 20 20 47 DE 24 02 17 17 22 HR 8 91 PH AR 22 MA .3 CY MG OF CY CA NT PS HI UL AN E A IN C LE 00 02 03 30 30 00 EA Ac VO 37 -0 -[address] ti TH 81 5- 0- 00 00 SI ve YR 81 20 20 45 DE OX 17 17 17 43 IN 7 50 PH E AR 11 MA 2 CY MC G OF TA CY BL NT ET HI AN A IN C SC 00 02 03 30 30 00 EA Ac EM [...] HI AN A IN C LI 00 02 03 30 30 00 EA Ac SI 18 -0 -[address] ti NO 50 5- 0- 00 00 SI ve SC 61 20 20 43 DE IL 01 17 17 97 0 43 PH 10 AR MA MG CY TA OF BL CY ET NT HI AN A IN C IS 13 02 30 30 00 EA Ac OS 66 -1 -[address] ti OR 80 4- 7- 00 00 SI ve BI 10 20 20 45 DE DE 40 17 17 86 1 49 PH MN AR MA ER CY 30 OF CY MG NT HI TA AN BL A ET IN C NE 00 01 02 28 28 00 EA Ac XI 57 -1 -[address] ti UM 32 3- 7- 00 00 SI ve 45 20 20 47 DE 24 02 17 17 22 HR 8 91 PH AR 22 MA .3 CY MG OF CY CA NT PS HI UL AN E A IN C DI 00 01 02 60 30 00 EA Ac AZ 17 -1 -[address] ti EP 23 7- 7- 00 00 SI ve AM 92 20 20 45 DE 77 17 17 87 10 0 60 PH AR MG MA CY TA BL OF ET CY NT HI AN A IN C LE 00 02 30 30 00 EA Ac VO 37 [...] 50 7- 0- 00 00 SI ve SC 61 20 20 43 DE IL 01 [...] 11 02 16 8 00 EA Ac SC 74 -0 -[address] ti [...] ET NT HI AN A IN C SC 00 01 02 30 30 00 EA Ac EM 04 -0 -[address] ti AR 61 4- 3- 00 00 SI ve IN 10 20 20 46 DE 28 17 17 38 0. 1 05 PH 62 AR 5 MA MG CY TA OF BL CY ET NT HI AN A IN C IS 13 12 30 30 00 EA Ac OS 66 -1 -[address] ti OR 80 5- 0- 00 00 SI ve BI 10 20 20 45 DE DE 40 16 17 86 1 49 PH MN AR MA ER CY 30 OF CY MG NT HI TA AN BL A ET IN C BI 00 12 30 30 00 EA Ac SO 18 -1 -[address] ti SC 50 9- 0- 00 00 SI ve OL 77 20 20 46 DE OL 13 16 17 21 0 99 PH FU AR MA MA RA CY TE 5 OF CY MG NT HI TA AN B A IN C DI 00 12 60 30 00 EA Ac AZ 17 -1 -[address] ti EP 23 8- 0- 00 00 SI ve AM 92 20 20 45 DE 77 16 17 87 10 0 60 PH AR MG MA CY TA BL OF ET CY NT HI AN A IN C NA 53 12 01 60 30 00 EA Ac SC 74 -1 -[address] ti OX 60 8- 0- 00 00 SI ve EN 19 20 20 46 DE 01 16 17 38 50 0 06 PH 0 AR MG MA CY TA BL OF ET CY NT HI AN A IN C LE 00 12 30 30 00 EA Ac VO 37 [...] ET NT HI AN A IN C SC 00 12 30 30 00 EA Ac EM 04 -0 -[address] ti AR 61 7- 9- 00 00 SI ve IN 10 20 20 46 DE 28 16 17 38 0. 1 05 PH 62 AR 5 MA MG CY TA OF BL CY ET NT HI AN A IN C DI 00 07 10 5 60 30 EA 23 AR Ac AZ 59 -1 -[address] 31 NO ti EP 15 5- 6- 00 SI 65 LD ve AM 62 20 20 DE 01 11 11 RI 10 0 PH CH AR AR MG MA D CY W TA BL OF ET CY NT HI AN A SC 00 03 10 11 30 30 EA [...] .0 ST 31 NO ti 40 5- 8- 00 SI 64 LD ve TA 68 [...] -[address] 56 ON ti 40 8- 8- 00 SI 25 NE ve 58 20 20 DE LL 50 11 11 1 PH MERI AR HN MA CY OF CY NT HI AN A RA 53 10 10 5 60 30 EA 24 OC Ac NI 74 -1 -[address] 56 ON ti TI 60 8- 8- 00 SI 27 NE ve DI 25 20 20 DE LL NE 31 11 11 0 PH MERI 15 AR HN 0 MA MG CY TA OF BL ET CY NT HI AN A LI 63 10 10 5 90 30 EA 24 OC Ac DO 48 -1 -[address] 56 ON ti DE 10 8- 8- 00 SI 29 NE ve RM 68 20 20 DE LL 70 11 11 5% 6 PH MERI AR HN PA MA TC CY H OF CY NT HI AN A LE 00 10 10 5 30 30 EA 24 LA Ac VO 37 -0 -[address] 38 WS ti TH 81 3- 5- 00 SI 92 ON ve YR 81 20 20 DE OX 10 [address] E AR OR 11 MA G 2 CY MC G OF TA BL CY ET NT HI AN A LI 00 08 10 5 30 30 EA 23 AR Ac SI 17 -0 -[address] 94 NO ti NO 23 8- 1- 00 SI 19 LD ve SC 75 20 20 DE IL 98 11 11 RI 0 PH CH 10 AR AR MA D MG CY W TA OF BL ET CY NT HI AN A LE 00 07 10 2 30 30 EA 23 LA Ac VO 37 -0 -[address] 94 WS ti TH 81 7- 1- 00 SI 20 ON ve YR 81 [...] CY TI NT ON HI AN A SC 00 03 09 11 30 30 EA [...] 8- 2- 00 SI 19 LD ve SC 75 20 20 DE IL 98 11 [...] OF ET CY NT HI AN A SC 00 03 08 11 30 30 EA [...] OF ET CY NT HI AN A SC 00 03 07 11 30 30 EA [...] BL ET CY NT HI AN A SC 00 03 06 11 30 30 EA [...] BL ET CY NT HI AN A SC 00 03 05 11 30 30 EA [...] 0 6. 1 EA 22 OC Ac SC 25 -0 -[address] 39 ON [...] BL ET CY NT HI AN A SC 00 03 04 11 30 30 EA 21 MAHMOOD Ac EM 04 -0 -[address] 56 RP ti AR 61 7- 8- 00 SI 87 EL ve IN 10 20 20 DE 29 11 11 GE 0. 1 PH RA 62 AR LD 5 MA R MG CY TA OF BL ET CY NT HI AN A SC 00 04 04 1 21 6 EA [...] 5 60 30 EA 17 AR Ac SC 09 -1 -[address] 92 NO [...] -[address] 56 NO ti 90 7 7 SI 86 LD ve 92 20 20 DE 90 11 11 RI 6 PH CH AR AR MA D CY W OF CY NT HI AN A SC 00 03 03 11 30 30 EA [...] .0 ST 01 NO ti 50 9- 8 00 SI 16 LD ve 36 20 20 DE 30 11 11 RI 5 PH CH AR AR MA D CY W OF CY NT HI AN A AM 00 02 02 1 20 10 EA 21 AR Ac OX 09 -2 -[address] 32 NO ti -C 32 1 SI 88 LD ve LA 27 20 20 DE V 53 11 11 RI 87 4 PH CH 5- AR AR 12 MA D 5 CY W MG OF TA BL CY ET NT HI AN A MU 45 02 02 1 22 4 EA 21 AR Ac PI 80 -2 -[address] 32 NO ti RO 20 1 SI 89 LD ve CI 11 20 [...] 20 20 DE HO 20 11 11 AZ XA 5 PH CH ZO AR AE LE MA L -T CY S MP OF DS CY TA NT BL HI ET AN A 00 02 02 0 8. 2 EA 21 GA Ac 59 -2 -[address] 32 IN ti 10 0- 0- 0 SI 66 EY ve 34 20 20 DE 90 11 11 AZ 1 PH CH AR AE MA L CY S OF CY NT HI AN A SI 16 01 02 5 30 30 EA 20 AR Ac MV 71 -1 -[address] 84 NO ti 40 7 7 00 SI 10 LD ve TA 68 [...] W OF CY NT HI AN A SC 00 02 02 0 30 30 EA [...] 9- 9- 00 SI 96 LD ve SC 02 20 20 DE ED 20 11 [...] 11 11 RI TA 8 PH CH AZ AR AR N- MA D CA CY [...] 5 60 30 EA 17 AR Ac SC 09 -1 -[address] 92 NO [...] 7- 7- 00 SI 12 LD ve SC 75 20 20 DE IL 96 10 [...] BL ET CY NT HI AN A SC 00 02 11 3 90 90 EA [...] 7- 8- 00 SI 12 LD ve SC 75 20 20 DE IL 96 10 [...] -[address] 59 NO ti 20 9 9 00 SI 90 LD ve TA 05 [...] 5 60 30 EA 17 AR Ac SC 09 -1 -[address] 92 NO [...] 7- 7- 00 SI 12 LD ve SC 75 20 20 DE [place] 96 10 [...] 7- 7- 00 SI 12 LD ve SC 75 20 20 DE IL 96 10 [...] BL ET CY NT HI AN A SC 00 02 08 3 90 90 EA [...] 0- 8- 00 SI 18 LD ve SC 75 20 20 DE IL 96 10 [...] 10 10 RI TA 8 PH CH AZ AR AR N- MA D CA CY [...] 0- 9- 00 SI 18 LD ve SC 75 20 20 DE IL 96 10 [...] 5 60 30 EA 17 AR Ac SC 09 -1 -[address] 92 NO [...] 0- 9- 00 SI 18 LD ve SC 75 20 20 DE IL 96 10 [...] ET OF CY NT HI AN A SC 00 05 05 1 30 8 EA [...] 0- 0- 00 SI 87 LD ve AZ 31 20 20 DE DE 10 10 10 RI 2 1 PH CH AR AR MG MA D CY W CA PS OF UL E CY NT HI AN A SC 00 02 05 3 90 90 EA [...] 0- 0- 00 SI 18 LD ve SC 75 20 20 DE IL 96 10 [...] 0- 9- 00 SI 18 LD ve SC 75 20 20 DE IL 96 10 [...] 0- 0- 00 SI 18 LD ve SC 75 20 20 DE IL 96 10 [...] EA M CY NT HI AN A LI 00 02 02 00 30 30 EA 16 AR Ac SI 17 -0 -[address] 29 NO ti NO 23 8- 6- 00 SI 20 LD ve SC 75 20 20 DE IL 96 10 [...] OF CY NT HI AN A LI 60 02 [...] BL NT ET HI AN A LO 45 01 02 [...] CY BL NT ET HI AN A NI 00 01 02 [...] NT 10 HI 0 AN MG A PH 65 01 02 00 30 10 EA 16 AR Ac EN 16 -2 -[address] 10 NO ti AZ 20 6- 1- 00 SI 77 LD ve OP 52 20 20 DE YR 01 10 10 RI ID 0 PH CH IN AR AR E MA D 20 CY W 0 MG OF CY TA NT B HI AN A DI 00 02 00 60 30 EA 15 AR Ac AZ 17 -0 -[address] 83 NO ti EP 23 5- 1- 00 SI 70 LD ve AM 92 20 20 DE 5 67 10 10 RI 0 PH CH MG AR AR MA D TA CY W BL ET OF CY NT HI AN A ME 00 11 29 00 21 6 EA 15 AR Ac TH 78 -1 -[address] 94 NO ti YL 15 2- 8- 00 SI 08 LD ve SC 02 20 20 DE ED 20 10 10 RI NI 7 PH CH SO AR AR LO MA D NE CY W 4 OF MG CY NT DO HI SE AN PK A LE 00 02 11 30 30 EA 11 AR Ac [...] 1- 8- 00 SI 85 LD ve SC 75 20 20 DE IL 96 09 10 RI 0 PH CH 10 AR AR MA D MG CY W TA OF BL CY ET NT HI AN A SI 65 12 01 01 30 30 EA 15 AR Ac MV 86 -1 -[address] 51 NO ti 20 0- 8- 00 SI 19 LD ve TA 05 20 20 DE TI 13 09 10 RI N 0 PH CH 10 AR AR MA D MG CY W TA OF BL CY ET NT HI AN A 00 01 00 60 15 EA 16 AR [...] BL NT ET HI AN A LO 45 01 01 [...] NT HI AN A DI 00 07 01 [...] 1- 7- 00 SI 85 LD ve SC 75 20 20 DE IL 96 09 [...] AR AR 0 MA DY CY C ME 00 11 12 00 40 13 EA 15 AR Ac CL 53 -2 -[address] 21 NO ti IZ 63 0- 3- 00 SI 68 LD ve IN 99 20 20 DE E 00 09 09 RI 25 1 PH CH AR AR MG MA D CY W TA BL OF ET CY NT CH HI EW AN A AZ 00 09 12 01 [...] HI AN A 00 11 12 00 30 30 EA [...] EA CY M NT HI AN A DI 00 07 12 04 60 30 EA 13 AR Ac AZ 17 -2 -[address] 62 NO ti EP 23 7- 3- 00 SI 65 LD ve AM 92 20 20 DE 5 67 09 09 RI 0 PH CH MG AR AR MA D TA CY W BL ET OF CY NT HI AN A SC 00 05 12 02 90 90 EA [...] ST 42 NO ti NO 23 1- 9- 00 SI 85 LD ve SC 75 20 20 DE IL 96 09 09 RI 0 PH CH 10 AR AR MA D MG CY W TA OF BL CY ET NT HI AN A SI 65 11 11 00 30 30 EA 15 AR Ac MV 86 -1 -[address] 07 NO ti 20 1- 9- 00 SI 79 LD ve TA [...] 01 60 30 EA 14 AR Ac SC 09 -1 -[address] 21 NO ti OX 30 1- 9- 00 SI 15 LD ve EN [...] NT HI AN A LI 00 02 10 08 30 30 EA 11 AR Ac SI 17 -1 -[address] 42 NO ti NO 23 1- 2- 00 SI 85 LD ve SC 75 20 20 DE IL 96 09 [...] ET HI AN A NA 00 09 10 [...] MAHMOOD NT LE HI R AN A DI 00 07 10 02 60 30 EA 13 AR Ac AZ 17 -2 -[address] 62 NO ti EP 23 7- 8- 00 SI 65 LD ve AM 92 20 20 DE 5 67 09 09 RI 0 PH CH MG AR AR MA D TA CY W BL ET OF CY NT HI AN A TR 00 09 09 00 80 5 EA 14 AR Ac IA 16 -1 -[address] 25 NO ti MC 80 5- 4- 00 SI 97 LD ve IN 00 20 20 DE OL 48 09 09 RI ON 0 PH CH E AR AR 0. MA D 1% CY W CR OF EA CY M NT HI AN A NA 00 09 09 00 60 30 EA 14 AR Ac SC 09 -1 -[address] 21 NO [...] 5- 4- 00 SI 96 LD ve SC 02 20 20 DE ED 20 09 09 RI NI 7 PH CH SO AR AR LO MA D NE CY W 4 OF MG CY NT DO HI SE AN PK A SI 65 10 09 09 30 [...] 1- 4- 00 SI 85 LD ve SC 75 20 20 DE [place] 96 09 [...] ET HI AN A LO 60 09 09 [...] ET OF CY NT HI AN A SC 00 05 09 01 90 90 EA 12 AMHMOOD Ac EM 04 -1 -[address] [...] 1- 7- 00 SI 85 LD ve SC 75 20 20 DE IL 96 09 09 RI 0 PH CH 10 AR AR MA D MG CY W TA OF BL CY ET NT HI AN A 00 09 08 02 [...] 1- 0- 00 SI 85 LD ve SC 75 20 20 DE IL 96 09 [...] G TA CY BL ET #5 91 LE 00 02 07 05 30 30 [...] CY MG #5 91 TA BL ET NA 00 08 07 04 60 30 EA 99 AR Ac SC 09 -1 -[address] 05 NO ti OX 30 2- 0- 00 SI 80 LD ve EN 14 20 20 DE 90 08 09 RI 50 1 PH CH 0 AR AR MG MA D CY W TA BL OF ET CY NT HI AN A SI 65 10 07 08 30 30 EA 99 AR Ac MV 86 -1 -[address] 89 NO ti 20 7- 0- 00 SI 71 LD ve TA 05 20 20 DE TI 13 08 09 RI N 0 PH CH 10 AR AR MA D MG CY W TA OF BL CY ET NT HI AN A 00 09 07 01 18 20 YO 16 WR Ac 18 -2 -1 0. UR 44 IG ti 57 4- 6- 00 8 HT ve 32 20 20 0 PH 26 08 09 AR AR 0 MA DY CY C LI 00 02 07 04 30 30 EA 11 AR Ac SI 17 -1 -[address] 42 NO ti NO 23 1- 2- 00 SI 85 LD ve SC 75 20 20 DE IL 96 09 09 RI 0 PH CH 10 AR AR MA D MG CY W TA OF BL CY ET NT HI AN A NA 00 08 07 03 60 30 EA 99 AR Ac SC 09 -1 -[address] 05 NO [...] CY BL NT ET HI AN A SC 00 05 06 00 90 90 EA [...] 1- 1- 00 SI 85 LD ve SC 75 20 20 DE IL 96 09 [...] BL CY ET NT HI AN A SC 00 05 05 00 30 30 EA 12 AR Ac EM 04 -0 -[address] 60 NO ti AR 61 4- 1- 00 SI 63 LD ve IN 10 20 20 DE 29 09 09 RI 0. 1 PH CH 62 AR AR 5 MA D MG CY W TA OF BL CY ET NT HI AN A SC 00 02 04 02 30 30 EA [...] ET HI AN A SI 65 10 04 [...] 1- 3- 00 SI 85 LD ve SC 75 20 20 DE IL 96 09 09 RI 0 PH CH 10 AR AR MA D MG CY W TA OF BL CY ET NT HI AN A NA 00 08 04 02 60 30 EA 99 AR Ac SC 09 -1 -[address] 05 NO [...] NT HI AN A LO 60 09 03 [...] HI AN A LI 00 02 03 01 30 30 EA 11 AR Ac SI 17 -1 -[address] 42 NO ti NO 23 1- 6- 00 SI 85 LD ve SC 75 20 20 DE [place] 96 09 09 RI 0 PH CH 10 AR AR MA D MG CY W TA OF BL CY ET NT HI AN A LE 00 02 03 01 30 30 EA 11 AR Ac VO 37 -1 -[address] 42 NO ti TH 81 1- 6- 00 SI 84 LD ve YR 81 20 20 DE OX 30 09 09 RI IN 1 PH CH E AR AR 12 MA D 5 CY W MC G OF TA CY BL NT ET HI AN A SC 00 02 03 01 30 30 EA 11 AR Ac EM 04 -0 -[address] 30 NO ti AR 61 2- 2- 00 SI 16 LD ve IN 10 20 20 DE 29 09 09 RI 0. 1 PH CH 62 AR AR 5 MA D MG CY W TA OF BL CY ET NT HI AN A LI 00 02 02 00 30 30 EA 11 AR Ac SI 17 -1 -[address] 42 NO ti NO 23 1- 6- 00 SI 85 LD ve SC 75 20 20 DE IL 96 09 09 RI 0 PH CH 10 AR AR MA D MG CY W TA OF BL CY ET NT HI AN A LE 00 02 02 00 30 30 EA 11 AR Ac VO [...] CY BL NT ET HI AN A SC 00 02 02 00 30 30 EA [...] CY BL NT ET HI AN A CI 55 01 01 00 15 30 EA 11 AR Ac TA 11 -1 -[address] 09 NO ti LO 10 5- 0- 00 SI 83 LD ve SC 34 20 20 DE AM 40 09 [...] 6- 0- 00 SI 84 LD ve SC 75 20 20 DE IL 96 08 09 RI 0 PH CH 10 AR AR MA D MG CY W TA OF BL CY ET NT HI AN A SC 00 02 01 11 30 30 EA [...] 6- 1- 00 SI 84 LD ve SC 75 20 20 DE IL 96 08 [...] 00 60 30 EA 10 AR Ac SC 18 -1 -[address] 71 NO [...] OF E CY NT HI AN A SC 00 02 12 10 30 30 EA [...] CY BL NT ET HI AN A SC 00 11 12 00 30 7 EA [...] OF CY NT HI AN A 00 11 12 00 10 2 EA 10 GO Ac 59 -2 -[address] 45 BL ti 10 8- 4- 00 SI 55 E ve 34 20 20 DE RO 90 08 08 ND 1 PH AL AR E MA CY OF CY NT HI AN A 52 11 12 [...] 6- 4- 00 SI 84 LD ve SC 75 20 20 DE IL 96 08 [...] BL CY ET NT HI AN A SC 00 02 11 09 30 30 EA [...] NT HI AN A LI 00 02 10 08 30 30 EA 96 AR Ac SI 17 -0 -[address] 68 NO ti NO 23 6- 3- 00 SI 84 LD ve SC 75 20 20 DE IL 96 08 [...] CY BL NT ET HI AN A AZ 00 10 10 00 6. 5 EA 99 No Ac IT 09 -1 -[address] 83 t ti HR 37 3- 3- 0 SI 47 Av ve OM 14 20 20 DE ai YC 61 08 08 la IN 8 PH bl AR e 25 MA 0 CY MG OF TA CY BL NT ET HI AN A SC 00 02 10 08 30 30 EA [...] CY RA NT Y HI AN A LI 00 02 09 07 30 30 EA 96 No Ac PI 07 -0 -[address] 68 t ti TO 10 6- 6- 00 SI 85 Av ve R 15 20 20 DE ai 10 52 08 08 la 3 PH bl MG AR e MA TA CY BL ET OF CY NT HI AN A SC 00 02 09 07 30 30 EA [...] 01 60 30 EA 99 No Ac SC 09 -1 -[address] 05 t [...] 6- 6- 00 SI 84 Av ve SC 07 20 20 DE ai IL 41 [...] BL NT ET HI AN A 00 08 09 01 90 30 EA 99 No Ac 17 -1 -[address] 05 t ti 25 2- 6- 00 SI 82 Av ve 66 20 20 DE ai 46 08 08 la 0 PH bl AR e MA CY OF CY NT HI AN A 00 09 09 00 [...] HC MA CY EY E OF DR CY OP NT S HI AN A LE 00 02 08 [...] NT ET HI AN A LO 60 05 08 02 30 30 EA 98 No Ac RA 50 -2 -[address] 05 t ti TA 50 0- 8- 00 SI 57 Av ve DI 14 20 20 DE ai NE 70 08 08 la 1 PH bl 10 AR e MA MG CY TA OF BL CY ET NT HI AN A SC 37 08 08 00 30 30 EA 99 No Ac IL 00 -1 -[address] 05 t ti OS 00 2- 8- 00 SI 81 Av ve EC 45 20 20 DE ai 50 08 08 la OT 2 PH bl C AR e 20 MA .6 CY MG OF CY TA NT BL HI ET AN A LI 00 02 08 06 30 30 EA 96 No Ac SI 17 -0 -[address] 68 t ti NO 23 6- 8- 00 SI 84 Av ve SC 75 20 20 DE ai IL 96 08 08 la 0 PH bl 10 AR e MA MG CY TA OF BL CY ET NT HI AN A NA 00 08 08 00 60 30 EA 99 No Ac SC 09 -1 -[address] 05 t ti OX 30 2- 8- 00 SI 80 Av ve EN 14 20 20 DE ai 90 08 08 la 50 1 PH bl 0 AR e MG MA CY TA BL OF ET CY NT HI AN A 52 08 08 [...] .0 ST 68 t ti TO 10 6 8- 00 SI 85 Av ve R 15 20 20 DE ai 10 52 08 08 la 3 PH bl MG AR e MA TA CY BL ET OF CY NT HI AN A SC 00 02 08 06 30 30 EA [...] ET OF CY NT HI AN A LE [...] 6- 1- 00 SI 84 Av ve SC 75 20 20 DE ai IL 96 [...] BL CY ET NT HI AN A SC 00 02 07 05 30 30 EA [...] 01 60 30 EA 96 No Ac SC 09 -0 -[address] 21 t ti OX 30 4- 3- 00 SI 74 Av ve EN 14 20 20 DE ai 90 08 08 la 50 1 PH bl 0 AR e MG MA CY TA BL OF ET CY NT HI AN A SC 00 02 07 04 30 30 EA [...] 6- 3- 00 SI 84 Av ve SC 75 20 20 DE ai IL 96 [...] ET HI AN A LI 00 02 06 03 30 30 EA 96 No Ac SI 17 -0 -[address] 68 t ti NO 23 6- 5- 00 SI 84 Av ve SC 75 20 20 DE ai IL 96 [...] ET OF CY NT HI AN A LE [...] CY BL NT ET HI AN A SC 00 02 05 03 30 30 EA [...] CY BL NT ET HI AN A SC 00 02 04 02 30 30 EA [...] 6- 4- 00 SI 84 Av ve SC 75 20 20 DE ai IL 96 08 08 la 0 PH bl 10 AR e MA MG CY TA OF BL CY ET NT HI AN A 00 04 04 [...] CY OF CY NT HI AN A LO [...] AR la 0 MA bl CY e AZ 64 03 04 00 6. 6 [...] ET OF CY NT HI AN A SC 00 02 04 01 30 30 EA 96 No Ac EM 04 -0 -[address] 68 t ti AR 61 6- 7- 00 SI 82 Av ve IN 10 20 20 DE ai 29 08 08 la 0. 1 PH bl 62 AR e 5 MA MG CY TA OF BL CY ET NT HI AN A LE 00 02 04 01 30 30 [...] 6- 0- 00 SI 84 Av ve SC 75 20 20 DE ai IL 96 [...] MG NT HI TA AN B A 00 02 03 00 60 15 [...] 6- 6- 00 SI 84 Av ve SC 75 20 20 DE ai IL 96 08 08 la 0 PH bl 10 AR e MA MG CY TA OF BL CY ET NT HI AN A AV 00 01 03 [...] ST 68 t ti TO 10 6- 6 00 SI 85 Av ve R 15 20 20 DE ai 10 52 08 08 la 3 PH bl MG AR e MA TA CY BL ET OF CY NT HI AN A SC 00 02 03 00 30 30 EA 96 No Ac EM 04 -0 -[address] 68 t ti AR 61 6- 6- 00 SI 82 Av ve IN 10 20 20 DE ai 29 08 08 la 0. 1 PH bl 62 AR e 5 MA MG CY TA OF BL CY ET NT HI AN A 60 02 03 00 20 10 EA 96 No Ac 50 -1 -[address] 81 t ti 51 5- 6 00 SI 10 Av ve 30 20 [...] ST 58 t ti NE 51 1- 6 00 SI 77 Av ve X 28 20 20 DE ai 50 80 08 08 la 1 PH bl MC AR e G MA NA CY SA L OF SP CY RA NT Y HI AN A LE 00 02 03 00 30 30 EA 96 No Ac VO 37 -0 -[address] 68 t ti TH 81 6- 6 00 SI 83 Av ve YR 81 20 20 DE ai OX 30 08 08 la IN 1 PH bl E AR e 12 MA 5 CY MC G OF TA CY BL NT ET HI AN A 68 01 03 00 30 15 EA 96 No Ac 03 -1 -[address] 39 t ti 20 7- 5- 00 SI 80 Av ve 13 20 20 DE ai 41 08 08 la 0 PH bl AR e MA CY OF CY NT HI AN A LI 00 01 03 00 30 30 EA 96 No Ac SI 17 -2 -[address] 45 t ti NO 23 2- 5- 00 SI 25 Av ve SC 75 20 20 DE ai IL 96 08 08 la 0 PH bl 10 AR e MA MG CY TA OF BL CY ET NT HI AN A 00 01 03 00 14 7 EA 96 No Ac 67 -1 -[address] 39 t ti 70 7- 5- 00 SI 81 Av ve 78 20 20 DE ai 40 08 08 la 5 PH bl AR e MA CY OF CY NT HI AN A LO 60 12 03 [...] NT ET HI AN A NA 00 01 03 00 60 30 EA 96 No Ac SC 09 -0 -[address] 21 t ti OX 30 4- 4- 00 SI 74 Av ve EN 14 20 20 DE ai 90 08 08 la 50 1 PH bl 0 AR e MG MA CY TA BL OF ET CY NT HI AN A 60 01 03 00 30 15 EA 96 No Ac 25 -0 -[address] 21 t ti 80 4- 4- 00 SI 72 Av ve 32 20 20 DE ai 30 08 08 la 1 PH bl AR e MA CY OF CY NT HI AN A SC 00 01 03 00 30 30 EA 96 No Ac EM 04 -1 -[address] 31 t ti AR 61 1- 4- 00 SI 35 Av ve IN 10 20 20 DE ai 29 08 08 la 0. 1 PH bl 62 AR e 5 MA MG CY TA OF BL CY ET NT HI AN A Procedures Procedure DOS Code Location Performer Comment ECG [id number] PAULIE APODACA [facility] INC INC W/LEAST 12 LDS TRCG ONLY W/O I&R DRUG TEST 64807 PAULIE APODACA PRSMV 7 [facility] QUAL DIR INC INC OPTICAL OBS PER DAY LIPID 15000 COMBINED COMBINED PANEL 7 PHYSICIAN PHYSICIAN [place] 25 31726 COMBINED COMBINED HYDROXY 7 PHYSICIAN PHYSICIAN INCLUDES S LA S LA FRACTIONS IF PERFORMED COMPREHEN 10189 COMBINED COMBINED SIVE 7 PHYSICIAN PHYSICIAN METABOLIC S LA S LA PANEL BLOOD 32260 COMBINED COMBINED COUNT 7 PHYSICIAN PHYSICIAN COMPLETE S LA S LA AUTO&[place] [address] COMBINED COMBINED FREE 7 PHYSICIAN PHYSIC[place] [address] COMBINED COMBINED THYROID 7 PHYSICIAN PHYSICIAN STIMULATI S LA S LA NG HORMONE TSH SCREENING 00513 PAULIE APODACA [address] [facility] MAMMOGRAP INC INC HY BI 2-VIEW BREAST INC CAD SCREENING [id number] [place] [address] MEDICAL MAMMOGRAP IMAGING HY RUSS ASS INCL CAD WHEN PERFORMD BLOOD 24366 [facility] HARPEL OCCULT 7 PHYSICIAN PEROXIDAS S GROUP E ACTV QUAL FECES 1-3 SPEC URINLS 66691 [facility] DIP 7 PHYSICIAN PHYSICIAN STICK/TAB S GROUP S GROUP LET REAGNT NON-AUTO MICRSCPY POSTERIOR V2632 [facility] CHAMBER 7 SURGERY SURGERY INTRAOCUL CENTER CENTER AR LENS CATARACT 02796 [facility] REMOVAL 7 SURGERY SURGERY INSERTION CENTER CENTER OF LENS ANESTHESI 00459 ANESTHESI BRITO A EYE 7 A [place] [address] COMBINED COMBINED FREE 7 PHYSICIAN PHYSICIAN THYROXINE S LA S LA LIPID 31780 COMBINED COMBINED PANEL 7 PHYSICIAN PHYSICIAN S LA S LA 25 14611 COMBINED COMBINED HYDROXY 7 PHYSICIAN PHYSICIAN INCLUDES S LA S LA FRACTIONS IF PERFORMED ACUTE 05329 [facility] HEPATITIS 7 RICARDO R[place]ARD[place] [address] COMBINED COMBINED TRIIODOTH 7 PHYSICIAN PHYSICIAN YRONINE S LA S LA T3 TOTAL TT3 SEDIMENTA 94196 COMBINED COMBINED TION RATE 7 PHYSICIAN PHYSICIAN RBC S LA S LA NON-AUTOM ATED GENERAL 80475 COMBINED COMBINED HEALTH 7 PHYSICIAN PHYSICIAN PANEL S LA S LA POSTERIOR V2632 [facility] CHAMBER 7 SURGERY SURGERY INTRAOCUL CENTER CENTER AR LENS CATARACT 75081 [facility] REMOVAL 7 INSERTION OF LENS OPH BMTRY 41691 [facility] US 7 ECHOGRAPY A-SCAN IO LENS PWR ALLIE OPHTH 16912 [facility]ICAL 7 XM&EVAL COMPRE NEW PT 1/> VST DETERMINA 19890 [facility] TION 7 REFRACTIV E STATE ECG 10864 PAULIE APODACA ROUTINE 6 [facility] ECG INC INC W/LEAST 12 LDS TRCG ONLY W/O I&R OPHTH 61298 [facility] 6 ANG ANG XM&EVAL COMPRHNSV ESTAB PT 1/> INJ [id number] SABINO GALLO BETAMETHA 6 SUJATA SUJATA SONE ACETATE & PHOSPHATE 3 [place] [address] PAULIE APODACA TROPONIN 6 [facility] QUANTITAT INC INC ANTHONY ECG 35606 PAULIE RIVAS ROUTINE 6 [facility] W/LEAST P 12 LDS I&R ONLY RADIOLOGI 96066 [facility] C EXAM 6 MEDICAL CHEST 2 IMAGING VIEWS ASS FRONTAL&L ATERAL ECG 64959 PAULIE APODACA ROUTINE 6 [facility] ECG INC INC W/LEAST 12 LDS TRCG ONLY W/O I&R CREATINE 47712 PAULIE APODACA KINASE 6 [facility] TOTAL INC INC COMPREHEN 22277 PAULIE APODACA SIVE 6 [facility] METABOLIC INC INC PANEL CREATINE 52366 PAULIE APODACA KINASE MB 6 [facility] FRACTION INC INC ONLY BLOOD 24253 PAULIE APODACA COUNT 6 [facility] COMPLETE INC INC AUTO&AUTO DIFRNTL WBC FIBRIN 40342 PAULIE APODACA DGRADJ 6 [facility] PRODUCTS INC INC D-DIMER QUAL/SEMI SANTY BLOOD 28199 PAULIE APODACA COUNT 6 [facility] COMPLETE INC INC AUTO&AUTO DIFRNTL WBC BASIC 80906 PAULIE APODACA METABOLIC 6 [facility] PANEL INC INC CALCIUM TOTAL CATHETER C1725 PAULIE PAULIE TRANSLUMI 6 [facility] NAL INC INC ANGIOPLAS TY NON-LASER CATH PLMT 24451 [facility] LEENA Velásquez HRT & 6 PHYSICIAN MAT KOSTAS S GROUP W/NJX & ANGIO IMG S&I GUIDE C1769 PAULIE APODACA WIRE 6 [facility] INC INC INJ [id number] SABINO GALLO BETAMETHA 6 SUJATA SUJATA SONE ACETATE & PHOSPHATE 3 MG INJ J0702 ARNASIF ARNOLD BETAMETHA 6 SUJATA SUJATA SONE ACETATE & PH[place]PH[place] 3 [place] [address] COMBINED COMBINED FREE 6 PHYSICIAN PHYSICIAN THYROXINE S LA S LA MYOCARDIA 70437 PAULIE Velásquez SPECT [address] [facility] HOSP MULTIPLE INC INC STUDIES CV STRS 91921 PAULIE RIVAS TST 6 [facility] XERS&/OR HOSPITAL RX CONT P ECG I&R ONLY CV STRS 10870 PAULIE RIVAS TST 6 [facility] XERS&/OR HOSPITAL RX CONT P ECG W/O I&R CV STRS 41153 PAULIE APODACA TST 6 [facility] XERS&/OR INC INC RX CONT ECG TRCG ONLY TECHNETIU A9500 PAULIE Ornelas TC-99M [address] [facility] HOSP SESTAMIBI INC INC DX PER STUDY DOSE BLOOD 59401 COMBINED COMBINED COUNT 6 PHYSICIAN PHYSICIAN COMPLETE S LA S LA AUTO&AUTO DIFRNTL WBC LIPID 07862 COMBINED COMBINED PANEL 6 PHYSICIAN PHYSICIAN S LA S LA COMPREHEN 47680 COMBINED COMBINED SIVE 6 PHYSICIAN PHYSICIAN METABOLIC S LA S LA PANEL COLLECTIO 61390 COMBINED COMBINED N VENOUS 6 PHYSICIAN PHYSICIAN [place] [address] COMBINED COMBINED THYROID 6 PHYSICIAN PHYSICIAN STIMULATI S LA S LA NG HORMONE TSH COMPREHEN 20058 COMBINED COMBINED SIVE 6 PHYSICIAN PHYSICIAN METABOLIC S LA S LA PANEL 25 55684 COMBINED COMBINED HYDROXY 6 PHYSICIAN PHYSICIAN INCLUDES S LA S LA FRACTIONS IF PERFORMED BLOOD 40252 COMBINED COMBINED COUNT 6 PHYSICIAN PHYSICIAN COMPLETE S LA S LA AUTO&[place] [address] [place]AMA ESTEVEZ ALL HEAD/BRAI 6 MEDICAL N W/O IMAGING CONTRAST ASS 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- 84539 [facility] 6 MEDICAL DETECTION IMAGING ASS SCREENING MAMMOGRAP HY SCREENING G0202 [facility] 6 MEDICAL MAMMOGRAP IMAGING HY RUSS ASS INCL CAD WHEN PERFORMD DRUG TST G0477 COMBINED COMBINED PRESUMP;C 6 PHYSICIAN PHYSICIAN PBL BEING S LA S LA READ DC OPT OBV ONLY ECG RTN G0403 COMBINED COMBINED ECG W/12 6 PHYSICIAN PHYSICIAN LEADS SCR S LA S LA INIT PREVNTV PE W/I&R BLOOD 39953 KRAIG HOLLINGSWORTH OCCULT 6 EDEL MCKENNA ASHTYN PEROXIDAS E ACTV QUAL FECES 1-3 SPEC URINLS 32493 KRAIG CARSON MAR DIP 6 EDEL MCKENNA STICK/TAB LET REAGNT NON-AUTO MICRSCPY RADEX 34481 [place] JOAO ESOPHAGUS 6 [place] [address] COMBINED COMBINED FREE 6 PHYSICIAN PHYSICIAN THYROXINE S LA S LA DRUG SCR G0434 COMBINED COMBINED NOT 6 PHYSICIAN PHYSICIAN CHROMATOG S LA S LA RAPHIC; ANY NUMBER PT ENC GENERAL 32058 COMBINED COMBINED HEALTH 6 PHYSICIAN PHYSICIAN PANEL S LA S LA DRUG TST G0477 COMBINED COMBINED PRESUMP;C 6 PHYSICIAN PHYSICIAN PBL BEING S LA S LA READ DC OPT OBV ONLY 25 50738 COMBINED COMBINED HYDROXY 6 PHYSICIAN PHYSICIAN INCLUDES S [place] [address] COMBINED COMBINED TRIIODOTH 6 PHYSICIAN PHYSICIAN YRONINE S LA S LA T3 TOTAL TT3 LIPID 84988 COMBINED COMBINED PANEL 6 PHYSICIAN PHYSICIAN S LA S LA SEDIMENTA 69464 COMBINED COMBINED TION RATE 6 PHYSICIAN PHYSICIAN RBC S LA S LA NON-AUTOM ATED INJ J0702 ARNOLD ARNOLD BETAMETHA 6 SUJATA SUJATA SONE ACETATE & PHOSPHATE 3 MG INJ J0702 ARNOLD ARNOLD BETAMETHA 6 SUJATA SUJATA SONE ACETATE & PHOSPHATE 3 MG INJ J0702 SABINO GALLO BETAMETHA 6 SUJATA SUJATA SONE ACETATE & PHOSPHATE 3 MG COLONOSCO 49703 [facility] SCHULSTAD PY FLX DX 5 PHYSICIAN CAM W/COLLJ S GROUP SPEC WHEN PFRMD INJ J0702 SABINO GALLO BETAMETHA 5 SUJATA SUJATA SONE ACETATE & PHOSPHATE 3 [place] [address] PAULIE PAULIE FREE 5 [facility] [place] [address] PAULIE PAULIE THYROID 5 [facility] STIMULATI INC INC NG HORMONE TSH COLLECTIO 47165 PAULIE PAULIE N VENOUS 5 [facility] BLOOD INC INC VENIPUNCT URE NERVE 60027 [facility] CONDUCTIO 5 N N STUDIES NEUROLOGY 5-6 STUDIES NEEDLE 33244 [facility] EMG EA 5 N EXTREMTY NEUROLOGY W/PARASPI NL AREA COMPLETE NON-INVAS 43231 [place] JOAO ANTHONY 5 [facility] PHYSIOLOG IMAGING IC STUDY ASS EXTREMITY 3 LEVLS DUP-SCAN 77477 PAULIE PA[facility]IE LXTR 5 [facility] ART/ARTL INC [place] [address] COMBINED COMBINED THYROID 5 PHYSICIAN PHYSICIAN STIMULATI [place] [address] COMBINED COMBINED MAGNESIUM 5 PHYSICIAN PHYSICIAN S LA S LA BASIC 79729 COMBINED COMBINED METABOLIC 5 PHYSICIAN PHYSICIAN PANEL S LA S LA CALCIUM TOTAL INJ J0702 SABINO GALLO BETAMETHA 5 SUJATA SUJATA SONE ACETATE & PHOSPHATE 3 MG INJ J0702 SABINO GALLO BETAMETHA 5 SUJATA SUJATA SONE ACETATE & PHOSPHATE 3 [place] [address] COMBINED COMBINED MAGNESIUM 5 PHYSICIAN PHYSICIAN S LA S LA COMPREHEN 92369 COMBINED COMBINED SIVE 5 PHYSICIAN PHYSICIAN METABOLIC S LA S LA PANEL LIPID 60289 COMBINED COMBINED PANEL 5 PHYSICIAN PHYSICIAN S LA S LA XTRNL PT 11998 PAULIE RIVAS ACTIVTD 5 [facility] W/R&I P </30 [place] [address] PAULIE APODACA ACTIVATED [facility] ECG INC INC RECORD MONITOR 30 DAYS RADIOLOGI 37052 [facility] EXAM 5 MEDICAL CHEST 2 IMAGING VIEWS ASS FRONTAL&[place] [address] COMBINED COMBINED FREE 5 PHYSICIAN PHYSIC[place] [address] COMBINED COMBINED THYROID 5 PHYSICIAN PHYSICIAN STIMULATI S LA S LA NG HORMONE TSH CALCIUM 61624 COMBINED COMBINED TOTAL 5 PHYSICIAN PHYSICIAN S LA S LA ACUTE 71376 [facility] HANG HEPATITIS 5 RICARDO RICARDO PANEL [facility] HEPATIC 91613 COMBINED COMBINED FUNCTION 5 PHYSICIAN PHYSICIAN PANEL S LA S LA INJ J0702 SABINO GALLO BETAMETHA 5 SUJATA SUJATA SONE ACETATE & PHOSPHATE 3 MG INJ J0702 SABINO GALLO BETAMETHA 5 SUJATA SUJATA SONE ACETATE & PHOSPHATE 3 MG COMPREHEN 09325 COMBINED COMBINED SIVE 5 PHYSICIAN PHYSICIAN METABOLIC S LA S LA PANEL LIPID 57625 COMBINED COMBINED PANEL 5 PHYSICIAN PHYSICIAN S LA S LA SCREENING G0202 PAULIE APODACA 5 [facility] MAMMOGRAP INC INC HY RUSS INCL CAD WHEN PERFORMD DXA BONE 91357 AL[place]AMA JOAO DENSITY 5 [facility] STUDY 1/> IMAGING SITES ASS AXIAL SKEL COMPUTER- 53842 PAULIE APODACA AIDED 5 [facility] DETECTION INC INC SCREENING MAMMOGRAP HY IADNA 53796 [facility] NEISSERIA 5 EDEL CHAMORRO GONORRHOE AE DIRECT PROBE TQ CULTURE 45308 [facility] CHLAMYDIA 5 EDEL MCKENNA ASHTYN ANY SOURCE BLOOD 24030 KRAIG Van LOYD OCCULT 5 EDEL MCKENNA TI PEROXIDAS E ACTV QUAL FECES 1 DETER URINLS 55605 [facility] DIP 5 EDEL CHAMORRO STICK/TAB LET REAGNT NON-AUTO MICRSCPY IM ADM 68706 PAULIE APODACA PRQ ID 5 [facility] SUBQ/IM INC INC NJXS 1 VACCINE INJ J0702 SABINO GALLO BETAMETHA 5 SUJATA SUJATA SONE ACETATE & PHOSPHATE 3 MG COMPREHEN 03608 COMBINED COMBINED SIVE 4 PHYSICIAN PHYSICIAN [place] [address] COMBINED COMBINED AMYLASE 4 PHYSICIAN PHYSICIAN S LA S LA ANTIBODY 63984 COMBINED COMBINED HELICOBAC [address] S LA S LA PYLORI EXC B9 81394 [facility] SCHULSTAD LESION 4 PHYSICIAN CLIFFORD MRGN XCP S GROUP SK TG T/A/L 1.1-2.0 CM OPH 40700 Nomi MEDICAL 4 ANG ANG XM&EVAL COMPRHNSV ESTAB PT 1/> [place] [address] P&C LABS, JUSTIN SURG 4 [facility] PATHOLOGY GROSS&LIOR ROSCOPIC EXAM DIAGNOSTI G0206 PAULIE APODACA C 4 [facility] MAMMOGRAP INC INC HY INCL CAD WHEN PERF; UNI TECHNETIU A9500 PAULIE APODACA M TC-99M 4 [facility] SESTAMIBI INC INC DX PER STUDY DOSE CV STRS 74891 PAULIE HUMPHREY JR TST 4 [facility] XERS&/OR HOSPITAL RX CONT P ECG I&R ONLY CV STRS 69670 PAULIE APODACA TST 4 [facility] XERS&/OR INC INC RX CONT ECG TRCG ONLY MYOCARDIA 85845 PAULIE APODACA L SPECT 4 [facility] MULTIPLE INC INC STUDIES CV STRS 90017 PAULIE APODACA TST 4 [facility] XERS&/OR INC INC RX CONT ECG TRCG ONLY CV STRS 16788 EVELYN RIVAS TST 4 MAX MAX XERS&/OR RX CONT ECG I&R ONLY ECHO 98688 PAULIE APODACA TTHRC R-T 4 [facility] 2D INC INC W/WOM-MOD E COMPL SPEC&COLR D XTRNL ECG 36656 PAULIE APODACA & 48 HR 4 [facility] RECORDING INC INC XTRNL ECG 89442 EVELYN RIVAS 4 MAX MAX CONTINUOU S RHYTHM W/I&R UP TO 48 HRS EXTERNAL 08-18-201 55910 PAULIE FREDDIEU JULIANA ECG 4 [facility] SCANNING INC ANALYSIS REPORT ECG 34105 KEELEY WORRELL ROUTINE 4 ECG W/LEAST 12 LDS I&R ONLY ECG 78636 PAULIE PAULIE ROUTINE 4 [facility] ECG INC INC W/LEAST 12 LDS TRCG ONLY W/O I&R RADEX 26098 EDWARDS TRA EDWARDS TRA SPINE 4 CERVICAL 4 OR 5 VIEWS RADEX 61913 PAULIE APODACA ESOPHAGUS 4 [facility] INC INC US SOFT 21676 PAULIE APODACA TISSUE 4 [facility] HEAD & INC [place] [address] COMBINED COMBINED FREE 4 PHYSICIAN PHYSIC[place] [address] COMBINED COMBINED THYROID 4 PHYSICIAN PHYSICIAN STIMULATI S LA S LA NG HORMONE TSH DRUG SCR G0434 COMBINED COMBINED NOT 4 PHYSICIAN PHYSICIAN CHROMATOG S LA S LA RAPHIC; ANY NUMBER PT ENC CALCIUM 39755 COMBINED COMBINED TOTAL 4 PHYSICIAN PHYSICIAN S LA S LA RADEX 10390 PAULIE APODACA FOREARM 2 4 [facility] VIEWS INC INC RADEX 29024 PAULIE APODACA WRIST 4 [facility] COMPLETE INC INC MINIMUM 3 VIEWS DIAGNOSTI G0206 PAULIE APODACA C 4 [facility] MAMMOGRAP INC INC HY INCL CAD WHEN PERF; UNI SCREENING G0202 PAULIE APODACA 4 [facility] MAMMOGRAP INC INC HY RUSS INCL CAD WHEN PERFORMD COMPUTER- 70135 PAULIE APODACA AIDED 4 [facility] DETECTION INC INC SCREENING MAMMOGRAP HY DXA BONE 00188 PAULIE APODACA DENSITY 4 [facility] STUDY 1/> INC INC SITES AXIAL SKEL IADNA 89292 HARPEL HARPEL NEISSERIA 4 ASHTYN ASHTYN GONORRHOE AE DIRECT PROBE TQ CULTURE 43239 HARPEL HARPEL CHLAMYDIA 4 ASHTYN ASHTYN ANY SOURCE BLOOD 37300 HARPEL HARPEL OCCULT 4 ASHTYN ASHTYN PEROXIDAS E ACTV QUAL FECES 1-3 SPEC URINLS 54508 HARPEL HARPEL DIP 4 ASHTYN ASHTYN STICK/TAB LET REAGNT NON-AUTO MICRSCPY DRUG SCRN 46096 COMBINED COMBINED QUAL MISSION MANAGER 4 PHYSICIAN PHYSICIAN CLASS S LA S LA NONCHROMO TOGRAPHIC EACH COMPREHEN 41983 PAULIE APODACA SIVE 4 [facility] [address] PAULIE APODACA AMYLASE 4 [facility] INC INC BLOOD 74763 PAULIE APODACA COUNT 4 [facility] COMPLETE INC INC AUTO&[place] [address] PAULIE APODACA LIPASE 4 [facility] [place] [address] PAULIE APODACA INFUSION 4 [facility] THERAPY/P INC INC ROPHYLAXI S /DX 1ST TO 1 HR THERAPEUT 60982 PAULIE APODACA IC 4 [facility] INJECTION INC INC IV PUSH EACH NEW DRUG INJECTION J0696 SABINO GALLO 3 SUJATA SUJATA CEFTRIAXO NE SODIUM PER 250 MG LIPID 34046 COMBINED COMBINED PANEL 3 PHYSICIAN PHYSICIAN S LA S LA COMPREHEN 58795 COMBINED COMBINED SIVE 3 PHYSICIAN PHYSICIAN METABOLIC S LA S LA PANEL CUL BACT 89569 PAULIE APODACA XCPT 3 [facility] URINE INC INC BLOOD/[place] [address] PAULIE APODACA STREPTOCO 3 [facility] CCUS INC INC GROUP A C-REACTIV 50794 COMBINED COMBINED E PROTEIN 3 PHYSICIAN PHYSICIAN S LA S LA SEDIMENTA 34637 COMBINED COMBINED TION RATE 3 PHYSICIAN PHYSICIAN RBC S LA S LA NON-AUTOM ATED ANTINUCLE 50607 [facility] HANG AR 3 OF AMERIC ANTIBODIE RICARDO HOLDING S FAWAD HOLDINGS RHEUMATOI 93139 COMBINED COMBINED D FACTOR 3 PHYSICIAN PHYSICIAN QUALITATI S LA S LA VE RADEX 02334 MITCHELL MEDRANO HAND 2 3 MAT MAT VIEWS RADEX 70922 MITCHELL MEDRANO SPINE 3 MAT MAT CERVICAL 2 OR 3 VIEWS RADEX 15477 PAULIE APODACA HAND 3 [facility] MINIMUM 3 INC INC VIEWS INJECTION J2405 PAULIE APODACA 3 [facility] ONDANSETR INC INC ON HCL PER 1 MG ANES 21657 [facility] AWILDA MCCOYOPH 3 ANESTH THYRD OF THE LARYNX BLUE TRACH & LYMPH NECK 1YR LARYNGOSC 77504 PAULIE APODACA OPY 3 [facility] W/BIOPSY INC INC MICROSCOP E/TELESCO PE LARGSC 10660 VERENA ALBARADO EXC 3 LESLY LESLY CHARISMA&/STRP G CORDS/EPI [place] MCRSCP/[place] [address] PICKLESIM PICKLESIM SURG 3 ER JR ASTER ER JR ASTER PATHOLOGY GROSS&LIOR ROSCOPIC EXAM ELECTROLY 76319 COMBINED COMBINED TE PANEL 3 PHYSICIAN PHYSICIAN S LA S LA ECG 84110 COMBINED COMBINED ROUTINE 3 PHYSICIAN PHYSICIAN ECG S LA S LA W/LEAST 12 LDS TRCG ONLY W/O I&R COMPUTER- 05162 JOAO JOAO AIDED 3 MERRITT MERRITT DETECTION SCREENING MAMMOGRAP HY SPMTRY 18092 JACK JACK W/VC 3 ODALIS ODALIS EXPIRATOR Y GARRETT W/WO MXML VOL VNTJ SCREENING G0202 JOAO JOAO 3 MERRITT MERRITT MAMMOGRAP HY RUSS INCL CAD WHEN PERFORMD IADNA 28958 HARPEL HARPEL NEISSERIA 3 ASHTYN ASHTYN GONORRHOE AE DIRECT PROBE TQ CULTURE 52093 HARPEL HARPEL CHLAMYDIA 3 ASHTYN ASHTYN ANY SOURCE BLOOD 74950 HARPEL HARPEL OCCULT 3 ASHTYN ASHTYN PEROXIDAS E ACTV QUAL FECES 1-3 SPEC URINLS 20299 HARPEL HARPEL DIP 3 ASHTYN ASHTYN STICK/TAB LET REAGNT NON-AUTO MICRSCPY INJECTION J0696 SABINO GALLO 2 SUJATA SUJATA CEFTRIAXO NE SODIUM PER 250 MG INJECTION J0696 SABINO GALLO 2 SUJATA SUJATA CEFTRIAXO NE SODIUM [place] [address] [place] [address] PAULIE APODACA STREPTOCO 2 [facility] CCUS INC INC GROUP A CALCIUM 30727 COMBINED COMBINED TOTAL 2 PHYSICIAN PHYSICIAN S LA S LA THYROID 52572 COMBINED COMBINED HORM 2 PHYSICIAN PHYSICIAN UPTK/THYR S LA S [place] [address] COMBINED COMBINED THYROID 2 PHYSICIAN PHYSICIAN STIMULATI S LA S LA NG HORMONE TSH DETERMINA 11824 [facility]MA [facility] TION 2 GRE GRE REFRACTIV E STATE OPHTH 95270 [facility] 2 GRE GRE XM&EVAL COMPRHNSV ESTAB PT 1/> SPMTRY 79745 JACK JACK W/VC 2 ODALIS ODALIS EXPIRATOR Y GARRETT W/WO MXML VOL VNTJ CV STRS 70825 FALLUJI FALLUJI TST 2 DORIAN DORIAN XERS&/OR RX CONT ECG I&R ONLY MYOCARDIA 02433 FRANSISCAUJI FALLUJI L SPECT 2 DORIAN DORIAN MULTIPLE STUDIES MYOCARDIA 94419 PAULIE APODACA L SPECT 2 [facility] [place] [address] PAULIE APODACA THYROID 2 [facility] STIMULATI INC INC NG HORMONE TSH CV STRS 95363 PAULIE JACKMIDaja TST 2 [facility] XERS&/OR HOSPITAL RX CONT P ECG I&R ONLY ECHO 52668 FALLUJI FALLUJI TTHRC R-T 2 DORIAN DORIAN 2D W/WOM-MOD E COMPL SPEC&COLR D CV STRS 90027 PAULIE APODACA TST 2 [facility] XERS&/OR INC INC RX CONT ECG TRCG ONLY CV STRS 62550 [facility] TST 2 PHYSICIAN PHYSICIAN XERS&/OR S GROUP S GROUP RX CONT ECG W/O I&R COMPREHEN 85580 PAULIE APODACA SIVE 2 [facility] METABOLIC INC INC PANEL LIPID 87163 PAULIE APODACA PANEL 2 [facility] INC INC TECHNETIU A9502 PAULIE Ornelas TC-99M 2 [facility] TETROFOSM INC INC IN DX PER STUDY DOSE SMR PRIM 77999 HARPEL HARPEL SRC WET 2 ASHTYN ASHTYN MOUNT NFCT AGT SMR PRIM 90881 HARPEL HARPEL SRC WET 2 ASHTYN ASHTYN MOUNT NFCT AGT ADMN SET A7005 YOUR YOUR W/SM VOL 2 PHARMACY PHARMACY [employer] [facility] NEBULIZR NON-DISPB L BRNCDILAT 62804 [facility] RSPSE 2 ALLERGY ALLERGY SPMTRY & ASTHMA & ASTHMA PRE&POST- P P BRNCDILAT ADMN INJ J0702 SABINO GALLO BETAMETHA 2 SUJATA SUJATA SONE ACETATE & PHOSPHATE 3 MG INJECTION J0696 SABINO GALLO 2 SUJATA SUJATA CEFTRIAXO NE SODIUM PER [address] [place] [address] COMBINED COMBINED THYROID 2 PHYSICIAN PHYSICIAN STIMULATI S LA S LA NG HORMONE TSH THYROID 37307 COMBINED COMBINED HORM 2 PHYSICIAN PHYSICIAN UPTK/THYR S LA S LA OID HORMONE BINDING RATIO CALCIUM 82746 LAB HANG LAB HANG IONIZED 2 [employer] ADMN SET A7003 YOUR YOUR SM VOL 2 PHARMACY PHARMACY [employer] [facility] PNEUMAT NEBULIZR DISPBL SPMTRY 28620 JACK JACK W/VC 2 ODALIS ODALIS EXPIRATOR Y GARRETT W/WO MXML VOL VNTJ [facility]- 59438 PAULIE APODACA AIDED 2 [facility] DETECTION INC INC SCREENING MAMMOGRAP HY SCREENING G0202 PAULIE APODACA 2 [facility] MAMMOGRAP INC INC HY RUSS INCL CAD WHEN PERFORMD IADNA NOS 34518 BIO BIO 2 REFERNCE REFERNCE AMPLIFIED LABORATOR LABORATOR PROBE TQ IES IES EACH ORGANISM IADNA 48875 BIO BIO NEISSERIA 2 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 GONORRHOE IES IES AE AMPLIFIED PROBE TQ IADNA 73579 BIO BIO CHLAMYDIA 2 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 TRACHOMAT IES IES IS AMPLIFIED PROBE TQ CYTP C/V 51995 BIO BIO AUTO THIN 2 REFERNCE REFERNCE LYR LABORATOR LABORATOR PREPJ SCR IES IES MNL RESCR PHYS COMPREHEN 36090 COMBINED COMBINED SIVE 2 PHYSICIAN PHYSICIAN METABOLIC S LA S LA PANEL CYANOCOBA 89140 COMBINED COMBINED ASHLEE 2 PHYSICIAN PHYSICIAN VITAMIN S LA S LA B-12 RHEUMATOI 75400 COMBINED COMBINED D FACTOR 2 PHYSICIAN PHYSICIAN QUALITATI S LA S LA VE LIPID 53537 COMBINED COMBINED PANEL 2 PHYSICIAN PHYSICIAN S LA S LA DNA 52273 LAB [facility] LAB HANG ANTIBODY 2 AMERIC AMERIC KARLUK/DO [employer] HOLD[employer] UBLE STRANDED BLOOD 95348 COMBINED COMBINED COUNT 2 PHYSICIAN PHYSICIAN COMPLETE S LA S LA AUTO&AUTO DIFRNTL WBC HEMOGLOBI 24389 COMBINED COMBINED N 2 PHYSICIAN PHYSICIAN GLYCOSYLA S LA S LA BIBI A1C COLLECTIO 48814 COMBINED COMBINED N VENOUS 2 PHYSICIAN PHYSICIAN BLOOD S LA S LA VENIPUNCT URE INJ J0702 ARNASIF ARNOLD BETAMETHA 2 SUJATA SUJATA SONE ACETATE & PHOSPHATE 3 MG INJ J0702 ARNOLD ARNOLD BETAMETHA 2 SUJATA SUJATA SONE ACETATE & PHOSPHATE 3 MG INJ J0702 ARNOLD ARNOLD BETAMETHA 2 SUJATA SUJATA SONE ACETATE & PHOSPHATE 3 MG ADMN SET A7003 YOUR YOUR SM VOL 1 PHARMACY PHARMACY [facility] PNEUMAT NEBULIZR DISPBL INJ J0702 ARNOLD ARNOLD BETAMETHA 1 SUJATA SUJATA SONE ACETATE & PHOSPHATE 3 MG INJ J0702 ARNOLD ARNOLD BETAMETHA 1 SUJATA SUJATA SONE ACETATE & PHOSPHATE 3 MG INJECTION J0696 ARNOLD ARNOLD 1 SUJATA SUJATA CEFTRIAXO NE SODIUM PER 250 MG APPL 73501 PAULIE APODACA MODALITY 1 [facility] 1/> AREAS INC INC ELEC STIMJ UNATTENDE D APPLICATI 73539 PAULIE APODACA ON 1 [facility] MODALITY INC INC 1/> AREAS HOT/COLD PACKS APPL 32699 PAULIE APODACA MODALITY 1 [facility] 1/> AREAS INC INC ULTRASOUN D EA 15 MIN THERAPEUT 32489 PAULIE APODACA IC PX 1/> 1 [facility] AREAS INC INC EACH 15 MIN EXERCISES DEMO&/JAYDEN 65081 JACK JACK L OF PT 1 OADLIS JACOBO UTILIZ AERSL GEN/NEB/I NHLR/IP LEVALBUTE J7614 JACK JACK ROL INHAL 1 ODALIS JACOBO NON-CP THRU DME U DOSE 0.5 MG PERCUTANE 83497 JACK JACK OUS TESTS 1 ODALIS JACOBO W/ALLERGE AARON EXTRACTS BRNCDILAT 67775 JACK JACK RSPSE 1 ODALIS JACOBO SPMTRY PRE&POST- BRNCDILAT ADMN APPL 71111 PAULIE APODACA MODALITY 1 [facility] 1/> AREAS INC INC ELEC STIMJ UNATTENDE D APPL 23031 PAULIE APODACA MODALITY 1 [facility] 1/> AREAS INC INC ULTRASOUN D EA 15 MIN APPLICATI 03264 PAULIE APODACA ON 1 [facility] MODALITY INC INC 1/> AREAS HOT/COLD PACKS THERAPEUT 93129 PAULIE APODACA IC PX /> 1 [facility] AREAS INC INC EACH 15 MIN EXERCISES APPLICATI 02390 PAULIE APODACA ON 1 [facility] MODALITY INC INC 1/> AREAS HOT/COLD PACKS APPL 91394 PAULIE APODACA MODALITY 1 [facility] 1/> AREAS INC INC ULTRASOUN D EA 15 MIN MANUAL 89688 PAULIE APODACA THERAPY 1 [facility] TQS /> INC INC REGIONS EACH 15 MINUTES APPL 00092 PAULIE APODACA MODALITY 1 [facility] 1/> AREAS INC INC ELEC STIMJ UNATTENDE D APPL 40954 PAULIE APODACA MODALITY 1 [facility] 1/> AREAS INC INC ELEC STIMJ UNATTENDE D APPL 86555 PAULIE APODACA MODALITY 1 [facility] 1/> AREAS INC INC ULTRASOUN D EA 15 MIN APPLICATI 09882 PAULIE APODACA ON 1 [facility] MODALITY INC INC 1/> AREAS HOT/COLD PACKS THERAPEUT 41925 PAULIE APODACA IC PX 1/> 1 [facility] AREAS INC INC EACH 15 MIN EXERCISES THERAPEUT 89324 PAULIE APODACA IC PX 1/> 1 [facility] AREAS INC INC EACH 15 MIN EXERCISES PHYSICAL 37285 PAULIE APODACA THERAPY 1 [facility] EVALUATIO INC INC N APPL 69509 PAULIE APODACA MODALITY 1 [facility] 1/> AREAS INC INC ULTRASOUN D EA 15 MIN APPLICATI 01258 PAULIE APODACA ON 1 [facility] MODALITY INC INC 1/> AREAS HOT/COLD PACKS APPL 69494 PAULIE APDOACA MODALITY 1 [facility] 1/> AREAS INC INC ELEC STIMJ UNATTENDE D APPL 84599 PAULIE APODACA MODALITY 1 [facility] 1/> AREAS INC INC ELE[place] STIM[place] 15 [place] [address] PAULIE APODACA THYROID 1 [facility] STIMULATI INC INC NG HORMONE TSH CALCIUM 93130 PAULIE APODACA IONIZED 1 [place] [address] PAULIE APODACA THYROXINE 1 [facility] TOTAL INC INC POLYSOM 02048 SHILPI DOBBINS 6/>YRS 1 OG OG SLEEP 4/> ADDL ELIER ATTND POLYSOM 19357 PAULIE APODACA 6/>YRS 1 [facility] SLEEP 4/> [place] [address] PAULIE APODACA AMYLASE 1 [place] [address] PAULIE APODACA LIPASE 1 [facility] INC INC BLOOD 06695 PAULIE APODACA COUNT 1 [facility] COMPLETE INC INC AUTO&AUTO DIFRNTL WBC COMPREHEN 63937 PAULIE APODACA SIVE 1 [facility] METABOLIC INC INC PANEL OPHTH 74021 [facility] 1 GRE GRE XM&EVAL COMPRE NEW PT 1/> VST DETERMINA 76887 ALMA MARQUEZ TION 1 GRE GRE REFRACTIV E STATE COMPREHEN 02184 COMBINED COMBINED SIVE 1 PHYSICIAN PHYSICIAN METABOLIC S LA S LA PANEL LIPID 40053 COMBINED COMBINED PANEL 1 PHYSICIAN PHYSICIAN Austyn LA S LA CV STRS 48860 [facility] FALLUJI TST 1 PHYSICIAN DORIAN XERS&/OR S GROUP RX CONT ECG W/O I&R CV STRS 52823 PAULIE APODACA TST 1 [facility] XERS&/OR INC INC RX CONT ECG TRCG ONLY MYOCARDIA 57087 PAULIE APODACA L SPECT 1 [facility] [place] [address] PAULIE APODACA THYROID 1 [facility] STIMULATI INC INC NG HORMONE TSH 3D 83804 PAULIE APODACA RENDERING 1 [facility] W/INTERP INC INC & POSTPROCE SS SUPERVISI ON MRI 35373 PAULIE APODACA SPINAL 1 [facility] CANAL INC INC LUMBAR W/O CONTRAST MATERIAL BLOOD 24212 PAULIE APODACA COUNT 1 [facility] COMPLETE INC INC AUTO&AUTO DIFRNTL WBC C-REACTIV 06695 PAULIE APODACA E PROTEIN 1 [facility] INC INC RHEUMATOI 30770 PAULIE APODACA D FACTOR 1 [facility] QUANTITAT INC INC ANTHONY PROTEIN 65352 PAULIE APODACA ELECTROPH 1 [facility] ORETIC INC INC FRACTJ&[place] [address] PAULIE APODACA THIAMINE- 1 [facility] VITAMIN INC INC B-1 CYANOCOBA 86492 PAULIE APODACA ASHLEE 1 [facility] VITAMIN INC INC B-12 [place] [address] PAULIE APODACA THYROXINE 1 [facility] [place] [address] PAULIE APODACA FOLIC 1 [facility] ACID INC INC SERUM HEMOGLOBI 62070 PA[facility] N 1 [facility] GLYCOSYLA INC INC BIBI A1C MRI 89780 CY[place] JOAO SPINAL 1 [facility] CANAL IMAGING CERVICAL ASS W/O CONTRAST MATRL 3D 51967 CYNTHIA JOAO RENDERING 1 [facility] W/INTERP IMAGING & ASS POSTPROCE SS SUPERVISI ON XTRNL ECG 89365 PAULIE APODACA & 48 HR 1 [facility] RECORDING INC INC NRV CNDJ 20950 ANTONIETA FUNG AMPLITUDE 1 MARICEL MARICEL & LATENCY EACH NERVE SENSORY NDL EMG 4 56989 ANTONIETA FUNG XTR W/WO 1 MARICEL MARICEL RELATED PARASPINA L AREAS NRV CNDJ 92236 ANTONIETA FUNG AMPLT&LAT 1 MARICEL MARICEL ENCY EA NRV MOTOR W/F-WAVE STD THYROID 46633 PAULIE APODACA HORM [address] [facility] UPTK/THYR INC [place] [address] PAULIE APODACA THYROID [address] [facility] STIMULATI INC INC NG HORMONE TSH ECG 76831 PAULIE MCKEMIE ROUTINE 1 [facility] W/LEAST P 12 LDS I&R ONLY RADEX 12717 [place] JOAO SPINE 1 [facility] LUMBOSACR IMAGING AL ASS MINIMUM 4 VIEWS ECG 76289 PAULIE APODACA ROUTINE [address] [facility] ECG INC INC W/LEAST 12 LDS TRCG ONLY W/O I&R RADEX HIP 43327 [place] JOAO 1 [facility] UNILATERA IMAGING L ASS COMPLETE MINIMUM 2 VIEWS RADIOLOGI 50955 [facility] C EXAM 1 [facility] CHEST 2 IMAGING VIEWS ASS FRONTAL&L ATERAL BASIC 13203 PAULIE APODACA METABOLIC [address] [facility] [place] [address] PAULIE APODACA THYROXINE [address] [facility] TOTAL INC INC HEPATIC 03614 PAULIE APODACA FUNCTION 1 [facility] PANEL INC INC BLOOD 33077 PAULIE APODACA COUNT [address] [facility] COMPLETE INC INC AUTO&AUTO DIFRNTL WBC LIPID 46819 PAULIE APODACA PANEL 1 [facility] INC INC CUL BACT 31439 PAULIE APODACA XCPT [address] [facility] URINE INC INC BLOOD/STO OL AEROBIC ISOL OTH 8604 PAULIE APODACA INCISION 1 [facility] W/DRAINAG INC INC E SKIN&SUBC UTANEOUS TISSUE INCISION 52701 ALMA TITUS & 1 EMERGENCY LIOR DRAINAGE SERVICES ABSCESS COMPLICAT ED/MULTIP LE [facility] AIDED 1 [facility] DETECTION IMAGING ASS SCREENING MAMMOGRAP HY US BONE 37112 [facility] DENSITY 1 PHYSICIAN ASHTYN LUCAS & GROUP INTERP PCC PERIPH ANY METHO SCREENING G0202 [place] JOAO 1 [facility] MAMMOGRAP IMAGING HY RUSS ASS INCL CAD WHEN PERFORMD IADNA NOS 45382 BIO BIO 1 REFERNCE REFERNCE AMPLIFIED LABORATOR LABORATOR PROBE TQ IES IES EACH ORGANISM IADNA 31772 BIO BIO NEISSERIA 1 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 GONORRHOE IES IES AE AMPLIFIED PROBE TQ CYTP C/V 06078 BIO BIO AUTO THIN 1 REFERNCE REFERNCE LYR LABORATOR LABORATOR PREPJ SCR IES IES MNL RESCR PHYS IADNA 16947 BIO BIO CHLAMYDIA 1 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 TRACHOMAT IES IES IS AMPLIFIED PROBE TQ SPMTRY 82702 [place] JO[place] W/VC 1 MEDICAL JAM EXPIRATOR SERV Y GARRETT FOUNDATIO W/WO MXML VOL VNTJ INJECTION J0696 SABINO GALLO 1 SUJATA SUJATA CEFTRIAXO NE SODIUM PER 250 MG INJECTION J0696 SABINO GALLO 1 SUJATA SUJATA CEFTRIAXO NE SODIUM PER 250 MG OPHTH 51700 NAS SCIFRES MEDICAL 0 VISION ANG XM&EVAL COMPRHNSV ESTAB PT 1/> INJECTION J0696 SABINO GALLO 0 SUJATA SUJATA CEFTRIAXO NE SODIUM PER 250 MG DETER 32401 [place] JOE MALDISTRI 0 MEDICAL JAM BJ OF SERV INSPIRED FOUNDATIO GAS N WSHOT CURVE DETER 15386 PAULIE APODACA AIRWY 0 [facility] CLOSING INC INC VOL 1 BRTH TSTS FUNCTIONA 07480 PAULIE [facility]ACA L 0 [facility] RESIDUAL INC INC CAPACITY OR RESIDUAL VOLUME BRNCDILAT 14754 GAGE DIAZ RSPSE 0 MEDICAL JAM SPMTRY SERV PRE&POST- [place] [address] PAULIE APODACA THYROID 0 [facility] STIMULATI INC INC NG HORMONE TSH BLOOD 52156 PAULIE [facility]ACA COUNT 0 [facility] [facility] COMPLETE INC INC AUTO&AUTO DIFRNTL WBC BASIC 14078 PAULIE APODACA METABOLIC 0 [facility] PANEL INC INC CALCIUM TOTAL RADIOLOGI 94321 [facility] C EXAM 0 MEDICAL MERRITT CHEST 2 IMAGING VIEWS ASS FRONTAL&L ATERAL RADEX 78814 [facility] SHE[facility] RIBS UNI 0 MEDICAL MERRITT W/POSTERO IMAGING ANT CH ASS MINIMUM 3 VIEWS ORTHOPEDI L3216 THE THE C 0 HEALTHY HEALTHY FOOTWEAR FOOT FOOT LADIES [facility] SHOE DEPTH INLAY EACH FT INSRT L3010 THE THE REMV MOLD 0 HEALTHY HEALTHY PT MDL FOOT FOOT LNGTUDNL [facility] ARCH SUPP EA RADEX 68772 [facility] JO[facility], SHOULDER 0 MEDICAL JESSICA COMPLETE IMAGING MINIMUM 2 ASSOCIATE VIEWS S RADEX 95500 [facility] JO[facility], FOOT 0 MEDICAL JESSICA COMPLETE IMAGING MINIMUM 3 ASSOCIATE VIEWS S BLOOD 90620 COMBINED COMBINED COUNT 0 PHYSICIAN PHYSICIAN COMPLETE S LAB S LAB AUTO&AUTO DIFRNTL WBC RHEUMATOI 10222 COMBINED COMBINED D FACTOR 0 PHYSICIAN PHYSICIAN QUALITATI S LAB S LAB VE ANTINUCLE 58819 LAB HANG LAB HANG AR 0 [employer] S FAWAD SEDIMENTA 85308 COMBINED COMBINED TION RATE 0 PHYSICIAN PHYSICIAN RBC S LAB S LAB NON-AUTOM ATED C-REACTIV 69697 [facility] HANG E PROTEIN 0 [employer] RADEX 19111 [facility] JO[facility], HAND 2 0 MEDICAL JESSICA VIEWS IMAGING ASSOCIATE S COMPUTER- 57361 [facility] JO[facility], AIDED 0 MEDICAL JESSICA DETECTION IMAGING ASSOCIATE SCREENING S MAMMOGRAP HY SCREENING 69845 [place] JOAO, 0 MEDICAL JESSICA MAMMOGRAP IMAGING HY ASSOCIATE BILATERAL S US BONE 30591 [facility] HARPEL DENSITY 0 PHYSICIAN ASHTYN LUCAS & GROUP INTERP [facility] PERIPH ANY METHO APPL 80419 MARLY HOLLIS, MODALITY 0 FAMILY ARNOLD H 1/> AREAS CHIROPRAC ELEC TIC STIMJ UNATTENDE D APPL 88033 MARLY HOLLIS, MODALITY 0 FAMILY ARNOLD H 1/> AREAS CHIROPRAC TRACTION TIC MECHANICA L CHIROPRAC 06420 MARLY HOLLIS, TIC 0 FAMILY ARNOLD H MANIPULAT CHIROPRAC ANTHONY TX TIC SPINAL 3-4 REGIONS THERAPEUT 72038 MARLY HOLLIS, IC PX 1/> 0 FAMILY ARNOLD H AREAS CHIROPRAC EACH 15 TIC MIN EXERCISES STRAPPING 37218 MARLY HOLLIS, THORAX 0 FAMILY ARNOLD H CHIROPRAC TIC THERAPEUT 89412 MARLY HOLLIS, IC PX 1/> 0 FAMILY ARNOLD H AREAS CHIROPRAC EACH 15 TIC MIN EXERCISES CHIROPRAC 55622 MARLY HOLLIS, TIC 0 FAMILY ARNOLD H MANIPULAT CHIROPRAC ANTHONY TX TIC SPINAL 3-4 REGIONS APPL 57167 MARLY HOLLIS, MODALITY 0 FAMILY ARNOLD H 1/> AREAS CHIROPRAC ELEC TIC STIMJ UNATTENDE D APPL 69922 MARLY HOLLIS, MODALITY 0 FAMILY ARNOLD H 1/> AREAS CHIROPRAC TRACTION TIC MECHANICA L APPL 68893 MARLY HOLLIS, MODALITY 0 FAMILY ARNOLD H 1/> AREAS CHIROPRAC TRACTION TIC MECHANICA L CHIROPRAC 40457 MARLY HOLLIS, TIC 0 FAMILY ARNOLD H MANIPULAT CHIROPRAC ANTHONY TX TIC SPINAL 3-4 REGIONS APPL 18912 MARLY HOLLIS, MODALITY 0 FAMILY ARNOLD H 1/> AREAS CHIROPRAC ELEC TIC STIMJ UNATTENDE D THERAPEUT 41342 MARLY HOLLIS, IC PX 1/> 0 FAMILY ARNOLD H AREAS CHIROPRAC EACH 15 TIC MIN EXERCISES STRAPPING 91806 MARLY HOLLIS, THORAX 0 FAMILY ARNOLD H CHIROPRAC TIC CV STRS 29016 [facility] APODACA TST 0 [facility] XERS&/OR INC INC RX CONT ECG TRCG ONLY CV STRS 32193 PAULIE GUTIERREZ TST 0 [facility]&/OR [facility] RX CONT PROF SERV ECG W/O I&R CV STRS 03230 PAULIE GUTIERREZ TST 0 [facility]&/OR [facility] RX CONT PROF SERV ECG I&R ONLY CYTP C/V 49599 [facility] AUTO THIN 0 [facility] LYR PREPJ SCR SYS PHYS IADNA 87432 [facility] [place] 0 [facility] GONORRHOE AE AMPLIFIED PROBE TQ IADNA 42989 [facility] [place] 0 [facility] TRACHOMAT IS AMPLIFIED PROBE TQ THERAPEUT 97620 MARLY HOLLIS, IC PX 1/> 0 FAMILY ANNABEL R AREAS CHIROPRAC EACH 15 TIC MIN EXERCISES CHIROPRAC 24243 MARLY HOLLIS TIC 0 FAMILY ANNABEL R MANIPULAT CHIROPRAC ANTHONY TX TIC SPINAL 3-4 REGIONS MANUAL 23507 MARLY HOLLIS, THERAPY 0 FAMILY ANNABEL R TQS 1/> CHIROPRAC REGIONS TIC EACH 15 MINUTES APPL 44915 MARLY HOLLIS MODALITY 0 FAMILY ANNABEL R 1/> AREAS CHIROPRAC TRACTION TIC MECHANICA L APPL 19764 MARLY HOLLIS, MODALITY 0 FAMILY ANNABEL R 1/> AREAS CHIROPRAC ELEC TIC STIMJ UNATTENDE D APPL 43570 MARLY HOLLIS MODALITY 0 FAMILY ANNABEL R 1/> AREAS CHIROPRAC ELEC TIC STIMJ UNATTENDE D APPL 80824 MARLY HOLLIS, MODALITY 0 FAMILY ANNABEL R 1/> AREAS CHIROPRAC TRACTION TIC MECHANICA L CHIROPRAC 73898 KARLI CÁRDENAS 0 FAMILY ANNABEL R MANIPULAT CHIROPRAC ANTHONY TX TIC SPINAL 3-4 REGIONS SELF-CARE 52484 MARLY HOLLIS, /HOME 0 FAMILY ANNABEL R MGMT CHIROPRAC TRAINING TIC EACH 15 MINUTES THERAPEUT 41911 MARLY HOLLIS, IC PX 1/> 0 FAMILY ANNABEL R AREAS CHIROPRAC EACH 15 TIC MIN EXERCISES STRAPPING 10564 MARLY HOLLIS, THORAX 0 FAMILY ANNABEL R CHIROPRAC TIC STRAPPING 04019 MARLY HOLLIS, THORAX 0 FAMILY ANNABEL R CHIROPRAC TIC THERAPEUT 26920 MARLY HOLLIS, IC PX 1/> 0 FAMILY ANNABEL R AREAS CHIROPRAC EACH 15 TIC MIN EXERCISES SELF-CARE 36290 MARLY HOLLIS, /HOME 0 FAMILY ANNABEL R MGMT CHIROPRAC TRAINING TIC EACH 15 MINUTES CHIROPRAC 13303 MARLY HOLILS, TIC 0 FAMILY ANNABEL R MANIPULAT CHIROPRAC ANTHONY TX TIC SPINAL 3-4 REGIONS APPL 44680 MARLY HOLLIS, MODALITY 0 FAMILY ANNABEL R 1/> AREAS CHIROPRAC TRACTION TIC MECHANICA L APPL 98351 MARLY HOLLIS, MODALITY 0 FAMILY ANNABEL R 1/> AREAS CHIROPRAC ELEC TIC STIMJ UNATTENDE D APPL 81123 MARLY HOLLIS, MODALITY 0 FAMILY ANNABEL R 1/> AREAS CHIROPRAC ELEC TIC STIMJ UNATTENDE D APPL 19945 MARLY HOLLIS, MODALITY 0 FAMILY ANNABEL R 1/> AREAS CHIROPRAC TRACTION TIC MECHANICA L CHIROPRAC 92057 MARLY HOLLIS, TIC 0 FAMILY ANNABEL R MANIPULAT CHIROPRAC ANTHONY TX TIC SPINAL 3-4 REGIONS THERAPEUT 24456 MARLY HOLILS, IC PX 1/> 0 FAMILY ANNABEL R AREAS CHIROPRAC EACH 15 TIC MIN EXERCISES THERAPEUT 56399 MARLY HOLLIS, IC PX 1/> 0 FAMILY ANNABEL R AREAS CHIROPRAC EACH 15 TIC MIN EXERCISES CHIROPRAC 69623 MARLY HOLLIS, TIC 0 FAMILY ANNABEL R MANIPULAT CHIROPRAC ANTHONY TX TIC SPINAL 3-4 REGIONS APPL 91695 MARLY HOLLIS, MODALITY 0 FAMILY ANNABEL R 1/> AREAS CHIROPRAC TRACTION TIC MECHANICA L APPL 26851 MARLY HOLLIS, MODALITY 0 FAMILY ANNABEL R 1/> AREAS CHIROPRAC ELEC TIC STIMJ UNATTENDE D RADEX 27583 PAULIE APODACA SPINE 9 [facility] CERVICAL INC INC 6 OR MORE VIEWS RADEX 31355 [place] JOAO, SPINE 9 MEDICAL JESSICA LUMBOSACR IMAGING AL ASSOCIATE MINIMUM 4 S VIEWS GLUCOSE 52871 COMBINED COMBINED QUANTITAT 9 PHYSICIAN PHYSICIAN ANTHONY BLOOD S LAB S LAB XCPT REAGENT STRIP HEMOGLOBI 37331 COMBINED COMBINED N 9 PHYSICIAN PHYSICIAN GLYCOSYLA S LAB S LAB BIBI A1C CT SOFT 50664 [facility] CAR[facility]OS, TISSUE 9 MEDICAL GRAHAM P NECK IMAGING W/CONTRAS ASSOCIATE T S MATERIAL 3D 11432 [place] CARLOS, RENDERING 9 MEDICAL GRA[place] P W/INTERP IMAGING & ASSOCIATE POSTPROCE S SS SUPERVISI ON 3D 70266 PAULIE PAULIE RENDERING 9 [facility] INC INC W/INTERP& [place] [address] LAB HANG LAB HANG FREE 9 [employer] [place] [address] COMBINED COMBINED THYROID 9 PHYSICIAN PHYSICIAN STIMULATI S [place] [address] COMBINED COMBINED THYROXINE 9 PHYSICIAN PHYSICIAN TOTAL S LAB S LAB CREATININ 68121 COMBINED COMBINED E BLOOD 9 PHYSICIAN PHYSICIAN S LAB S LAB MICROSOMA 92117 LAB [facility] LAB HANG L 9 [employer] [place] [address] COMBINED COMBINED UREA 9 PHYSICIAN PHYSICIAN NITROGEN S LAB S LAB QUANTITAT ANTHONY THYROGLOB 11010 LAB HANG LAB HANG ULIN 9 [employer] ADMN SET A7005 YOUR YOUR W/SM VOL [address] [facility] NEBULIZR NON-DISPB L COMPREHEN 09000 COMBINED COMBINED SIVE 9 PHYSICIAN PHYSICIAN METABOLIC S LAB S LAB PANEL LIPID 04354 COMBINED COMBINED PANEL 9 PHYSICIAN PHYSICIAN S LAB S LAB BLOOD 19077 COMBINED COMBINED COUNT 9 PHYSICIAN PHYSICIAN COMPLETE S LAB S LAB AUTO&AUTO DIFRNTL WBC BLOOD 19623 KRAIG HOLLINGSWORTH, COUNT 9 EDEL Van HEMOGLOBI N COLLECTIO 12542 KRAIG HOLLINGSWORTH, N 9 EDEL Van CAPILLARY BLOOD SPECIMEN IADNA 45971 [facility] [place], [place] 9 [place] INC AJ D GONORRHOE AE AMPLIFIED PROBE TQ CYTP 68341 [employer] [place], CERV/VAG 9 [place] INC AJ D AUTO THIN LAYER PREP MNL SCREEN IADNA 39791 [employer] [place], [place] 9 [place] INC AJ D TRACHOMAT IS AMPLIFIED PROBE TQ BLOOD 18873 KRAIG GODINEZL, OCCULT 9 HALPEL MD KRAIG Van PEROXIDAS E ACTV QUAL FECES 1-3 SPEC SCREENING 36724 [place] Danish GONZALEZ MEDICAL GRAHAM P MAMMOGRAP IMAGING HY ASSOCIATE BILATERAL S COMPUTER- 48194 PAULIE APODACA AIDED 9 [facility] DETECTION INC INC SCREENING MAMMOGRAP HY OPHTH 47024 [facility] 9 VISION VITALY M XM&EVAL COMPRHNSV ESTAB PT 1/> [place] [address] COMBINED COMBINED THYROID 8 PHYSICIAN PHYSICIAN STIMULATI S [place] [address] COMBINED COMBINED THYROXINE 8 PHYSICIAN PHYSICIAN TOTAL S LAB S LAB URNLS DIP 93982 PAULIE APODACA 8 [facility] STICK/TAB INC INC LET REAGENT AUTO MICROSCOP Y NEBULIZER E0570 DIAZ PERALES WITH 8 HOME MED HOME MED COMPRESSO EQUIP. EQUIP. R [employer] NON-INVAS 89832 [place] ANTHONY SHEPHERD 8 MEDICAL JESSICA PHYSIOLOG IMAGING IC STUDY ASSOCIATE EXTREMITY S 3 LEVLS ADMN SET A7005 YOUR YOUR W/SM VOL 8 PHARMACY PHARMACY NONFILTR [employer] NEBULIZR NON-DISPB L ADMN SET A7003 YOUR YOUR SM VOL 8 PHARMACY PHARMACY [employer] PNEUMAT NEBULIZR DISPBL ANES 23293 LISA ORTEGA 8 TI E MUSCLE ANESTHESI TDN A PSC FASCIA&BU [employer] FOREARM WRIST NEUROPLAS 14875 [place] ORTHO MITCHELL, TY 8 AND HAND AMANDA A &/TRANSPO SURGEONS S MEDIAN PSC NRV CARPAL TUNNE ECG 93657 PAULIE APODACA ROUTINE 8 [facility] ECG INC INC W/LEAST 12 LDS TRCG ONLY W/O I&R ECG 43469 PAULIE ANGIEMIE ROUTINE [address] [facility] KATHERINE W/LEAST PROF SERV 12 LDS I&R ONLY POTASSIUM 02427 PAULIE APODACA SERUM 8 [facility] PLASMA/WH INC INC OLE BLOOD ADMN SET A7005 YOUR YOUR W/SM VOL 8 PHARMACY PHARMACY [employer] NEBULIZR NON-DISPB L US BREAST 01945 PAULIE APODACA REAL 8 [facility] TIME INC INC W/IMAGE DOCUMENTA TION NDL EMG 1 32905 ANTONIETA FUNG, XTR W/WO 8 VICKIE JOHNSTON RELATED PARASPINA L AREAS NRV CNDJ 67089 ANTONIETA FUNG, AMPLITUDE 8 VICKIE JOHNSTON & LATENCY EACH NERVE SENSORY NRV CNDJ 59037 ANTONIETA FUNG, AMPLT&LAT 8 VICKIE JOHNSTON ENCY EA NRV MOTOR W/F-WAVE STD APPL 11602 PAULIE APODACA MODALITY 8 [facility] 1/> AREAS INC INC ELEC STIMJ UNATTENDE D APPL 45046 PAULIE APODACA MODALITY 8 [facility] 1/> AREAS INC INC IONTOPHOR ESIS EA 15 MIN APPL 29645 PAULIE APODACA MODALITY 8 [facility] 1/> AREAS INC INC IONTOPHOR ESIS EA 15 MIN APPL 79315 PAULIE APODACA MODALITY 8 [facility] 1/> AREAS INC INC ELEC STIMJ UNATTENDE D APPL 77369 PAULIE APODACA MODALITY 8 [facility] 1/> AREAS INC INC ELEC STIMJ UNATTENDE D MANUAL 52567 PAULIE APODACA THERAPY 8 [facility] TQS 1/> INC INC REGIONS EACH 15 MINUTES BLOOD 69224 KRAIG HOLLINGSWORTH, COUNT 8 EDEL Van HEMOGLOBI N BLOOD 46626 KRAIG HOLLINGSWORTH, OCCULT 8 EDEL Van PEROXIDAS E ACTV QUAL FECES 1-3 SPEC IADNA 05942 [employer] [place], [place] 8 [place] INC KENDELL E GONORRHOE AE AMPLIFIED PROBE TQ IADNA 18756 [employer] [facility], [place] 8 [place] INC KENDELL E TRACHOMAT IS AMPLIFIED PROBE TQ CYTP 52886 [employer] [facility], CERV/VAG 8 [place] INC KENDELL E AUTO THIN LAYER PREP MNL SCREEN APPL 61726 PAULIE APODACA MODALITY 8 [facility] 1/> AREAS INC INC ELEC STIMJ UNATTENDE D APPL 84274 PAULIE APODACA MODALITY 8 [facility] 1/> AREAS INC INC IONTOPHOR ESIS EA 15 MIN FUNDUS 42991 JASPREET VOGEL, PHOTOGRAP 8 CHAPARRO A CHAPARRO A HY W/INTERPR ETATION & REPORT OPHTH 23411 JASPREET VOGEL, MEDICAL 8 CHAPARRO A CHAPARRO A XM&EVAL COMPRHNSV ESTAB PT 1/> SCREENING 84961 [place] Margarita SHEPHERD MEDICAL JESSICA MAMMOGRAP IMAGING HY ASSOCIATE BILATERAL S COMPUTER- 20681 [place] JOAO AIDED 8 MEDICAL JESSICA DETECTION IMAGING ASSOCIATE SCREENING S MAMMOGRAP HY US BONE 48653 KRAIG HOLLINGSWORTH, DENSITY 8 EDEL Van LUCAS & INTERP PERIPH ANY METHO APPL 22863 PAULIE APODACA MODALITY 8 [facility] 1/> AREAS INC INC ELEC STIMJ UNATTENDE D MANUAL 53816 PAULIE APODACA THERAPY 8 [facility] TQS /> INC INC REGIONS EACH 15 MINUTES APPL 13345 PAULIE PAULIE MODALITY 8 [facility] 1/> AREAS INC INC IONTOPHOR ESIS EA 15 MIN APPL 56458 PAULIE APODACA MODALITY 8 [facility] 1/> AREAS INC INC IONTOPHOR ESIS EA 15 MIN MANUAL 96602 PAULIE APODACA THERAPY 8 [facility] TQS 1/> INC INC REGIONS EACH 15 MINUTES APPL 94419 PAULIE APODACA MODALITY 8 [facility] 1/> AREAS INC INC ELEC STIMJ UNATTENDE D Encounters Encounter Start End Date Code Location Performer Type Date OFFICE 93046 [facility] OUTPATIEN 7 7 T VISIT 10 MINUTES OFFICE 30899 [facility] LEENA OUTPATIEN 7 7 PHYSICIAN T VISIT S GROUP 25 MINUTES [facility] - 7 7 [facility] OUTPATIEN INC T OFFICE 74519 [facility] SCIFRES OUTPATIEN 7 7 T VISIT 10 MINUTES HOSPITAL [facility]IE - 7 7 [facility] OUTPATIEN INC T OFFICE 29812 VOGEL VOGEL OUTPATIEN 7 7 T VISIT 10 MINUTES OFFICE 91711 GAGE LIRA CONSULTAT 7 7 MEDICAL ION SERV NEW/ESTAB FOUNDATIO PATIENT N 40 MIN OFFICE 14265 SABINO COLEYASIF OUTPATIEN 7 7 T VISIT 15 MINUTES HOSPITAL [facility] - 7 7 [facility] OUTPATIEN INC T PERIODIC 27716 [facility] HARPEL PREVENTIV 7 7 PHYSICIAN E MED EST S GROUP PATIENT 40-64YRS OFFICE 32113 [facility] ALBARADO OUTPATIEN 7 7 PHYSICIAN T VISIT S GROUP 15 MINUTES HOSPITAL PA[facility]IE - 6 6 [facility] OUTPATIEN INC T OFFICE 39643 [facility] LEENA OUTPATIEN 6 6 PHYSICIAN T VISIT S GROUP 25 MINUTES OFFICE 52581 SABINO SABINO OUTPATIEN 6 6 T VISIT 15 MINUTES OFFICE 20266 SABINO SABINO OUTPATIEN 6 6 SUJATA SUJATA T VISIT 15 MINUTES OFFICE 09478 [facility] OUTPATIEN 6 6 PHYSICIAN LESLY T VISIT S GROUP 10 MINUTES EMERGENCY 32249 PAULIE 6 6 [facility] DEPARTMEN INC T VISIT MODERATE SEVERITY EMERGENCY 90360 ELBERT CORONADO, 6 6 PHYSICIAN JR [facility] V[facility] HIGH/URGE NT SEVERITY [facility]OSPITAL PA[facility]IE - 6 6 [facility] OUTPATIEN INC T OFFICE 87964 [facility] LEENA OUTPATIEN 6 6 PHYSICIAN MAT T VISIT S GROUP 15 MINUTES HOSPITAL [facility] - 6 6 [facility] OUTPATIEN INC T OFFICE 08916 [facility] LEENA OUTPATIEN 6 6 PHYSICIAN MAT T VISIT S GROUP 40 MINUTES OFFICE 69401 VIANCAASIF SABINO OUTPATIEN 6 6 SUJATA SUJATA T VISIT 15 MINUTES OFFICE 71746 [facility] OUTPATIEN 6 6 PHYSICIAN LESLY T VISIT S GROUP 10 MINUTES OFFICE 62239 SABINO VIANCAASIF OUTPATIEN 6 6 SUJATA SUJATA T VISIT 15 MINUTES OFFICE 89958 [facility] 6 6 SUJATA SUJATA T VISIT 15 MINUTES OFFICE 76754 [facility] OUTPATIEN 6 6 PHYSICIAN LESLY T VISIT 5 S GROUP MINUTES OFFICE 77742 [facility] [place] OUTPATIEN 6 6 PHYSICIAN LESLY T VISIT S GROUP 10 MINUTES [facility]OSPITAL [facility] - 6 6 [facility] OUTPATIEN INC T OFFICE 88299 SABINO GALLO OUTPATIEN 6 6 SUJATA SUJATA T VISIT 15 MINUTES OFFICE 29027 [facility] 6 6 SUJATA SUJATA T VISIT 15 MINUTES EMERGENCY 60476 ELBERT COLLADO 6 6 PHYSICIAN DEPARTMEN S, PLLC T VISIT MODERATE SEVERITY OFFICE 21056 [facility] OUTPATIEN 6 6 PHYSICIAN LESLY T VISIT S GROUP 15 MINUTES OFFICE 36179 SABINO GALLO OUTPATIEN 6 6 SUJATA SUJATA T VISIT 15 MINUTES EMERGENCY 89236 ELBERT TITUS DEPT 6 6 PHYSICIAN LIOR VISIT S, PLLC HIGH SEVERITY& THREAT FUNCJ OFFICE 11362 [facility] OUTPATIEN 6 6 PHYSICIAN LESLY T VISIT S GROUP 10 MINUTES PERIODIC 54182 KRAIG HOLLINGSWORTH PREVENTIV 6 6 EDEL MCKENNA ASHTYN E MED EST PATIENT 40-64YRS OFFICE 15697 [facility] OUTPATIEN 6 6 PHYSICIAN LESLY T VISIT S GROUP 15 MINUTES OFFICE 32597 [facility] OUTPATIEN 6 6 PHYSICIAN LESLY T VISIT S GROUP 15 MINUTES OFFICE 43071 SABINO SABINO OUTPATIEN 6 6 SUJATA SUJATA T VISIT 15 MINUTES OFFICE 23982 SABINO SABINO OUTPATIEN 6 6 SUJATA SUJATA T VISIT 15 MINUTES OFFICE 44778 SABINO GALLO OUTPATIEN 6 6 SUJATA SUJATA T VISIT 15 MINUTES OFFICE 05232 VIANCAASIF SABINO OUTPATIEN 6 6 SUJATA SUJATA T VISIT 15 MINUTES OFFICE 17685 SABINO GALLO OUTPATIEN 5 5 SUJATA SUJATA T VISIT 15 MINUTES [facility] PAULIE - 5 5 [facility] OUTPATIEN INC T OFFICE 90662 [facility] SCHULSTAD OUTPATIEN 5 5 PHYSICIAN CAM T VISIT S GROUP 25 MINUTES OFFICE 64095 [facility] [place] OUTPATIEN 5 5 PHYSICIAN LESLY T VISIT S GROUP 10 MINUTES OFFICE 32156 SABINO GALLO OUTPATIEN 5 5 SUJATA SUJATA T VISIT 15 MINUTES OFFICE 91823 SABINO GALLO OUTPATIEN 5 5 SUJATA SUJATA T VISIT 15 MINUTES EMERGENCY 49595 ELBERT TITUS 5 5 PHYSICIAN LIOR DEPARTMEN S, PLLC T VISIT MODERATE SEVERITY OFFICE 22673 [facility] [place] OUTPATIEN 5 5 PHYSICIAN LESLY T VISIT S GROUP 15 MINUTES [facility]OSPITAL [facility] - 5 5 [facility] OUTPATIEN INC T OFFICE 75263 SABINO GALLO OUTVITOEN 5 5 SUJATA SUJATA T VISIT 15 MINUTES OFFICE 72476 [facility] OUTPATIEN 5 5 [place] T VISIT ORTHOPAED 15 [facility] MINUTES [facility]OSPITAL PA[facility] - 5 5 [facility] OUTPATIEN INC T OFFICE 16809 SABINO GALLO OUTPATIEN 5 5 SUJATA SUJATA T VISIT 15 MINUTES OFFICE 86084 SABINO GALLO OUTPATIEN 5 5 SUJATA SUJATA T VISIT 15 MINUTES OFFICE 43463 SABINO GALLO OUTPATIEN 5 5 SUJATA SUJATA T VISIT 15 MINUTES OFFICE 47719 SABINO GALLO OUTPATIEN 5 5 SUJATA SUJATA T VISIT 15 MINUTES OFFICE 45275 SABINO GALLO OUTPATIEN 5 5 SUJATA SUJATA T VISIT 15 MINUTES OFFICE 26830 [facility] FALLUJI OUTPATIEN 5 5 [facility] VISIT MEDICAL 15 G MINUTES [facility]OSPITAL [facility] - 5 5 [facility] OUTPATIEN INC T OFFICE 52158 [facility] FALLUJI OUTPATIEN 5 5 [facility] T VISIT MEDICAL 15 G MINUTES EMERGENCY 76613 ELBERT TITUS 5 5 PHYSICIAN LIOR DEPARTMEN S, PLLC T VISIT MODERATE SEVERITY EMERGENCY 06275 PA[facility]IE 5 5 [facility] DEPARTMEN INC T VISIT LOW/MODER SEVERITY [facility]OSP[facility] - 5 5 [facility] OUTPATIEN INC T OFFICE 66493 [facility] OUTPATIEN 5 5 PHYSICIAN LESLY T VISIT S GROUP 15 MINUTES OFFICE 73886 [facility] OUTPATIEN 5 5 PHYSICIAN LESLY T VISIT S GROUP 15 MINUTES OFFICE 07618 SABINO GALLO OUTPATIEN 5 5 SUJATA SUJATA T VISIT 15 MINUTES OFFICE 17802 [facility] OUTPATIEN 5 5 [facility] T VISIT MEDICAL 15 G MINUTES HOSPITAL PA[facility] - 5 5 [facility] OUTPATIEN INC T OFFICE 17018 VERENA REINOSOON OUTPATIEN 5 5 LESLY LESLY T VISIT 15 MINUTES PERIODIC 14429 KRAIG HOLLINGSWORTH PREVENTIV 5 5 EDEL MCKENNA ASHTYN E MED EST PATIENT 40-64YRS [facility] PAULIE - 5 5 [facility] OUTPATIEN INC T EMERGENCY 91147 PAULIE 5 5 [facility] DEPARTMEN INC T VISIT LOW/MODER SEVERITY EMERGENCY 22500 [facility] 5 5 [facility] DEPARTMEN INC T VISIT LOW/MODER SEVERITY [facility]PITAL [facility] - 5 5 [facility] OUTPATIEN INC T OFFICE 09335 SABINO GRAFFPATIEN 5 5 SUJATA SUJATA T VISIT 15 MINUTES OFFICE 85155 SABINO GRAFFPATIEN 5 5 SUJATA SUJATA T VISIT 15 MINUTES OFFICE 80720 SABINO BELLA 4 4 SUJATA SUJATA T VISIT 15 MINUTES OFFICE 76440 SABINO BELLA 4 4 SUJATA SUJATA T VISIT 15 MINUTES OFFICE 31988 [facility] SCHULSTAD CONSULTAT 4 4 PHYSICIAN ERMA COLEMAN NEW/ESTAB PATIENT 40 MIN OFFICE 31268 SABINO BELLA 4 4 SUJATA SUJATA T VISIT 15 MINUTES [facility] - 4 4 [facility] OUTPATIEN INC T OFFICE 35207 SABINO BELLA 4 4 SUJATA SUJATA T VISIT 15 MINUTES [facility]OSP[facility] - 4 4 [facility] OUTPATIEN INC T OFFICE 77932 SABINO GRAFFPATIDOMENIC 4 4 SUJATA SUJATA T VISIT 15 MINUTES [facility] - 4 4 [facility] OUTPATIEN INC T OFFICE 10387 ANJUR-ZANE ANJUR-ZANE OUTPATIEN 4 4 ALI OMAR ALI OMAR T VISIT 15 MINUTES [facility] - 4 4 [facility] OUTPATIEN INC T EMERGENCY 73939 [facility] 4 4 [facility] DEPARTMEN INC T VISIT LIMITED/M INOR PROB [facility]OSP[facility] - 4 4 [facility] OUTPATIEN INC T EMERGENCY 43846 KEELEY WORRELL 4 4 DEPARTMEN T VISIT HIGH/URGE NT SEVERITY OFFICE 87997 SABINO BELLA 4 4 SUJATA SUJATA T VISIT 15 MINUTES OFFICE 20628 EDWARDS TRA EDWARDS TRA CONSULTAT 4 4 ION NEW/ESTAB PATIENT 60 MIN OFFICE 93018 SABINO BELLA 4 4 SUJATA SUJATA T VISIT 15 MINUTES OFFICE 65740 VERENA BELLA 4 4 LESLY LESLY T VISIT 15 MINUTES [facility] T OFFICE 60060 VERENA BELLA 4 4 LESLY LESLY T VISIT 25 MINUTES OFFICE 05698 SABINO MIRELESEN 4 4 SUJATA SUJATA T VISIT 15 MINUTES EMERGENCY 54193 [facility] DE[facility] T VISIT LOW/MODER SEVERITY [facility] T EMERGENCY 26777 ALEXANDRIA MAX ALEXANDRIA MAX 4 4 DEPARTMEN T VISIT MODERATE SEVERITY [facility] T OFFICE 61421 SABINO MIRELESEN 4 4 SUJATA SUJATA T VISIT 15 MINUTES [facility] T PERIODIC 08085 HARPEL HARPEL PREVENTIV 4 4 ASHTYN ASHTYN E MED EST PATIENT 40-64YRS OFFICE 45933 VERENA BELLA 4 4 LESLY LESLY T VISIT 15 MINUTES EMERGENCY 37133 [facility] DE[facility] T VISIT HIGH/URGE NT SEVERITY [facility] T OFFICE 02170 SABINO MIRELESEN 3 3 SUJATA SUJATA T VISIT 15 MINUTES OFFICE 15534 VERENA BELLA 3 3 LESLY LESLY T VISIT 15 MINUTES OFFICE 78766 SABINO GRAFFPATIEN 3 3 SUJATA SUJATA T VISIT 15 MINUTES OFFICE 47110 SABINO GRAFFPATIEN 3 3 SUJATA SUJATA T VISIT 15 MINUTES OFFICE 23482 SABINO BELLA 3 3 SUJATA SUJATA T VISIT 15 MINUTES OFFICE 71426 FRANSISCAUOSMAR FALLUJI OUTPATIEN 3 3 DORIAN DORIAN T VISIT 25 MINUTES OFFICE 24844 MITCHELL MEDRANO OUTPATIEN 3 3 MAT MAT T VISIT 10 MINUTES EMERGENCY 09885 [facility] DE[facility] T VISIT LOW/MODER SEVERITY EMERGENCY 72678 ALMA GALVAN 3 3 EMERGENCY MOH DEPARTMEN SERVICES T VISIT MODERATE SEVERITY [facility] T OFFICE 76294 SABINO BELLA 3 3 SUJATA SUJATA T VISIT 15 MINUTES EMERGENCY 48260 KEELEY WORRELL 3 3 DEPARTMEN T VISIT MODERATE SEVERITY [facility] T EMERGENCY 56510 [facility] DEPARTMEN INC T VISIT LIMITED/M INOR PROB OFFICE 11752 MITCHELL BELLA 3 3 MAT MAT T VISIT 25 MINUTES OFFICE 99181 SABINO BELLA 3 3 SUJATA SUJATA T VISIT 15 MINUTES [facility] T OFFICE 87413 SABINO BELLA 3 3 SUJATA SUJATA T VISIT 15 MINUTES [facility] T OFFICE 07259 VERENA BELLA 3 3 LESLY LESLY T VISIT 15 MINUTES OFFICE 01146 SABINO BELLA 3 3 SUJATA SUJATA T VISIT 15 MINUTES OFFICE 23788 SABINO BELLA 3 3 SUJATA SUJATA T VISIT 15 MINUTES OFFICE 72571 SABINO BELLA 3 3 SUJATA SUJATA T VISIT 15 MINUTES [facility] T OFFICE 64374 JCAK SANTIAGO OUTPATIDOMENIC 3 3 ODALIS ODALIS T VISIT 25 MINUTES PERIODIC 54893 HARPEL PREVENTIV 3 3 ASHTYN E MED EST PATIENT 40-64YRS OFFICE 34288 PETTEGiig PETTEY OUTPATIEN 3 3 SMITH MTZ T NEW 30 MINUTES OFFICE 29626 SABINO GALLO OUTPATIEN 2 2 SUJATA SUJATA T VISIT 15 MINUTES OFFICE 54978 SABINO GALLO OUTPATIEN 2 2 SUJATA SUJATA T VISIT 15 MINUTES [facility] T EMERGENCY 72883 ARIELA TITUS 2 2 LIOR LIOR DEPARTMEN T VISIT MODERATE SEVERITY EMERGENCY 34323 [facility] DE[facility] T VISIT LOW/MODER SEVERITY OFFICE 64539 VERENA ALBARADO OUTPATIEN 2 2 LESLY LESLY T VISIT 15 MINUTES OFFICE 40877 MAGALY ROBERTSON CONSULTAT 2 2 ION NEW/ESTAB PATIENT 60 MIN OFFICE 39352 SABINO SABINO OUTPATIEN 2 2 SUJATA SUJATA T VISIT 15 MINUTES OFFICE 52989 SABINO GALLO OUTPATIEN 2 2 SUJATA SUJATA T VISIT 15 MINUTES OFFICE 58510 [facility] OUT[facility] 2 2 DORIAN ALARCON T VISIT 25 MINUTES OFFICE 30768 JACK JACK OUTPATIEN 2 2 ODALIS JACOBO T VISIT 25 MINUTES [facility] T OFFICE 49349 [place] OUTPATIEN 2 2 JUANCARLOS JUANCARLOS T NEW [address]ES [address] [facility] 2 2 YANY ALARCON ION CARDIOLOG NEW/ESTAB Y CLINIC PATIENT 60 MIN OFFICE 13794 HARPEL HARPEL OUTPATIEN 2 2 ASHTYN ASHTYN T VISIT 15 MINUTES OFFICE 12644 [facility] OUTPATIEN 2 2 ASHTYN ASHTYN T VISIT 15 MINUTES OFFICE 34923 SABINO MIRLEESEN 2 2 USJATA SUJATA T VISIT 15 MINUTES [facility] T EMERGENCY 31639 [facility] DE[facility] T VISIT LOW/MODER SEVERITY EMERGENCY 62644 PUND CHR PUND CHR 2 2 DEPARTMEN T VISIT MODERATE SEVERITY OFFICE 21074 [facility] OUTPATIEN 2 2 ALLERGY ALLERGY T VISIT & ASTHMA & ASTHMA 25 P P MINUTES OFFICE 86083 VERENA ALBARADO OUTPATIEN 2 2 LESLY LESLY T VISIT 25 MINUTES OFFICE 16745 SABINO BELLA 2 2 SUJATA SUJATA T VISIT 15 MINUTES OFFICE 44340 SABINO GALLO OUTPATIEN 2 2 SUJATA SUJATA T VISIT 15 MINUTES OFFICE 72306 JACK JACK OUTPATIEN 2 2 ODALIS ODALIS T VISIT 25 MINUTES [facility] 2 [facility] T PERIODIC 31648 HARPEL HARPEL PREVENTIV 2 2 ASHTYN ASHTYN E MED EST PATIENT 40-64YRS OFFICE 46149 ANTONIETA FUNG OUTPATIEN 2 2 MARICEL MARICEL T VISIT 25 MINUTES OFFICE 41328 SABINO BELLA 2 2 SUJATA SUJATA T VISIT 15 MINUTES OFFICE 31275 SABINO BELLA 2 2 SUJATA SUJATA T VISIT 15 MINUTES OFFICE 11940 SABINO GRAFFPATIDOMENIC 2 2 SUJATA SUJATA T VISIT 15 MINUTES OFFICE 30146 SABINO BELLA 1 1 SUJATA SUJATA T VISIT 15 MINUTES OFFICE 29473 SABINO GALLO OUTPATIEN 1 1 SUJATA SUJATA T VISIT 15 MINUTES OFFICE 34753 SABINO GALLO OUTPATIEN 1 1 SUJATA SUJATA T VISIT 15 MINUTES OFFICE 33488 SABINO GALLO OUTPATIEN 1 1 SUJATA SUJATA T VISIT 15 MINUTES OFFICE 38365 JACK JACK CONSULTAT 1 1 ODALIS OLMEDO NEW/ESTAB PATIENT 60 MIN [facility] T OFFICE 98531 SABION GALLO OUTPATIEN 1 1 SUJATA SUJATA T VISIT 15 MINUTES [facility] T OFFICE 27774 ANTONIETA NAGYELL OUTPATIEN 1 1 MARICEL MARICEL T VISIT 15 MINUTES OFFICE 38033 VERENA ALBARADO OUTPATIEN 1 1 LESLY LESLY T VISIT 15 MINUTES OFFICE 42092 GAGE DIAZ OUTPATIEN 1 1 MEDICAL JAM T VISIT SERV 15 FOUNDATIO MINUTES [facility] T EMERGENCY 48197 ALMA TITUS 1 1 EMERGENCY LIOR DEPARTMEN SERVICES T VISIT HIGH/URGE NT SEVERITY EMERGENCY 85347 [facility] 1 [facility] T VISIT MODERATE SEVERITY [facility] T OFFICE 07062 SABINO GALLO OUTVITOEN 1 1 SUJATA SUJATA T VISIT 15 MINUTES OFFICE 86470 SABINO GALLO OUTJESSICA 1 1 SUJATA SUJATA T VISIT 15 MINUTES OFFICE 89494 GAGE DIAZ OUTPATIEN 1 1 MEDICAL JAM T VISIT SERV 25 FOUNDATIO MINUTES OFFICE 36806 SABINO GALLO OUTPATIEN 1 1 SUJATA SUJATA T VISIT 15 MINUTES OFFICE 85421 FUNG FUNG OUTPATIEN 1 1 MARICEL MARICEL T VISIT 15 MINUTES OFFICE 62707 VERENA ALBARADO OUTPATIEN 1 1 LESLY LESLY T VISIT 10 MINUTES OFFICE 96967 [facility] FALLUJI OUTPATIEN 1 1 PHYSICIAN DORIAN T VISIT S GROUP 25 MINUTES OFFICE 12633 FUNG FUNG OUTPATIEN 1 1 MARICEL CONNELLY T VISIT 25 MINUTES [facility] OFFICE 09778 [facility] FALLUJI CONSULTAT 1 1 PHYSICIAN DORIAN OLMEDO S GROUP NEW/ESTAB PATIENT 60 MIN OFFICE 64074 FUNG FUNG CONSULTAT 1 1 MARICEL CONNELLY ION NEW/ESTAB PATIENT 60 MIN OFFICE 56872 SABINO GALLO OUTPATIEN 1 1 SUJATA SUJATA T VISIT 15 MINUTES [facility] T EMERGENCY 05338 [facility] 1 1 [facility] DEPARTMEN INC T VISIT LOW/MODER SEVERITY EMERGENCY 75888 ALMA WALKER 1 1 EMERGENCY DEPARTMEN SERVICES T VISIT MODERATE SEVERITY [facility] T OFFICE 52444 SABINO GALLO OUTPATIEN 1 1 SUJATA SUJATA T VISIT 15 MINUTES OFFICE 10373 SABINO GALLO OUTPATIEN 1 1 SUJATA SUJATA T VISIT 15 MINUTES OFFICE 23575 SABINO BELLA 1 1 SUJATA SUJATA T VISIT 15 MINUTES OFFICE 47849 SABINO BELLA 1 1 SUJATA SUJATA T VISIT 15 MINUTES EMERGENCY 52995 ALMA ARIELA 1 1 EMERGENCY [facility] DEPARTMEN SERVICES T VISIT HIGH/URGE NT SEVERITY [facility] T EMERGENCY 58318 [facility] 1 1 [facility] DEPARTMEN INC T VISIT LOW/MODER SEVERITY [facility] INC T OFFICE 77407 [facility] HARSHANNENL OUTPATIEN 1 1 PHYSICIAN ASHTYN T VISIT GROUP 10 PCC MINUTES PERIODIC 06451 [facility] PRE[facility]IV 1 1 PHYSICIAN ASHTYN E MED EST GROUP PATIENT PCC 40-64YRS [facility] - 1 1 [facility] OUTPATIEN INC T OFFICE 64230 GAGE BELLA 1 1 MEDICAL JAM T VISIT SERV 15 FOUNDATIO MINUTES EMERGENCY 93553 [facility] 1 1 [facility] DEPARTMEN INC T VISIT LOW/MODER SEVERITY EMERGENCY 43037 ALMA KINGEY 1 1 EMERGENCY [facility] DEPARTMEN SERVICES T VISIT MODERATE SEVERITY OFFICE 65076 SABINO BELLA 1 1 SUJATA SUJATA T VISIT 15 MINUTES [facility] OUTPATIEN INC T OFFICE 76660 SABINO BELLA 1 1 SUJATA SUJATA T VISIT 15 MINUTES OFFICE 42803 SABINO BELLA 1 1 SUJATA SUJATA T VISIT 15 MINUTES OFFICE 03268 SABINO BELLA 0 0 SUJATA SUJATA T VISIT 15 MINUTES OFFICE 58004 ARNOLD ARNOLD OUTPATIEN 0 0 SUJATA SUJATA T VISIT 15 MINUTES OFFICE 65297 SABINO GALLO OUTPATIEN 0 0 SUJATA SUJATA T VISIT 15 MINUTES OFFICE 57580 GAGE DIAZ OUTPATIEN 0 0 MEDICAL JAM T VISIT SERV 15 FOUNDATIO MINUTES [facility] OUTPATIEN INC T OFFICE 89775 GAGE DIAZ CONSULTAT 0 0 MEDICAL JAM ION SERV NEW/ESTAB FOUNDATIO PATIENT 60 MIN [facility]PATI[facility] INC T OFFICE 94864 SABINO GALLO OUTPATIEN 0 0 SUJATA SUJATA T VISIT 15 MINUTES [facility]PATI[facility] INC T OFFICE 15248 SABINO GALLO OUTPATIEN 0 0 ARY W ARY W T VISIT 15 MINUTES OFFICE 46579 SABINO GALLO OUTPATIEN 0 0 ARY W ARY W T VISIT 15 MINUTES OFFICE 09049 VERENA ALBARADO OUTPATIEN 0 0 RONDA Norris T VISIT 10 MINUTES [facility] T OFFICE 88570 DAJUAN DELAROSAPATIEN 0 0 AND HAND AMANDA A T VISIT SURGEONS 15 PSC MINUTES OFFICE 37904 SABINO GALLO OUTPATIEN 0 0 ARY W ARY W T VISIT 15 MINUTES [facility] T OFFICE 81592 GAGE MEDRANO OUTPATIEN 0 0 AND HAND AMANDA A T VISIT SURGEONS 15 PSC MINUTES OFFICE 59995 SABINO GALLO OUTPATIEN 0 0 ARY W ARY W T VISIT 15 MINUTES [facility] OUTPATIEN INC T OFFICE 97795 [place] LISA MEDRANO OUTPATIEN 0 0 AND HAND AMANDA A T VISIT SURGEONS 15 PSC MINUTES OFFICE 57417 [facility] HARPEL OUTPATIEN 0 0 PHYSICIAN ASHTYN T VISIT GROUP 15 PCC MINUTES OFFICE 02511 [facility] HARPEL OUTPATIEN 0 0 PHYSICIAN ASHTYN T VISIT GROUP 10 PCC MINUTES [facility] OUTPATIEN INC T OFFICE 83949 SABINO GALLO OUTPATIEN 0 0 ARY MCALLISTER W T VISIT 15 MINUTES OFFICE 95572 SABINO GALLO OUTPATIEN 0 0 ARY W ARY W T VISIT 15 MINUTES [facility] OUTPATIEN INC T OFFICE 77768 SABINO GALLO OUTPATIEN 0 0 ARY W ARY W T VISIT 15 MINUTES OFFICE 52362 SABINO GALLO OUTPATIEN 9 9 ARY W ARY W T VISIT 15 MINUTES [facility] T OFFICE 71945 [facility] 9 9 MICHELLE MICHELLE T NEW 60 MINUTES OFFICE 13048 SABINO GALLO OUTPATIEN 9 9 ARY W ARY W T VISIT 15 MINUTES OFFICE 80991 VERENA ALBARADO OUTPATIEN 9 9 RONDA Norris T VISIT 10 MINUTES [facility] T OFFICE 60759 VERENA ALBARADO OUTPATIEN 9 9 RONDA Norris T VISIT 15 MINUTES OFFICE 65187 SABINO GALLO OUTPATIEN 9 9 ARY W ARY W T VISIT 15 MINUTES [facility] 59786 KRAIG HOLLINGSWORTH, PREVENTIV 9 9 EDEL Farnsworth MED EST PATIENT 40-64YRS [facility] - 9 9 [facility] T OFFICE 84000 VERENAVERENA OUTPATIDOMENIC 8 8 RONDA Myrna RONDA Myrna T VISIT 15 MINUTES OFFICE 21198 ANTONIETA FUNG, CONSULTAT 8 8 VICKIE MITCHELL/[facility] PATIENT 80 MIN OFFICE 99580 SABINO GALLO OUTPATIEN 8 8 ARY MCALLISTER W T VISIT 15 MINUTES [facility] T EMERGENCY 73547 ANAHI DUMONT, 8 8 NATIONAL RONDAL E DEPARTMEN CORPORATI T VISIT ON MODERATE SEVERITY OFFICE 97068 SABINO GALLO OUTPATIEN 8 8 ARY Enamorado ARY W T VISIT 15 MINUTES [facility] 8 [facility] T OFFICE 22288 ALBARADOVERENA GREGORIO OUTPATIEN 8 8 RONDA Myrna Norris T VISIT 15 MINUTES OFFICE 17743 SABINO GALLO OUTPATIEN 8 8 ARY Fei ARY W T VISIT 15 MINUTES EMERGENCY 11861 [facility] 8 8 [facility] DEPARTMEN INC T VISIT LOW/MODER SEVERITY [facility] 8 [facility] OUTPATIEN INC T EMERGENCY 86079 ANAHI DUMONT, 8 8 NATIONAL RONDAL E DEPARTMEN CORPORATI T VISIT ON MODERATE SEVERITY OFFICE 11659 JENA DELAROSA 8 8 AND NILSA Aldridge T VISIT SURGEONS 15 PSC MINUTES OFFICE 95314 SABINO GALLO OUTPATIEN 8 8 ARY MCALLISTER W T VISIT 15 MINUTES OFFICE 73767 SABINO GALLO OUTPATIDOMENIC 8 8 ARY W ARY W T VISIT 15 MINUTES OFFICE 59249 [place] DAJUAN MERAZPATIDOMENIC 8 8 AND HAND AMANDA A T VISIT SURGEONS 15 PSC MINUTES OFFICE 34771 VERENA ALBARADO OUTPATIDOMENIC 8 8 RONDA Norris T VISIT 15 MINUTES OFFICE 99140 VERENA ALBARADO OUTPATIDOMENIC 8 8 RONDA BOND G T VISIT 15 MINUTES [facility] T OFFICE 21731 ANTONIETA FUNG OUTPATIDOMENIC 8 8 VICKIE JOHNSTON T VISIT 25 MINUTES OFFICE 88840 [place] DAJUAN MERAZPATIDOMENIC 8 8 AND HAND AMANDA A T VISIT SURGEONS 15 PSC MINUTES OFFICE 51306 SABINO GALLO OUTPATIEN 8 8 ARY W ARY W T VISIT 15 MINUTES [facility] 8 [facility] OUT[facility] T OFFICE 23679 ANTONIETA FUNG, CONSULTAT 8 8 VICKIE JOHNSTON ION NEW/[facility] PATIENT 80 MIN OFFICE 94904 JENA CURRY 8 8 EDEL Van T VISIT 15 MINUTES OFFICE 01801 SABINO GALLO OUTPATIEN 8 8 ARY W ARY W T VISIT 15 MINUTES OFFICE 07241 SABINO GALLO OUTPATIEN 8 8 ARY W ARY W T VISIT 15 MINUTES [facility] OUTPATI[facility] INC T OFFICE 36022 VERENA ALBARADO OUTPATIDOMENIC 8 8 RONDA Norris T VISIT 15 MINUTES OFFICE 79195 Oly MANNPATIDOMENIC 8 8 RADHA Nettles VISIT PSC 15 MINUTES PERIODIC 30813 KRAIG HOLLINGSWORTH, PREVENTIV 8 8 EDEL Van E MED EST PATIENT 40-64YRS [facility] - 8 8 [facility] OUTPATIEN INC T OFFICE 67466 KRAIG HOLLINGSWORTH OUTPATIEN 8 8 EDEL Netltes VISIT 10 MINUTES OFFICE 72800 Oly MANN OUTPATIEN 8 8 RADHA Nettles VISIT PSC 15 MINUTES [facility] - 8 8 [facility] OUTPATIEN INC T
--- OUTSIDE RECORDS SUMMARY | 2017-07-05 18:24 | External Medical Summary Rpt ---
Author Author , ERASTO Organization [facility] Address Unknown Phone [email or web address] Care Team Providers Care Entertainer Or Variety Artist Name Role Phone ALFARIS MOH, ALFARIS Unavailable [...] OG DOBBINS OG, Unavailable Unavailable DOBBINS OG [facility] Unavailable Unavailable [facility] [place] [facility] Unavailable Un[place], [facility] FALLUJI DORIAN, FALLUJI Unavailable Unavailable DORIAN FALLUJI DORIAN, FALLUJI Unavailable Unavailable DORIAN BIRTO, BRITO Unavailable Unavailable JR CLIFF ELZ, Unavailable Unavailable JR CLIFF ELMilana ARIELA LIOR, ARIELA Unavailable Unavailable LIOR ARIELA LIOR, ARIELA Unavailable Unavailable LIOR [facility], Unavailable Unavailable [facility] KRAIG HOLLINGSWORTH MD, Unavailable Unavailable BONNY [...] Unavailable Unavailable INC, [facility] Unavailable Unavailable HOSPITAL P, [facility] VOGEL, VOGEL Unavailable Unavailable VOGEL, VOGEL Unavailable Unavailable VOGEL, CHAPARRO A, Unavailable Unavailable VOGEL, CHAPARRO A [facility] Unavailable Unavailable P[facility], [facility], Unavailable Unavailable [facility] ALLI MAR, HOBDOMENIC MAR Unavailable Unavailable AJ RALPH, Unavailable Unavailable AJ RALPH, SB COLLADO Unavailable Unavailable EDWARDS TRA, EDWARDS TRA Unavailable Unavailable EDWARDS TRA, EDWARDS TRA Unavailable Unavailable LIRA, LIRA Unavailable Unavailable [facility] Unavailable Unavailable MEDICAL G, [facility] Unavailable Unavailable [...] [facility], Unavailable Unavailable [facility] ALBARADO, ALBARADO Unavailable Unavailable ALBARADO LESLY, ALBARADO Unavailable Unavailable LESLY ALBARADO LESLY, ALBARADO Unavailable Unavailable LESLY RONDA ALBARADO, Unavailable Unavailable RONDA ALBARADO JR DWI, KAM Unavailable Unavailable JR DWI [facility] Un[facility], [facility] JUSTIN SUJATA, JUSTIN Unavailable Unavailable SUJATA [facility], Unavailable Unavailable [facility], Unavailable Unavailable [facility] Unavailable Unavailable SERVICES, [facility] JACK ODALIS, Unavailable Unavailable JACK ODALIS JACK ODALIS, Unavailable Unavailable JACK ODALIS DIAZ JAM, Unavailable Unavailable DIAZJAK MARIAE SHERYL, Unavailable Unavailable MCKEMIE JR SHERYL MARCIEMIE [...] WELLS ANAID Unavailable Unavailable WELLS ANAID, WELLS ANADI Unavailable Unavailable ISAIAH SHERYL, ISAIAH SHERYL Unavailable Unavailable GARCIA, A C, GARCIA, Unavailable Unavailable A C [facility] Un[facility], Un[facility], Unavailable [facility]available [facility] Purpose Continuity of Care Document - 12-01-2007 through 2016 Problems Code Diagnosis DOS Provider Status [id number] OTHER 05-13-2017 [facility]OND[facility] CATARACT BILATERAL E785 HYPERLIPIDE 04-22-2017 [facility] CINDY PHYSICIANS UNSPECIFIED GROUP I10 ESSENTIAL 04-22-2017 [facility] PRIMARY PHYSICIANS HYPERTENSIO GROUP N I208 OTHER FORMS 04-22-2017 [facility] OF ANGINA PHYSICIANS PECTORIS GROUP I2510 ASHD [place] 04-22-2017 [facility] CORONARY PHYSICIANS ARTERY W/O GROUP ANGINA PECTORIS H1013 ACUTE 04-08-2017 [facility] ATOPIC CONJUNCTIVI TIS BILATERAL [id number] OTHER LONG 04-05-2017 [facility] CURRENT INC DRUG THERAPY D649 ANEMIA 04-02-2017 COMBINED UNSPECIFIED PHYSICIANS LA E039 HYPOTHYROID 04-02-2017 COMBINED ISM PHYSICIANS UNSPECIFIED LA E559 VITAMIN D 04-02-2017 COMBINED DEFICIENCY PHYSICIANS UNSPECIFIED LA O03156 UNSPECIFIED 03-26-2017 VOG[facility] BLEPHARITIS LEFT LOWER EYELID [...] HOSP CLIMACTERIC INC STATES Z1231 ENCOUNTER 02-18-2017 [facility] NEOPLASM BREAST J10005 ENCOUNTER 02-15-2017 [facility] DISPUTE RESOLUTION SPECIALIST EXAM PHYSICIANS GENERAL RTN GROUP W/O ABNORMAL FIND Z1212 ENCOUNTER 02-15-2017 [facility] SCREENING PHYSICIANS MALIGNANT GROUP NEOPLASM RECTUM I61894 COMBINED 02-02-2017 [facility] FORMS OF AGE-RELATED CATARACT RIGHT EYE H269 UNSPECIFIED 02-02-2017 ANESTHESIA CATARACT ASSOCIATES PSC A50078 COMBINED 01-26-2017 [facility] FORMS OF AGE-RELATED CATARACT LEFT EYE T20315 COMBINED 01-14-2017 [facility] FORMS OF AGE-RELATED CATARACT BILATERAL K219 GASTRO-ESOP 01-08-2017 [facility] H REFLUX PHYSICIANS DISEASE GROUP WITHOUT ESOPHAGITIS R92634 OTHER 12-01-2016 [facility] VITREOUS OPACITIES BILATERAL H5203 HYPERMETROP 12-01-2016 [facility] IA BILATERAL U67951 REGULAR 12-01-2016 [facility] ASTIGMATISM BILATERAL I119 HYPERTENSIV 11-17-2016 [facility] HEART [facility]OS[facility] DISEASE INC WITHOUT HEART FAILURE I209 ANGINA 11-17-2016 [facility] PECTORIS PHYSICIANS UNSPECIFIED GROUP H409 UNSPECIFIED 11-07-2016 ARNOLD GLAUCOMA H5213 MYOPIA 11-06-2016 [facility] ANG BILATERAL H524 PRESBYOPIA 11-06-2016 [facility] ANG H6690 OTITIS 10-24-2016 ARN[facility] SUJATA MEDIA UNSPECIFIED UNSPECIFIED EAR K209 ESOPHAGITIS 10-19-2016 [facility] PHYSICIANS UNSPECIFIED GROUP K210 GASTRO-ESOP 10-19-2016 [facility] HAGEAL PHYSICIANS REFLUX GROUP DISEASE W/ ESOPHAGITIS K449 DIAPHRAGMAT 10-19-2016 [facility] IC HERNIA PHYSICIANS W/O GROUP OBSTRUCTION OR GANGRENE J449 CHRONIC 10-03-2016 [facility] P DISEASE UNS R0789 OTHER CHEST 10-03-2016 [place] [facility] R079 CHEST PAIN 10-03-2016 [facility] UNSPECIFIED PHYSICIANS, PLLC R0602 SHORTNESS 09-22-2016 [facility] OF BREATH PHYSICIANS GROUP R9439 ABNORMAL 09-16-2016 [facility] RESULT OT PHYSICIANS CARDIOVASCU GROUP LR FUNCTION STUDY Z8249 FAMILY HX 09-15-2016 [facility] ISCHEMIC PHYSICIANS HRT DZ OTH GROUP DZ CIRC SYSTEM J069 ACUTE UPPER 08-24-2016 [facility] SUJATA RESPIRATORY INFECTION UNSPECIFIED D497 NEOPLASM OF 07-10-2016 [facility] UNS BHV PHYSICIANS ENDOCRN GROUP GLAND & OTH PART NS E038 OTHER 07-08-2016 [facility] SPECIFIED PHYSICIANS HYPOTHYROID LA ISM R0600 DYSPNEA 06-17-2016 [place] [facility]NSPECIFIED [facility]ICAL IMAGING ASS R5383 OTHER 06-17-2016 [facility] P H6010 CELLULITIS 05-28-2016 ARNOLD SUJATA OF EXTERNAL EAR UNSPECIFIED EAR R599 ENLARGED 04-17-2016 [facility] LYMPH NODES PHYSICIANS, PLLC UNSPECIFIED R42 DIZZINESS 04-08-2016 [facility] AND PHYSICIANS GIDDINESS GROUP H8109 MENIERES 04-03-2016 [facility] SUJATA DISEASE UNSPECIFIED EAR R1310 DYSPHAGIA 03-26-2016 [facility] UNSPECIFIED PHYSICIANS GROUP I16396 HORMONE 01-31-2016 KRAIG HOLLINGSWORTH MD THERAPY POSTMENOPAU STEVIE Q10733 UNSPECIFIED 01-10-2016 [facility] PHYSICIANS OBSTRUCTION GROUP EUSTACHIAN TUBE UNS EAR J309 ALLERGIC 01-10-2016 [facility] RHINITIS PHYSICIANS UNSPECIFIED GROUP J329 CHRONIC 01-10-2016 [facility] SINUSITIS PHYSICIANS UNSPECIFIED GROUP O33219 DIFFUSE 11-13-2015 ARNOLD SUJATA OTITIS EXTERNA UNSPECIFIED EAR K5790 DIVERTICULO 10-31-2015 [facility] SIS PART PHYSICIANS UNS W/O GROUP PERF/ABSC W/O BLEED K5900 CONSTIPATIO 10-31-2015 [facility] N PHYSICIANS UNSPECIFIED GROUP R1032 LEFT LOWER 10-31-2015 [facility] QUADRANT PHYSICIANS PAIN GROUP Z1211 ENCOUNTER 10-22-2015 [facility] SCREENING PHYSICIANS MALIGNANT GROUP NEOPLASM OF COLON H6503 ACUTE 10-15-2015 [facility] SEROUS PHYSICIANS, OTITIS PLLC MEDIA BILATERAL O97940 PAIN IN 10-07-2015 IV[facility]E RIGHT HAND NEUROLOGY I739 PERIPHERAL 09-18-2015 [place] [facility] DISE[facility] UNSPECIFIED X43974 PAIN IN 09-18-2015 [place] RIGHT LEG [facility]ICAL [facility] T41512 PAIN IN 09-18-2015 [place] LEFT LEG [facility]ICAL [facility] R252 CRAMP AND 09-18-2015 [facility] INC 4619 ACUTE 08-07-2015 [facility] SUJTAA SINUSITIS, UNSPECIFIED 4659 ACUTE URIS 07-12-2015 ARNOLD SUJATA OF UNSPECIFIED SITE 62487 SPASM OF 06-25-2015 ARNOLD SUJATA MUSCLE 20536 ASTHMA, 06-10-2015 [facility] UNSPECIFIED STATUS 7851 PALPITATION 06-10-2015 [facility] MEDICAL G 2724 OTHER AND 05-27-2015 COMBINED UNSPECIFIED PHYSICIANS LA HYPERLIPIDE CINDY 4019 UNSPECIFIED 05-23-2015 [facility] P N 26379 OTHER 05-23-2015 [facility] P RESPIRATORY ABNORMALITI ES 2449 UNSPECIFIED 05-06-2015 [facility] HYPOTHYROID MEDICAL G ISM 496 CHRONIC 04-17-2015 [facility] OBSTRUCTION INC NEC 68331 MASTODYNIA 04-17-2015 [facility] PHYSICIANS, PLLC 00464 CHEST PAIN 04-17-2015 [place] [facility]PECIFIED [facility]ICAL [facility] 4739 UNSPECIFIED 04-11-2015 [facility] SINUSITIS PHYSICIANS GROUP 4779 ALLERGIC 04-11-2015 [facility] RHINITIS PHYSICIANS CAUSE GROUP UNSPECIFIED 7847 EPISTAXIS 04-10-2015 COMBINED PHYSICIANS LA 7906 OTHER 03-07-2015 LAB [facility] ABNORMAL [facility] [employer]INGS CHEMISTRY 69588 DISORDER OF 02-05-2015 [place] BONE AND MEDICAL CARTILAGE IMAGING ASS UNSPECIFIED 85216 UNSPECIFIED 02-05-2015 [facility] ABNORMAL [facility] MAMMOGRAM INC V7612 OTHER 02-05-2015 [place] SCREEN[facility] MAMMOGRAM IMAGING ASS 4730 CHRONIC 02-02-2015 ALBARAD[facility] LESLY MAXILLARY SINUSITIS 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-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 6272 SYMPTOMATIC 01-29-2015 KRAIG HOLLINGSWORTH MD MENOPAUSAL/ FEMALE CLIMACTERIC STATES V7231 ROUTINE 01-29-2015 KRAIG Van GYNECOLOGIC EDEL MCKENNA AL EXAMINATION V7641 SCREENING 01-29-2015 KRAIG Van FOR EDEL MCKENNA MALIGNANT NEOPLASM OF THE RECTUM 62443 OPEN WOUND 01-06-2015 [facility] P MENTION COMPLICATIO N 3829 UNSPECIFIED 01-02-2015 [facility] P V148 PERSONAL 01-02-2015 [facility] SPEC MEDICINAL AGTS 5368 DYSPEPSIA&O 11-26-2014 [facility] THER SPEC PHYSICIANS DISORDERS LA FUNCTION STOMACH 82530 ABDOMINAL 11-26-2014 COMBINED PAIN[place] [address] UNSPECIFIED 11-23-2014 [facility] ERNST VIRAL INFECTION IN CCE & UNS SITE 70219 OTHER ACUTE 11-13-2014 [facility] PAIN PHYSICIANS GROUP 7020 ACTINIC 11-13-2014 [facility] KERATOSIS PHYSICIANS GROUP 20465 NUCLEAR 11-09-2014 [facility] ANG SCLEROSIS 3674 PRESBYOPIA 11-09-2014 [facility] ANG 07444 OSTEOARTHRO 11-09-2014 [facility] ERNST S INVLV MX SITES BUT NOT SPEC GEN 2382 NEOPLASM OF 11-01-2014 [facility] UNCERTAIN PHYSICIANS BEHAVIOR OF GROUP SKIN 55565 OTHER SIGN 09-26-2014 [facility] AND SYMPTOM [facility] IN BREAST INC 39157 OTHER 09-26-2014 [place] SPECIFIED MEDICAL DISORDERS IMAGING ASS OF BREAST 83982 SHORTNESS 08-24-2014 [place] OF BREATH MEDICAL IMAGING ASS 63632 UNSPECIFIED 07-26-2014 [facility] ERNST INFECTIVE OTITIS EXTERNA 40168 PRECORDIAL 07-16-2014 ANJUR-KAPAL PAIN I OMAR 4011 ESSENTIAL 06-14-2014 [facility] ER[facility]ST HYPERTENSIO N, BENIGN 42846 COR 06-14-2014 [facility] ERNST ATHEROSLERO UNSPEC TYPE VESSEL [place]/SIGIFREDO T 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 7231 CERVICALGIA 05-08-2014 [facility] ERNST 2459 UNSPECIFIED 05-07-2014 [facility] LESLY THYROIDITIS 93356 DYSPHAGIA 05-07-2014 [facility] LESLY UNSPECIFIED 2409 GOITER, 05-01-2014 [facility] UNSPECIFIED [facility]OS[facility] INC 03059 OTHER 05-01-2014 [facility] SYMPTOMS MERRITT INVOLVING HEAD AND NECK V5869 LONG-TERM 04-30-2014 COMBINED (CURRENT) PHYSICIANS USE OF LA OTHER MEDICATIONS 87699 UNSPECIFIED 04-25-2014 [facility] ERNST MENIERES DISEASE 29005 GENERALIZED 02-28-2014 [facility] PAIN MERR[place] 7937 NONSPC ABN 02-28-2014 [facility] FINDNG RAD MERRITT & OTH EXM MUSCULSKELT L SYS 64413 CONTUSION 02-28-2014 [place] MAX OF WRIST 9599 INJURY 02-28-2014 [facility] OTHER AND MERRITT UNSPECIFIED UNSPECIFIED SITE E9179 OTHER 02-28-2014 [place] MAX STRIKING AGAINST W/WO SUBSEQUENT FALL 38823 ESOPHAGEAL 01-25-2014 [facility] ERNST REFLUX 47954 INSOMNIA 01-25-2014 [facility] ERNST UNSPECIFIED V074 HORMONE 01-24-2014 [facility] REPLACEMENT [place]ITT THERAPY V4981 ASYMPTOMATI 01-24-2014 [facility] C MERRITT POSTMENOPAU STEVIE STATUS V8281 SPECIAL 01-24-2014 [facility] SCREENING [facility] FOR INC OSTEOPOROSI S 4719 UNSPECIFIED 12-18-2013 [facility] LESLY NASAL POLYP 5589 OTH&UNSPEC 12-11-2013 [facility] NONINFECTIO [facility] US INC GASTROENTER ITIS&COLITI S 60781 NAUSEA WITH 12-11-2013 ARIELA LIOR VOMITING 4660 ACUTE 11-28-2013 [facility] ERNST BRONCHITIS 56251 OTHER 08-23-2013 [facility] TENOSYNOVIT MAT IS OF [...] 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 08056 UNSPECIFIED 07-27-2013 LAB HANG OF RICARDO ARTHROPATHY HOLDINGS MULTIPLE SITES 57492 OTHER&UNSPE 07-26-2013 [facility] CIFIED DISC MAT DISORDER CERVICAL REGION 60494 OSTEOARTHRO 05-19-2013 [facility] SIS UNSPEC MERRITT WHETHER GEN/LOCALIZ ED HAND 7823 EDEMA 05-19-2013 [facility] INC 87493 ACUTE 04-20-2013 [facility] LARYNGITIS, [facility]OS[facility] WITHOUT INC MENTION OF OBSTRUCTIO 4785 OTHER 04-20-2013 [facility] DISEASES OF JR ASTER VOCAL CORDS 82759 DYSPHONIA 04-20-2013 [facility] INC 00289 OTHER VOICE 04-20-2013 COMMUNITY AND ANESTH OF RESONANCE THE BLUE DISORDERS V7284 UNSPECIFIED 04-17-2013 COMBINED PHYSICIANS PRE-OPERATI LA VE EXAMINATION 6929 CONTACT 01-26-2013 VIANCAASIF SUJATA DERMATITIS& OTHER ECZEMA DUE UNSPEC CAUSE 4778 ALLERGIC 01-23-2013 JACK RHINITIS ODALIS DUE TO OTHER ALLERGEN 70879 EXTRINSIC 01-23-2013 JACK ASTHMA, ODALIS UNSPECIFIED V163 FAMILY 01-23-2013 [facility] HISTORY OF MERRITT MALIGNANT NEOPLASM OF BREAST 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 10755 PAIN IN 12-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 JAM JOINT PELVIC REGION AND THIGH 02450 PLICA 12-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 JAM SYNDROME 52941 UNSPECIFIED 10-10-2012 [facility] LESLY ACUTE NONSUPPURAT ANTHONY OTITIS MEDIA 462 ACUTE 10-10-2012 ARNASIF ERNST PHARYNGITIS V720 EXAMINATION 09-01-2012 [facility] OF EYES GRE AND VISION 7245 UNSPECIFIED 08-24-2012 [facility] ERNST BACKACHE 2722 MIXED 08-04-2012 FALLUJI DORIAN HYPERLIPIDE CINDY 4772 ALLERGIC 07-21-2012 JACK RHINITIS ODALIS DUE TO ANIMAL HAIR AND DANDER 9392 FOREIGN 06-13-2012 GORDON JUANCARLOS BODY IN VULVA AND VAGINA 46419 UNSPECIFIED 06-09-2012 HARPEL ASHTYN VAGINITIS AND VULVOVAGINI TIS 1119 UNSPECIFIED 05-17-2012 [facility] ERNST DERMATOMYCO SIS 33451 CHRONIC 05-13-2012 [facility] UNSPECIFIED 7080 ALLERGIC 02-17-2012 [facility] URTICARIA [facility] INC 83222 EXTRINSIC 02-02-2012 COMM[facility]ITY ASTHMA, ALLERGY & WITH ASTHMA P EXACERBATIO N 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 FUNG HEREDIT&IDI MARICEL OPATHIC PERIPHERAL NEUROPATHY 71656 DIAB W/O 01-07-2012 LAB HANG COMP TYPE AMERIC II/UNS NOT HOLDINGS STATED UNCNTRL 07485 OTHER 01-07-2012 COMBINED [place] [address] ASTHMA 12-30-2011 ARNASIF SUJATA UNSPECIFIED WITH STATUS ASTHMATICUS 4780 HYPERTROPHY 10-12-2011 JACK OF NASAL ODALIS TURBINATES V727 DIAGNOSTIC 10-12-2011 JACK SKIN AND ODALIS SENSITIZATI ON TESTS 7238 OTHER 09-29-2011 [facility] SYNDROMES [facility] AFFECTING INC CERVICAL REGION V571 OTHER 09-29-2011 [facility] PHYSICAL [facility] THERAPY INC 7820 DISTURBANCE 09-15-2011 FUNG OF SKIN MARICEL SENSATION 4760 CHRONIC 08-31-2011 [facility] LESLY LARYNGITIS 40471 OBESITY, 08-26-2011 [place] [facility] UNSPECIFIED SERV FOUNDATIO 32040 HYPERSOMNIA 08-26-2011 [place] [facility] UNSPECIFIED FOUNDATIO 80552 DYSFNCT 08-12-2011 DOBBINS ASSO OG W/SLEEP STGES/AROUS AL FRM SLEEP 14777 OBSTRUCTIVE 08-11-2011 [facility] SLEEP [facility] APNEA INC 59371 ACUTE 08-06-2011 [facility] GASTRITIS EMERGENCY WITHOUT SERVICES MENTION OF HEMORRHAGE 3670 HYPERMETROP 07-22-2011 [facility] [place] GRE 7234 BRACHIAL 04-14-2011 [facility] NEURITIS OR [facility] INC RADICULITIS NOS 7244 THORACIC/ASH 04-14-2011 [facility] MBOSACRAL [facility] NEURITIS/RA INC DICULITIS UNSPEC 6829 CELLULITIS 03-19-2011 ARNOLD SUJATA AND ABSCESS OF UNSPECIFIED SITE 9114 TRNK INSECT 03-19-2011 [facility] BITE EMERGENCY NONVENOMOUS SERVICES WITHOUT MENTION INF 7242 LUMBAGO 03-13-2011 [facility] IMAGING ASS 3558 UNSPECIFIED 03-06-2011 ARNASIF SUJATA MONONEURITI S OF LOWER LIMB 6826 CELLULITIS 01-18-2011 [facility] AND ABSCESS [facility] OF LEG INC EXCEPT FOOT 13899 PAIN IN 12-27-2010 ARNASIF SUJATA JOINT, SHOULDER REGION 38125 OBSTRUCTIVE 10-08-2010 [place] [facility] CHRONIC SERV BRONCHITIS FOUNDATIO WITHOUT EXACERBAT 45849 MORBID 09-10-2010 [place] [facility] OBESITY SERV FOUNDAT[facility] 7862 COUGH 09-10-2010 [facility] F[facility]AT[facility] 06021 OBSTRUCTIVE 09-01-2010 [facility] CHRONIC [facility] BRONCHITIS INC WITH EXACERBATIO N 05405 PAINFUL 07-04-2010 [place] [facility] 7140 RHEUMATOID 07-03-2010 [facility] ARTHRITIS FOOT CENTER 8409 SPRAIN&STRA 06-13-2010 TIFFANY GALLO UNSPEC ARY W SITE SHOULDER&UP PER ARM 226 BENIGN 05-22-2010 VERENA NEOPLASM OF RONDA Norris THYROID GLANDS 83387 LOC 04-18-2010 [place] [facility] OSTEOARTHRO AND HAND S NOT SPEC SURGEONS WHETHER PSC PRIM/SEC HAND 42962 LOC 04-18-2010 [place] [facility] OSTEOARTHRO AND HAND S NOT SPEC SURGEONS PRIM/SEC PSC ANK&FOOT 35140 PAIN IN 03-07-2010 [place] JOINT, MEDICAL ANKLE AND IMAGING FOOT ASSOCIATES 64703 PAIN IN 02-07-2010 [place] [facility] JOINT, HAND AND HAND SURGEONS PSC 60879 SWELLING OF 02-07-2010 [place] [facility] 2859 UNSPECIFIED 01-27-2010 [facility] ANEMIA PHYSICIAN GROUP PCC 04174 DEGEN 01-20-2010 [place] 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 7393 NONALLOPATH 01-20-2010 [place] IC LESION FAMILY OF LUMBAR CHIROPRACTI REGION NEC C 7395 NONALLOPATH 01-20-2010 [place] IC LESION FAMILY OF PELVIC CHIROPRACTI REGION NEC C V173 FAMILY 01-10-2010 [facility] HISTORY OF [facility] HEART PROF SERV DISEASE 91975 ENTHESOPATH 12-10-2009 Gigi GALLO OF ARY W UNSPECIFIED SITE 7210 CERVICAL 10-08-2009 BURRIS, SPONDYLOSIS MICHELLE WITHOUT MYELOPATHY 76565 SPONDYLOSIS 10-08-2009 BURRIS, UNSPEC MICHELLE SITE W/O MENTION MYELOPATHY 2452 CHRONIC 06-24-2009 FRANCHESKA ALBARADO THYROIDITIS V7388 SPECIAL SCR 01-08-2009 [facility] [place] INC EXAMINATION OTH SPEC CHLAMYDIAL DZ V745 SCREENING 01-08-2009 [facility] EXAMINATION [place] INC FOR VENEREAL DISEASE V780 SCREENING 01-08-2009 KRAIG MCGARRY IRON EDEL MCKENNA DEFICIENCY ANEMIA 5999 UNSPECIFIED 10-26-2008 RUPERTO GALLO OF URETHRA&URI NARY TRACT 84987 ABDOMINAL 10-26-2008 CHRISTIAN PAIN OTHER NATIONAL SPECIFIED CORPORATION SITE 4439 UNSPECIFIED 09-27-2008 [place] PERIPHERAL MEDICAL VASCULAR IMAGING DISEASE ASSOCIATES 5272 SIALOADENIT 09-13-2008 ETHAN ALBARADO 2893 LYMPHADENIT 09-10-2008 ETHAN GALLO UNSPECIFIED EXCEPT MESENTERIC 683 ACUTE 09-09-2008 CHRISTIAN LYMPHADENIT NATIONAL [place] 7842 SWELLING 09-09-2008 [facility] MASS OR [facility] LUMP IN INC HEAD AND NECK 3542 LESION OF 08-24-2008 [place] [facility] ULNAR NERVE AND HAND SURGEONS PSC 77682 UNSPECIFIED 08-02-2008 ARY GALLO Fei CONJUNCTIVI TIS 3540 CARPAL 07-06-2008 [place]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AND HAND SYNDROME SURGEONS PSC 49704 LUMP OR 01-25-2008 [place] MASS IN MEDICAL BREAST IMAGING ASSOCIATES 4610 ACUTE 12-29-2007 GENOVEVA ALBARADO SINUSITIS V762 SCREENING 12-13-2007 [facility] FOR [facility] MALIGNANT NEOPLASM OF THE CERVIX 71270 VITREOUS 12-09-2007 JOSHUA VOGEL A N Medications Na ND Rx Da Fi Fi Am Da Di Ph RX Ph St me C No te ll ll ou ys ag ar # ys at rm s nt no ma ic us Or Da si cy ia de te s n re d ID 00 07 08 30 30 00 EA [...] 50 3- 4- 00 00 SI ve ID 61 20 20 49 DE [place] 01 [...] 18 -1 -[address] ti ID 50 4- 4- 00 00 SI ve [...] CY NT HI AN A IN C ID 00 06 07 30 30 00 EA [...] ve TA 87 20 20 48 DE OH 41 17 17 98 N 0 63 PH D3 AR MA 1, CY 00 0 OF UN CY IT NT HI TA AN B A IN C NA 53 06 07 60 30 00 EA Ac ID 74 -0 -[address] ti [...] 50 5- 7- 00 00 SI ve ID 61 20 20 49 DE IL 01 [...] 18 -1 -[address] ti ID 50 5- 6- 00 00 SI ve [...] HI OP AN S A IN C ID 00 05 06 30 30 00 EA [...] 05 06 60 30 00 EA Ac ID 74 -0 -[address] ti [...] ve TA 87 20 20 48 DE OH 41 17 17 61 N 0 76 [...] 17 17 38 E 5 96 PH ID AR OP MA CY 50 OF MC [...] 18 -1 -[address] ti ID 50 2- 2- 00 00 SI ve [...] ET NT HI AN A IN C ID 00 04 05 30 30 00 EA [...] 50 4- 5- 00 00 SI ve ID 61 20 20 43 DE [place] 01 [...] 18 -1 -[address] ti ID 50 6- 1- 00 00 SI ve [...] NT ET HI AN A IN C ID 00 03 04 30 30 00 EA [...] 50 6- 7- 00 00 SI ve ID 61 20 20 43 DE IL 01 [...] S NT HI AN A IN C ID 61 02 03 10 10 00 EA [...] 18 -1 -[address] ti ID 50 2- 7- 00 00 SI ve [...] NT ET HI AN A IN C ID 00 02 03 30 30 00 EA [...] 50 5- 0- 00 00 SI ve ID 61 20 20 43 DE IL 01 [...] 50 7- 0- 00 00 SI ve ID 61 20 20 43 DE IL 01 [...] 11 02 16 8 00 EA Ac ID 74 -0 -[address] ti [...] ET NT HI AN A IN C ID 00 01 02 30 30 00 EA [...] 18 -1 -[address] ti ID 50 9- 0- 00 00 SI ve [...] 12 01 60 30 00 EA Ac ID 74 -1 -[address] ti [...] ET NT HI AN A IN C ID 00 12 30 30 00 EA Ac [...] OF ET CY NT HI AN A ID 00 03 10 11 30 30 EA [...] 8- 1- 00 SI 19 LD ve ID 75 20 20 DE IL 98 11 [...] CY TI NT ON HI AN A ID 00 03 09 11 30 30 EA [...] 8- 2- 00 SI 19 LD ve ID 75 20 20 DE IL 98 11 [...] OF ET CY NT HI AN A ID 00 03 08 11 30 30 EA [...] OF ET CY NT HI AN A ID 00 03 07 11 30 30 EA [...] BL ET CY NT HI AN A ID 00 03 06 11 30 30 EA [...] BL ET CY NT HI AN A ID 00 03 05 11 30 30 EA [...] 0 6. 1 EA 22 OC Ac ID 25 -0 -[address] 39 ON [...] BL ET CY NT HI AN A ID 00 03 04 11 30 30 EA 21 MAHMOOD Ac EM 04 -0 -[address] 56 RP ti AR 61 7- 8- 00 SI 87 EL ve IN 10 20 20 DE 29 11 11 GE 0. 1 PH RA 62 AR LD 5 MA R MG CY TA OF BL ET CY NT HI AN A ID 00 04 04 1 21 6 EA [...] 5 60 30 EA 17 AR Ac ID 09 -1 -[address] 92 NO [...] W OF CY NT HI AN A ID 00 03 03 11 30 30 EA [...] 20 20 DE HO 20 11 11 OH XA 5 PH CH ZO AR AE LE MA L -T CY S MP OF DS CY TA NT BL HI ET AN A 00 02 02 0 8. 2 EA 21 GA Ac 59 -2 -[address] 32 IN ti 10 0- 0- 0 SI 66 EY ve 34 20 20 DE 90 11 11 OH 1 PH CH AR AE MA L [...] W OF CY NT HI AN A ID 00 02 02 0 30 30 EA [...] 9- 9- 00 SI 96 LD ve ID 02 20 20 DE ED 20 11 [...] 11 11 RI TA 8 PH CH OH AR AR N- MA D CA CY [...] 5 60 30 EA 17 AR Ac ID 09 -1 -[address] 92 NO [...] 7- 7- 00 SI 12 LD ve ID 75 20 20 DE IL 96 10 [...] BL ET CY NT HI AN A ID 00 02 11 3 90 90 EA [...] 7- 8- 00 SI 12 LD ve ID 75 20 20 DE IL 96 10 [...] 5 60 30 EA 17 AR Ac ID 09 -1 -[address] 92 NO [...] 7- 7- 00 SI 12 LD ve ID 75 20 20 DE IL 96 10 [...] 7- 7- 00 SI 12 LD ve ID 75 20 20 DE IL 96 10 [...] BL ET CY NT HI AN A ID 00 02 08 3 90 90 EA [...] 0- 8- 00 SI 18 LD ve ID 75 20 20 DE IL 96 10 [...] 10 10 RI TA 8 PH CH OH AR AR N- MA D CA CY [...] 0- 9- 00 SI 18 LD ve ID 75 20 20 DE IL 96 10 [...] 5 60 30 EA 17 AR Ac ID 09 -1 -[address] 92 NO [...] 0- 9- 00 SI 18 LD ve ID 75 20 20 DE IL 96 10 [...] ET OF CY NT HI AN A ID 00 05 05 1 30 8 EA [...] 0- 0- 00 SI 87 LD ve OH 31 20 20 DE DE 10 10 10 RI 2 1 PH CH AR AR MG MA D CY W CA PS OF UL E CY NT HI AN A ID 00 02 05 3 90 90 EA [...] 0- 0- 00 SI 18 LD ve ID 75 20 20 DE IL 96 10 [...] 0- 9- 00 SI 18 LD ve ID 75 20 20 DE IL 96 10 [...] 0- 0- 00 SI 18 LD ve ID 75 20 20 DE IL 96 10 [...] 8- 6- 00 SI 20 LD ve ID 75 20 20 DE IL 96 10 [...] 2- 8- 00 SI 08 LD ve ID 02 20 20 DE ED 20 10 [...] 1- 8- 00 SI 85 LD ve ID 75 20 20 DE IL 96 09 [...] 1- 7- 00 SI 85 LD ve ID 75 20 20 DE IL 96 09 [...] ET OF CY NT HI AN A ID 00 05 12 02 90 90 EA [...] 1- 9- 00 SI 85 LD ve ID 75 20 20 DE IL 96 09 [...] 01 60 30 EA 14 AR Ac ID 09 -1 -[address] 21 NO [...] 1- 2- 00 SI 85 LD ve ID 75 20 20 DE IL 96 09 [...] 00 60 30 EA 14 AR Ac ID 09 -1 -[address] 21 NO [...] 5- 4- 00 SI 96 LD ve ID 02 20 20 DE ED 20 09 [...] 1- 4- 00 SI 85 LD ve ID 75 20 20 DE IL 96 09 [...] ET OF CY NT HI AN A ID 00 05 09 01 90 90 EA [...] 1- 7- 00 SI 85 LD ve ID 75 20 20 DE IL 96 09 [...] 1- 0- 00 SI 85 LD ve ID 75 20 20 DE IL 96 09 [...] 04 60 30 EA 99 AR Ac ID 09 -1 -[address] 05 NO [...] 1- 2- 00 SI 85 LD ve ID 75 20 20 DE [place] 96 09 09 RI 0 PH CH 10 AR AR MA D MG CY W TA OF BL CY ET NT HI AN A NA 00 08 07 03 60 30 EA 99 AR Ac ID 09 -1 -[address] 05 NO [...] CY BL NT ET HI AN A ID 00 05 06 00 90 90 EA [...] 1- 1- 00 SI 85 LD ve ID 75 20 20 DE [place] 96 09 [...] BL CY ET NT HI AN A ID 00 05 05 00 30 30 EA 12 AR Ac EM 04 -0 -[address] 60 NO ti AR 61 4- 1- 00 SI 63 LD ve IN 10 20 20 DE 29 09 09 RI 0. 1 PH CH 62 AR AR 5 MA D MG CY W TA OF BL CY ET NT HI AN A ID 00 02 04 02 30 30 EA [...] 1- 3- 00 SI 85 LD ve ID 75 20 20 DE IL 96 09 09 RI 0 PH CH 10 AR AR MA D MG CY W TA OF BL CY ET NT HI AN A NA 00 08 04 02 60 30 EA 99 AR Ac ID 09 -1 -[address] 05 NO [...] 1- 6- 00 SI 85 LD ve ID 75 20 20 DE IL 96 09 [...] CY BL NT ET HI AN A ID 00 02 03 01 30 30 EA [...] 1- 6- 00 SI 85 LD ve ID 75 20 20 DE IL 96 09 [...] CY BL NT ET HI AN A ID 00 02 02 00 30 30 EA [...] 5- 0- 00 SI 83 LD ve ID 34 20 20 DE AM 40 09 [...] 6- 0- 00 SI 84 LD ve ID 75 20 20 DE IL 96 08 09 RI 0 PH CH 10 AR AR MA D MG CY W TA OF BL CY ET NT HI AN A ID 00 02 01 11 30 30 EA [...] 6- 1- 00 SI 84 LD ve ID 75 20 20 DE IL 96 08 [...] 00 60 30 EA 10 AR Ac ID 18 -1 -[address] 71 NO [...] OF E CY NT HI AN A ID 00 02 12 10 30 30 EA [...] CY BL NT ET HI AN A ID 00 11 12 00 30 7 EA [...] 6- 4- 00 SI 84 LD ve ID 75 20 20 DE IL 96 08 [...] BL CY ET NT HI AN A ID 00 02 11 09 30 30 EA [...] 6- 3- 00 SI 84 LD ve ID 75 20 20 DE IL 96 08 [...] CY BL NT ET HI AN A ID 00 02 10 08 30 30 EA [...] ET OF CY NT HI AN A ID 00 02 09 07 30 30 EA [...] 01 60 30 EA 99 No Ac ID 09 -1 -[address] 05 t [...] 6- 6- 00 SI 84 Av ve ID 07 20 20 DE ai IL 41 [...] BL CY ET NT HI AN A ID 37 08 08 00 30 30 EA [...] 6- 8- 00 SI 84 Av ve ID 75 20 20 DE ai IL 96 08 08 la 0 PH bl 10 AR e MA MG CY TA OF BL CY ET NT HI AN A NA 00 08 08 00 60 30 EA 99 No Ac ID 09 -1 -[address] 05 t [...] ET OF CY NT HI AN A ID 00 02 08 06 30 30 EA [...] 6- 1- 00 SI 84 Av ve ID 75 20 20 DE ai IL 96 [...] BL CY ET NT HI AN A ID 00 02 07 05 30 30 EA [...] 01 60 30 EA 96 No Ac ID 09 -0 -[address] 21 t ti OX 30 4- 3- 00 SI 74 Av ve EN 14 20 20 DE ai 90 08 08 la 50 1 PH bl 0 AR e MG MA CY TA BL OF ET CY NT HI AN A ID 00 02 07 04 30 30 EA [...] 6- 3- 00 SI 84 Av ve ID 75 20 20 DE ai IL 96 [...] 6- 5- 00 SI 84 Av ve ID 75 20 20 DE ai IL 96 [...] CY BL NT ET HI AN A ID 00 02 05 03 30 30 EA [...] CY BL NT ET HI AN A ID 00 02 04 02 30 30 EA [...] 6- 4- 00 SI 84 Av ve ID 75 20 20 DE ai IL 96 [...] ET OF CY NT HI AN A ID 00 02 04 01 30 30 EA [...] 6- 0- 00 SI 84 Av ve ID 75 20 20 DE ai IL 96 [...] 6- 6- 00 SI 84 Av ve ID 75 20 20 DE ai IL 96 [...] ET OF CY NT HI AN A ID 00 02 03 00 30 30 EA [...] 2- 5- 00 SI 25 Av ve ID 75 20 20 DE ai IL 96 [...] 00 60 30 EA 96 No Ac ID 09 -0 -[address] 21 t [...] CY OF CY NT HI AN A ID 00 01 03 00 30 30 EA [...] Procedure DOS Code Location Performer Comment ECG 64743 PAULIE APODACA [facility]INE 7 [facility] ECG INC INC W/LEAST 12 LDS TRCG ONLY W/O I&R DRUG TEST 19622 PAULIE APODACA PRSMV 7 [facility] QUAL DIR INC INC OPTICAL OBS PER DAY LIPID 92597 COMBINED COMBINED PANEL 7 PHYSICIAN PHYSICIAN S LA S LA 25 77474 COMBINED COMBINED HYDROXY 7 PHYSICIAN PHYSICIAN INCLUDES S LA S LA FRACTIONS IF PERFORMED COMPREHEN 91859 COMBINED COMBINED SIVE 7 PHYSICIAN PHYSICIAN METABOLIC S LA S LA PANEL BLOOD 72212 COMBINED COMBINED COUNT 7 PHYSICIAN PHYSICIAN COMPLETE S LA S LA AUTO&[place] [address] COMBINED COMBINED FREE 7 PHYSICIAN PHYSIC[place] [address] COMBINED COMBINED THYROID 7 PHYSICIAN PHYSICIAN STIMULATI S LA S LA NG HORMONE TSH SCREENING 16138 PAULIE APODACA 7 [facility]OS[facility] MAMMOGRAP INC INC HY BI 2-VIEW BREAST INC CAD SCREENING G0202 [place] [address] MEDICAL MAMMOGRAP IMAGING HY RUSS ASS INCL CAD WHEN PERFORMD BLOOD 00840 [facility] HARPEL OCCULT 7 PHYSICIAN PEROXIDAS S GROUP E ACTV QUAL FECES 1-3 SPEC URINLS 12546 [facility] DIP 7 PHYSICIAN PHYSICIAN STICK/TAB S GROUP S GROUP LET REAGNT NON-AUTO MICRSCPY POSTERIOR V2632 [facility] CHAMBER 7 SURGERY SURGERY INTRAOCUL CENTER CENTER AR LENS CATARACT 42092 [facility] REMOVAL 7 SURGERY SURGERY INSERTION CENTER CENTER OF LENS ANESTHESI 16745 ANESTHESI BRITO A EYE 7 A [place] [address] COMBINED COMBINED FREE 7 PHYSICIAN PHYSICIAN THYROXINE S LA S LA LIPID 00223 COMBINED COMBINED PANEL 7 PHYSICIAN PHYSICIAN S LA S LA 25 27158 COMBINED COMBINED HYDROXY 7 PHYSICIAN PHYSICIAN INCLUDES S LA S LA FRACTIONS IF PERFORMED ACUTE 15000 [facility] HANG HEPATITIS 7 RICARDO RICARDO [place] [address] COMBINED COMBINED TRIIODOTH 7 PHYSICIAN PHYSICIAN YRONINE S LA S LA T3 TOTAL TT3 SEDIMENTA 91929 COMBINED COMBINED TION RATE 7 PHYSICIAN PHYSICIAN RBC S LA S LA NON-AUTOM ATED GENERAL 53290 COMBINED COMBINED HEALTH 7 PHYSICIAN PHYSICIAN PANEL S LA S LA POSTERIOR V2632 [facility] CHAMBER 7 SURGERY SURGERY INTRAOCUL CENTER CENTER AR LENS CATARACT 24796 [facility] REMOVAL 7 INSERTION OF LENS OPH BMTRY 17533 [facility] US 7 ECHOGRAPY A-SCAN IO LENS PWR ALLIE OPHTH 13790 [facility] MEDICAL 7 XM&EVAL COMPRE NEW PT 1/> VST DETERMINA 52386 [facility] TION 7 REFRACTIV E STATE ECG 64013 PAULIE APODACA ROUTINE 6 [facility] ECG INC INC W/LEAST 12 LDS TRCG ONLY W/O I&R OPHTH 92557 [facility] 6 ANG ANG XM&EVAL COMPRHNSV ESTAB PT 1/> INJ J0702 SABINO GALLO BETAMETHA 6 SUJATA SUJATA SONE ACETATE & PHOSPHATE 3 [place] [address] PAULIE APODACA TROPONIN 6 [facility] QUANTITAT INC INC ANTHONY ECG 60015 PAULIE RIVAS ROUTINE 6 [facility] W/LEAST P 12 LDS I&R ONLY RADIOLOGI 53606 [facility] C EXAM 6 MEDICAL CHEST 2 IMAGING VIEWS ASS FRONTAL&L ATERAL ECG 80658 PAULIE APODACA ROUTINE 6 [facility] ECG INC INC W/LEAST 12 LDS TRCG ONLY W/O I&R CREATINE 58221 PAULIE APODACA KINASE 6 [facility] TOTAL INC INC COMPREHEN 16596 PAULIE APODACA SIVE 6 [facility] METABOLIC INC INC PANEL CREATINE 27530 PAULIE APODACA KINASE MB 6 [facility] FRACTION INC INC ONLY BLOOD 42788 PAULIE APODACA COUNT 6 [facility] COMPLETE INC INC AUTO&AUTO DIFRNTL WBC FIBRIN 19156 PAULIE APODACA DGRADJ 6 [facility] PRODUCTS INC INC D-DIMER QUAL/SEMI SANTY BLOOD 87454 PAULIE APODACA COUNT 6 [facility] COMPLETE INC INC AUTO&AUTO DIFRNTL WBC BASIC 51048 PAULIE APODACA METABOLIC 6 [facility] PANEL INC INC CALCIUM TOTAL CATHETER C1725 PAULIE PAULIE TRANSLUMI 6 [facility] NAL INC INC ANGIOPLAS TY NON-LASER CATH PLMT 45026 [facility] LEENA Velásquez HRT & 6 PHYSICIAN MAT KOSTAS S GROUP W/NJX & ANGIO IMG S&I GUIDE C1769 PAULIE APODACA WIRE 6 [facility] INC INC INJ J0702 SABINO GALLO BETAMETHA 6 SUJATA SUJATA SONE ACETATE & PHOSPHATE 3 MG INJ J0702 ARNASIF ARNOLD BETAMETHA 6 SUAJTA SUJATA SONE ACETATE & PHOSPHATE 3 [place] [address] COMBINED COMBINED FREE 6 PHYSICIAN PHYSICIAN THYROXINE S LA S LA MYOCARDIA 80122 PAULIE Velásquez SPECT 6 [facility]OSP MULTIPLE INC INC STUDIES CV STRS 20840 PAULIE RIVAS TST 6 [facility] XERS&/OR HOSPITAL RX CONT P ECG I&R ONLY CV STRS 48775 PAULIE RIVAS TST 6 [facility] XERS&/OR HOSPITAL RX CONT P ECG W/O I&R CV STRS 52891 PAULIE APODACA TST 6 [facility] XERS&/OR INC INC RX CONT ECG TRCG ONLY TECHNETIU A9500 PAULIE Ornelas TC-99M 6 [facility] HOSP SESTAMIBI INC INC DX PER STUDY DOSE BLOOD 63604 COMBINED COMBINED COUNT 6 PHYSICIAN PHYSICIAN COMPLETE S LA S LA AUTO&AUTO DIFRNTL WBC LIPID 92448 COMBINED COMBINED PANEL 6 PHYSICIAN PHYSICIAN S LA S LA COMPREHEN 98130 COMBINED COMBINED SIVE 6 PHYSICIAN PHYSICIAN METABOLIC S LA S LA PANEL COLLECTIO 89507 COMBINED COMBINED N VENOUS 6 PHYSICIAN PHYSICIAN [place] [address] COMBINED COMBINED THYROID 6 PHYSICIAN PHYSICIAN STIMULATI S LA S LA NG HORMONE TSH COMPREHEN 67741 COMBINED COMBINED SIVE 6 PHYSICIAN PHYSICIAN METABOLIC S LA S LA PANEL 25 83032 COMBINED COMBINED HYDROXY 6 PHYSICIAN PHYSICIAN INCLUDES S LA S LA FRACTIONS IF PERFORMED BLOOD 43863 COMBINED COMBINED COUNT 6 PHYSICIAN PHYSICIAN COMPLETE S LA S LA AUTO&[place] [address] [place] ESTEVE[facility] ALL HEAD/BRAI 6 MEDICAL N W/O IMAGING CONTRAST ASS MATERIAL COMPUTER- 56226 [place] [facility] AIDED 6 MEDICAL DETECTION IMAGING ASS SCREENING MAMMOGRAP HY SCREENING G0202 [facility] 6 MEDICAL MAMMOGRAP IMAGING HY RUSS ASS INCL CAD WHEN PERFORMD DRUG TST G0477 COMBINED COMBINED PRESUMP;C 6 PHYSICIAN PHYSICIAN PBL BEING S LA S LA READ DC OPT OBV ONLY ECG RTN G0403 COMBINED COMBINED ECG W/12 6 PHYSICIAN PHYSICIAN LEADS SCR S LA S LA INIT PREVNTV PE W/I&R BLOOD 63504 KRAIG HOLLINGSWORTH OCCULT 6 EDEL MCKENNA ASHTYN PEROXIDAS E ACTV QUAL FECES 1-3 SPEC URINLS 41262 KRAIG CARSON MAR DIP 6 EDEL MCKENNA STICK/TAB LET REAGNT NON-AUTO MICRSCPY RADEX 77138 [place] JOAO ESOPHAGUS 6 [place] [address] COMBINED COMBINED FREE 6 PHYSICIAN PHYSICIAN THYROXINE S LA S LA DRUG SCR G0434 COMBINED COMBINED NOT 6 PHYSICIAN PHYSICIAN CHROMATOG S LA S LA RAPHIC; ANY NUMBER PT ENC GENERAL 95461 COMBINED COMBINED HEALTH 6 PHYSICIAN PHYSICIAN PANEL S LA S LA DRUG TST G0477 COMBINED COMBINED PRESUMP;C 6 PHYSICIAN PHYSICIAN PBL BEING S LA S LA READ DC OPT OBV ONLY 25 85753 COMBINED COMBINED HYDROXY 6 PHYSICIAN PHYSICIAN INCLUDES S [place] [address] COMBINED COMBINED TRIIODOTH 6 PHYSICIAN PHYSICIAN YRONINE S LA S LA T3 TOTAL TT3 LIPID 22051 COMBINED COMBINED PANEL 6 PHYSICIAN PHYSICIAN S LA S LA SEDIMENTA 44467 COMBINED COMBINED TION RATE 6 PHYSICIAN PHYSICIAN RBC S LA S LA NON-AUTOM ATED INJ J0702 ARNOLD ARNOLD BETAMETHA 6 SUJATA SUJATA SONE ACETATE & PHOSPHATE 3 MG INJ J0702 ARNOLD ARNOLD BETAMETHA 6 SUJATA SUJATA SONE ACETATE & PHOSPHATE 3 MG INJ J0702 SABINO GALLO BETAMETHA 6 SUJATA SUJATA SONE ACETATE & PHOSPHATE 3 MG COLONOSCO 46842 [facility] SCHULSTAD PY FLX DX 5 PHYSICIAN CAM W/COLLJ S GROUP SPEC WHEN PFRMD INJ J0702 SABINO GALLO BETAMETHA 5 SUJATA SUJATA SONE ACETATE & PHOSPHATE 3 [place] [address] PAULIE PAULIE FREE 5 [facility] [place] [address] PAULIE PAULIE THYROID 5 [facility] STIMULATI INC INC NG HORMONE TSH COLLECTIO 28603 PAULIE PAULIE N VENOUS 5 [facility] BLOOD INC INC VENIPUNCT URE NERVE 38426 [facility] CONDUCTIO 5 N N STUDIES NEUROLOGY 5-6 STUDIES NEEDLE 79134 [facility] EMG EA 5 N EXTREMTY NEUROLOGY W/PARASPI NL AREA COMPLETE NON-INVAS 45346 [place] [facility] ANTHONY 5 MEDICAL [facility] PHYSIOLOG IMAGING IC STUDY ASS EXTREMITY 3 LEVLS DUP-SCAN 27136 PAULIE PAULIE LXTR 5 [facility] ART/ARTL INC [place] [address] COMBINED COMBINED THYROID 5 PHYSICIAN PHYSICIAN STIMULATI [place] [address] COMBINED COMBINED MAGNESIUM 5 PHYSICIAN PHYSICIAN S LA S LA BASIC 10305 COMBINED COMBINED METABOLIC 5 PHYSICIAN PHYSICIAN PANEL S LA S LA CALCIUM TOTAL INJ J0702 SABINO GALLO BETAMETHA 5 SUJATA SUJATA SONE ACETATE & PHOSPHATE 3 MG INJ J0702 SABINO GALLO BETAMETHA 5 SUJATA SUJATA SONE ACETATE & PHOSPHATE 3 [place] [address] COMBINED COMBINED MAGNESIUM 5 PHYSICIAN PHYSICIAN S LA S LA COMPREHEN 81941 COMBINED COMBINED SIVE 5 PHYSICIAN PHYSICIAN METABOLIC S LA S LA PANEL LIPID 29123 COMBINED COMBINED PANEL 5 PHYSICIAN [place] [address] PAULIE RIVAS ACTIVTD 5 [facility] W/R&I P </30 [place] [address] PAULIE APODACA ACTIVATED 5 [facility] ECG INC INC RECORD MONITOR 30 DAYS RADIOLOGI 21670 [facility] C EXAM 5 MEDICAL CHEST 2 IMAGING VIEWS ASS FRONTAL&[place] [address] COMBINED COMBINED FREE 5 PHYSICIAN PHYSIC[place] [address] COMBINED COMBINED THYROID 5 PHYSICIAN PHYSICIAN STIMULATI S LA S LA NG HORMONE TSH CALCIUM 20623 COMBINED COMBINED TOTAL 5 PHYSICIAN PHYSICIAN S LA S LA ACUTE 07332 [facility] HANG HEPATITIS 5 RICARDO RICARDO PANEL [facility] 29310 COMBINED COMBINED FUNCTION 5 PHYSICIAN PHYSICIAN PANEL S LA S LA INJ J0702 SABINO GALLO BETAMETHA 5 SUJATA SUJATA SONE ACETATE & PHOSPHATE 3 MG INJ J0702 SABINO GALLO BETAMETHA 5 SUJATA SUJATA SONE ACETATE & PHOSPHATE 3 MG COMPREHEN 72651 COMBINED COMBINED SIVE 5 PHYSICIAN PHYSICIAN METABOLIC S LA S LA PANEL LIPID 39864 COMBINED COMBINED PANEL 5 PHYSICIAN PHYSICIAN S LA S LA SCREENING G0202 PAULIE APODACA 5 [facility] MAMMOGRAP INC INC HY RSUS INCL CAD WHEN PERFORMD DXA BONE 25904 [place] JO[facility] DENSITY 5 MEDICAL MERRITT STUDY 1/> IMAGING SITES ASS AXIAL SKEL COMPUTER- 20109 PAULIE APODACA AIDED 5 [facility] DETECTION INC INC SCREENING MAMMOGRAP HY IADNA 62781 [facility] NEISSERIA 5 EDEL CHAMORRO GONORRHOE AE DIRECT PROBE TQ CULTURE 33164 [facility] CHLAMYDIA 5 EDEL MCKENNA ASHTYN ANY SOURCE BLOOD 92013 KRAIG Van LOYD OCCULT 5 EDEL MCKENNA TI PEROXIDAS E ACTV QUAL FECES 1 DETER URINLS 44606 [facility] DIP 5 EDEL CHAMORRO STICK/TAB LET REAGNT NON-AUTO MICRSCPY IM ADM 06102 PAULIE APODACA PRQ ID 5 [facility] SUBQ/IM INC INC NJXS 1 VACCINE INJ J0702 SABINO GALLO BETAMETHA 5 SUJATA SUJATA SONE ACETATE & PHOSPHATE 3 MG COMPREHEN 48223 COMBINED COMBINED SIVE 4 PHYSICIAN PHYSICIAN [place] [address] COMBINED COMBINED AMYLASE 4 PHYSICIAN PHYSICIAN S LA S LA ANTIBODY 72511 COMBINED COMBINED HELICOBAC [address] S LA S LA PYLORI EXC B9 60877 [facility] SCHULSTAD LESION 4 PHYSICIAN CL[place]ORD MRGN XCP S GROUP SK TG T/A/L 1.1-2.0 CM OPH 81470 [employer] MEDICAL 4 ANG ANG XM&EVAL COMPRHNSV ESTAB PT 1/> [place] [address] [facility], JUSTIN SURG 4 [facility] PATHOLOGY GROSS&LIOR ROSCOPIC EXAM DIAGNOSTI G0206 PAULIE APODACA C 4 [facility] MAMMOGRAP INC INC HY INCL CAD WHEN PERF; UNI TECHNETIU A9500 PAULIE APODACA M TC-99M 4 [facility] SESTAMIBI INC INC DX PER STUDY DOSE CV STRS 87544 PAULIE HUMPHREY JR TST 4 [facility] XERS&/OR HOSPITAL RX CONT P ECG I&R ONLY CV STRS 03478 PAULIE APODACA TST 4 [facility] XERS&/OR INC INC RX CONT ECG TRCG ONLY MYOCARDIA 01869 PAULIE APODACA L SPECT 4 [facility] MULTIPLE INC INC STUDIES CV STRS 53961 PAULIE APODACA TST 4 [facility] XERS&/OR INC INC RX CONT ECG TRCG ONLY CV STRS 00514 EVELYN RIVAS TST 4 MAX MAX XERS&/OR RX CONT ECG I&R ONLY ECHO 55168 PAULIE APODACA TTHRC R-T 4 [facility] 2D INC INC W/WOM-MOD E COMPL SPEC&COLR D XTRNL ECG 40459 PAULIE APODACA & 48 HR 4 [facility] RECORDING INC INC XTRNL ECG 25272 EVELYN RIVAS 4 MAX MAX CONTINUOU S RHYTHM W/I&R UP TO 48 HRS EXTERNAL 08-18-201 23115 PAULIE FREDDIEU JULIANA ECG 4 [facility] SCANNING INC ANALYSIS REPORT ECG 22676 KEELEY WORRELL ROUTINE 4 ECG W/LEAST 12 LDS I&R ONLY ECG 53113 PAULIE PAULIE ROUTINE 4 [facility] ECG INC INC W/LEAST 12 LDS TRCG ONLY W/O I&R RADEX 92907 EDWARDS TRA EDWARDS TRA SPINE 4 CERVICAL 4 OR 5 VIEWS RADEX 84372 PAULIE APODACA ESOPHAGUS 4 [facility] INC INC US SOFT 71636 PAULIE APODACA TISSUE 4 [facility] HEAD & INC [place] [address] COMBINED COMBINED FREE 4 PHYSICIAN PHYSIC[place] [address] COMBINED COMBINED THYROID 4 PHYSICIAN PHYSICIAN STIMULATI S LA S LA NG HORMONE TSH DRUG SCR G0434 COMBINED COMBINED NOT 4 PHYSICIAN PHYSICIAN CHROMATOG S LA S LA RAPHIC; ANY NUMBER PT ENC CALCIUM 50159 COMBINED COMBINED TOTAL 4 PHYSICIAN PHYSICIAN S LA S LA RADEX 14058 PAULIE APODACA FOREARM 2 4 [facility] VIEWS INC INC RADEX 21980 PAULIE APODACA WRIST 4 [facility] COMPLETE INC INC MINIMUM 3 VIEWS DIAGNOSTI G0206 PAULIE APODACA C 4 [facility] MAMMOGRAP INC INC HY INCL CAD WHEN PERF; UNI SCREENING G0202 PAULIE APODACA 4 [facility] MAMMOGRAP INC INC HY RUSS INCL CAD WHEN PERFORMD COMPUTER- 68397 PAULIE APODACA AIDED 4 [facility] DETECTION INC INC SCREENING MAMMOGRAP HY DXA BONE 66137 PAULIE APODACA DENSITY 4 [facility] STUDY 1/> INC INC SITES AXIAL SKEL IADNA 27281 HARPEL HARPEL NEISSERIA 4 ASHTYN ASHTYN GONORRHOE AE DIRECT PROBE TQ CULTURE 12914 HARPEL HARPEL CHLAMYDIA 4 ASHTYN ASHTYN ANY SOURCE BLOOD 15126 HARPEL HARPEL OCCULT 4 ASHTYN ASHTYN PEROXIDAS E ACTV QUAL FECES 1-3 SPEC URINLS 95457 HARPEL HARPEL DIP 4 ASHTYN ASHTYN STICK/TAB LET REAGNT NON-AUTO MICRSCPY DRUG SCRN 88154 COMBINED COMBINED QUAL BARRATTE OPERATOR 4 PHYSICIAN PHYSICIAN CLASS S LA S LA NONCHROMO TOGRAPHIC EACH COMPREHEN 91467 PAULIE APODACA SIVE 4 [facility] [place] [address] PAULIE APODACA AMYLASE 4 [facility] INC INC BLOOD 13245 PAULIE APODACA COUNT 4 [facility] COMPLETE INC INC AUTO&[place] [address] PAULIE APODACA LIPASE 4 [facility] [place] [address] PAULIE APODACA INFUSION 4 [facility] THERAPY/P INC INC ROPHYLAXI S /DX 1ST TO 1 HR THERAPEUT 03267 PAULIE APODACA IC 4 [facility] INJECTION INC INC IV PUSH EACH NEW DRUG INJECTION J0696 SABINO GALLO 3 SUJATA SUJATA CEFTRIAXO NE SODIUM PER 250 MG LIPID 74169 COMBINED COMBINED PANEL 3 PHYSICIAN PHYSICIAN S LA S LA COMPREHEN 38792 COMBINED COMBINED SIVE 3 PHYSICIAN PHYSICIAN METABOLIC S LA S LA PANEL CUL BACT 31994 PAULIE APODACA XCPT 3 [facility] URINE INC INC BLOOD/[place] [address] PAULIE APODACA STREPTOCO 3 [facility] CCUS INC INC GROUP A C-REACTIV 77552 COMBINED COMBINED E PROTEIN 3 PHYSICIAN PHYSICIAN S LA S LA SEDIMENTA 36051 COMBINED COMBINED TION RATE 3 PHYSICIAN PHYSICIAN RBC S LA S LA NON-AUTOM ATED ANTINUCLE 12524 [facility] HANG AR 3 OF AMERIC ANTIBODIE RICARDO HOLDING S FAWAD HOLDINGS RHEUMATOI 15545 COMBINED COMBINED D FACTOR 3 PHYSICIAN PHYSICIAN QUALITATI S LA S LA VE RADEX 07361 MITCHELL MEDRANO HAND 2 3 MAT MAT VIEWS RADEX 80795 MITCHELL MEDRANO SPINE 3 MAT MAT CERVICAL 2 OR 3 VIEWS RADEX 01576 PAULIE APODACA HAND 3 [facility] MINIMUM 3 INC INC VIEWS INJECTION J2405 PAULIE APODACA 3 [facility] ONDANSETR INC INC ON HCL PER 1 MG ANES 76099 [facility] AWILDA MCCOYOPH 3 ANESTH THYRD OF THE LARYNX BLUE TRACH & LYMPH NECK 1YR LARYNGOSC 67949 PAULIE APODACA OPY 3 [facility] W/BIOPSY INC INC MICROSCOP E/TELESCO PE LARGSC 09891 VERENA ALBARADO EXC 3 LESLY LESLY CHARISMA&/STRP G CORDS/EPI [place]CRSC[place] [address] PICKLESIM PICKLESIM SURG 3 ER JR ASTER ER JR ASTER PATHOLOGY GROSS&LIOR ROSCOPIC EXAM ELECTROLY 15910 COMBINED COMBINED TE PANEL 3 PHYSICIAN PHYSICIAN S LA S LA ECG 92365 COMBINED COMBINED ROUTINE 3 PHYSICIAN PHYSICIAN ECG S LA S LA W/LEAST 12 LDS TRCG ONLY W/O I&R COMPUTER- 19034 JOAO JOAO AIDED 3 MERRITT MERRITT DETECTION SCREENING MAMMOGRAP HY SPMTRY 07360 JACK JACK W/VC 3 ODALIS ODALIS EXPIRATOR Y GARRETT W/WO MXML VOL VNTJ SCREENING G0202 JOAO JOAO 3 MERRITT MERRITT MAMMOGRAP HY RUSS INCL CAD WHEN PERFORMD IADNA 46297 HARPEL HARPEL NEISSERIA 3 ASHTYN ASHTYN GONORRHOE AE DIRECT PROBE TQ CULTURE 05526 HARPEL HARPEL CHLAMYDIA 3 ASHTYN ASHTYN ANY SOURCE BLOOD 41418 HARPEL HARPEL OCCULT 3 ASHTYN ASHTYN PEROXIDAS E ACTV QUAL FECES 1-3 SPEC URINLS 02580 HARPEL HARPEL DIP 3 ASHTYN ASHTYN STICK/TAB LET REAGNT NON-AUTO MICRSCPY INJECTION J0696 SABINO GALLO 2 SUJATA SUJATA CEFTRIAXO NE SODIUM PER 250 MG INJECTION J0696 SABINO GALLO 2 SUJATA SUJATA CEFTRIAXO NE SODIUM PER [address] [place] [address] PAULIE APODACA STREPTOCO 2 [facility] CCUS INC INC GROUP A CALCIUM 41197 COMBINED COMBINED TOTAL 2 PHYSICIAN PHYSICIAN S LA S LA THYROID 71748 COMBINED COMBINED HORM 2 PHYSICIAN PHYSICIAN UPTK/THYR S LA S [place] [address] COMBINED COMBINED THYROID 2 PHYSICIAN PHYSICIAN STIMULATI S LA S LA NG HORMONE TSH DETERMINA 49405 [facility] TION 2 GRE GRE REFRACTIV E STATE OPHTH 59431 [facility] 2 GRE GRE XM&EVAL COMPRHNSV ESTAB PT 1/> SPMTRY 89361 JACK JACK W/VC 2 ODALIS ODALIS EXPIRATOR Y GARRETT W/WO MXML VOL VNTJ CV STRS 76784 FALLUJI FALLUJI TST 2 [facility] XERS&/OR RX CONT ECG I&R ONLY MYOCARDIA 28132 FRANSISCAUJI FALLUJI L SPECT 2 DORIAN DORIAN MULTIPLE STUDIES MYOCARDIA 33891 PAULIE APODACA L SPECT 2 [facility] [place] [address] PAULIE APODACA THYROID 2 [facility] STIMULATI INC INC NG HORMONE TSH CV STRS 34089 PAULIE JACKMIDaja TST 2 [facility] XERS&/OR HOSPITAL RX CONT P ECG I&R ONLY ECHO 63372 FALLUJI FALLUJI TTHRC R-T 2 DORIAN DORIAN 2D W/WOM-MOD E COMPL SPEC&COLR D CV STRS 59026 PAULIE APODACA TST 2 [facility] XERS&/OR INC INC RX CONT ECG TRCG ONLY CV STRS 81448 [facility] TST 2 PHYSICIAN PHYSICIAN XERS&/OR S GROUP S GROUP RX CONT ECG W/O I&R COMPREHEN 01469 PAULIE APODACA SIVE 2 [facility] METABOLIC INC INC PANEL LIPID 81085 PAULIE APODACA PANEL 2 [facility] INC INC TECHNETIU A9502 PAULIE Ornelas TC-99M 2 [facility] TETROFOSM INC INC IN DX PER STUDY DOSE SMR PRIM 33473 [facility] SRC WET 2 [facility] NFCT AGT SMR PRIM 37986 [facility] SRC WET 2 [facility] [place] NFCT AGT ADMN SET A7005 YOUR YOUR W/SM VOL 2 PHARMACY PHARMACY [employer] [facility] NEBULIZR NON-DISPB L BRNCDILAT 49830 [facility] RSPSE 2 ALLERGY ALLERGY SPMTRY & ASTHMA & ASTHMA PRE&POST- P P BRNCDILAT ADMN INJ J0702 SABINO GALLO BETAMETHA 2 SUJATA SUJATA SONE ACETATE & PHOSPHATE 3 MG INJECTION J0696 SABINO GALLO 2 SUJATA SUJATA CEFTRIAXO NE SODIUM PER [address] [place] [address] COMBINED COMBINED THYROID 2 PHYSICIAN PHYSICIAN STIMULATI S LA S LA NG HORMONE TSH THYROID 50791 COMBINED COMBINED HORM 2 PHYSICIAN PHYSICIAN UPTK/THYR S LA S LA OID HORMONE BINDING RATIO CALCIUM 40583 LAB HANG LAB HANG IONIZED 2 [employer] HOLDINGS HOLDINGS ADMN SET A7003 YOUR YOUR SM VOL 2 PHARMACY PHARMACY [employer] [facility] PNEUMAT NEBULIZR DISPBL SPMTRY 21428 JACK JACK W/VC 2 ODALIS ODALIS EXPIRATOR Y GARRETT W/WO MXML VOL VNTJ [facility]- 88618 PAULIE APODACA AIDED 2 [facility] DETECTION INC INC SCREENING MAMMOGRAP HY SCREENING G0202 PAULIE APODACA 2 [facility] MAMMOGRAP INC INC HY RUSS INCL CAD WHEN PERFORMD IADNA NOS 86317 BIO BIO 2 REFERNCE REFERNCE AMPLIFIED LABORATOR LABORATOR PROBE TQ IES IES EACH ORGANISM IADNA 10681 BIO BIO NEISSERIA 2 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 GONORRHOE IES IES AE AMPLIFIED PROBE TQ IADNA 59934 BIO BIO CHLAMYDIA 2 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 TRACHOMAT IES IES IS AMPLIFIED PROBE TQ CYTP C/V 77113 BIO BIO AUTO THIN 2 REFERNCE REFERNCE LYR LABORATOR LABORATOR PREPJ SCR IES IES MNL RESCR PHYS COMPREHEN 57495 COMBINED COMBINED SIVE 2 PHYSICIAN PHYSICIAN METABOLIC S LA S LA PANEL CYANOCOBA 22493 COMBINED COMBINED ASHLEE 2 PHYSICIAN PHYSICIAN VITAMIN S LA S LA B-12 RHEUMATOI 54217 COMBINED COMBINED D FACTOR 2 PHYSICIAN PHYSICIAN QUALITATI S LA S LA VE LIPID 24505 COMBINED COMBINED PANEL 2 PHYSICIAN PHYSICIAN S LA S LA DNA 71948 LAB HANG LAB HANG ANTIBODY 2 AMERIC AMERIC [place]/DO [facility] UBLE STRANDED BLOOD 42284 COMBINED COMBINED COUNT 2 PHYSICIAN PHYSICIAN COMPLETE S LA S LA AUTO&AUTO DIFRNTL WBC HEMOGLOBI 23241 COMBINED COMBINED N 2 PHYSICIAN PHYSICIAN GLYCOSYLA S LA S LA BIBI A1C COLLECTIO 28857 COMBINED COMBINED N VENOUS 2 PHYSICIAN PHYSICIAN [...] YOUR YOUR SM VOL 1 PHARMACY PHARMACY [facility] PNEUMAT NEBULIZR DISPBL INJ J0702 ARNOLD ARNOLD BETAMETHA 1 SUJATA SUJATA SONE ACETATE & PHOSPHATE 3 MG INJ J0702 ARNOLD ARNOLD BETAMETHA 1 SUJATA SUJATA SONE ACETATE & PHOSPHATE 3 MG INJECTION J0696 ARNOLD ARNOLD 1 SUJATA SUJATA CEFTRIAXO NE SODIUM PER 250 MG APPL 43747 PAULIE APODACA MODALITY 1 [facility] 1/> AREAS INC INC ELEC STIMJ UNATTENDE D APPLICATI 68605 PAULIE APODACA ON 1 [facility] MODALITY INC INC 1/> AREAS HOT/COLD PACKS APPL 81788 PAULIE APODACA MODALITY 1 [facility] 1/> AREAS INC INC ULTRASOUN D EA 15 MIN THERAPEUT 97706 PAULIE APODACA IC PX 1/> 1 [facility] AREAS INC INC EACH 15 MIN EXERCISES DEMO&/JAYDEN 53107 JACK JACK L OF PT 1 ODALIS JACOBO UTILIZ AERSL GEN/NEB/I NHLR/IP LEVALBUTE J7614 JACK JACK ROL INHAL 1 ODALIS JACOBO NON-CP THRU DME U DOSE 0.5 MG PERCUTANE 12919 JACK JACK OUS TESTS 1 ODALIS JACOBO W/ALLERGE AARON EXTRACTS BRNCDILAT 42044 JACK JACK RSPSE 1 ODALIS JACOBO SPMTRY PRE&POST- BRNCDILAT ADMN APPL 10630 PAULIE APODACA [facility]ALITY 1 [facility]/> AREAS INC INC ELEC STIMJ UNATTENDE D APPL 06925 PAULIE APODACA MODALITY 1 [facility]/> AREAS INC INC ULTRASOUN D EA 15 MIN APPLICATI 35430 PAULIE APODACA ON 1 [facility] MODALITY INC INC 1/> AREAS HOT/COLD PACKS THERAPEUT 79461 PAULIE APODACA IC PX /> 1 [facility] AREAS INC INC EACH 15 MIN EXERCISES APPLICATI 71281 PAULIE APODACA ON 1 [facility] MODALITY INC INC 1/> AREAS HOT/COLD PACKS APPL 03165 PAULIE APODACA MODALITY 1 [facility]/> AREAS INC INC ULTRASOUN D EA 15 MIN MANUAL 33642 PAULIE APODACA THERAPY 1 [facility] TQS /> INC INC REGIONS EACH 15 MINUTES APPL 92424 PAULIE APODACA MODALITY 1 [facility]/> AREAS INC INC ELEC STIMJ UNATTENDE D APPL 13997 PAULIE APODACA MODALITY 1 [facility] 1/> AREAS INC INC ELEC STIMJ UNATTENDE D APPL 50007 PAULIE APODACA MODALITY 1 [facility] 1/> AREAS INC INC ULTRASOUN D EA 15 MIN APPLICATI 77962 PAULIE APODACA ON 1 [facility] MODALITY INC INC 1/> AREAS HOT/COLD PACKS THERAPEUT 68944 PAULIE APODACA IC PX 1/> 1 [facility] AREAS INC INC EACH 15 MIN EXERCISES THERAPEUT 12525 PAULIE APODACA IC PX 1/> 1 [facility] AREAS INC INC EACH 15 MIN EXERCISES PHYSICAL 23675 PAULIE APODACA THERAPY 1 [facility] EVALUATIO INC INC N APPL 28871 PAULIE APODACA MODALITY 1 [facility] 1/> AREAS INC INC ULTRASOUN D EA 15 MIN APPLICATI 87190 PAULIE APODACA ON 1 [facility] MODALITY INC INC 1/> AREAS HOT/COLD PACKS APPL 43388 PAULIE APODACA MODALITY 1 [facility] 1/> AREAS INC INC ELEC STIMJ UNATTENDE D APPL 92238 PAULIE APODACA MODALITY 1 [facility] 1/> AREAS INC INC ELEC STIMJ [place] 15 [place] [address] PAULIE APODACA THYROID 1 [facility] STIMULATI INC INC NG HORMONE TSH CALCIUM 40438 PAULIE APODACA IONIZED 1 [place] [address] PAULIE APODACA THYROXINE 1 [facility] TOTAL INC INC POLYSOM 66309 SHILPI DOBBINS 6/>YRS 1 OG OG SLEEP 4/> ADDL ELIER ATTND POLYSOM 44202 PAULIE APODACA 6/>YRS 1 [facility] SLEEP 4/> [place] [address] PAULIE APODACA AMYLASE 1 [place] [address] PAULIE APODACA LIPASE 1 [facility] INC INC BLOOD 08860 PAULIE APODACA COUNT 1 [facility] COMPLETE INC INC AUTO&AUTO DIFRNTL WBC COMPREHEN 83277 PAULIE APODACA SIVE 1 [facility] METABOLIC INC INC PANEL OPHTH 84974 ALMA MARQUEZ [facility] 1 GRE GRE XM&EVAL COMPRE NEW PT 1/> VST DETERMINA 19539 ALMA MARQUEZ TION 1 GRE GRE REFRACTIV E STATE COMPREHEN 00782 COMBINED COMBINED SIVE 1 PHYSICIAN PHYSICIAN METABOLIC S LA S LA PANEL LIPID 77296 COMBINED COMBINED PANEL 1 PHYSICIAN PHYSICIAN Austyn LA S LA CV STRS 63033 [facility] FALLUJI TST 1 PHYSICIAN DORIAN XERS&/OR S GROUP RX CONT ECG W/O I&R CV STRS 73379 PAULIE APODACA TST 1 [facility] XERS&/OR INC INC RX CONT ECG TRCG ONLY MYOCARDIA 52238 PAULIE APODACA L SPECT 1 [facility] [place] [address] PAULIE APODACA THYROID 1 [facility] STIMULATI INC INC NG HORMONE TSH 3D 37256 PAULIE APODACA RENDERING 1 [facility] W/INTERP INC INC & POSTPROCE SS SUPERVISI ON MRI 81429 PAULIE APODACA SPINAL 1 [facility] CANAL INC INC LUMBAR W/O CONTRAST MATERIAL BLOOD 63244 PAULIE APODACA COUNT 1 [facility] COMPLETE INC INC AUTO&AUTO DIFRNTL WBC C-REACTIV 68788 PAULIE APODACA E PROTEIN 1 [facility] INC INC RHEUMATOI 63487 PAULIE APODACA D FACTOR 1 [facility] QUANTITAT INC INC ANTHONY PROTEIN 76173 PAULIE APODACA ELECTROPH 1 [facility] ORETIC INC INC FRACTJ&[place] [address] PAULIE APODACA THIAMINE- 1 [facility] VITAMIN INC INC B-1 CYANOCOBA 82461 PAULIE APODACA ASHLEE 1 [facility] VITAMIN INC INC B-[address] [place] [address] PAULIE APODACA THYROXINE 1 [facility] [place] [address] PAULIE APODACA FOLIC 1 [facility] ACID INC INC SERUM HEMOGLOBI 08943 PAULIE APODACA N 1 [facility] GLYCOSYLA INC INC BIBI A1C MRI 26739 CYNTH[place] JOAO SPINAL 1 [facility] [place] CANAL IMAGING CERVICAL ASS W/O CONTRAST MATRL 3D 43906 CYNTHIA JOAO RENDERING 1 MEDICAL [place] W/INTERP IMAGING & ASS POSTPROCE SS SUPERVISI ON XTRNL ECG 39261 PAULIE APODACA & 48 HR 1 [facility] RECORDING INC INC NRV CNDJ 64986 ANTONIETA FUNG AMPLITUDE 1 MARICEL MARICEL & LATENCY EACH NERVE SENSORY NDL EMG 4 11912 ANTONIETA FUNG XTR W/WO 1 MARICEL MARICEL RELATED PARASPINA L AREAS NRV CNDJ 49933 ANTONIETA FUNG AMPLT&LAT 1 MARICEL MARICEL ENCY EA NRV MOTOR W/F-WAVE STD THYROID 96961 PAULIE APODACA HORM 1 [facility] UPTK/THYR INC [place] [address] PAULIE APODACA THYROID 1 [facility] STIMULATI INC INC NG HORMONE TSH ECG 15614 PAULIE MCKEMIE ROUTINE 1 [facility] W/LEAST P 12 LDS I&R ONLY RADEX 97089 [place] JOAO SPINE 1 [facility] LUMBOSACR IMAGING AL ASS MINIMUM 4 VIEWS ECG 55154 PAULIE APODACA ROUTINE 1 [facility] ECG INC INC W/LEAST 12 LDS TRCG ONLY W/O I&R RADEX HIP 74234 [place] JOAO 1 [facility] UNILATERA IMAGING L ASS COMPLETE MINIMUM 2 VIEWS RADIOLOGI 06982 [facility] C EXAM 1 [facility] [place] CHEST 2 IMAGING VIEWS ASS FRONTAL&L ATERAL BASIC 48654 PAULIE APODACA METABOLIC 1 [facility] [place] [address] PAULIE APODACA THYROXINE 1 [facility] TOTAL INC INC HEPATIC 64269 PAULIE APODACA FUNCTION 1 [facility] PANEL INC INC BLOOD 36164 PAULIE APODACA COUNT 1 [facility] COMPLETE INC INC AUTO&AUTO DIFRNTL WBC LIPID 36663 PAULIE APODACA PANEL 1 [facility] INC INC CUL BACT 85544 PAULIE APODACA XCPT 1 [facility] URINE INC INC BLOOD/STO OL AEROBIC ISOL OTH 8604 PAULIE APODACA INCISION 1 [facility] W/DRAINAG INC INC E SKIN&SUBC UTANEOUS TISSUE INCISION 23932 ALMA TITUS & 1 EMERGENCY LIOR DRAINAGE SERVICES ABSCESS COMPLICAT ED/MULTIP LE [facility]- [address]99 [facility] SHEPHERD AIDED 1 [facility] [place] DETECTION IMAGING ASS SCREENING MAMMOGRAP HY US BONE 97723 [facility] DENSITY 1 PHYSICIAN ASHTYN LUCAS & GROUP INTERP PCC PERIPH ANY METHO SCREENING G0202 [place] JOAO 1 MEDICAL [facility] MAMMOGRAP IMAGING HY RUSS ASS INCL CAD WHEN PERFORMD IADNA NOS 07472 BIO BIO 1 REFERNCE REFERNCE AMPLIFIED LABORATOR LABORATOR PROBE TQ IES IES EACH ORGANISM IADNA 65035 BIO BIO NEISSERIA 1 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 GONORRHOE IES IES AE AMPLIFIED PROBE TQ CYTP C/V 97485 BIO BIO AUTO THIN 1 REFERNCE REFERNCE LYR LABORATOR LABORATOR PREPJ SCR IES IES MNL RESCR PHYS IADNA 16053 BIO BIO CHLAMYDIA 1 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 TRACHOMAT IES IES IS AMPLIFIED PROBE TQ SPMTRY 84808 [place] JOE W/VC 1 MEDICAL JAM EXPIRATOR SERV Y GARRETT FOUNDATIO W/WO MXML VOL VNTJ INJECTION J0696 SABINO GALLO 1 SUJATA SUJATA CEFTRIAXO NE SODIUM PER 250 MG INJECTION J0696 SABINO GALLO 1 SUJATA SUJATA CEFTRIAXO NE SODIUM PER 250 MG OPHTH 59421 NAS SCIFRES MEDICAL 0 VISION ANG XM&EVAL COMPRHNSV ESTAB PT 1/> INJECTION J0696 SABINO GALLO 0 SUJATA SUJATA CEFTRIAXO NE SODIUM PER 250 MG DETER 77321 [place] JOE MALDISTRI 0 MEDICAL JAM BJ OF SERV INSPIRED FOUNDATIO GAS N WSHOT CURVE DETER 63720 PAULIE APODACA AIRWY 0 [facility] CLOSING INC INC VOL 1 BRTH TSTS FUNCTIONA 08562 PAULIE APODACA L 0 [facility] RESIDUAL INC INC CAPACITY OR RESIDUAL VOLUME BRNCDILAT 03771 GAGE DIAZ RSPSE 0 MEDICAL JAM SPMTRY SERV PRE&POST- [place] [address] PAULIE APODACA THYROID 0 [facility] STIMULATI INC INC NG HORMONE TSH BLOOD 80925 PAULIE APODACA COUNT 0 [facility] COMPLETE INC INC AUTO&AUTO DIFRNTL WBC BASIC 55552 PAULIE APODACA METABOLIC 0 [facility] PANEL INC INC CALCIUM TOTAL RADIOLOGI 16099 [facility] CHEST 2 IMAGING VIEWS ASS FRONTAL&L ATERAL RADEX 55813 [facility]D RIBS UNI 0 [facility] W/POSTERO IMAGING ANT CH ASS MINIMUM 3 VIEWS ORTHOPEDI L3216 THE THE C 0 HEALTHY HEALTHY FOOTWEAR FOOT FOOT LADIES [facility] IN[facility] EACH FT INSRT L3010 THE THE REMV MOLD 0 HEALTHY HEALTHY PT MDL FOOT FOOT LNGTUDNL [facility] ARCH SUPP EA RADEX 77364 [facility] JOAO, SHOULDER 0 MEDICAL JESSICA COMPLETE IMAGING MINIMUM 2 ASSOCIATE VIEWS S RADEX 09720 [facility], FOOT 0 MEDICAL JESSICA COMPLETE IMAGING MINIMUM 3 ASSOCIATE VIEWS S BLOOD 42510 COMBINED COMBINED COUNT 0 PHYSICIAN PHYSICIAN COMPLETE S LAB S LAB AUTO&AUTO DIFRNTL WBC RHEUMATOI 75755 COMBINED COMBINED D FACTOR 0 PHYSICIAN PHYSICIAN QUALITATI S LAB S LAB VE ANTINUCLE 24580 LAB HANG LAB HANG AR 0 [employer] S FAWAD SEDIMENTA 31751 COMBINED COMBINED TION RATE 0 PHYSICIAN PHYSICIAN RBC S LAB S LAB NON-AUTOM ATED C-REACTIV 84771 LAB HANG LAB HANG E PROTEIN 0 [employer]ING RADEX 93446 [facility], HAND 2 0 MEDICAL JESSICA VIEWS IMAGING ASSOCIATE S COMPUTER- 34631 [facility], AIDED 0 MEDICAL JESSICA DETECTION IMAGING ASSOCIATE SCREENING S MAMMOGRAP HY SCREENING 24744 [place] JOAO, 0 MEDICAL JESSICA MAMMOGRAP IMAGING HY ASSOCIATE BILATERAL S US BONE 70143 [facility] HARPEL DENSITY 0 PHYSICIAN ASHTYN LUCAS & GROUP INTERP [facility] PERIPH ANY METHO APPL 09486 MARLY HOLLIS, MODALITY 0 FAMILY ARNOLD H 1/> AREAS CHIROPRAC ELEC TIC STIMJ UNATTENDE D APPL 81077 MARLY HOLLSI, MODALITY 0 FAMILY ARNOLD H 1/> AREAS CHIROPRAC TRACTION TIC MECHANICA L CHIROPRAC 62919 MARLY HOLLIS, TIC 0 FAMILY ARNOLD H MANIPULAT CHIROPRAC ANTHONY TX TIC SPINAL 3-4 REGIONS THERAPEUT 57126 MARLY HOLLIS, IC PX 1/> 0 FAMILY ARNOLD H AREAS CHIROPRAC EACH 15 TIC MIN EXERCISES STRAPPING 16649 MARLY HOLLIS, THORAX 0 FAMILY ARNOLD H CHIROPRAC TIC THERAPEUT 25404 MARLY HOLLIS, IC PX 1/> 0 FAMILY ARNOLD H AREAS CHIROPRAC EACH 15 TIC MIN EXERCISES CHIROPRAC 42456 MARLY HOLLIS, TIC 0 FAMILY ARNOLD H MANIPULAT CHIROPRAC ANTHONY TX TIC SPINAL 3-4 REGIONS APPL 23186 MARLY HOLLIS, MODALITY 0 FAMILY ARNOLD H 1/> AREAS CHIROPRAC ELEC TIC STIMJ UNATTENDE D APPL 28360 MARLY HOLLIS, MODALITY 0 FAMILY ARNOLD H 1/> AREAS CHIROPRAC TRACTION TIC MECHANICA L APPL 94428 MARLY HOLLIS, MODALITY 0 FAMILY ARNOLD H 1/> AREAS CHIROPRAC TRACTION TIC MECHANICA L CHIROPRAC 37657 MARLY HOLLIS, TIC 0 FAMILY ARNOLD H MANIPULAT CHIROPRAC ANTHONY TX TIC SPINAL 3-4 REGIONS APPL 35141 MARLY HOLLIS, MODALITY 0 FAMILY ARNOLD H 1/> AREAS CHIROPRAC ELEC TIC STIMJ UNATTENDE D THERAPEUT 45518 MARLY HOLLIS, IC PX 1/> 0 FAMILY ARNOLD H AREAS CHIROPRAC EACH 15 TIC MIN EXERCISES STRAPPING 77205 MARLY HOLLIS, THORAX 0 FAMILY ARNOLD H CHIROPRAC TIC CV STRS 23591 PAULIE APODACA TST 0 [facility] XERS&/OR INC INC RX CONT ECG TRCG ONLY CV STRS 08198 PAULIE GUTIERREZ TST 0 [facility] RX CONT PROF SERV ECG W/O I&R CV STRS 39744 PAULIE GUTIERREZ TST 0 [facility] RX CONT PROF SERV ECG I&R ONLY CYTP C/V 11267 [facility] AUTO THIN 0 [facility] LYR PREPJ SCR SYS PHYS IADNA 03116 [facility] [place] 0 [facility] GONORRHOE AE AMPLIFIED PROBE TQ IADNA 21162 [facility] [place] 0 [facility] TRACHOMAT IS AMPLIFIED PROBE TQ THERAPEUT 22932 MARLY HOLLIS, IC PX 1/> 0 FAMILY ANNABEL R AREAS CHIROPRAC EACH 15 TIC MIN EXERCISES CHIROPRAC 54202 MARLY HOLLIS TIC 0 FAMILY ANNABEL R MANIPULAT CHIROPRAC ANTHONY TX TIC SPINAL 3-4 REGIONS MANUAL 82949 MARLY HOLLIS, THERAPY 0 FAMILY ANNAEBL R TQS 1/> CHIROPRAC REGIONS TIC EACH 15 MINUTES APPL 87534 MARLY HOLLIS MODALITY 0 FAMILY ANNABEL R 1/> AREAS CHIROPRAC TRACTION TIC MECHANICA L APPL 17090 MARLY HOLLIS, MODALITY 0 FAMILY ANNABEL R 1/> AREAS CHIROPRAC ELEC TIC STIMJ UNATTENDE D APPL 22274 MARLY HOLLIS MODALITY 0 FAMILY ANNABEL R 1/> AREAS CHIROPRAC ELEC TIC STIMJ UNATTENDE D APPL 67900 MARLY HOLLIS, MODALITY 0 FAMILY ANNABEL R 1/> AREAS CHIROPRAC TRACTION TIC MECHANICA L CHIROPRAC 06482 KARLI CÁRDENAS 0 FAMILY ANNABEL R MANIPULAT CHIROPRAC ANTHONY TX TIC SPINAL 3-4 REGIONS SELF-CARE 31803 MARLY HOLLIS, /HOME 0 FAMILY ANNABEL R MGMT CHIROPRAC TRAINING TIC EACH 15 MINUTES THERAPEUT 97108 MARLY HOLLIS, IC PX 1/> 0 FAMILY ANNABEL R AREAS CHIROPRAC EACH 15 TIC MIN EXERCISES STRAPPING 18862 MARLY HOLLIS, THORAX 0 FAMILY ANNABEL R CHIROPRAC TIC STRAPPING 60501 MARLY HOLLIS, THORAX 0 FAMILY ANNABEL R CHIROPRAC TIC THERAPEUT 81491 MARLY HOLLIS, IC PX 1/> 0 FAMILY ANNABEL R AREAS CHIROPRAC EACH 15 TIC MIN EXERCISES SELF-CARE 93152 MARLY HOLLIS, /HOME 0 FAMILY ANNABEL R MGMT CHIROPRAC TRAINING TIC EACH 15 MINUTES CHIROPRAC 58145 MARLY HOLLIS, TIC 0 FAMILY ANNABEL R MANIPULAT CHIROPRAC ANTHONY TX TIC SPINAL 3-4 REGIONS APPL 26608 MARLY HOLLIS, MODALITY 0 FAMILY ANNABEL R 1/> AREAS CHIROPRAC TRACTION TIC MECHANICA L APPL 14295 MARLY HOLLIS, MODALITY 0 FAMILY ANNABEL R 1/> AREAS CHIROPRAC ELEC TIC STIMJ UNATTENDE D APPL 52307 MARLY HOLLIS, MODALITY 0 FAMILY ANNABEL R 1/> AREAS CHIROPRAC ELEC TIC STIMJ UNATTENDE D APPL 92409 MARLY HOLLIS, MODALITY 0 FAMILY ANNABEL R 1/> AREAS CHIROPRAC TRACTION TIC MECHANICA L CHIROPRAC 54684 MARLY HOLLIS, TIC 0 FAMILY ANNABEL R MANIPULAT CHIROPRAC ANTHONY TX TIC SPINAL 3-4 REGIONS THERAPEUT 09839 MARLY HOLLIS, IC PX 1/> 0 FAMILY ANNABEL R AREAS CHIROPRAC EACH 15 TIC MIN EXERCISES THERAPEUT 69142 MARLY HOLLIS, IC PX 1/> 0 FAMILY ANNABEL R AREAS CHIROPRAC EACH 15 TIC MIN EXERCISES CHIROPRAC 18392 MARLY HOLLIS, TIC 0 FAMILY ANNABEL R MANIPULAT CHIROPRAC ANTHONY TX TIC SPINAL 3-4 REGIONS APPL 92676 MARLY HOLLIS, MODALITY 0 FAMILY ANNABEL R 1/> AREAS CHIROPRAC TRACTION TIC MECHANICA L APPL 24567 MARLY HOLLIS, MODALITY 0 FAMILY ANNABEL R 1/> AREAS CHIROPRAC ELEC TIC STIMJ UNATTENDE D RADEX 18898 PAULIE APODACA SPINE 9 [facility] CERVICAL INC INC 6 OR MORE VIEWS RADEX 49652 [place] JOAO, SPINE 9 MEDICAL JESSICA LUMBOSACR IMAGING AL ASSOCIATE MINIMUM 4 S VIEWS GLUCOSE 66934 COMBINED COMBINED QUANTITAT 9 PHYSICIAN PHYSICIAN ANTHONY BLOOD S LAB S LAB XCPT REAGENT STRIP HEMOGLOBI 97542 COMBINED COMBINED N 9 PHYSICIAN PHYSICIAN GLYCOSYLA S LAB S LAB BIBI A1C CT SOFT 06765 [facility], TISSUE 9 MEDICAL [place] P NECK IMAGING W/CONTRAS ASSOCIATE T S MATERIAL 3D 43618 [place] CARLOS, RENDERING 9 MEDICAL [place] P W/INTERP IMAGING & ASSOCIATE POSTPROCE [place] 3D 71630 PAULIE PAULIE RENDERING 9 [facility] INC INC W/INTERP& [place] [address] LAB HANG LAB HANG FREE 9 [employer] [place] [address] COMBINED COMBINED THYROID 9 PHYSICIAN PHYSICIAN STIMULATI S [place] [address] COMBINED COMBINED THYROXINE 9 PHYSICIAN PHYSICIAN TOTAL S LAB S LAB CREATININ 09246 COMBINED COMBINED E BLOOD 9 PHYSICIAN PHYSICIAN S LAB S LAB MICROSOMA 31314 LAB HANG LAB HANG L 9 [employer] [place] [address] COMBINED COMBINED UREA 9 PHYSICIAN PHYSICIAN NITROGEN S LAB S LAB QUANTITAT ANTHONY THYROGLOB 80522 LAB HANG LAB HANG ULIN 9 [employer] ADMN SET A7005 YOUR YOUR W/SM VOL 9 PHARMACY PHARMACY NONFILTR [facility] NEBULIZR NON-DISPB L COMPREHEN 97856 COMBINED COMBINED SIVE 9 PHYSICIAN PHYSICIAN METABOLIC S LAB S LAB PANEL LIPID 70568 COMBINED COMBINED PANEL 9 PHYSICIAN PHYSICIAN S LAB S LAB BLOOD 30247 COMBINED COMBINED COUNT 9 PHYSICIAN PHYSICIAN COMPLETE S LAB S LAB AUTO&AUTO DIFRNTL WBC BLOOD 03391 KRAIG HOLLINGSWORTH, COUNT 9 EDEL Van HEMOGLOBI N COLLECTIO 78955 KRAIG HOLLINGSWORTH, N 9 EDEL Van CAPILLARY BLOOD SPECIMEN IADNA 40975 [employer] [place], [place] 9 [place] INC AJ D GONORRHOE AE AMPLIFIED PROBE TQ CYTP 90331 [employer] [place], CERV/VAG 9 [place] INC AJ D AUTO THIN LAYER PREP MNL SCREEN IADNA 66497 [employer] [place], [place] 9 [place] INC AJ D TRACHOMAT IS AMPLIFIED PROBE TQ BLOOD 25940 KRAIG GODINEZL, OCCULT 9 HALPEL MD KRAIG Van PEROXIDAS E ACTV QUAL FECES 1-3 SPEC SCREENING 33691 [place] Danish GONZALEZ MEDICAL GRAHAM P MAMMOGRAP IMAGING HY ASSOCIATE BILATERAL S COMPUTER- 23100 PAULIE APODACA AIDED 9 [facility] DETECTION INC INC SCREENING MAMMOGRAP HY OPHTH 87497 NAS AVELAR [facility] 9 VISION VITALY M XM&EVAL COMPRHNSV ESTAB PT 1/> [place] [address] COMBINED COMBINED THYROID 8 PHYSICIAN PHYSICIAN STIMULATI S [place] [address] COMBINED COMBINED THYROXINE 8 PHYSICIAN PHYSICIAN TOTAL S LAB S LAB URNLS DIP 53395 PAULIE APODACA 8 [facility] STICK/TAB INC INC LET REAGENT AUTO MICROSCOP Y NEBULIZER E0570 DIAZ PERALES WITH 8 HOME MED HOME MED COMPRESSO EQUIP. EQUIP. R [employer] NON-INVAS 31348 [place] ANTHONY SHEPHERD 8 MEDICAL JESSICA PHYSIOLOG IMAGING IC STUDY ASSOCIATE EXTREMITY S 3 LEVLS ADMN SET A7005 YOUR YOUR W/SM VOL 8 PHARMACY PHARMACY NONFILTR [employer] NEBULIZR NON-DISPB L ADMN SET A7003 YOUR YOUR SM VOL 8 PHARMACY PHARMACY [employer] PNEUMAT NEBULIZR DISPBL ANES 66492 LISA ORTEGA 8 TI E MUSCLE ANESTHESI TDN A PSC FASCIA&BU [employer] FOREARM WRIST NEUROPLAS 36777 [place] ORTHO MITCHELL, TY 8 AND HAND AMANDA A &/TRANSPO SURGEONS S MEDIAN PSC NRV CARPAL TUNNE ECG 99979 PAULIE APODACA ROUTINE 8 [facility] ECG INC INC W/LEAST 12 LDS TRCG ONLY W/O I&R ECG 64351 PAULIE ANGIEMIE ROUTINE 8 [facility] K[facility] W/LEAST PROF SERV 12 LDS I&R ONLY POTASSIUM 71417 PAULIE APODACA SERUM 8 [facility] PLASMA/WH INC INC OLE BLOOD ADMN SET A7005 YOUR YOUR W/SM VOL 8 PHARMACY PHARMACY [employer] NEBULIZR NON-DISPB L US BREAST 12752 PAULIE APODACA REAL 8 [facility] TIME INC INC W/IMAGE DOCUMENTA TION NDL EMG 1 54131 ANTONIETA FUNG, XTR W/WO 8 VICKIE JOHNSTON RELATED PARASPINA L AREAS NRV CNDJ 43163 ANTONIETA FUNG, AMPLITUDE 8 VICKIE JOHNSTON & LATENCY EACH NERVE SENSORY NRV CNDJ 80865 ANTONIETA FUNG, AMPLT&LAT 8 VICKIE JOHNSTON ENCY EA NRV MOTOR W/F-WAVE STD APPL 59207 PAULIE APODACA MODALITY 8 [facility] 1/> AREAS INC INC ELEC STIMJ UNATTENDE D APPL 37902 PAULIE APODACA MODALITY 8 [facility] 1/> AREAS INC INC IONTOPHOR ESIS EA 15 MIN APPL 52240 PAULIE APODACA MODALITY 8 [facility] 1/> AREAS INC INC IONTOPHOR ESIS EA 15 MIN APPL 01290 PAULIE APODACA MODALITY 8 [facility] 1/> AREAS INC INC ELEC STIMJ UNATTENDE D APPL 16907 PAULIE APODACA MODALITY 8 [facility] 1/> AREAS INC INC ELEC STIMJ UNATTENDE D MANUAL 35599 PAULIE APODACA THERAPY 8 [facility] TQS 1/> INC INC REGIONS EACH 15 MINUTES BLOOD 26742 KRAIG HOLLINGSWORTH, COUNT 8 EDEL Van HEMOGLOBI N BLOOD 33963 KRAIG HOLLINGSWORTH, OCCULT 8 EDEL Van PEROXIDAS E ACTV QUAL FECES 1-3 SPEC IADNA 67783 [employer] [place], [place] 8 [place] INC KENDLEL E GONORRHOE AE AMPLIFIED PROBE TQ IADNA 66118 [employer], [place] 8 [place] INC KENDELL E TRACHOMAT IS AMPLIFIED PROBE TQ CYTP 32593 [employer], CERV/VAG 8 [place] INC KENDELL E AUTO THIN LAYER PREP MNL SCREEN APPL 17314 PAULIE APODACA MODALITY 8 [facility] INC ELEC STIMJ UNATTENDE D APPL 66060 [facility]/> [facility] INC IONTOPHOR ESIS EA 15 MIN FUNDUS 08777 JASPREET VOGEL, PHOTOGRAP 8 [place] A CHAPARRO A HY W/INTERPR ETATION & REPORT OPHTH 83892 JASPREET VOGEL, MEDICAL 8 CHAPARRO A CHAPARRO A XM&EVAL COMPRHNSV ESTAB PT 1/> SCREENING 33918 [place] Margarita SHEPHERD MEDICAL JESSICA MAMMOGRAP IMAGING HY ASSOCIATE BILATERAL S COMPUTER- 17652 [place] JOAO AIDED 8 MEDICAL JESSICA DETECTION IMAGING ASSOCIATE SCREENING S MAMMOGRAP HY US BONE 08757 KRAIG HOLLINGSWORTH, DENSITY 8 EDEL Van LUCAS & INTERP PERIPH ANY METHO APPL 41297 [facility]/> AREAS INC INC ELEC STIMJ UNATTENDE D MANUAL 06977 [facility] THERAPY 8 [facility] TQS /> INC INC REGIONS EACH 15 MINUTES APPL 56299 [facility] 8 [facility]/> AREAS INC INC IONTOPHOR ESIS EA 15 MIN APPL 33980 [facility]/> AREAS INC INC IONTOPHOR ESIS EA 15 MIN MANUAL 15533 [facility] THERAPY [facility] TQS 1/> INC INC REGIONS EACH 15 MINUTES APPL 51096 [facility] 8 [facility]/> AREAS INC INC ELEC STIMJ UNATTENDE D Encounters Encounter Start End Date Code Location Performer Type Date OFFICE 84901 [facility] SCIFRES OUTPATIEN 7 7 T VISIT 10 MINUTES OFFICE 79405 [facility] LEENA OUTPATIEN 7 7 PHYSICIAN T VISIT S GROUP 25 MINUTES [facility] T OFFICE 35062 SCIFRES SCIFRES OUTPATIEN 7 7 T VISIT 10 MINUTES [facility] T OFFICE 15362 VOGEL VOGEL OUTPATIEN 7 7 T VISIT 10 MINUTES OFFICE 65978 GAGE LIRA CONSULTAT 7 7 MEDICAL ION SERV NEW/ESTAB FOUNDATIO PATIENT N 40 MIN OFFICE 25278 SABINO COLEYASIF OUTPATIEN 7 7 T VISIT 15 MINUTES [facility] T PERIODIC 24846 [facility] HARPEL PREVENTIV 7 7 PHYSICIAN E MED EST S GROUP PATIENT 40-64YRS OFFICE 19590 [facility] OUTPATIEN 7 7 PHYSICIAN T VISIT S GROUP 15 MINUTES [facility] - 6 6 [facility] OUTPATIEN INC T OFFICE 85690 [facility] LEENA OUTPATIEN 6 6 PHYSICIAN T VISIT S GROUP 25 MINUTES OFFICE 06529 SABINO SABINO OUTPATIEN 6 6 T VISIT 15 MINUTES OFFICE 75994 SABINO SABINO OUTPATIEN 6 6 SUJATA SUJATA T VISIT 15 MINUTES OFFICE 74943 [facility] OUTPATIEN 6 6 PHYSICIAN LESLY T VISIT S GROUP 10 MINUTES EMERGENCY 42884 [facility] 6 6 [facility] DEPARTMEN INC T VISIT MODERATE SEVERITY EMERGENCY 57655 ELBERT CORONADO, 6 6 PHYSICIAN JR MARTINEZ [facility]IS[facility] HIGH/URGE NT SEVERITY [facility] - [facility] 6 [facility] OUTPATIEN INC T OFFICE 32910 [facility] LEENA OUTPATIEN 6 6 PHYSICIAN MAT T VISIT S GROUP 15 MINUTES [facility] - 6 6 [facility] OUTPATIEN INC T OFFICE 53044 [facility] L[facility] OUTPATIEN 6 6 PHYSICIAN MAT T VISIT S GROUP 40 MINUTES OFFICE 37208 VIANCAASIF SABINO OUTPATIEN 6 6 SUJATA SUJATA T VISIT 15 MINUTES OFFICE 08159 [facility] OUTPATIEN 6 6 PHYSICIAN LESLY T VISIT S GROUP 10 MINUTES OFFICE 57955 SABINO VIANCAASIF OUTPATIEN 6 6 SUJATA SUJATA T VISIT 15 MINUTES OFFICE [address] [facility] VI[facility]CAASIF OUTPATIEN 6 6 SUJATA SUJATA T VISIT 15 MINUTES OFFICE 52128 [facility] OUTPATIEN 6 6 PHYSICIAN LESLY T VISIT 5 S GROUP MINUTES OFFICE 55560 [facility] OUTPATIEN 6 6 PHYSICIAN LESLY T VISIT S GROUP 10 MINUTES [facility] - 6 6 [facility] OUTPATIEN INC T OFFICE 77406 SABINO GALLO OUTPATIEN 6 6 SUJATA SUJATA T VISIT 15 MINUTES OFFICE [address] [facility] S[facility] OUTPATIEN 6 6 SUJATA SUJATA T VISIT 15 MINUTES EMERGENCY 82314 ELBERT COLLADO 6 6 PHYSICIAN DEPARTMEN S, PLLC T VISIT MODERATE SEVERITY OFFICE 75466 [facility] OUTPATIEN 6 6 PHYSICIAN LESLY T VISIT S GROUP 15 MINUTES OFFICE 01102 SABINO GALLO OUTPATIEN 6 6 SUJATA SUJATA T VISIT 15 MINUTES EMERGENCY 23952 ELBERT TITUS DEPT 6 6 PHYSICIAN LIOR VISIT S, PLLC HIGH SEVERITY& THREAT FUNCJ OFFICE 51577 [facility] OUTPATIEN 6 6 PHYSICIAN LESLY T VISIT S GROUP 10 MINUTES PERIODIC 98258 KRAIG [facility] PREVENTIV 6 6 EDEL MCKENNA ASHTYN E MED EST PATIENT 40-64YRS OFFICE 01915 [facility] OUTPATIEN 6 6 PHYSICIAN LESLY T VISIT S GROUP 15 MINUTES OFFICE 54268 [facility] OUTPATIEN 6 6 PHYSICIAN LESLY T VISIT S GROUP 15 MINUTES OFFICE 98119 SABINO SABINO OUTPATIEN 6 6 SUJATA SUJATA T VISIT 15 MINUTES OFFICE 02444 SABINO SABINO OUTPATIEN 6 6 SUJATA SUJATA T VISIT 15 MINUTES OFFICE 88583 SABINO GALLO OUTPATIEN 6 6 SUJATA SUJATA T VISIT 15 MINUTES OFFICE 06456 VIANCAASIF SABINO OUTPATIEN 6 6 SUJATA SUJATA T VISIT 15 MINUTES OFFICE 94199 SABINO GALLO OUTPATIEN 5 5 SUJATA SUJATA T VISIT 15 MINUTES [facility] T OFFICE 06666 [facility] OUTPATIEN 5 5 PHYSICIAN CAM T VISIT S GROUP 25 MINUTES OFFICE 88405 [facility] OUTPATIEN 5 5 PHYSICIAN LESLY T VISIT S GROUP 10 MINUTES OFFICE 10201 SABINO GALLO OUTPATIEN 5 5 SUJATA SUJATA T VISIT 15 MINUTES OFFICE 05008 SABINO GALLO OUTPATIEN 5 5 SUJATA SUJATA T VISIT 15 MINUTES EMERGENCY 88689 ELBERT TITUS 5 5 PHYSICIAN LIOR DEPARTMEN S, PLL[facility] T VISIT MODERATE SEVERITY OFFICE 89481 [facility] OUTPATI[facility] 5 5 PHYSICIAN LESLY T VISIT S GROUP 15 MINUTES [facility] T OFFICE 45086 SABINO GALLO OUTVITOEN 5 5 SUJATA SUJATA T VISIT 15 MINUTES OFFICE 10700 [facility] 5 5 [place] T VISIT ORTHOP[facility]ED 15 [facility] MINUTES [facility] T OFFICE 16992 SABINO GALLO OUTPATIEN 5 5 SUJATA SUJATA T VISIT 15 MINUTES OFFICE 66961 SABINO GALLO OUTPATIEN 5 5 SUJATA SUJATA T VISIT 15 MINUTES OFFICE 45528 SABINO GALLO OUTPATIEN 5 5 SUJATA SUJATA T VISIT 15 MINUTES OFFICE 13729 SABINO GALLO OUTPATIEN 5 5 SUJATA SUJATA T VISIT 15 MINUTES OFFICE 56738 SABINO GALLO OUTPATIEN 5 5 SUJATA SUJATA T VISIT 15 MINUTES OFFICE 77980 [facility] OUTPATIEN 5 5 [facility] T VISIT MEDICAL 15 G MINUTES [facility] OFFICE 57737 [facility] OUTPATIEN 5 5 [facility] T VISIT MEDICAL 15 G MINUTES EMERGENCY 08676 ELBERT TITUS 5 5 PHYSICIAN LIOR DEPARTMEN S[facility] PLL[facility] T VISIT MODERATE SEVERITY EMERGENCY 71640 [facility] 5 5 [facility] T VISIT LOW/MODER SEVERITY [facility] T OFFICE 10851 [facility] OUTPATI[facility] 5 5 PHYSICIAN LESLY T VISIT S GROUP 15 MINUTES OFFICE 66012 [facility] OUTPATIEN 5 5 PHYSICIAN LESLY T VISIT S GROUP 15 MINUTES OFFICE 47689 SABINO GALLO OUTPATIEN 5 5 SUJATA SUJATA T VISIT [address]ES [address] [facility] OUTPATIEN 5 5 [facility] T VISIT MEDICAL 15 G MINUTES [facility] T OFFICE 27293 VERENA REINOSOON OUTPATIEN 5 5 LESLY LESLY T VISIT 15 MINUTES PERIODIC 28251 KRAIG [facility] PREVENTIV 5 5 EDEL MCKENNA ASHTYN E MED EST PATIENT 40-64YRS [facility] - 5 5 [facility] T EMERGENCY 37915 [facility] 5 5 [facility] DEPARTMEN INC T VISIT LOW/MODER SEVERITY EMERGENCY 03038 [facility] 5 5 [facility] DEPARTMEN INC T VISIT LOW/MODER SEVERITY [facility] T OFFICE 59164 SABINO GRAFFPATIEN 5 5 SUJATA SUJATA T VISIT 15 MINUTES OFFICE 53385 SABINO GRAFFPATIEN 5 5 SUJATA SUJATA T VISIT 15 MINUTES OFFICE 74265 SABINO BELLA 4 4 SUJATA SUJATA T VISIT 15 MINUTES OFFICE 72115 SABINO BELLA 4 4 SUJATA SUJATA T VISIT 15 MINUTES OFFICE 88595 [facility] CONSULTAT 4 4 PHYSICIAN ERMA COLEMAN NEW/ESTAB PATIENT 40 MIN OFFICE 86784 SABINO BELLA 4 4 SUJATA SUJATA T VISIT 15 MINUTES [facility] T OFFICE 08060 SABINO BELLA 4 4 SUJATA SUJATA T VISIT 15 MINUTES [facility] T OFFICE 70035 SABINO GRAFFPATIDOMENIC 4 4 SUJATA SUJATA T VISIT 15 MINUTES [facility] T OFFICE 19407 ANJUR-ZANE ANJUR-ZANE OUTPATIEN 4 4 ALI OMAR ALI OMAR T VISIT 15 MINUTES [facility] T EMERGENCY 55016 [facility] 4 4 [facility] DEPARTMEN INC T VISIT LIMITED/M INOR PROB [facility] T EMERGENCY 02387 KEELEY WORRELL 4 4 DEPARTMEN T VISIT HIGH/URGE NT SEVERITY OFFICE 51453 SABINO BELLA 4 4 SUJATA SUJATA T VISIT 15 MINUTES OFFICE 61010 [facility] TRA EDWARDS TRA CONSULTAT 4 4 ION NEW/ESTAB PATIENT 60 MIN OFFICE 13430 SABINO BELLA 4 4 SUJATA SUJATA T VISIT 15 MINUTES OFFICE 56505 VERENA BELLA 4 4 LESLY LESLY T VISIT 15 MINUTES [facility] T OFFICE 57448 VERENA BELLA 4 4 LESLY LESLY T VISIT 25 MINUTES OFFICE 48442 SABINO MIRELESEN 4 4 SUJATA SUJATA T VISIT 15 MINUTES EMERGENCY 51525 [facility] 4 4 [facility] DEPARTMEN INC T VISIT LOW/MODER SEVERITY [facility] T EMERGENCY 79976 ALEXANDRIA MAX ALEXANDRIA MAX 4 4 DEPARTMEN T VISIT MODERATE SEVERITY [facility] T OFFICE 34960 SABINO MIRELESEN 4 4 SUJATA SUJATA T VISIT 15 MINUTES [facility] T PERIODIC 40082 HARPEL HARPEL PREVENTIV 4 4 ASHTYN ASHTYN E MED EST PATIENT 40-64YRS OFFICE 32416 VERENA BELLA 4 4 LESLY LESLY T VISIT 15 MINUTES EMERGENCY 73694 [facility] 4 4 [facility] DEPARTMEN INC T VISIT HIGH/URGE NT SEVERITY [facility] 4 [facility] T OFFICE 64127 SABINO MIRELESEN 3 3 SUJATA SUJATA T VISIT 15 MINUTES OFFICE 33550 VERENA BELLA 3 3 LESLY LESLY T VISIT 15 MINUTES OFFICE 59355 SABINO GRAFFPATIEN 3 3 SUJATA SUJATA T VISIT 15 MINUTES OFFICE 89342 SABINO GRAFFPATIEN 3 3 SUJATA SUJATA T VISIT 15 MINUTES OFFICE 68699 SABINO BELLA 3 3 SUJATA SUJATA T VISIT 15 MINUTES OFFICE 68059 FRANSISCAUOSMAR FALLUJI OUTPATIEN 3 3 DORIAN DORIAN T VISIT 25 MINUTES OFFICE 45640 [facility] MEDRANO OUTPATIEN 3 3 MAT MAT T VISIT 10 MINUTES EMERGENCY 10660 [facility] 3 3 [facility] DEPART[facility] INC T VISIT LOW/MODER SEVERITY EMERGENCY 95909 ALMA GALVAN 3 3 EMERGENCY MOH DEPARTMEN SERVICES T VISIT MODERATE SEVERITY [facility] T OFFICE 77055 SABINO BELLA 3 3 SUJATA SUJATA T VISIT 15 MINUTES EMERGENCY 56967 KEELEY WORRELL 3 3 DEPARTMEN T VISIT MODERATE SEVERITY [facility] T EMERGENCY 96118 [facility] 3 3 [facility] DEPARTMEN INC T VISIT LIMITED/M INOR PROB OFFICE 13225 MITCHELL BELLA 3 3 MAT MAT T VISIT 25 MINUTES OFFICE 58122 SABINO BELLA 3 3 SUJATA SUJATA T VISIT 15 MINUTES [facility] T OFFICE 23806 SABINO BELLA 3 3 SUJATA SUJATA T VISIT 15 MINUTES [facility] T OFFICE 50137 VERENA BELLA 3 3 LESLY LESLY T VISIT 15 MINUTES OFFICE 65991 SABINO BELLA 3 3 SUJATA SUJATA T VISIT 15 MINUTES OFFICE 31468 SABINO BELLA 3 3 SUJATA SUJATA T VISIT 15 MINUTES OFFICE 20212 SABINO BELLA 3 3 SUJATA SUJATA T VISIT 15 MINUTES [facility] T OFFICE 47599 JACK SANTIAGO OUTPATIDOMENIC 3 3 ODALIS ODALIS T VISIT 25 MINUTES PERIODIC 54314 HARPEL PREVENTIV 3 3 ASHTYN E MED EST PATIENT 40-64YRS OFFICE 36070 PETTEGigi PETTEY OUTPATIEN 3 3 SMITH MTZ T NEW 30 MINUTES OFFICE 18517 SABINO GALLO OUTPATIEN 2 2 SUJATA SUJATA T VISIT 15 MINUTES OFFICE 04518 SABINO GALLO OUTPATIEN 2 2 SUJATA SUJATA T VISIT 15 MINUTES [facility] T EMERGENCY 58742 ARIELA TITUS 2 2 LIOR LIOR DEPARTMEN T VISIT MODERATE SEVERITY EMERGENCY 78589 [facility] 2 2 [facility] DEPARTMEN INC T VISIT LOW/MODER SEVERITY OFFICE 03497 VERENA [facility] OUTPATIEN 2 2 LESLY LESLY T VISIT 15 MINUTES OFFICE 76014 MAGALY ROBERTSON CONSULTAT 2 2 ION NEW/ESTAB PATIENT 60 MIN OFFICE 46250 SABINO SABINO OUTPATIEN 2 2 SUJATA SUJATA T VISIT 15 MINUTES OFFICE 61967 SABINO GALLO OUTPATIEN 2 2 SUJATA SUJATA T VISIT 15 MINUTES OFFICE 67393 [facility] DORIAN ALARCON T VISIT 25 MINUTES OFFICE 90943 JACK JACK OUTPATIEN 2 2 ODALIS JACOBO T VISIT 25 MINUTES [facility] T OFFICE 44992 [place] OUTPAT[facility]EN 2 2 JUANCARLOS JUANCARLOS T NEW [address]ES [address] [facility] 2 YANY ALARCON ION CARDIOLOG NEW/ESTAB Y CLINIC PATIENT 60 MIN OFFICE 21210 HARPEL HARPEL OUTPATIEN 2 2 ASHTYN ASHTYN T VISIT 15 MINUTES OFFICE 18955 HARPEL HARPEL OUTPATIEN 2 2 ASHTYN ASHTYN T VISIT 15 MINUTES OFFICE 40798 SABINO MIRELESEN 2 2 SUJATA SUJATA T VISIT 15 MINUTES [facility] T EMERGENCY 91965 [facility] 2 2 [facility] DEPARTMEN INC T VISIT LOW/MODER SEVERITY EMERGENCY 24921 PUND CHR PUND CHR 2 2 DEPARTMEN T VISIT MODERATE SEVERITY OFFICE 03566 [facility] OUTPATIEN 2 2 ALLERGY ALLERGY T VISIT & ASTHMA & ASTHMA 25 P P MINUTES OFFICE 00581 VERENA [facility] OUTPATIEN 2 2 LESLY LESLY T VISIT 25 MINUTES OFFICE 01303 SABINO BELLA 2 2 SUJATA SUJATA T VISIT 15 MINUTES OFFICE 41377 SABINO GALLO OUTPATIEN 2 2 SUJATA SUJATA T VISIT 15 MINUTES OFFICE 67660 JACK JACK OUTPATIEN 2 2 ODALIS ODALIS T VISIT 25 MINUTES [facility] 2 2 [facility] OUT[facility] T PERIODIC 97425 HARPEL HARPEL PREVENTIV 2 2 ASHTYN ASHTYN E MED EST PATIENT 40-64YRS OFFICE 96821 ANTONIETA FUNG OUTPATIEN 2 2 MARICEL MARICEL T VISIT 25 MINUTES OFFICE 57731 SABINO BELLA 2 2 SUJATA SUJATA T VISIT 15 MINUTES OFFICE 28915 SABINO BELLA 2 2 SUJATA SUJATA T VISIT 15 MINUTES OFFICE 38664 SABINO GRAFFPATIDOMENIC 2 2 SUJATA SUJATA T VISIT 15 MINUTES OFFICE 18118 SABINO BELLA 1 1 SUJATA SUJATA T VISIT 15 MINUTES OFFICE 71516 SABINO GALLO OUTPATIEN 1 1 SUJATA SUJATA T VISIT 15 MINUTES OFFICE 99936 SABINO GALLO OUTPATIEN 1 1 SUJATA SUJATA T VISIT 15 MINUTES OFFICE 46459 SABINO GALLO OUTPATIEN 1 1 SUJATA SUJATA T VISIT 15 MINUTES OFFICE 78472 JACK JACK CONSULTAT 1 1 ODALIS OLMEDO NEW/ESTAB PATIENT 60 MIN [facility] T OFFICE 47996 SABINO GALLO OUTPATIEN 1 1 SUJATA SUJATA T VISIT 15 MINUTES [facility] T OFFICE 96710 ANTONIETA NAGYELL OUTPATIEN 1 1 MARICEL MARICEL T VISIT 15 MINUTES OFFICE 26426 VERENA [facility] OUTPATIEN 1 1 LESLY LESLY T VISIT 15 MINUTES OFFICE 48009 GAGE DIAZ OUTPATIEN 1 1 MEDICAL JAM T VISIT SERV 15 FOUNDATIO MINUTES [facility] T EMERGENCY 22412 ALMA TITUS 1 1 EMERGENCY LIOR DEPARTMEN SERVICES T VISIT HIGH/URGE NT SEVERITY EMERGENCY 86123 [facility] 1 1 [facility] DEPARTMEN INC T VISIT MODERATE SEVERITY [facility] T OFFICE 04669 SABINO GALLO OUTVITOEN 1 1 SUJATA SUJATA T VISIT 15 MINUTES OFFICE 83935 SABINO GALLO OUTJESSICA 1 1 SUJATA SUJATA T VISIT 15 MINUTES OFFICE 19493 GAGE DIAZ OUTPATIEN 1 1 MEDICAL JAM T VISIT SERV 25 FOUNDATIO MINUTES OFFICE 73539 SABINO GALLO OUTPATIEN 1 1 SUJATA SUJATA T VISIT 15 MINUTES OFFICE 69418 FUNG FUNG OUTPATIEN 1 1 MARICEL MARICEL T VISIT 15 MINUTES OFFICE 95368 VERENA [facility] OUTPATIEN 1 1 LESLY LESLY T VISIT 10 MINUTES OFFICE 30248 [facility] OUTPATIEN 1 1 PHYSICIAN DORIAN T VISIT S GROUP 25 MINUTES OFFICE 24115 FUNG FUNG OUTPATIEN 1 1 MARICEL CONNELLY T VISIT 25 MINUTES [facility]PAT[facility]EN [facility] OFFICE 65944 [facility] CONSULTAT 1 1 PHYSICIAN DORIAN OLMEDO S GROUP NEW/ESTAB PATIENT 60 MIN OFFICE 19727 FUNG FUNG CONSULTAT 1 1 MARICEL CONNELLY ION NEW/ESTAB PATIENT 60 MIN OFFICE 91062 SABINO GALLO OUTPATIEN 1 1 SUJATA SUJATA T VISIT 15 MINUTES [facility] T EMERGENCY 37643 [facility] 1 1 [facility] DEPARTMEN INC T VISIT LOW/MODER SEVERITY EMERGENCY 20661 ALMA WALKER 1 1 EMERGENCY DEPARTMEN SERVICES T VISIT MODERATE SEVERITY [facility] T OFFICE 97283 SABINO GALLO OUTPATIEN 1 1 SUJATA SUJATA T VISIT 15 MINUTES OFFICE 91657 SABINO GALLO OUTPATIEN 1 1 SUJATA SUJATA T VISIT 15 MINUTES OFFICE 73983 SABINO BELLA 1 1 SUJATA SUJATA T VISIT 15 MINUTES OFFICE 11537 SABINO BELLA 1 1 SUJATA SUJATA T VISIT 15 MINUTES EMERGENCY 90863 ALMA ARIELA 1 1 EMERGENCY [facility] DEPARTMEN SERVICES T VISIT HIGH/URGE NT SEVERITY [facility] INC T EMERGENCY 23890 [facility] 1 1 [facility] DEPARTMEN INC T VISIT LOW/MODER SEVERITY [facility] T OFFICE 76025 [facility] HARSHANNENL OUTPATIEN 1 1 PHYSICIAN ASHTYN T VISIT GROUP 10 PCC MINUTES PERIODIC 40598 [facility] 1 PHYSICIAN ASHTYN E MED EST GROUP PATIENT PCC 40-64YRS [facility] - 1 1 [facility] T OFFICE 19244 GAGE BELLA 1 1 MEDICAL JAM T VISIT SERV 15 FOUNDATIO MINUTES EMERGENCY 99006 [facility] 1 1 [facility] DEPARTMEN INC T VISIT LOW/MODER SEVERITY EMERGENCY 47552 ALMA KINGEY 1 1 EMERGENCY [facility] DEPARTMEN SERVICES T VISIT MODERATE SEVERITY OFFICE 40496 SABINO BELLA 1 1 SUJATA SUJATA T VISIT 15 MINUTES [facility]PATI[facility] T OFFICE 98409 SABINO BELLA 1 1 SUJATA SUJATA T VISIT 15 MINUTES OFFICE 48518 SABINO BELLA 1 1 SUJATA SUJATA T VISIT 15 MINUTES OFFICE 08382 SABINO BELLA 0 0 SUJATA SUJATA T VISIT 15 MINUTES OFFICE 75972 ARNOLD ARNOLD OUTPATIEN 0 0 SUJATA SUJATA T VISIT 15 MINUTES OFFICE 56626 SABINO GALLO OUTPATIEN 0 0 SUJATA SUJATA T VISIT 15 MINUTES OFFICE 30829 GAGE DIAZ OUTPATIEN 0 0 MEDICAL JAM T VISIT SERV 15 FOUNDATIO MINUTES [facility] T OFFICE 86417 GAGE DIAZ CONSULTAT 0 0 MEDICAL JAM ION SERV NEW/ESTAB FOUNDATIO PATIENT 60 MIN [facility]PATI[facility] T OFFICE 59278 SABINO GALLO OUTPATIEN 0 0 SUJATA SUJATA T VISIT 15 MINUTES [facility] T OFFICE 05520 SABINO GALLO OUTPATIEN 0 0 ARY W ARY W T VISIT 15 MINUTES OFFICE 23272 SABINO GALLO OUTPATIEN 0 0 ARY W ARY W T VISIT 15 MINUTES OFFICE 18428 VERENA [facility] OUTPATIEN 0 0 RONDA Norris T VISIT 10 MINUTES [facility] T OFFICE 10675 DAJUAN DELAROSAPATIEN 0 0 AND HAND AMANDA A T VISIT SURGEONS 15 PSC MINUTES OFFICE 53039 SABINO GALLO OUTPATIEN 0 0 ARY W ARY W T VISIT 15 MINUTES [facility] T OFFICE 93903 GAGE MEDRANO OUTPATIEN 0 0 AND HAND AMANDA A T VISIT SURGEONS 15 PSC MINUTES OFFICE 58314 SABINO GALLO OUTPATIEN 0 0 ARY W ARY W T VISIT 15 MINUTES [facility] T OFFICE 63246 [place] LISA MEDRANO OUTPATIEN 0 0 AND HAND AMANDA A T VISIT SURGEONS 15 PSC MINUTES OFFICE 75925 [facility] HARPEL OUTPATIEN 0 0 PHYSICIAN ASHTYN T VISIT GROUP 15 PCC MINUTES OFFICE 88332 [facility] HARPEL OUTPATIEN 0 0 PHYSICIAN ASHTYN T VISIT GROUP 10 PCC MINUTES [facility] T OFFICE 19583 SABINO GALLO OUTPATIEN 0 0 ARY MCALLISTER W T VISIT 15 MINUTES OFFICE 73045 SABINO GALLO OUTPATIEN 0 0 ARY W ARY W T VISIT 15 MINUTES [facility] T OFFICE 50459 SABINO GALLO OUTPATIEN 0 0 ARY W ARY W T VISIT 15 MINUTES OFFICE 42687 SABINO GALLO OUTPATIEN 9 9 ARY W ARY W T VISIT 15 MINUTES [facility] T OFFICE 23206 [place] [facility] OUTPATIEN 9 9 MICHELLE MICHELLE T NEW 60 MINUTES OFFICE 48012 SABINO GALLO OUTPATIEN 9 9 ARY W ARY W T VISIT 15 MINUTES OFFICE 21336 VERENA [facility] OUTPATIEN 9 9 RONDA Norris T VISIT 10 MINUTES [facility] T OFFICE 88105 VERENA [facility]O OUTPATIEN 9 9 RONDA Norris T VISIT 15 MINUTES OFFICE 84170 SABINO GALLO OUTPATIEN 9 9 ARY W ARY W T VISIT [address] [facility] 87610 KRAIG HOLLINGSWORTH, PREVENTIV 9 9 EDEL Farnsworth MED EST PATIENT 40-64YRS [facility] 9 [facility] T OFFICE 85778 VERENAVERENA OUTPATIDOMENIC 8 8 RONDA Myrna RONDA Myrna T VISIT 15 MINUTES OFFICE 34382 ANTONIETA FUNG, CONSULTAT 8 8 VICKIE MITCHELL/[facility] PATIENT 80 MIN OFFICE 11801 SABINO GALLO OUTPATIEN 8 8 ARY MCALLISTER W T VISIT 15 MINUTES [facility] T EMERGENCY 41901 ANAHI DUMONT, 8 8 [employer]ATIONAL [employer] E DEPARTMEN CORPORATI T VISIT ON MODERATE SEVERITY OFFICE 81610 SABINO GALLO OUTPATIEN 8 8 ARY Enamorado ARY W T VISIT 15 MINUTES [facility] 8 [facility] T OFFICE 57014 ALBARADOVERENA GREGORIO OUTPATIEN 8 8 RONDA Myrna Norris T VISIT 15 MINUTES OFFICE 09845 SABINO GALLO OUTPATIEN 8 8 ARY Fei ARY W T VISIT 15 MINUTES EMERGENCY 60181 [facility] 8 8 [facility] DEPARTMEN INC T VISIT LOW/MODER SEVERITY [facility] 8 [facility] OUTPAT[facility] T EMERGENCY 25059 ANAHI DUMONT, 8 8 NATIONAL ROND[employer] E DEPARTMEN CORPORATI T VISIT ON MODERATE SEVERITY OFFICE 29491 JENA DELAROSA 8 8 AND NILSA Aldridge T VISIT SURGEONS 15 PSC MINUTES OFFICE 34251 SABINO GALLO OUTPATIEN 8 8 ARY MCALLISTER W T VISIT 15 MINUTES OFFICE 84207 SABINO GALLO OUTPATIDOMENIC 8 8 ARY W ARY W T VISIT 15 MINUTES OFFICE 28002 [place] DAJUAN MERAZPATIDOMENIC 8 8 AND HAND AMANDA A T VISIT SURGEONS 15 PSC MINUTES OFFICE 68829 VERENA ALBARADO OUTPATIDOMENIC 8 8 RONDA Norris T VISIT 15 MINUTES OFFICE 22240 VERENA ALBARADO OUTPATIDOMENIC 8 8 RONDA BOND G T VISIT 15 MINUTES [facility] T OFFICE 34087 ANTONIETA FUNG OUTPATIDOMENIC 8 8 VICKIE JOHNSTON T VISIT 25 MINUTES OFFICE 07886 [place] DAJUAN MERAZPATIDOMENIC 8 8 AND HAND AMANDA A T VISIT SURGEONS 15 PSC MINUTES OFFICE 19388 SABINO GALLO OUTPATIEN 8 8 ARY W ARY W T VISIT 15 MINUTES [facility] T OFFICE 79323 ANTONIETA FUNG, CONSULTAT 8 8 VICKIE JOHNSTON ION NEW/[facility] PATIENT 80 MIN OFFICE 24108 JENA CURRY 8 8 EDEL Van T VISIT 15 MINUTES OFFICE 71852 SABINO GALLO OUTPATIEN 8 8 ARY W ARY W T VISIT 15 MINUTES OFFICE 88015 SABINO GALLO OUTPATIEN 8 8 ARY W ARY W T VISIT 15 MINUTES [facility] T OFFICE 10064 VERENA ALBARADO OUTPATIDOMENIC 8 8 RONDA Norris T VISIT 15 MINUTES OFFICE 63111 Oly MANNPATIDOMENIC 8 8 RADHA Nettles VISIT PSC 15 MINUTES PERIODIC 78250 KRAIG HOLLINGSWORTH, PREVENTIV 8 8 EDEL Van E MED EST PATIENT 40-64YRS [facility] - 8 8 [facility] OUTPATIEN INC T OFFICE 49584 KRAIG HOLLINGSWORTH OUTPATIEN 8 8 EDEL Nettles VISIT 10 MINUTES OFFICE 68390 Oly MANN OUTPATIEN 8 8 RADHA Nettles VISIT PSC 15 MINUTES [facility] - 8 8 [facility] OUTPATI[facility] INC T
--- OUTSIDE RECORDS SUMMARY | 2017-07-05 18:30 | External Medical Summary Rpt ---
Author Author [employer], [employer] Organization [employer] Address Unknown Phone Unavailable Results Drugs identified in Urine by Screen method Observa Value Referen Units Interpr Notes Date tion ce etation Range Positive urine drug screen samples are stored for 7 days. Contact the Lab if confirmation of positives is needed. Ampheta NEGATIV <1000 ng/mL No No Jul 02 mine E informa informa 2017 [Presen tion in tion in 10:00 ce] in source source AM Urine data data by Screen method Barbitura <200 ng/mL No No Jul 02 yara informati informati 2017 [Mass/vol on in on in 10:00 AM ume] in source source Urine by data data Screen method Benzodiaz 200 ng/mL ng/mL High This is Jul 02 epines an 2017 [Mass/vol UNCONFIRM 10:00 AM ume] in ED Serum or result. Plasma by This Screen result is method for medicalpu rposes and/or treatment only. Cocaine <300 ng/g No No Jul 02 [Mass/vol informati informati 2017 ume] in on in on in 10:00 AM Unspecifi source source ed data data specimen Methadone <300 ng/mL No No Jul 02 informati informati 2017 [Mass/vol on in on in 10:00 AM ume] in source source Unspecifi data data ed specimen Opiates <300 ng/mL No No Jul 02 [Mass/vol informati informati 2017 ume] in on in on in 10:00 AM Unspecifi source source ed data data specimen Phencycli <25 ng/mL No No Jul 02 dine informati informati 2017 [Mass/vol on in on in 10:00 AM ume] in source source Unspecifi data data ed specimen 11-Hydr NEGATIV <50 ng/mL No No Jul 02 oxy E informa informa 2017 delta-9 tion in tion in 10:00 source source AM tetrahy data data drocann abinol [Presen ce] in Unspeci fied specime n Drugs identified in Urine by Screen method Observa Value Referen Units Interpr Notes Date tion ce etation Range Positive urine drug screen samples are stored for 7 days. Contact the Lab if confirmation of positives is needed. Ampheta NEGATIV <1000 ng/mL No No April 23 mine E informa informa 2016 [Presen tion in tion in 9:37 AM ce] in source source Urine data data by Screen method Barbitura <200 ng/mL No No April 23 yara informati informati 2016 9:37 [Mass/vol on in on in AM ume] in source source Urine by data data Screen method Benzodiaz 200 ng/mL ng/mL High This is April 23 epines an 2017 9:37 [Mass/vol UNCONFIRM AM ume] in ED Serum or result. Plasma by This Screen result is method for medicalpu rposes and/or treatment only. Cocaine <300 ng/g No No April 23 [Mass/vol informati informati 2017 9:37 ume] in on in on in AM Unspecifi source source ed data data specimen Methadone <300 ng/mL No No April 23 informati informati 2017 9:37 [Mass/vol on in on in AM ume] in source source Unspecifi data data ed specimen Opiates <300 ng/mL No No April 23 [Mass/vol informati informati 2016 9:37 ume] in on in on in AM Unspecifi source source ed data data specimen Phencycli <25 ng/mL No No April 23 dine informati informati 2017 9:37 [Mass/vol on in on in AM ume] in source source Unspecifi data data ed specimen 11-Hydr NEGATIV <50 ng/mL No No April 23 oxy E informa informa 2017 delta-9 tion in tion in 9:37 AM source source tetrahy data data drocann abinol [Presen ce] in Unspeci fied specime n Drugs identified in Urine by Screen method Observa Value Referen Units Interpr Notes Date tion ce etation Range Positive urine drug screen samples are stored for 7 days. Contact the Lab if confirmation of positives is needed. Ampheta NEGATIV <1000 ng/mL No No April 19 mine E informa informa 2017 [Presen tion in tion in 9:35 AM ce] in source source Urine data data by Screen method Barbitura <200 ng/mL No No April 19 yara informati informati 2016 9:35 [Mass/vol on in on in AM ume] in source source Urine by data data Screen method Benzodiaz 200 ng/mL ng/mL High This is April 19 epines an 2017 9:35 [Mass/vol UNCONFIRM AM ume] in ED Serum or result. Plasma by This Screen result is method for medicalpu rposes and/or treatment only. Cocaine <300 ng/g No No April 19 [Mass/vol informati informati 2016 9:35 ume] in on in on in AM Unspecifi source source ed data data specimen Methadone <300 ng/mL No No April 19 informati informati 2016 9:35 [Mass/vol on in on in AM ume] in source source Unspecifi data data ed specimen Opiates <300 ng/mL No No April 19 [Mass/vol informati informati 2016 9:35 ume] in on in on in AM Unspecifi source source ed data data specimen Phencycli <25 ng/mL No No April 19 dine informati informati 2017 9:35 [Mass/vol on in on in AM ume] in source source Unspecifi data data ed specimen 11-Hydr NEGATIV <50 ng/mL No No April 19 oxy E informa informa 2017 delta-9 tion in tion in 9:35 AM source source tetrahy data data drocann abinol [Presen ce] in Unspeci fied specime n
--- OUTSIDE RECORDS SUMMARY | 2017-07-05 18:30 | External Medical Summary Rpt ---
Demographics Preferred Language Romanian Marital Status Unknown Bahai Affiliation Unknown Race Unknown Ethnic Group Unknown Author Author , ERASTO MAURER Address Unknown Phone [email or web address] Immunization Name Date Rout CVX Reac Dose Comm Prov Is Faci e tion ent ider Refu lity Give sed n Td 05-0 9 999 Hist H149 No H149 (maricel 08-18 ori lt), 05 al Info adso rmat rbed ion - Sour ce Unsp ecif ied Td 03-0 9 999 Hist H149 No H149 (maricel 6-19 oric lt), 97 al Info adso rmat rbed ion - Sour ce Unsp ecif ied
--- OUTSIDE RECORDS SUMMARY | 2017-07-05 18:30 | External Medical Summary Rpt ---
Demographics Preferred Language Mongolian Marital Status Unknown Islam Affiliation Unknown Race Unknown Ethnic Group Unknown Author Author , ERASTO MAURER Address Unknown Phone [email or web address] Immunization Name Date Rout CVX Reac Dose [...]
== END 2017-07-04 15:07 | disposition home or self-care (01) ==
LOC: ER 14:44
PROC: 0HQFXZZ Repair Right Hand Skin, External Approach (ICD-10-PCS; principal; 2017-07-04)
DX: S61.216A Laceration without foreign body of right little finger without damage to nail, initial encounter (principal); W25.XXXA Contact with sharp glass, initial encounter; Y92.009 Unspecified place in unspecified non-institutional (private) residence as the place of occurrence of the external cause
CPT/HCPCS: G0168

== ENCOUNTER → 2017-09-22 | Outpatient (CLI) | payer MEDICAID ==
[~2017-09-22] MED LIST changes: +BACTRIM DS 8001 TA1 PO
[2017-09-24 10:39] LABS: HBsAg Screen Negative (Negative); Hep A Ab, IgM Negative (Negative); Hep B Core Ab, IgM Negative (Negative); Hep C Virus Ab <0.1 (0.0-0.9)
== END ==
LOC: LAB 18:11
PROVIDERS: Nurse Practitioner Family
DX: E03.9 Hypothyroidism, unspecified (principal); K75.9 Inflammatory liver disease, unspecified